=== PATIENT | male | born 1970 | race Caucasian/White ===

== ENCOUNTER 2018-02-04 19:34 | Inpatient (IN) ==
[2018-02-04] MEDS ORDERED: Morphine Inj 4 MG/ML Vial ONE (19:41)
--- NOTE | 2018-02-04 19:58 | ED ---
HPI General Stated Complaint: Trauma Alert Time Seen by Provider: 02/04/18 19:54 Source: patient Mode of arrival: other ([employer]) Limitations: language barrier ([place] and Swedish speaking) History of Present Illness HPI narrative: The patient is a reportedly 47 year old male who presents to the [facility] emergency department with a history of being 20 foot up in a tree prior to arrival when he fell out. The patient was reportedly hunting. The patient is unsure how he fell. The patient reports that he believes that he did have a loss of consciousness, however it was brief. The patient reports having neck pain, weakness to his upper extremities, numbness to his upper extremities, and chest pain. He denies having any shortness of breath. The patient denies having any abdominal pain. On review of systems otherwise, the patient denies having any headache, vomiting, numbness or tingling to his lower extremities, or weakness of his lower extremities. Related Data Allergies Allergy/AdvReac Type Severity Reaction Status Date / Time Penicillins Allergy unknown Verified 02/04/18 20:07 Review of Systems ROS: all other systems reviewed are negative PMFSH History History Provided By: Patient Medical History Medical History Atrial fibrillation (Acute) Hypertension (Acute) Surgical History Surgical History H/O knee surgery (Acute) Social History Social History Substance History: No History of Abuse Smoking Status: Never smoker How Often Do You Have a Drink Containing Alcohol: Never Exam Narrative Exam Narrative: General: The patient is a well-developed well-nourished male, uncomfortable appearing on arrival reporting severe neck pain. The patient is brought in on a back board in full c-spine immobilization by emergency services. Head and Neck exam: Head is normocephalic atraumatic. No facial bone tenderness or increased facial bone mobility noted on palpation. Eyes: EOMI, pupils are equal round and reactive to light. Nose: Midline septum with pink mucous membranes Mouth: Dentition unremarkable. Moist mucus membranes. Posterior oropharynx is not erythematous. No tonsillar hypertrophy. Uvula midline. Airway patent. Neck: The patient is immobilized in a cervical collar. No tracheal deviation. The trachea appears midline. Cardiovascular: Regular rate and rhythm without murmurs, gallops, or rubs. No pulse deficit to the extremities. Lungs: Clear to auscultation bilaterally. No wheezes, rhonchi, or rales. No chest wall tenderness to palpation. No erythema or ecchymosis noted. No crepitus , step off, or flail segment noted. Abdomen: Soft, without tenderness to palpation in all 4 quadrants of the abdomen. No guarding, rebound, or rigidity. No erythema or ecchymosis noted. Extremities: No instability or pain noted on pelvic rock. No clubbing, cyanosis , or edema. 2+ pulses in all 4 extremities. No extremity tenderness or deformity noted on palpation or passive/ active range of motion. Back: The patient was log rolled off of the back board. No spinous process tenderness to palpation. No stepoff or crepitus noted. No costovertebral angle tenderness to palpation. No erythema or ecchymosis. Neurologic Exam: Cranial nerves 2-12 were intact on exam. The patient has strength that is 4/5 in bilateral upper extremities, 5/5 in bilateral lower extremities. The patient reports having tingling sensations in glove distribution bilateral upper extremities. No other numbness or tingling on dermatomal testing. Skin Exam: No rash noted. Intact skin that is warm and dry. Course Consultations Consultation #1: The patient's case including history, pertinent physical examination findings, and laboratory studies were discussed with Dr. Andrews, the neurosurgeon. He requested that the patient have an MRI of the cervical spine without contrast. He is coming in to evaluate the patient. Time: 19:58 Initial Documented Vital Signs Pulse Oximetry 100 02/04/18 19:40 Last Documented Vital Signs Temperature 98.2 F 02/05/18 04:00 Pulse Rate 66 02/05/18 05:00 Respiratory Rate 16 02/05/18 05:00 Blood Pressure 92/54 L 02/05/18 05:00 Pulse Oximetry 100 02/05/18 05:00 Quality Measure Queries Trauma Alert - Level One Trauma Alert Level One: Full trauma team activation, Patient evaluated and Trauma surgeon summoned Time Surgeon Summoned: 19:18 Medical Decision Making MDM Narrative Medical decision making narrative: During the course of the patient's emergency department visit, the patient's history, examination, and differential diagnosis were reviewed with the patient. The patient was placed on a clerk operator with oximetry and frequent blood pressure monitoring. The patient had IV access obtained and blood work sent for analysis. A diagnostic evaluation was started regarding this patient's fall from a tree. The trauma surgeon, Dr. Jones was available at the bedside to assist with care. The patient was initially provided an update of his tetanus, Ancef 2 g IV, normal saline 1 L IV fluid bolus. Patient's chest x-ray in the trauma bay showed no acute abnormality, pelvis x- ray in the trauma bay showed no acute abnormality. The patient's i-STAT with creatinine is remarkable for a hemoglobin of 13.9, creatinine 1.0. The patient was accompanied to CT by Dr. Jones who assumed care of the patient. I also accompanied the patient. The patient CT scan of the brain showed no acute abnormality. CT scan of the C-spine showed an abnormality involving C5-C6. A call was placed out to the neurosurgeon by me. I spoke to Dr. Andrews. He requested that an MRI of the cervical spine without contrast be ordered. He is coming in to evaluate the patient. Dr. Andrews arrived to evaluate the patient. We did discuss the fact that the patient reported being on a blood thinner for atrial fibrillation, however his coagulation profile is within normal limits. He did request that the patient be given a prothrombin concentrate in preparation for be taken to the OR. Prior to this being done, the patient's case was again discussed with the patient's trauma surgeon, Dr. Jones. He explained that he did discuss the patient's medical history with the patient's and she reports that he is not on any blood thinners. The patient's results were discussed with the patient, including the plan of care. I explained that further testing and/ or monitoring is indicated based on the patient's history, examination, and/ or laboratory findings. Therefore, I recommended admission for additional evaluation. The patient expressed understanding and was agreeable with this plan. The patient was admitted to the hospital in critical condition and sent to a bed under the care of the trauma service. Medical Screen Exam Complete: Yes Emergency Medical Condition: Yes Differential Diagnosis Differential Diagnosis: Intracranial trauma, versus cervical spine trauma, versus intrathoracic injury, versus intra-abdominal injury, versus pelvis injury , versus T spine injury, versus L spine injury Medical Records Medical records reviewed: Yes I reviewed the patient's medical records. Lab Data Lab results reviewed: Yes I reviewed the patient's lab results. Result diagrams: 02/05/18 03:47 02/05/18 03:47 Lab Results 02/04/18 02/04/18 02/04/18 Range/Units 19:38 19:38 19:38 WBC 7.2 (4.0-11.0) th/mm3 RBC 4.87 (4.50-5.90) mil/mm3 Hgb 14.5 (13.0-17.0) gm/dL POC Hgb (Calc) 13.9 (13.0-17.0) g/dL Hct 43.6 (39.0-51.0) % POC Hct 41.0 (39-51.0) % MCV 89.6 (80.0-100.0) fL MCH 29.8 (27.0-34.0) pg MCHC 33.3 (32.0-36.0) % RDW 13.1 (11.6-17.2) % Plt Count 126 L (150-450) th/mm3 MPV 9.3 (7.0-11.0) fL Neut % (Auto) 67.9 (16.0-70.0) % Lymph % (Auto) 23.2 (9.0-44.0) % Jenkins % (Auto) 5.3 (0.0-8.0) % Eos % (Auto) 2.9 (0.0-4.0) % Baso % (Auto) 0.7 (0.0-2.0) % Neut # (Auto) 4.9 (1.8-7.7) th/mm3 Lymph # (Auto) 1.7 (1.0-4.8) th/mm3 Jenkins # (Auto) 0.4 (0.0-0.9) th/mm3 Eos # (Auto) 0.2 (0.0-0.4) th/mm3 Baso # (Auto) 0.0 (0.0-0.2) th/mm3 WBC Differential . Differential Comment Auto diff final PT 10.4 (9.8-11.6) sec INR 1.0 Ratio APTT 25.6 (23.4-31.7) sec Fibrinogen (227-377) mg/dL POC Sodium 142 (137-144) mmol/L Sodium (136-145) meq/L POC Potassium 4.0 (3.6-5.0) mmol/L Potassium (3.5-5.1) meq/L POC Chloride 105 (102-111) mmol/L Chloride (98-107) meq/L Carbon Dioxide (21.0-32.0) meq/L Anion Gap (5-15) meq/L POC BUN 20 (5-21) mg/dL BUN (7-18) mg/dL Creatinine (0.60-1.30) mg/dL POC Creatinine 1.0 (0.6-1.3) mg/dL Estimated GFR (>89) mL/min POC Glucose 113 H (68-110) mg/dL Random Glucose (74-106) mg/dL Calcium (8.5-10.1) mg/dL Total Bilirubin (0.2-1.0) mg/dL AST (15-37) U/L ALT (12-78) U/L Alkaline Phosphatase (45-117) U/L Total Protein (6.4-8.2) g/dL Albumin (3.4-5.0) g/dL Nasal Screen MRSA (PCR) (Negative) Serum Alcohol (0-5) mg/dL Blood Type Antibody Screen 02/04/18 02/04/18 02/04/18 Range/Units 19:38 19:38 19:38 WBC (4.0-11.0) th/mm3 RBC (4.50-5.90) mil/mm3 Hgb (13.0-17.0) gm/dL POC Hgb (Calc) (13.0-17.0) g/dL Hct (39.0-51.0) % POC Hct (39-51.0) % MCV (80.0-100.0) fL MCH (27.0-34.0) pg MCHC (32.0-36.0) % RDW (11.6-17.2) % Plt Count (150-450) th/mm3 MPV (7.0-11.0) fL Neut % (Auto) (16.0-70.0) % Lymph % (Auto) (9.0-44.0) % Jenkins % (Auto) (0.0-8.0) % Eos % (Auto) (0.0-4.0) % Baso % (Auto) (0.0-2.0) % Neut # (Auto) (1.8-7.7) th/mm3 Lymph # (Auto) (1.0-4.8) th/mm3 Jenkins # (Auto) (0.0-0.9) th/mm3 Eos # (Auto) (0.0-0.4) th/mm3 Baso # (Auto) (0.0-0.2) th/mm3 WBC Differential Differential Comment PT (9.8-11.6) sec INR Ratio APTT (23.4-31.7) sec Fibrinogen 247 (227-377) mg/dL POC Sodium (137-144) mmol/L Sodium (136-145) meq/L POC Potassium (3.6-5.0) mmol/L Potassium (3.5-5.1) meq/L POC Chloride (102-111) mmol/L Chloride (98-107) meq/L Carbon Dioxide (21.0-32.0) meq/L Anion Gap (5-15) meq/L POC BUN (5-21) mg/dL BUN (7-18) mg/dL Creatinine (0.60-1.30) mg/dL POC Creatinine (0.6-1.3) mg/dL Estimated GFR (>89) mL/min POC Glucose (68-110) mg/dL Random Glucose (74-106) mg/dL Calcium (8.5-10.1) mg/dL Total Bilirubin (0.2-1.0) mg/dL AST (15-37) U/L ALT (12-78) U/L Alkaline Phosphatase (45-117) U/L Total Protein (6.4-8.2) g/dL Albumin (3.4-5.0) g/dL Nasal Screen MRSA (PCR) (Negative) Serum Alcohol Less than 3 (0-5) mg/dL Blood Type O Positive Antibody Screen Negative 02/04/18 02/05/18 02/05/18 Range/Units 20:45 03:47 03:47 WBC 12.1 H D (4.0-11.0) th/mm3 RBC 4.48 L (4.50-5.90) mil/mm3 Hgb 13.4 (13.0-17.0) gm/dL POC Hgb (Calc) (13.0-17.0) g/dL Hct 40.2 (39.0-51.0) % POC Hct (39-51.0) % MCV 89.6 (80.0-100.0) fL MCH 29.8 (27.0-34.0) pg MCHC 33.3 (32.0-36.0) % RDW 13.2 (11.6-17.2) % Plt Count 118 L (150-450) th/mm3 MPV 9.4 (7.0-11.0) fL Neut % (Auto) 88.6 H (16.0-70.0) % Lymph % (Auto) 8.1 L (9.0-44.0) % Jenkins % (Auto) 3.1 (0.0-8.0) % Eos % (Auto) 0.0 (0.0-4.0) % Baso % (Auto) 0.2 (0.0-2.0) % Neut # (Auto) 10.7 H (1.8-7.7) th/mm3 Lymph # (Auto) 1.0 (1.0-4.8) th/mm3 Jenkins # (Auto) 0.4 (0.0-0.9) th/mm3 Eos # (Auto) 0.0 (0.0-0.4) th/mm3 Baso # (Auto) 0.0 (0.0-0.2) th/mm3 WBC Differential . Differential Comment Auto diff final PT (9.8-11.6) sec INR Ratio APTT (23.4-31.7) sec Fibrinogen (227-377) mg/dL POC Sodium (137-144) mmol/L Sodium 142 (136-145) meq/L POC Potassium (3.6-5.0) mmol/L Potassium 4.2 (3.5-5.1) meq/L POC Chloride (102-111) mmol/L Chloride 109 H (98-107) meq/L Carbon Dioxide 27.9 (21.0-32.0) meq/L Anion Gap 5 (5-15) meq/L POC BUN (5-21) mg/dL BUN 19 H (7-18) mg/dL Creatinine 0.81 (0.60-1.30) mg/dL POC Creatinine (0.6-1.3) mg/dL Estimated GFR 82 L (>89) mL/min POC Glucose (68-110) mg/dL Random Glucose 136 H (74-106) mg/dL Calcium 8.1 L (8.5-10.1) mg/dL Total Bilirubin 0.7 (0.2-1.0) mg/dL AST 118 H (15-37) U/L ALT 63 (12-78) U/L Alkaline Phosphatase 70 (45-117) U/L Total Protein 6.1 L (6.4-8.2) g/dL Albumin 3.3 L (3.4-5.0) g/dL Nasal Screen MRSA (PCR) Not detected (Negative) Serum Alcohol (0-5) mg/dL Blood Type Antibody Screen Imaging Data Radiologist's impression: Chest X-Ray 02/04/18 19:38 CONCLUSION: The lungs are clear. Pelvis X-Ray 02/04/18 19:38 CONCLUSION: The bony pelvic ring is grossly intact. Abdomen/Pelvis CT 02/04/18 19:39 CONCLUSION: 1. 3.8 cm low-density lesion in the dome of the liver is nonspecific in appearance. This could represent a parenchymal laceration/hematoma or possibly cavernous hemangioma. No contour abnormality about the liver and no free fluid in the abdomen. Once the patient is stabilized, may consider elective evaluation either with multiphasic MRI or dynamic tagged red blood cell scan. Chest CT 02/04/18 19:39 CONCLUSION: 1. Mildly displaced fractures of the mid and inferior sternum. 2. No evidence of pneumothorax. Cervical Spine CT 02/04/18 19:40 CONCLUSION: 1. Gross distortion of the spinal canal at the C5-6 level due to bilateral locked facets causing anterior dislocation of the C5 vertebral body. No vertebral body fracture seen. Head CT 02/04/18 19:40 CONCLUSION: 1. No acute findings in the brain. . Lumbar Spine CT 02/04/18 19:40 CONCLUSION: 1. No evidence of fracture, spondylolisthesis, or significant epidural impression. Thoracic Spine CT 02/04/18 19:40 CONCLUSION: 1. Negative CT of the thoracic spine without evidence of fracture or spondylolisthesis. Cervical Spine MRI 02/04/18 20:01 CONCLUSION: 1. There is minimal T2 prolongation within the substance of the cervical cord at the C5 level, but no evidence of cord transection. No epidural hematoma seen. 2. 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 3. Small central disc protrusion at C4-5 without indentation on the cord or lateral extension. Discharge Plan Discharge Disposition Patient Disposition: 30 Still Patient Discharge Details Diagnosis: Acute traumatic injury of cervical spine Physicians Team ED Provider: Siri Aldana Attending Provider: Jorge Jones Other Providers: Wyatt Andrews ; Rolf Carmen ; Bennie Valdez ; [employer] ; Pérez Méndez ; Bernadine Crook F ; Jorge Jones ; Teresita Hansen ; Radu Beaulieu ; Elisa Burnham Status ED Status: Admitted Patient
[2018-02-04 19:59] LABS: Baso % (Auto) 0.7 % (0.0-2.0); Eos # (Auto) 0.2 th/mm3 (0.0-0.4); Eos % (Auto) 2.9 % (0.0-4.0); Hematocrit 43.6 % (39.0-51.0); Hemoglobin 14.5 gm/dL (13.0-17.0); Lymph # (Auto) 1.7 th/mm3 (1.0-4.8); Lymph % (Auto) 23.2 % (9.0-44.0); Mean Corpuscular HGB Conc 33.3 % (32.0-36.0); Mean Corpuscular Hemoglobin 29.8 pg (27.0-34.0); Mean Corpuscular Volume 89.6 fL (80.0-100.0); Mean Platelet Volume 9.3 fL (7.0-11.0); Mono # (Auto) 0.4 th/mm3 (0.0-0.9); Mono % (Auto) 5.3 % (0.0-8.0); Neut # (Auto) 4.9 th/mm3 (1.8-7.7); Neut % (Auto) 67.9 % (16.0-70.0); Platelet Count 126 th/mm3 (150-450); Red Blood Count 4.87 mil/mm3 (4.50-5.90); Red Cell Distribution Width 13.1 % (11.6-17.2); White Blood Count 7.2 th/mm3 (4.0-11.0)
--- NOTE | 2018-02-04 20:03 | CT ---
EXAM DATE: 02/04/2018 7:56 PM EST AGE/SEX: 89 years / Male INDICATIONS: Trauma; patient fell from 20 feet. CLINICAL DATA: This is the patient's initial encounter. Patient reports that signs and symptoms have been present for 1 day and indicates a pain score of Nonresponsive. MEDICAL/SURGICAL HISTORY: None. None. RADIATION DOSE: 19.26 CTDI (mGy) COMPARISON: No prior exams available for comparison. TECHNIQUE: Contiguous axial images were obtained using helical multirow detector technique. The vol umetric data was post-processed with multiplanar reconstruction in oblique axial, sagittal, and coron al planes. Using automated exposure control and adjustment of the mA and/or kV according to patient s ize, radiation dose was kept as low as reasonably achievable to obtain optimal diagnostic quality conner ges. DICOM format image data is available electronically for review and comparison. FINDINGS: The examination is abnormal demonstrating disruption of the C5-6 level with 8 mm anterior dislocatio n of C5 with respect to C6 and locked facets bilaterally. There is also mild superior articular facet fracture on the left. No compression deformities seen and no vertebral body fractures. CONCLUSION: 1. Gross distortion of the spinal canal at the C5-6 level due to bilateral locked facets causing ant erior dislocation of the C5 vertebral body. No vertebral body fracture seen. Electronically signed by: Maxwell Story MD 02/04/2018 8:01 PM EST
--- NOTE | 2018-02-04 20:04 | CT ---
EXAM DATE: 02/04/2018 7:53 PM EST AGE/SEX: 89 years / Male INDICATIONS: Trauma; fall from 20 feet. CLINICAL DATA: This is the patient's initial encounter. Patient reports that signs and symptoms have been present for 1 day and indicates a pain score of Nonresponsive. MEDICAL/SURGICAL HISTORY: None. None. RADIATION DOSE: 56.35 CTDI (mGy) COMPARISON: No prior exams available for comparison. TECHNIQUE: CT of the head without contrast. Using automated exposure control and adjustment of the mA and/or kV according to patient size, radiation dose was kept as low as reasonably achievable to ob tain optimal diagnostic quality images. DICOM format image data is available electronically for revi ew and comparison. FINDINGS: Cerebrum: The ventricles are normal for age. No evidence of midline shift, mass lesion, hemorrhage or acute infarction. No extraaxial fluid collections are seen. Posterior Fossa: The cerebellum and brainstem are intact. The 4th ventricle is midline. The cerebe llopontine angle is unremarkable. Extracranial: The visualized portion of the orbits is intact. Skull: The calvaria is intact. No evidence of skull fracture. CONCLUSION: 1. No acute findings in the brain. . Electronically signed by: Maxwell Story MD 02/04/2018 8:02 PM EST
--- NOTE | 2018-02-04 20:04 | XR ---
EXAM DATE: 02/04/2018 7:50 PM EST AGE/SEX: 89 years / Male INDICATIONS: Trauma alert. Fall from 40 feet. CLINICAL DATA: This is the patient's initial encounter. Patient reports that signs and symptoms have been present for 1 day and indicates a pain score of Nonresponsive. MEDICAL/SURGICAL HISTORY: Non-responsive. Non-responsive. COMPARISON: . FINDINGS: Frontal view of the chest on a trauma backboard demonstrates the lungs to be symmetrically aerated. N o evidence of mediastinal shift. The osseous structures are grossly intact. CONCLUSION: The lungs are clear. Electronically signed by: Maxwell Story MD 02/04/2018 8:03 PM EST
--- NOTE | 2018-02-04 20:05 | XR ---
EXAM DATE: 02/04/2018 7:51 PM EST AGE/SEX: 89 years / Male INDICATIONS: Trauma alert. Fall from 40 feet. CLINICAL DATA: This is the patient's initial encounter. Patient reports that signs and symptoms have been present for 1 day and indicates a pain score of Nonresponsive. MEDICAL/SURGICAL HISTORY: Non-responsive. Non-responsive. COMPARISON: No prior exams available for comparison. FINDINGS: Frontal view of the pelvis performed on a trauma backboard does not include the superior aspect of th e iliac wings. The bony pelvic ring is grossly intact. No fracture seen. No radiopaque foreign bodies . CONCLUSION: The bony pelvic ring is grossly intact. Electronically signed by: Maxwell Story MD 02/04/2018 8:03 PM EST
[2018-02-04 20:13] LABS: Activated Partial Thrombo Time 25.6 sec (23.4-31.7); Prothrombin Time 10.4 sec (9.8-11.6)
--- NOTE | 2018-02-04 20:19 | CT ---
EXAM DATE: 02/04/2018 8:10 PM EST AGE/SEX: 89 years / Male INDICATIONS: Trauma; patient fell from 20 feet. CLINICAL DATA: This is the patient's initial encounter. Patient reports that signs and symptoms have been present for 1 day and indicates a pain score of Nonresponsive. MEDICAL/SURGICAL HISTORY: None. None. RADIATION DOSE: 10.49 CTDI (mGy) ; Combined studies COMPARISON: No prior exams available for comparison. TECHNIQUE: Multiple contiguous axial images were obtained through the chest during bolus infusion of 98 ml Omnipaque 350 (iohexol) nonionic water-soluble contrast as a cumulative dose for multiple exa ms. Images were obtained in suspended respiration using multiple row detector helical technique. U sing automated exposure control and adjustment of the mA and/or kV according to patient size, radiati on dose was kept as low as reasonably achievable to obtain optimal diagnostic quality images. DICOM format image data is available electronically for review and comparison. FINDINGS: Lungs: The lungs are symmetrically aerated with mild atelectasis in the dependent lungs. No evidence of pneumothorax. Mediastinum: There is good visualization of the great vessels of the middle mediastinum. No evidenc e of mediastinal or hilar adenopathy/mass. Pleurae: No evidence of focal thickening or pleural effusion. Axillae: Unremarkable. Bony Structures: Mildly displaced and mildly comminuted fracture of the mid body of the sternum. Onl y minimal soft tissue thickening of the substernal tissues. CONCLUSION: 1. Mildly displaced fractures of the mid and inferior sternum. 2. No evidence of pneumothorax. Electronically signed by: Maxwell Story MD 02/04/2018 8:18 PM EST
--- NOTE | 2018-02-04 20:24 | CT ---
EXAM DATE: 02/04/2018 8:15 PM EST AGE/SEX: 89 years / Male INDICATIONS: Trauma; patient fell from 20 feet. CLINICAL DATA: This is the patient's initial encounter. Patient reports that signs and symptoms have been present for 1 day and indicates a pain score of Nonresponsive. MEDICAL/SURGICAL HISTORY: None. None. ORAL CONTRAST: No oral contrast ingested. RADIATION DOSE: 10.49 CTDI (mGy) COMPARISON: No prior exams available for comparison. TECHNIQUE: Multiple contiguous axial images were obtained through the abdomen and pelvis following b olus infusion of 98 ml Omnipaque 350 (iohexol) nonionic water-soluble contrast as a cumulative dose for multiple exams. No oral contrast ingested. Using automated exposure control and adjustment of t he mA and/or kV according to patient size, radiation dose was kept as low as reasonably achievable to obtain optimal diagnostic quality images. DICOM format image data is available electronically for r eview and comparison. FINDINGS: Liver: There is a 3.8 cm lobular hypodense lesion in the dome of the liver which contains some centra l areas of intermediate density. No calcifications. No contour abnormality of the dome of the liver. There is a 4 mm cyst in the anterior segment of the right lobe the liver. No perihepatic fluid. No ca lcified gallstones. Spleen: Homogeneous density without enlargement. Pancreas: Unremarkable without mass or calcification. Kidneys: Normal in size and shape. No evidence of mass or hydronephrosis. Adrenal Glands: Unremarkable. Aorta: The aorta and proximal iliac vessels are grossly unremarkable without aneurysmal dilation. Bowel/Mesentery: No dilated loops of small or large bowel. No evidence of free fluid. Abdominal Wall: Intact. Retroperitoneum: No evidence of adenopathy in the retrocrural, para-aortic, or deep pelvic regions. Bladder: Contours are smooth. Reproductive Organs: No abnormal masses or calcifications seen. Inguinal: The inguinal region is unremarkable without evidence of adenopathy. Bony Structures: No fracture seen. CONCLUSION: 1. 3.8 cm low-density lesion in the dome of the liver is nonspecific in appearance. This could repre sent a parenchymal laceration/hematoma or possibly cavernous hemangioma. No contour abnormality about the liver and no free fluid in the abdomen. Once the patient is stabilized, may consider elective ev aluation either with multiphasic MRI or dynamic tagged red blood cell scan. Electronically signed by: Maxwell Story MD 02/04/2018 8:23 PM EST
--- NOTE | 2018-02-04 20:44 | CT ---
EXAM DATE: 02/04/2018 8:20 PM EST AGE/SEX: 89 years / Male INDICATIONS: Trauma; patient fell from 20 feet. CLINICAL DATA: This is the patient's initial encounter. Patient reports that signs and symptoms have been present for 1 day and indicates a pain score of Nonresponsive. MEDICAL/SURGICAL HISTORY: None. None. RADIATION DOSE: 10.49 CTDI (mGy) ; Combined studies COMPARISON: No prior exams available for comparison. TECHNIQUE: Contiguous axial images were acquired using a multirow detector CT scanner after intraven ous administration of 98 ml Omnipaque 350 (iohexol) nonionic water-soluble contrast as a cumulative dose for multiple exams. Multiplanar reconstruction in the sagittal and coronal planes was performe d. Using automated exposure control and adjustment of the mA and/or kV according to patient size, ra diation dose was kept as low as reasonably achievable to obtain optimal diagnostic quality images. D ICOM format image data is available electronically for review and comparison. FINDINGS: There is normal alignment of the vertebral bodies of the thoracic spine and preservation of vertebral body height. In frontal projection, there is minimal curvature of the midthoracic spine convex towar ds the left. No fracture seen. CONCLUSION: 1. Negative CT of the thoracic spine without evidence of fracture or spondylolisthesis. Electronically signed by: Maxwell Story MD 02/04/2018 8:43 PM EST
--- NOTE | 2018-02-04 20:46 | CT ---
EXAM DATE: 02/04/2018 8:25 PM EST AGE/SEX: 89 years / Male INDICATIONS: Trauma alert, fall today. CLINICAL DATA: This is the patient's initial encounter. Patient reports that signs and symptoms have been present for 1 day and indicates a pain score of Nonresponsive. MEDICAL/SURGICAL HISTORY: Non-responsive. Non-responsive. RADIATION DOSE: . CTDI (mGy) ; Reconstructed from previous dataset, no dose COMPARISON: No prior exams available for comparison. TECHNIQUE: Contiguous axial images were acquired with a multirow detector CT scanner after intraveno us administration of 98 ml Omnipaque 350 (iohexol) nonionic water-soluble contrast as a single exam dose. Multiplanar reconstructions in the sagittal and coronal plane were also performed. Using autom ated exposure control and adjustment of the mA and/or kV according to patient size, radiation dose wa s kept as low as reasonably achievable to obtain optimal diagnostic quality images. DICOM format conner data is available electronically for review and comparison. FINDINGS: There is normal alignment of the vertebral bodies of the lumbar spine and preservation of vertebral b biren height. The posterior elements are in normal alignment. The pedicles and transverse processes are intact. Impression seen. No fractures seen. CONCLUSION: 1. No evidence of fracture, spondylolisthesis, or significant epidural impression. Electronically signed by: Maxwell Story MD 02/04/2018 8:45 PM EST
--- NOTE | 2018-02-04 20:56 | MR ---
EXAM DATE: 02/04/2018 8:28 PM EST AGE/SEX: 89 years / Male INDICATIONS: Trauma. Cervical spine fracture. CLINICAL DATA: This is the patient's initial encounter. Patient reports that signs and symptoms have been present for 1 day and indicates a pain score of 5/10. MEDICAL/SURGICAL HISTORY: None. . Hip surgery. COMPARISON: No prior exams available for comparison. TECHNIQUE: Multiplanar, multisequence MRI examination of the cervical spine was performed without co ntrast. FINDINGS: Trauma CT demonstrated bilateral locked facets at C5-6 and 8mm anterior displacement of the C5 verteb ral body with respect to C6. On the MR, there is deviation of the cervical cord at the C5-6 level wit hout evidence of transection of the cord. There is some minimal faint T2 prolongation within the subs tance of the cord at the C5 level suggesting contusion. There is also mild enlargement of the cord at the C5 level. No epidural hematoma seen. Signal in the vertebral bodies is homogeneous and no compre ssion deformities seen. There is T2 prolongation in the soft tissues posterior to the C3-C6 level sug gesting ligamentous disruption. Bilateral locked facets at C5-6 with normal pattern of signal within the marrow of the facets. The visualized posterior fossa structures are intact. C2-C3: The thecal sac has a normal configuration. There is no evidence of disc herniation or spinal canal stenosis. The neural foramina are patent bilaterally. C3-C4: The thecal sac has a normal configuration. There is no evidence of disc herniation or spinal canal stenosis. The neural foramina are patent bilaterally. C4-C5: There is a small central protrusion of the disc which indents on the thecal sac and measures 2 mm in AP dimension. No lateral extension. The neural foramen are patent. C5-C6: Level of the anterior dislocation. There is absent CSF about the cervical cord and bilateral neural foraminal narrowing. C6-C7: The thecal sac has a normal configuration. There is no evidence of disc herniation or spinal canal stenosis. The neural foramina are patent bilaterally. C7-T1: No epidural impressions seen. CONCLUSION: 1. There is minimal T2 prolongation within the substance of the cervical cord at the C5 level, but n o evidence of cord transection. No epidural hematoma seen. 2. Bilateral locked facets at C5-6 and 8mm anterior displacement of the C5 vertebral body with respe ct to C6. 3. Small central disc protrusion at C4-5 without indentation on the cord or lateral extension. Electronically signed by: Maxwell Story MD 02/04/2018 8:55 PM EST
[2018-02-04] MEDS: Docusate Sodium 100 MG Capsule PO SCH (21:24)
[2018-02-04] MEDS: Sod Chloride 0.9% Inj 1,000 ML IV.CONT SCH (21:24)
--- NOTE | 2018-02-04 21:26 | P.CONNS ---
History of Present Illness Service[place] Chief Complaint: neck pain, left arm numbness, bilateral hand weakness L > R History of Present Illness: 48'syoM who fell 40ft from a tree stand. Had severe neck pain, endorses hand weakness bilaterally and left arm numbness. Imaging shows C5/6 bilateral jumped facet. MRI obtained. Full strength in lower extremities and proximal upper extremities. Intact sensation througout. Has also sternal fracture. Son apparently jumped down from another tree stand to help and has some rib fractures as another trauma alert. Not on any blood thinners in speaking with (coags normal). Had a knee surgery recently. REPLACED BY [facility] - History History Provided By: Patient - Medical History Medical History: Medical History (Last Updated 02/04/18 @ 20:08 by Siri Aldana MD) Atrial fibrillation Hypertension - Surgical History Surgical History: Surgical History (Last Updated 02/04/18 @ 20:08 by Siri Aldana MD) H/O knee surgery Medications and Allergies Active Medications: Active Medications Al Hydroxide/Mg Hydroxide (Milk Of Nadia Isaac) 30 ml PO BID ANTOINETTE Chlorhexidine Gluconate (Chlorhexidine 2% Cloth) 3 pack TOPICAL DAILY@0400 ANTOINETTE Stop: 02/10/18 03:59 Chlorhexidine Gluconate (Chlorhexidine 2% Cloth) 3 pack TOPICAL DAILY@0400 PRN PRN Reason: Extra cloth needed Stop: 02/10/18 03:59 Docusate Sodium (Colace) 100 mg PO BID ANTOINETTE Enalaprilat (Vasotec Inj) 1.25 mg IV.PUSH Q8H PRN PRN Reason: Blood pressure 180/95 Hydromorphone HCl (Dilaudid Pf Inj) 1 mg IV.PUSH Q1H PRN PRN Reason: Break through pain Sodium Chloride (Ns Inj) 1,000 mls @ 100 mls/hr IV.CONT .Q10H [facility] Multivitamins 10 ml/ Thiamine HCl 100 mg/ Folic Acid 1 mg/Sodium Chloride 511.2 mls @ 125 mls/hr IV.SIG Q24H [facility] Stop: 02/07/18 01:06 Lidocaine HCl (Lidoderm 5% Patch.12 Hr) 1 patch T-DERMAL DAILY [facility] Methocarbamol (Robaxin) 500 mg PO Q8HR ANTOINETTE Ondansetron HCl (Zofran Inj) 4 mg IV.PUSH Q6H PRN PRN Reason: NAUSEA OR VOMITING Last Admin: 02/04/18 19:43 Dose: 4 mg Oxycodone HCl (Roxicodone) 5 mg PO Q4H PRN PRN Reason: pain > 3 Pantoprazole Sodium (Protonix Inj) 40 mg IV.PUSH Q24H ANTOINETTE Patch Removal (Remove Old Patch) 1 each T-DERMAL HS ANTOINETTE Sodium Chloride (Ns Flush) 2 ml IV.FLUSH UNSCH PRN PRN Reason: FLUSH AFTER USING IV ACCESS Allergies Allergy/AdvReac Type Severity Reaction Status Date / Time Penicillins Allergy unknown Verified 02/04/18 20:07 Exam Vital signs: Vital Signs 02/04/18 19:40 Pulse Oximetry 100 Narrative: A&O x 3 -- comoran speaking Full strength bilateral LE and proximal UE (delt, biceps, triceps) Hand intrinsics grade 2, left arm is painful to move and he endorses numbness here Neck pain Results - Laboratory Findings CBC and BMP: 02/04/18 19:38 Abnormal lab findings: Abnormal Labs 02/04/18 02/04/18 19:38 19:38 Plt Count 126 L POC Glucose 113 H - Diagnostic Findings Additional findings: CT C-spine as above - C5/6 bilateral jumped facets MRI C-spine misaligned-- cord signal change at these levels. No obvious disc herniation Assessment and Plan - Plan 48'syoM with C5/6 bilateral jumped facet, central cord syndrome. Plan for OR reduction first available. D/w Dr. Lopez who will assume the case in the AM and tentatively booked for 8am. Patient is NOT on blood thinners per (no prescription meds). Goal MAP > 80 overnight (he is maintaining on his own). [place] J collar. Consented for posterior cervical decompression and fusion, monitoring, Cognitive Kinetics, fluoro.
[2018-02-04] MEDS: Pantoprazole Inj 40 MG Vial IV.PUSH SCH (21:35)
[2018-02-04] MEDS: Methocarbamol 500 MG Tablet PO SCH ×2 (21:36→21:37)
[2018-02-04] MEDS: HYDROmorphone PF Inj 1 MG/ML Ampul IV.PUSH PRN (21:39)
[2018-02-04] MEDS: Multivitamin Inj 10 ML, Thiamine Inj 100 MG, Folic Acid Inj 1 MG in Sodium Chlor 0.9% I... IV.SIG SCH (22:27)
--- NOTE | 2018-02-04 22:41 | P.PNCC ---
Subjective Brief History: The patient is a 47-year-old male who presented status post fall from a tree stand, approximately 10 feet. The patient was somewhat amnestic to events with mild confusion, following commands, and noted to be out hunting and lost footing, fell from a tree stand with positive LOC. The patient noted to be tachycardic in the 130s in the field with a normal blood pressure. He had decreased movement to bilateral upper extremities and numbness and left leg numbness. When came in the trauma bay, he was noted to be hemodynamically stable, answering intermittently. Patient was resuscitated according trauma principles primary and secondary survey resuscitation definitive care carried out and patient undergoes full diagnostic workup including CT scan and MRI prior to coming to ICU In ICU, patient has decreased motion in the left arm and the left leg. Injuries detected C5 - C6 bilateral locked facets Left arm and leg weakness with paresthesias MRI confirmed spinal cord altered signal however no indication of spinal cord transection Sternal fracture Should also be noted that patient has had atrial fibrillation in the past and was placed on some blood thinner probably factor X a inhibitor for PT PTT is normal In face of the same will await till tomorrow to go ahead with a spinal surgery as per neurosurgery 24 Hour Review/Hospital Course: 02/05/2018 Patient is awake alert and oriented Weakness of the left arm and left leg is pronounced with some paresthesias in both Patient scheduled today for the anterior and eventually posterior fusion of the C-spine Patient may have permanent damage to the spinal cord and this is been clearly explained to patient and the family Hemodynamically he is stable and in sinus rhythm has been instructed to bring the home medication clearly patient must be on either calcium channel blockers beta-blockers or some other combination for his atrial fibrillation control Bilateral breath sounds good pulmonary function and pulmonary dynamics not impaired by the cervical injury Abdomen soft active bowel sounds Renal function preserved Objective Vital Signs / I&O: Vital Signs 02/04/18 19:40 02/04/18 20:45 02/04/18 21:28 Respiratory Rate 22 Pulse Oximetry 100 100 Intake & Output 02/04/18 02/04/18 02/05/18 06:59 18:59 06:59 Weight 72 kg Other: Weight On Admission 72 kg Result Diagrams: 02/05/18 03:47 02/05/18 03:47 Imaging: Impressions Chest X-Ray 02/04/18 19:38 CONCLUSION: The lungs are clear. Pelvis X-Ray 02/04/18 19:38 CONCLUSION: The bony pelvic ring is grossly intact. Abdomen/Pelvis CT 02/04/18 19:39 CONCLUSION: 1. 3.8 cm low-density lesion in the dome of the liver is nonspecific in appearance. This could represent a parenchymal laceration/hematoma or possibly cavernous hemangioma. No contour abnormality about the liver and no free fluid in the abdomen. Once the patient is stabilized, may consider elective evaluation either with multiphasic MRI or dynamic tagged red blood cell scan. Chest CT 02/04/18 19:39 CONCLUSION: 1. Mildly displaced fractures of the mid and inferior sternum. 2. No evidence of pneumothorax. Cervical Spine CT 02/04/18 19:40 CONCLUSION: 1. Gross distortion of the spinal canal at the C5-6 level due to bilateral locked facets causing anterior dislocation of the C5 vertebral body. No vertebral body fracture seen. Head CT 02/04/18 19:40 CONCLUSION: 1. No acute findings in the brain. . Lumbar Spine CT 02/04/18 19:40 CONCLUSION: 1. No evidence of fracture, spondylolisthesis, or significant epidural impression. Thoracic Spine CT 02/04/18 19:40 CONCLUSION: 1. Negative CT of the thoracic spine without evidence of fracture or spondylolisthesis. Cervical Spine MRI 02/04/18 20:01 CONCLUSION: 1. There is minimal T2 prolongation within the substance of the cervical cord at the C5 level, but no evidence of cord transection. No epidural hematoma seen. 2. 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 3. Small central disc protrusion at C4-5 without indentation on the cord or lateral extension. Disinhibition Score: 14.00 Aggression Score: 14.00 Lability Score: 14.00 Agitated Behavior Total Score: 14 - Exam BED RUBBER: Patient is awake alert and oriented Weakness of the left arm and left leg is pronounced with some paresthesias in both Patient scheduled today for the anterior and eventually posterior fusion of the C-spine Patient may have permanent damage to the spinal cord and this is been clearly explained to patient and the family Hemodynamic/Cardiac: Hemodynamically he is stable and in sinus rhythm has been instructed to bring the home medication clearly patient must be on either calcium channel blockers beta-blockers or some other combination for his atrial fibrillation control Pulmonary/Respiratory: Bilateral breath sounds good pulmonary function and pulmonary dynamics not impaired by the cervical injury Abdomen/GI Nutrition: Abdomen soft active bowel sounds Renal/I&O: Renal function preserved Assessment and Plan Attestation: Critical care 35 minutes
[2018-02-04] MEDS: METHOCARBAMOL IV.SIG SCH (23:05)
--- NOTE | 2018-02-04 23:58 | MH ---
cc: Jorge Jones MD DATE OF ADMISSION: 02/04/2018 CHIEF COMPLAINT: Fall, neck pain, trauma alert. HISTORY OF PRESENT ILLNESS: The patient is a 47-year-old male who presented status post fall from a tree stand, approximately 10 feet. The patient was somewhat amnestic to events with mild confusion, following commands, and noted to be out hunting and lost footing, fell from a tree stand with positive LOC. The patient noted to be tachycardic in the 130s in the field with a normal blood pressure. He had decreased movement to bilateral upper extremities and numbness. When came in the trauma bay, he was noted to be hemodynamically stable, answering intermittent questions partially, noted a diagnosis of questionable atrial fibrillation and on blood thinner. He had primary and secondary surveys done. A chest x-ray was negative and pelvic x-rays were negative. The patient was taken emergently to the CT scanner with findings of a C5-C6 jumped facet and a sternal fracture. He was then transported to the ICU for definitive care and management. PAST MEDICAL HISTORY: Questionable atrial fibrillation, questionable hypertension. MEDICATIONS: Questionable blood thinner. SOCIAL HISTORY: Denies smoking, ETOH or IVDA. ALLERGIES: PENICILLIN. FAMILY HISTORY: Denies coronary artery disease or diabetes. REVIEW OF SYSTEMS: A 12-point review of systems is otherwise negative, except for as above. PHYSICAL EXAMINATION: GENERAL: The patient in no acute distress. VITAL SIGNS: Temperature 98.4, pulse 130, blood pressure 130/75, saturation 99%, respirations 25. HEENT: Pupils equal, round and reactive. NECK: C-collar in place. LUNGS: Bilateral expansion. Clavicles nontender. HEART: S1, S2, regular, tachycardic. ABDOMEN: Soft, nontender, nondistended. EXTREMITIES: Warm and well perfused. NEUROLOGIC: 4/5 motor of bilateral upper extremities, decreased sensation in bilateral upper extremities. 5/5 motor in bilateral lower extremities. GCS of 15-14, answering questions. Chest x-ray and radiologic workup. LABORATORY VALUES: WBC 7.2, hemoglobin 14.5, hematocrit 43.6, platelets 126. INR is 1. Sodium 142, potassium 4, chloride 105, BUN 20, creatinine 1, glucose 113. CTs are reviewed by myself. CT head: No evidence of intracranial hemorrhage. CT C-spine: C5-C6 jumped facet, cord impingement. CT chest: No evidence of pneumothorax, small air in vessels, sternal fracture. CT abdomen and pelvis: No evidence of free air or abdominal pathology. Questionable liver hemangioma versus cyst versus hematoma. CT T and L-spines: No fracture. ASSESSMENT: The patient is a 47-year-old male, questionable atrial fibrillation, normal sinus regular, tachycardic on monitor, C5-C6 jumped facet, decreased bilateral upper extremity movement, sternal fracture. PLAN: After full workup, the patient with the above-named issues. At this point, discussed with neurosurgeon, Dr. Andrews. He will plan operative intervention. The patient needs to be maintained in a [place] J cervical collar. The patient needs to have frequent neuro checks, ICU monitoring. Manubrial fracture, we will do pain control. The patient with questionable atrial fibrillation, although further investigation, talking with , notes that the patient does not have atrial fibrillation. We will evaluate coags, which were normal. We will continue to follow for evidence of hemorrhage or bleeding and follow closely. The patient will be admitted to ICU. Close observation. Discussed with Dr. Burnham, ICU attending. MD KRISTY Valentine/bee , 11:22 PM , 11:36 PM
[2018-02-05] MEDS: HYDROmorphone PF Inj 1 MG/ML Ampul IV.PUSH PRN (02:52)
[2018-02-05] MEDS ORDERED: Chlorhexidine Gluconate 2% 1 Pack (2 Cloths) TOPICAL PRN (04:00)
[2018-02-05] MEDS ORDERED: Sodium Chlor 0.9% Inj 500 ML IV.CONT ONE ×4 (04:15→08:30)
[2018-02-05 04:20] LABS: Baso % (Auto) 0.2 % (0.0-2.0); Hematocrit 40.2 % (39.0-51.0); Hemoglobin 13.4 gm/dL (13.0-17.0); Lymph % (Auto) 8.1 % (9.0-44.0); Mean Corpuscular HGB Conc 33.3 % (32.0-36.0); Mean Corpuscular Hemoglobin 29.8 pg (27.0-34.0); Mean Corpuscular Volume 89.6 fL (80.0-100.0); Mean Platelet Volume 9.4 fL (7.0-11.0); Mono # (Auto) 0.4 th/mm3 (0.0-0.9); Mono % (Auto) 3.1 % (0.0-8.0); Neut # (Auto) 10.7 th/mm3 (1.8-7.7); Neut % (Auto) 88.6 % (16.0-70.0); Platelet Count 118 th/mm3 (150-450); Red Blood Count 4.48 mil/mm3 (4.50-5.90); Red Cell Distribution Width 13.2 % (11.6-17.2); White Blood Count 12.1 th/mm3 (4.0-11.0)
[2018-02-05] MEDS: Chlorhexidine Gluconate 2% 1 Pack (2 Cloths) TOPICAL SCH (04:44)
[2018-02-05 04:53] LABS: Albumin 3.3 g/dL (3.4-5.0); Anion Gap 5 meq/L (5-15); Aspartate Aminotransferase 118 U/L (15-37); Blood Urea Nitrogen 19 mg/dL (7-18); Calcium 8.1 mg/dL (8.5-10.1); Carbon Dioxide 27.9 meq/L (21.0-32.0); Chloride 109 meq/L (98-107); Glomerular Filtration Rate 82 mL/min (>89); Glucose,Random 136 mg/dL (74-106); Potassium 4.2 meq/L (3.5-5.1); Sodium 142 meq/L (136-145)
[2018-02-05 04:55] LABS: Alanine Aminotransferase 63 U/L (12-78)
[2018-02-05 04:57] LABS: Alkaline Phosphatase 70 U/L (45-117); Total Protein 6.1 g/dL (6.4-8.2)
[2018-02-05] MEDS ORDERED: Albumin Human 5% Inj 500 ML IV.SIG ONE (05:00)
[2018-02-05] MEDS: Sod Chloride 0.9% Inj 1,000 ML IV.CONT SCH ×3 (07:35→15:22)
[2018-02-05] MEDS: METHOCARBAMOL IV.SIG SCH ×3 (07:36→21:41)
[2018-02-05] MEDS ORDERED: Bupivacaine/Epinephrine PF Inj 0.5% 30 ML Vial ONE (07:43)
[2018-02-05] MEDS ORDERED: Thrombin Topical Soln 5,000 UNIT Vial TOPICAL ONE ×3 (07:43→10:41)
[2018-02-05] MEDS ORDERED: Gelatin Size 100 Topical Foam ONE (07:44)
[2018-02-05] MEDS ORDERED: Propofol Inj 500 MG/50 ML Vial ONE (07:53)
[2018-02-05] MEDS ORDERED: Artificial Tears Opth Oint 3.5 GM Tube ONE (08:10)
[2018-02-05] MEDS ORDERED: Succinylcholine Inj 100 MG/5 ML Syringe IV.PUSH ONE (08:30)
[2018-02-05] MEDS ORDERED: Lidocaine PF 1% Inj 5 ML Syringe OTHER ONE (08:30)
[2018-02-05] MEDS ORDERED: Glycopyrrolate Inj 1 MG/5 ML Syringe IV.PUSH ONE (08:30)
[2018-02-05] MEDS ORDERED: Sod Chloride 0.9% Inj 3,000 ML IV.CONT ONE (08:30)
[2018-02-05] MEDS ORDERED: Phenylephrine/NS 1000 MCG/10ML Syringe IV.PUSH ONE (08:30)
--- NOTE | 2018-02-05 08:30 | P.PNNS ---
Subjective Interval history: 47-year-old gentleman who presented with spinal cord injury from a C5- 6 jumped facet with subluxation and cord contusion with significant weakness in the hand intrinsics and upper extremity distally with associated numbness. He has also suffered extensive chest wall injury with comminuted sternal fracture. He was evaluated by Dr. Andrews from neurosurgery last evening and placed in a cervical collar and with plan for cervical spine open reduction of the bilateral jumped facet and fixation to be followed in a staged approach with an anterior approach. Physical Exam Vital signs: Vital Signs 02/04/18 19:40 02/04/18 20:45 02/04/18 21:14 Temperature Pulse Rate 71 Respiratory Rate 22 24 Blood Pressure Pulse Oximetry 100 100 02/04/18 21:15 02/04/18 21:20 02/04/18 21:28 Temperature Pulse Rate 73 75 Respiratory Rate 26 H 22 Blood Pressure 118/70 127/68 Pulse Oximetry 100 100 100 02/04/18 22:00 02/04/18 22:03 02/04/18 23:00 Temperature Pulse Rate 91 H 90 69 Respiratory Rate 21 22 19 Blood Pressure 102/64 Pulse Oximetry 98 98 98 02/04/18 23:03 02/05/18 00:00 02/05/18 00:03 Temperature 98.2 F Pulse Rate 64 63 62 Respiratory Rate 17 18 17 Blood Pressure 93/55 L 97/57 L Pulse Oximetry 99 100 100 02/05/18 01:00 02/05/18 01:03 02/05/18 02:00 Temperature Pulse Rate 62 62 62 Respiratory Rate 16 16 18 Blood Pressure 101/62 Pulse Oximetry 100 100 99 02/05/18 02:03 02/05/18 03:00 02/05/18 03:03 Temperature Pulse Rate 64 67 67 Respiratory Rate 18 14 15 Blood Pressure 92/55 L 94/50 L Pulse Oximetry 99 98 98 02/05/18 03:30 02/05/18 03:38 02/05/18 04:00 Temperature 98.2 F Pulse Rate 65 64 65 Respiratory Rate 14 15 14 Blood Pressure 93/50 L 92/53 L 91/50 L Pulse Oximetry 98 99 98 02/05/18 04:30 02/05/18 05:00 02/05/18 05:30 Temperature Pulse Rate 68 66 69 Respiratory Rate 14 16 18 Blood Pressure 93/51 L 92/54 L 94/54 L Pulse Oximetry 98 100 100 02/05/18 06:00 02/05/18 06:30 Temperature Pulse Rate 70 72 Respiratory Rate 18 15 Blood Pressure 93/53 L 92/50 L Pulse Oximetry 100 100 Intake & Output 02/04/18 02/05/18 02/05/18 18:59 06:59 18:59 Intake Total 511.2 / 511.2 1999 Output Total 475 / 475 Balance 36.2 / 36.2 1999 Weight 72.9 kg Intake: IV 511.2 / 511.2 1999 NS Inj 1,000 ML @ 100 mls/hr IV 1000 / 1000 .CONT .Q10H ANTOINETTE Rx#:[id number] NS Inj 500 ML @ 500 mls/hr IV. 500 / 500 CONT .Q1H ONE Rx#:[id number] Alburx 5% Inj 500 ML @ 100 mls/ 500 / 500 hr IV.SIG ONCE ONE Rx#:[id number] MVI-12 Inj 10 ML Thiamine Inj 511.2 / 511.2 100 MG Folvite Inj 1 MG In NS Inj 500 ML @ 125 mls/hr IV.SIG Q24H ANTOINETTE Rx#:[id number] Output: Urine 475 / 475 Other: # Voids 2 Weight On Admission 72 kg - Routine Neurological Exam Present: alert, CN II-XII intact, sensory deficit, motor deficit ([place]away weakness in the deltoids and biceps 4+/5, triceps 3/5 in hand intrinsics left 0/ 5 and right 2/5 with no wrist and finger extension in both hands, he has fairly good strength in the lower extremities bilaterally) Decreased sensation in the upper extremities in the forearm and hands complains of numbness bilaterally in his upper extremities Assessment and Plan - Plan 47 yoM with 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 He has a profound C5-6 subluxation with jumped facets and gross instability. Plan for posterior open cervical jumped facet reduction with stabilization and fusion and will likely require an anterior approach for an anterior/posterior stabilization given the severity and unstable nature of this injury. Discussed with patient and his at bedside at length the risks and benefits involved and they requested we proceed and gave informed consent. They understand that is a possibility that he may not improve from his spinal cord injury despite extensive rehabilitation and there is also possibility of further neurologic and pulmonary decline (chest wall injury and comminuted sternal fracture) with risk of spinal cord shock and hemodynamic instability from the cervical cord edema/contusion progression in the near future. His condition obviously is very critical.
[2018-02-05] MEDS ORDERED: Lidocaine 5% Patch T-DERMAL SCH (09:00)
[2018-02-05 12:16] LABS: ABG Base Excess -1.4 mmol/L (-2-2); ABG PCO2 34 mmHg (38-42); ABG PO2 192 mmHG (61-120)
[2018-02-05] MEDS ORDERED: Propofol 1000 mg/100 ml Inj 1,000 MG/100 ML BOTTLE ONE (12:17)
[2018-02-05] MEDS ORDERED: fentaNYL Citrate Inj 100 MCG/2 ML Ampul ONE (13:10)
[2018-02-05] MEDS ORDERED: Morphine Inj 4 MG/ML Vial ONE (13:10)
[2018-02-05] MEDS: Docusate Sodium 100 MG Capsule PO SCH ×2 (13:27→21:39)
--- NOTE | 2018-02-05 14:08 | XR ---
EXAM DATE: 02/05/2018 1:29 PM EST AGE/SEX: 89 years / Male INDICATIONS: Post central line placement. CLINICAL DATA: This is the patient's subsequent encounter. Patient reports that signs and symptoms h ave been present for 2 days and indicates a pain score of Nonresponsive. MEDICAL/SURGICAL HISTORY: Non-responsive. Non-responsive. COMPARISON: C, CHEST 1V SINGLE AP, 02/04/2018. . FINDINGS: A single AP view of the chest demonstrates an endotracheal tube 4 cm proximal to bob. Left subclav shyam central line with the tip in the SVC at the level of the azygos confluence. Lungs are clear. Hear t is normal in size. No pneumothorax or effusion. Orthopedic hardware involving the cervical spine. CONCLUSION: No pneumothorax following left central line placement. Electronically signed by: Maxwell Hall MD 02/05/2018 2:07 PM EST
--- NOTE | 2018-02-05 14:16 | XR ---
EXAM DATE: 02/05/2018 1:49 PM EST AGE/SEX: 89 years / Male INDICATIONS: Post-op C4-C5, C5-C6, C6-C7 posterior cervical fusion. CLINICAL DATA: This is the patient's subsequent encounter. Patient reports that signs and symptoms h ave been present for 2 days and indicates a pain score of Nonresponsive. MEDICAL/SURGICAL HISTORY: Non-responsive. Non-responsive. COMPARISON: No prior exams available for comparison. FINDINGS: Postsurgical changes are identified in the mid to lower cervical spine. Patient has undergone posteri or fusion from C4 through C7. There are parallel rods with fixation screws into the lateral masses. C ervical alignment is well-maintained. CONCLUSION: Status post posterior cervical fusion from C4 through C7. Her goal alignment is well-maintained. Electronically signed by: Brandon Faith MD 02/05/2018 2:15 PM EST
[2018-02-05] MEDS: Sodium Chloride 0.9% 2 ML Flush BID IV.FLUSH SCH ×2 (14:30→21:40)
--- NOTE | 2018-02-05 17:34 | ECG ---
Date Performed: 02/04/2018 Time Performed: 21:27:16 PTAGE: 89 years EKG: Sinus rhythm with borderline 1st degree A-V block. Borderline ECG NO PREVIOUS TRACING DOCTOR: Rajeev Hanson Interpretating Date/Time 02/05/2018 17:34:03
--- NOTE | 2018-02-05 17:45 | P.OP ---
- Preoperative Diagnosis (1) Traumatic subluxation of cervical vertebra (2) Traumatic dislocation of facet joint between fifth and sixth cervical vertebrae (3) Central spinal cord injury Comment: Trauma Alert NERY [id number] Date of procedure: 02/05/18 Procedure: Stage I of 2 planned cervical spine stabilization surgeries: Posterior cervical C4, C5, C6 and C7 fusion; open reduction and internal fixation of the C5-6 bilateral jumped facet/fracture subluxation; posterior C4- 7 lateral mass/facet segmental fixation; microsurgical technique Anesthesia: GETA Surgeon: Aaron Lopez MD [employer] Technician: Rufina Hoff Estimated blood loss (mL): 250 Operation and Findings: Following administration of general endotracheal anesthesia with the neck maintained in neutral position in a [place] J collar, patient had a Del Rosario catheter placed with sequential compression devices, arterial line and central venous line were placed. A gram of vancomycin and Decadron 10 mg was administered intravenously. He was then turned on a prone position on a Arturo table and the head secured in a horseshoe headrest and all pressure points adequately padded. Posterior cervical region was then shaved and prepped with Betadine solution and ChloraPrep. Sterile draping undertaken along with Ioban and a midline incision extending from the C4 to the C7 was then made after infiltrating the skin was 0.5% Marcaine with epinephrine solution. Intraoperative fluoroscopy used for level confirmation. Retractors were used for exposure after the fascia incised and the muscular attachments to the spinous process and lamina along with the facets detached from C4 to C7 levels bilaterally. Further dissection was undertaken using microtechnique with microscope magnification. Grossly unstable with C5-6 jumped facet with C5 anterior subluxation relative to C6 was noted along with the disruption of the facet capsules and interspinous ligament. Using a towel clip the C5-6 spinous processes with the countertraction and reduction of the jumped facets was undertaken. There is bilateral inferior portion of C5 and superior portion of C6 facet fractures also noted. From C4-C7 levels the facets on both sides decorticated with a curette. Subsequently lateral mass fixation undertaken with the [employer] screws with entry point of the midportion of the facets bilaterally from C4 to C7 levels. The screw trajectory was lateral and superiorly guided with fluoroscopy also. Screws were then connected with a larisa and locked in place with caps. The construct appeared to be secure this point in AP and lateral fossae confirmed good placement and alignment. The good decorticated facets were then packed from C4 to C7 levels with the allograft demineralized bone matrix and morselized bone for posterolateral fusion. The area was then copiously irrigated with antibiotic solution. Retractors removed and the muscle and fascia using 2-0 Vicryl interrupted sutures and 3-0 Vicryl subcuticular stitch also placed in an interrupted fashion and final skin closure was with diana. A sterile dressing was applied and the neck immobilized in a [place] J collar. He was then turned in supine position and taken to recovery room. There were no intraoperative complications and all sponge and needle count was correct at the end the procedure. Estimated blood loss about 250 cc. Patient did undergo intraoperative neurologic monitoring which remained stable throughout surgery.
[2018-02-05 18:15] LABS: Amphetamine Screen,Urine Neg (Neg); Barbiturate Screen,Urine Neg (Neg); Bilirubin,Urine Negative (Negative); Cannabinoid Screen,Urine Neg (Neg); Cocaine Screen,Urine Neg (Neg); Color,Urine Straw (Yellw/Straw); Glucose,Urine (UA) Negative (Negative); Leukocyte Esterase,Urine Negative (Negative); Mucus,Urine Few /lpf (Occasional); Nitrite,Urine Negative (Negative); Specific Gravity,Urine 1.015 (1.002-1.035)
[2018-02-05 18:16] LABS: Clarity,Urine Clear (Clear)
[2018-02-05 18:19] LABS: Opiate Screen,Urine Neg (Neg)
[2018-02-05] MEDS: fentaNYL 10 mcg/mL Premix Drip 2,500 MCG/250 ML BAG IV.SIG PRN (18:53)
[2018-02-05] MEDS: Pantoprazole Inj 40 MG Vial IV.PUSH SCH (21:39)
[2018-02-05] MEDS: Multivitamin Inj 10 ML, Thiamine Inj 100 MG, Folic Acid Inj 1 MG in Sodium Chlor 0.9% I... IV.SIG SCH (21:39)
[2018-02-05] MEDS: ceFAZolin 1 GM Premix Inj 1 GM/50 ML FROZ.PIGGY IV.SIG SCH (21:42)
[2018-02-05] MEDS: Propofol 1000 mg/100 ml Inj 1,000 MG/100 ML BOTTLE IV.CONT PRN (22:49)
[2018-02-06] MEDS: Sod Chloride 0.9% Inj 1,000 ML IV.CONT SCH ×3 (02:11→21:37)
[2018-02-06 04:55] LABS: Baso % (Auto) 0.2 % (0.0-2.0); Hematocrit 34.1 % (39.0-51.0); Hemoglobin 11.8 gm/dL (13.0-17.0); Lymph # (Auto) 1.4 th/mm3 (1.0-4.8); Lymph % (Auto) 11.6 % (9.0-44.0); Mean Corpuscular HGB Conc 34.6 % (32.0-36.0); Mean Corpuscular Hemoglobin 30.9 pg (27.0-34.0); Mean Corpuscular Volume 89.1 fL (80.0-100.0); Mean Platelet Volume 9.6 fL (7.0-11.0); Mono # (Auto) 1.1 th/mm3 (0.0-0.9); Mono % (Auto) 8.8 % (0.0-8.0); Neut # (Auto) 9.8 th/mm3 (1.8-7.7); Neut % (Auto) 79.4 % (16.0-70.0); Platelet Count 96 th/mm3 (150-450); Red Blood Count 3.83 mil/mm3 (4.50-5.90); Red Cell Distribution Width 13.3 % (11.6-17.2); White Blood Count 12.3 th/mm3 (4.0-11.0)
[2018-02-06] MEDS: Chlorhexidine Gluconate 2% 1 Pack (2 Cloths) TOPICAL SCH (04:56)
[2018-02-06 05:20] LABS: Alanine Aminotransferase 47 U/L (12-78); Albumin 2.9 g/dL (3.4-5.0); Alkaline Phosphatase 46 U/L (45-117); Anion Gap 5 meq/L (5-15); Aspartate Aminotransferase 85 U/L (15-37); Blood Urea Nitrogen 12 mg/dL (7-18); Calcium 7.2 mg/dL (8.5-10.1); Chloride 107 meq/L (98-107); Glomerular Filtration Rate Greater Than 89 mL/min (>89); Glucose,Random 115 mg/dL (74-106); Potassium 3.8 meq/L (3.5-5.1); Sodium 141 meq/L (136-145); Total Protein 5.6 g/dL (6.4-8.2)
--- NOTE | 2018-02-06 05:31 | XR ---
EXAM DATE: 02/06/2018 5:02 AM EST AGE/SEX: 89 years / Male INDICATIONS: Follow up trauma. CLINICAL DATA: This is the patient's subsequent encounter. Patient reports that signs and symptoms h ave been present for 3 days and indicates a pain score of Nonresponsive. MEDICAL/SURGICAL HISTORY: Non-responsive. Non-responsive. COMPARISON: C, CHEST 1V SINGLE AP, 02/05/2018. . FINDINGS: Endotracheal tube and left subclavian central venous catheter remain in place. Lung volumes are low. Lungs are clear. No evidence of pleural effusion or pneumothorax. CONCLUSION: Endotracheal tube and left subclavian central venous catheter remain in place. No acute cardiopulmona ry disease identified. Electronically signed by: Kb Noe MD 02/06/2018 5:30 AM EST
[2018-02-06] MEDS: ceFAZolin 1 GM Premix Inj 1 GM/50 ML FROZ.PIGGY IV.SIG SCH ×3 (05:42→21:36)
[2018-02-06] MEDS: METHOCARBAMOL IV.SIG SCH (05:45)
[2018-02-06] MEDS ORDERED: Propofol Inj 500 MG/50 ML Vial ONE (07:30)
[2018-02-06 07:41] LABS: Platelet Morphology Normal (Normal)
[2018-02-06] MEDS ORDERED: Bupivacaine/Epinephrine 0.5% Inj 50 ML Vial ONE (08:30)
[2018-02-06] MEDS ORDERED: Gelatin Size 100 Topical Foam ONE ×2 (08:30→08:31)
[2018-02-06] MEDS ORDERED: Thrombin Topical Soln 5,000 UNIT Vial TOPICAL ONE (08:30)
[2018-02-06] MEDS: Sodium Chloride 0.9% 2 ML Flush BID IV.FLUSH SCH ×2 (09:56→21:36)
[2018-02-06] MEDS: Senna/Docusate Sodium 8.6/50 MG Tablet PO SCH ×2 (09:56→21:36)
--- NOTE | 2018-02-06 11:02 | P.NPEVAL ---
Patient History - Record/History Review Reason for Referral: The patient is a 89 year old unknown handed man status post concussion secondary to a fall from a tree on 02/04/2018. The patient was hunting and fell from his tree stand. He reported positive LOC and positive [employer]. He is referred for baseline neurobehavioral status examination per trauma protocol to assess cognitive, behavioral and emotional aspects of the injury and to provide treatment recommendations. PMF - History History Provided By: Family Member - Medical History Medical History: Medical History (Last Reviewed 02/06/18 @ 07:51 by Chang Lockhart MD) Patient denies medical problems - Surgical History Surgical History: Surgical History (Last Reviewed 02/06/18 @ 07:51 by Chang Lockhart MD) H/O knee surgery - Tobacco History Second Hand Smoke Exposure: No Smoking Status: Never smoker - Alcohol History How Often Do You Have a Drink Containing Alcohol: Monthly or less - Substance Use History Substance History: No History of Abuse - Immunization History Tetanus Immunization: >5 Years Hx Influenza Vaccine This Season: No Medications Active Medications Acetaminophen (Tylenol Liq) 650 mg PO Q4H PRN PRN Reason: FEVER > 101 F Al Hydroxide/Mg Hydroxide (Milk Of Magnmargie Liq) 30 ml PO BID VERONICA Last Admin: 02/06/18 09:55 Dose: Not Given Albuterol (Duoneb Neb (Prn)) 1 ampul NEB Q2HR NEB PRN PRN Reason: SHORTNESS OF BREATH Albuterol (Duoneb Neb (Veronica)) 1 ampul NEB Q6HR NEB VERONICA Last Admin: 02/06/18 08:33 Dose: Not Given Chlorhexidine Gluconate (Chlorhexidine 2% Cloth) 3 pack TOPICAL DAILY@0400 VERONICA Stop: 02/10/18 03:59 Last Admin: 02/06/18 04:56 Dose: 3 pack Chlorhexidine Gluconate (Chlorhexidine 2% Cloth) 3 pack TOPICAL DAILY@0400 PRN PRN Reason: Extra cloth needed Stop: 02/10/18 03:59 Cyclobenzaprine HCl (Flexeril) 5 mg PO Q8HR [facility] Enalaprilat (Vasotec Inj) 1.25 mg IV.PUSH Q8H PRN PRN Reason: Blood pressure 180/95 Sodium Chloride (Ns Inj) 1,000 mls @ 100 mls/hr IV.CONT .Q10H [facility] Last Admin: 02/06/18 02:11 Dose: 100 mls/hr Multivitamins 10 ml/ Thiamine HCl 100 mg/ Folic Acid 1 mg/Sodium Chloride 511.2 mls @ 125 mls/hr IV.SIG Q24H [facility] Stop: 02/07/18 01:06 Last Infusion: 02/06/18 01:48 Dose: Infused Propofol (Diprivan 1000 Mg/100 Ml Inj) 1,000 mg in 100 mls @ 2.187 mls/hr IV.CONT TITRATE PRN; Protocol PRN Reason: Per Protocol Last Titration: 02/06/18 00:00 Dose: 15 mcg/kg/min, 6.56 mls/hr Fentanyl (Fentanyl 10 Mcg/Ml Premix Drip) 2,500 mcg in 250 mls @ 5 mls/hr IV.SIG TITRATE PRN; Protocol PRN Reason: Per Protocol Last Titration: 02/06/18 00:00 Dose: 100 mcg/hr, 10 mls/hr Cefazolin Sodium/Dextrose (Ancef 1 Gm Premix Inj) 1 gm in 50 mls @ 100 mls/hr IV.SIG Q8H [facility] Stop: 02/07/18 21:59 Last Infusion: 02/06/18 06:12 Dose: Infused Lactulose (Lactulose Liq) 30 ml PO DAILY PRN PRN Reason: CONSTIPATION Miscellaneous Information (Misc Nursing Information) 1 each OTHER UNSCH PRN PRN Reason: SEE LABEL COMMENTS Stop: 02/06/18 12:59 Ondansetron HCl (Zofran Inj) 4 mg IV.PUSH Q6H PRN PRN Reason: NAUSEA OR VOMITING Last Admin: 02/04/18 19:43 Dose: 4 mg Pantoprazole Sodium (Protonix Inj) 40 mg IV.PUSH Q24H [facility] Last Admin: 02/05/18 21:39 Dose: 40 mg Senna/Docusate Sodium (Aniya-Colace) 1 tab PO BID [facility] Last Admin: 02/06/18 09:56 Dose: Not Given Sodium Chloride (Ns Flush) 2 ml IV.FLUSH UNSCH PRN PRN Reason: FLUSH AFTER USING IV ACCESS Sodium Chloride (Ns Flush) 2 ml IV.FLUSH BID [facility] Last Admin: 02/06/18 09:56 Dose: Not Given Mental Status Assessment - Mental Status Orientation: oriented to: Self, Place, Time, Situation Mental Status: WFL: Language/interactions, Attention, Learning/memory, Problem- solving, Variable: Thought processing Absent: Hallucinations, Delusions Adjustment/Coping Assessment - Adjustment/Coping Adjustment/Coping: None: Awareness, Insight - Observation In terms of emotional functioning, the patient demonstrated normal adjustment. This patient demonstrated no signs of agitation, impulsivity or disinhibition, nor was there remarkable evidence of a formal thought disorder or psychosis. There was no evidence of depression or anxiety. Thought content was free from suicidal, homicidal or paranoid ideation, and thought processes were logical and but slowed. The patients mood was euthymic, and his affect was stable and appropriate. The patient appears to possess adequate insight and awareness into their situation and within the limits of this brief evaluation, adequate judgment. - Goals/Team Members LTG Status: Deferred STG Status: Deferred Team Members: Neuropsychologist Behavior - Observation Behaviorally, the patient demonstrated no signs of agitation, impulsivity or disinhibition. There was no remarkable evidence of a formal thought disorder or psychosis. - Goals LTG Status: Deferred STG Status: Deferred - Team Members Team Members: Neuropsychologist Diagnosis/Discharge Plan - Diagnosis (1) Head concussion Status: Acute Impression: 47 year old man s/p concussion 2T fall on 02/04/2018. [place] Level: Level VII Disinhibition Score: 14.00 Aggression Score: 14.00 Lability Score: 14.00 Agitated Behavior Total Score: 14 Maximizing Acute Care Outcome: It is recommended that the patient be monitored for emergent behavioral impulsivity as the medical condition evolves. This patients neuropathological challenges may limit rehabilitation potential going forward, and these challenges will require specialized therapeutic skills to maximize outcome. At this point in the recovery process, the patient does have cognitive capacity as the patient is able to understand a situation and its likely consequences, and the patient is able to manipulate information rationally. Cognitive capacity will be assessed throughout the recovery process. - Discharge Planning Anticipated Problems: Ongoing areas of concern will include behavioral impulsivity, lack of insight and judgment, which is expected to improve with time and treatment. Treatment Plan: This clinician will continue to follow with you throughout the course of this patients critical care treatment, and I will be available to meet with the patients family/support system to facilitate their understanding and the ongoing care of their family member. The goals of neuropsychological intervention shall be both educational and supportive to the family/support system as is deemed clinically appropriate. Thank you for the opportunity to assist in this patients care. Sanchez Paiz, Ph.D., ABPP Board Certified in Clinical Neuropsychology [facility] Board of Professional Psychology [place] Licensed Psychologist #[id number]
--- NOTE | 2018-02-06 12:03 | XR ---
EXAM DATE: 02/06/2018 11:55 AM EST AGE/SEX: 89 years / Male INDICATIONS: Post-op C4-C5, C5-C6, C6-C7 anterior cervical fusion. CLINICAL DATA: This is the patient's subsequent encounter. Patient reports that signs and symptoms h ave been present for 3 days and indicates a pain score of Nonresponsive. MEDICAL/SURGICAL HISTORY: Non-responsive. Non-responsive. COMPARISON: [facility] [place], CERVICAL SPINE [facility] AP[facility], 02/05/2018. . FINDINGS: Postsurgical changes following anterior cervical fusion from C4 through C7 are identified. There is a n anterior fusion plate as well as vertebral body cages in the C4-5, C5-6 and C6-7 disc interspaces. Posterior fusion apparatus is in stable position. Cervical alignment is stable. CONCLUSION: Status post anterior cervical fusion from C4 through C7 as described. Stable cervical alignment status post fusion. Electronically signed by: Brandon Faith MD 02/06/2018 12:01 PM EST
[2018-02-06] MEDS ORDERED: fentaNYL Citrate Inj 100 MCG/2 ML Ampul ONE (12:19)
--- NOTE | 2018-02-06 13:04 | P.OP ---
- Preoperative Diagnosis (1) Central spinal cord injury Comment: Trauma Alert NERY Elliott [id number] (2) Traumatic subluxation of cervical vertebra (3) Traumatic dislocation of facet joint between fifth and sixth cervical vertebrae Date of procedure: 02/06/18 Procedure: Stage 2 of 2 planned cervical spine stabilization procedure: Anterior cervical C4-5, C5-6 and C6-7 interbody fusion; anterior C4-7 cervical plate placement; C4-5, C5-6 and C6-7 interbody cage placement; microsurgical technique Anesthesia: GETA Surgeon: Aaron Lopez MD Line Supervisor: Rufina Hoff Estimated blood loss (mL): 30 Operation and Findings: Following administration of general endotracheal anesthesia with the neck maintained in a [place] J collar, the patient received a gram of vancomycin and Decadron 10 mg intravenously. Sequential compression devices were placed in supine position on a Arturo table and all pressure points adequately padded. The head secured in a donut and anterior cervical region then shaved and prepped with Chloraprep and sterilely draped with Ioban along with the usual sterile draping. A transverse skin incision on the left side of the neck was then made after infiltrating the skin with 0.5% Marcaine with epinephrine solution extending down through the platysma. At the anterior border of the sternocleidomastoid further dissection was undertaken developing a plane between the carotid sheath laterally and the trachea esophagus medially. The prevertebral fascia was exposed and dissected out. The medial attachments of the longus colli muscles were detached and a self-retaining retractor used for exposure. The C4-5 disc space was localized with a marking the disc space and using lateral fluoroscopy. Lincoln distraction screws 14 mm length were placed one in the C4 and one in the C7 body interbody distraction and exposure. There was complete disruption of the C5-6 anterior longitudinal ligament as well as the annulus. Further dissection undertaken using microtechnique with microscope magnification. Diskectomy was undertaken with pituitaries and the endplates were also decorticated with curettes and drill bit. And more posteriorly there was disruption of the posterior longitudinal ligament along with some disc protrusions which were removed. The spinal canal appear to be well decompressed. The foramen was decompressed bilaterally using a Kerrison's and palpation with a nerve hook, the exiting nerve roots were felt to be free. Sequentially discectomy was also undertaken at C4-5 and C6-7 levels with decortication of the endplates and the area was then copiously irrigated. I then placed Peek cages packed with local autograft bone at the C4-5, C5-6, and C6-7 interspaces under fluoroscopy guidance. Lincoln distraction pins were removed and the holes plugged with Gelfoam for hemostasis. In order to facilitate the fusion and provide stabilization, a Precision spine cervical plate was then placed with two 14 mm variable angle screws in the C4 body, two 14 mm fixed angle screws in the C5 body, two 14 mm fixed angle screws in the C6 body, and two 14 mm variable angle screws in the C7 body. The plate screw locking mechanism was then engaged. AP and lateral fluoroscopy confirmed good placement of the construct and the retractor was then removed. Muscular bleeding points were cauterized with bipolar cautery and Gelfoam was then also used for hemostasis which was removed. The platysma was then approximated using 3-0 Vicryl interrupted stitches and 3-0 Vicryl subcuticular stitch also placed in an interrupted fashion, and final skin closure was with Mastisol and Steri- Strips. Sterile dressing was then applied and the neck immobilized in a [place] J collar. There are no intraoperative complications and all sponge and needle counts were correct at the end of procedure. Estimated blood loss was about 30 cc. The patient did undergo intraoperative neurologic monitoring which remained stable throughout the surgery. He was taken back to the intensive care unit.
--- NOTE | 2018-02-06 18:05 | P.PNCC ---
Subjective Brief History: The patient is a 47-year-old male who presented status post fall from a tree stand, approximately 10 feet. The patient was somewhat amnestic to events with mild confusion, following commands, and noted to be out hunting and lost footing, fell from a tree stand with positive LOC. The patient noted to be tachycardic in the 130s in the field with a normal blood pressure. He had decreased movement to bilateral upper extremities and numbness and left leg numbness. When came in the trauma bay, he was noted to be hemodynamically stable, answering intermittently. Patient was resuscitated according trauma principles primary and secondary survey resuscitation definitive care carried out and patient undergoes full diagnostic workup including CT scan and MRI prior to coming to ICU In ICU, patient has decreased motion in the left arm and the left leg. Injuries detected C5 - C6 bilateral locked facets Left arm and leg weakness with paresthesias MRI confirmed spinal cord altered signal however no indication of spinal cord transection Sternal fracture Should also be noted that patient has had atrial fibrillation in the past and was placed on some blood thinner probably factor X a inhibitor for PT PTT is normal In face of the same will await till tomorrow to go ahead with a spinal surgery as per neurosurgery 24 Hour Review/Hospital Course: 02/05/2018 Patient is awake alert and oriented Weakness of the left arm and left leg is pronounced with some paresthesias in both Patient scheduled today for the anterior and eventually posterior fusion of the C-spine Patient may have permanent damage to the spinal cord and this is been clearly explained to patient and the family Hemodynamically he is stable and in sinus rhythm has been instructed to bring the home medication clearly patient must be on either calcium channel blockers beta-blockers or some other combination for his atrial fibrillation control Bilateral breath sounds good pulmonary function and pulmonary dynamics not impaired by the cervical injury Abdomen soft active bowel sounds Renal function preserved 02/06/2018 Patient is status post anterior and posterior fusion of C4-C5-C6 Sedated on propofol and fentanyl Intubated ventilated on assist control Bilateral good breath sounds and good PO2 FiO2 gradient Hemodynamically stable Renal function preserved Plan Patient came out of the operating room this afternoon and will keep him overnight ventilated and extubate patient tomorrow morning Objective Vital Signs / I&O: Vital Signs 02/05/18 19:00 02/05/18 20:00 02/05/18 21:00 Temperature 101.6 F H Pulse Rate 90 81 76 Respiratory Rate 12 12 12 Blood Pressure 108/59 L 107/56 L 105/60 Pulse Oximetry 98 99 99 02/05/18 22:00 02/05/18 23:00 02/06/18 00:00 Temperature 100.4 F H Pulse Rate 77 65 60 Respiratory Rate 12 12 12 Blood Pressure 106/59 L 94/52 L 89/52 L Pulse Oximetry 99 100 100 02/06/18 00:28 02/06/18 00:30 02/06/18 00:31 Temperature Pulse Rate 57 L 56 L Respiratory Rate 12 12 13 Blood Pressure 96/56 L 99/58 L Pulse Oximetry 100 100 99 02/06/18 01:00 02/06/18 01:30 02/06/18 02:00 Temperature Pulse Rate 62 66 62 Respiratory Rate 12 12 12 Blood Pressure 102/58 L 92/52 L 94/53 L Pulse Oximetry 100 100 100 02/06/18 02:30 02/06/18 03:00 02/06/18 03:30 Temperature Pulse Rate 62 63 65 Respiratory Rate 12 12 12 Blood Pressure 93/53 L 95/50 L 94/56 L Pulse Oximetry 100 100 100 02/06/18 03:54 02/06/18 04:00 02/06/18 04:30 Temperature 100 F H Pulse Rate 71 72 Respiratory Rate 14 13 13 Blood Pressure 113/60 102/56 L Pulse Oximetry 96 100 100 02/06/18 05:00 02/06/18 05:30 02/06/18 06:00 Temperature Pulse Rate 74 65 69 Respiratory Rate 12 12 12 Blood Pressure 98/56 L 91/53 L 90/54 L Pulse Oximetry 98 99 99 02/06/18 06:30 02/06/18 07:00 02/06/18 07:30 Temperature Pulse Rate 67 69 69 Respiratory Rate 12 12 12 Blood Pressure 90/53 L 93/54 L 95/53 L Pulse Oximetry 100 100 99 02/06/18 08:00 02/06/18 09:32 02/06/18 11:48 Temperature 100 F H Pulse Rate 75 86 76 Respiratory Rate 12 12 Blood Pressure 100/56 L Pulse Oximetry 99 100 02/06/18 11:59 02/06/18 12:00 02/06/18 12:17 Temperature 98.1 F Pulse Rate 78 79 Respiratory Rate 12 12 12 Blood Pressure 110/66 Pulse Oximetry 97 95 96 11/20/18 13:00 02/06/18 14:00 02/06/18 15:00 Temperature Pulse Rate 83 77 76 Respiratory Rate 14 13 12 Blood Pressure Pulse Oximetry 97 97 98 02/06/18 16:00 02/06/18 16:20 02/06/18 17:00 Temperature Pulse Rate 80 81 82 Respiratory Rate 13 13 13 Blood Pressure Pulse Oximetry 97 96 96 02/06/18 18:00 Temperature Pulse Rate 83 Respiratory Rate 13 Blood Pressure Pulse Oximetry 96 Intake & Output 02/05/18 02/06/18 02/06/18 18:59 06:59 18:59 Intake Total 5000 / 5000 1711.2 / 1711.2 3688 / 3688 Output Total 1825 / 1825 675 / 675 430 / 430 Balance 3175 / 3175 1036.2 / 1036.2 3258 / 3258 Weight 76.7 kg Intake: IV 3000 / 3000 1711.2 / 1711.2 1050 / 1050 Diprivan 1000 mg/100 ml Inj 1, 0 / 0 000 mg In 100 ml @ 0 mls/hr . ROUTE .STK-MED ONE Rx#:[id number] NS Inj 1,000 ML @ 100 mls/hr IV 1999 / 1999 1000 / 1000 1000 / 1000 .CONT .Q10H [facility] Rx#:[id number] NS Inj 500 ML @ 500 mls/hr IV. 500 / 500 CONT .Q1H ONE Rx#:[id number] Ofirmev Inj 1,000 mg In 100 ml 100 / 100 @ 400 mls/hr IV.SIG Q6H PRN Rx# :[id number] Alburx 5% Inj 500 ML @ 100 mls/ 500 / 500 hr IV.SIG ONCE ONE Rx#:[id number] MVI-12 Inj 10 ML Thiamine Inj 511.2 / 511.2 100 MG Folvite Inj 1 MG In NS Inj 500 ML @ 125 mls/hr IV.SIG Q24H [facility] Rx#:[id number] Ancef 1 GM Premix Inj 1 gm In 100 / 100 50 / 50 50 ml @ 100 mls/hr IV.SIG Q8H [facility] Rx#:[id number] Oral 0 / 0 Anesthesia Amount 1999 2350 / 2350 Other 0 / 0 Plt Pheresis A Leukoreduced 0 / 0 Unit [id number] Intake (Blood Product) Amt 288 / 288 Plt Pheresis A Leukoreduced 288 / 288 Unit [id number] Output: Urine 0 / 0 Estimated Blood Loss 250 / 250 30 / 30 Urine Amount (Catheter) 1575 / 1575 675 / 675 400 / 400 Indwelling Urethral Catheter 1575 / 1575 675 / 675 400 / 400 Other: Other Intake Source Plt Pheresis A Leukoreduced Saline Solution Unit [id number] Result Diagrams: 02/06/18 04:35 02/06/18 04:35 Imaging: Impressions Cervical Spine X-Ray 02/06/18 00:00 CONCLUSION: Status post anterior cervical fusion from C4 through C7 as described. Stable cervical alignment status post fusion. Chest X-Ray 02/06/18 06:00 CONCLUSION: Endotracheal tube and left subclavian central venous catheter remain in place. No acute cardiopulmonary disease identified. Disinhibition Score: 14.00 Aggression Score: 14.00 Lability Score: 14.00 Agitated Behavior Total Score: 14
[2018-02-06] MEDS: Propofol 1000 mg/100 ml Inj 1,000 MG/100 ML BOTTLE IV.CONT PRN ×2 (18:13→23:59)
[2018-02-06] MEDS: fentaNYL 10 mcg/mL Premix Drip 2,500 MCG/250 ML BAG IV.SIG PRN ×2 (18:14→23:46)
[2018-02-06 18:34] LABS: Hematocrit 31.5 % (39.0-51.0); Hemoglobin 11.1 gm/dL (13.0-17.0); Mean Corpuscular HGB Conc 35.3 % (32.0-36.0); Mean Corpuscular Hemoglobin 31.6 pg (27.0-34.0); Mean Corpuscular Volume 89.6 fL (80.0-100.0); Mean Platelet Volume 9.5 fL (7.0-11.0); Platelet Count 104 th/mm3 (150-450); Red Blood Count 3.51 mil/mm3 (4.50-5.90); Red Cell Distribution Width 13.4 % (11.6-17.2); White Blood Count 12.9 th/mm3 (4.0-11.0)
[2018-02-06 18:58] LABS: Anion Gap 4 meq/L (5-15); Blood Urea Nitrogen 11 mg/dL (7-18); Carbon Dioxide 29.8 meq/L (21.0-32.0); Chloride 106 meq/L (98-107); Glomerular Filtration Rate Greater Than 89 mL/min (>89); Glucose,Random 133 mg/dL (74-106); Potassium 3.7 meq/L (3.5-5.1); Sodium 140 meq/L (136-145)
[2018-02-06 19:11] LABS: Calcium-Albumin Corrected 7.8 mg/dL (8.5-10.1); Total Protein 5.5 g/dL (6.4-8.2)
[2018-02-06] MEDS: Pantoprazole Inj 40 MG Vial IV.PUSH SCH (21:35)
[2018-02-06] MEDS: Multivitamin Inj 10 ML, Thiamine Inj 100 MG, Folic Acid Inj 1 MG in Sodium Chlor 0.9% I... IV.SIG SCH (21:36)
[2018-02-07] MEDS: Chlorhexidine Gluconate 2% 1 Pack (2 Cloths) TOPICAL SCH (04:51)
[2018-02-07 05:35] LABS: Baso % (Auto) 0.2 % (0.0-2.0); Hematocrit 32.2 % (39.0-51.0); Hemoglobin 11.1 gm/dL (13.0-17.0); Lymph # (Auto) 1.1 th/mm3 (1.0-4.8); Lymph % (Auto) 10.8 % (9.0-44.0); Mean Corpuscular HGB Conc 34.6 % (32.0-36.0); Mean Corpuscular Hemoglobin 31.2 pg (27.0-34.0); Mean Corpuscular Volume 90.3 fL (80.0-100.0); Mean Platelet Volume 8.7 fL (7.0-11.0); Mono # (Auto) 0.8 th/mm3 (0.0-0.9); Mono % (Auto) 8.7 % (0.0-8.0); Neut # (Auto) 7.8 th/mm3 (1.8-7.7); Neut % (Auto) 80.3 % (16.0-70.0); Platelet Count 93 th/mm3 (150-450); Red Blood Count 3.56 mil/mm3 (4.50-5.90); Red Cell Distribution Width 13.3 % (11.6-17.2); White Blood Count 9.8 th/mm3 (4.0-11.0)
[2018-02-07 06:03] LABS: Anion Gap 6 meq/L (5-15); Blood Urea Nitrogen 12 mg/dL (7-18); Calcium 7.1 mg/dL (8.5-10.1); Carbon Dioxide 27.7 meq/L (21.0-32.0); Chloride 106 meq/L (98-107); Glomerular Filtration Rate Greater Than 89 mL/min (>89); Glucose,Random 111 mg/dL (74-106); Potassium 3.4 meq/L (3.5-5.1); Sodium 140 meq/L (136-145)
[2018-02-07 06:29] LABS: Calcium-Albumin Corrected 8.1 mg/dL (8.5-10.1); Total Protein 5.2 g/dL (6.4-8.2)
[2018-02-07 06:53] LABS: Platelet Morphology Normal (Normal)
[2018-02-07] MEDS: Sod Chloride 0.9% Inj 1,000 ML IV.CONT SCH ×2 (07:45→20:35)
[2018-02-07] MEDS: ceFAZolin 1 GM Premix Inj 1 GM/50 ML FROZ.PIGGY IV.SIG SCH ×2 (07:46→14:50)
--- NOTE | 2018-02-07 08:28 | P.PNNPSY ---
- Behavior Intact: Impulsive/agitated - Progress Notes/Response to Treatment Contents of Sessions: Adjustment, Level of consciousness Time with Patient: 30 minutes Premorbid Psychological Status: Premorbid Cognitive, Emotional and Behavioral Status: Tenuous. The patient has high school years of education and an unknown work history prior to this injury. The patient has unknown psychiatric difficulties, as described above. Substance abuse history is unknown. Behavioral Reactions of Patient and Family/Support System: Tenuous. The patients family is experiencing ongoing issues of adjustment given the nature of the injury, and this aspect of recovery will require ongoing monitoring. Emotional/Behavioral Status of Patient and Family/Support System: Tenuous. Pertinent issues, if appropriate to this patients clinical care, are described in detail above. Maximizing Acute Care Outcome: It is recommended that the patient be monitored for emergent behavioral impulsivity as the medical condition evolves. This patients neuropathological challenges may limit rehabilitation potential going forward, and these challenges will require specialized therapeutic skills to maximize outcome. At this point in the recovery process, the patient does have cognitive capacity as the patient is able to understand a situation and its likely consequences, and the patient is able to manipulate information rationally. Cognitive capacity will be assessed throughout the recovery process. Anticipated Problems: Ongoing areas of concern will include behavioral impulsivity, lack of insight and judgment, which is expected to improve with time and treatment. Treatment Plan: This clinician will continue to follow with you throughout the course of this patients critical care treatment, and I will be available to meet with the patients family/support system to facilitate their understanding and the ongoing care of their family member. The goals of neuropsychological intervention shall be both educational and supportive to the family/support system as is deemed clinically appropriate. Disinhibition Score: 14.00 Aggression Score: 14.00 Lability Score: 14.00 Agitated Behavior Total Score: 14 Impression: 47 year old man s/p concussion 2T fall on 02/04/2018. Progress Note Narrative: PTD 3. The patient is s/p spinal fusion, remains intubated and sedated this morning. Plan was to extubate today, but the patient developed respiratory issues prior to rounds. No issues of agitation/restlessness. I will follow. - Diagnosis (1) Head concussion Status: Acute
[2018-02-07 08:38] LABS: ABG Base Excess 2.7 mmol/L (-2-2); ABG PCO2 41 mmHg (38-42); ABG PO2 65 mmHg (61-120)
[2018-02-07] MEDS: Propofol 1000 mg/100 ml Inj 1,000 MG/100 ML BOTTLE IV.CONT PRN ×3 (08:50→20:34)
[2018-02-07] MEDS: Sodium Chloride 0.9% 2 ML Flush BID IV.FLUSH SCH ×2 (08:52→21:36)
[2018-02-07] MEDS: Senna/Docusate Sodium 8.6/50 MG Tablet PO SCH ×2 (08:54→21:35)
[2018-02-07] MEDS ORDERED: Potassium Chlor 20 mEq Premix 20 MEQ/100 ML PIGGYBACK IV.SIG ONE (09:46)
--- NOTE | 2018-02-07 11:11 | XR ---
EXAM DATE: 02/07/2018 11:03 AM EST AGE/SEX: 47 years / Male INDICATIONS: Evaluate lung status. NG tube placement. CLINICAL DATA: This is the patient's subsequent encounter. Patient reports that signs and symptoms h ave been present for 1 day and indicates a pain score of Nonresponsive. MEDICAL/SURGICAL HISTORY: Non-responsive. Non-responsive. COMPARISON: [facility] [place], CHEST 1V SINGLE AP, 02/06/2018. . FINDINGS: A single AP view of the chest demonstrates interval placement of nasogastric tube. The tip is in the fundus of the stomach. Endotracheal tube tip 4 cm from the bob. Left subclavian central line with the tip in the SVC. No pneumothorax. Bibasilar pulmonary consolidations now seen. Heart is normal in size. Orthopedic hardware involving the cervical spine. CONCLUSION: Developing bibasilar infiltrates. Electronically signed by: Maxwell Hall MD 02/07/2018 11:10 AM EST
--- NOTE | 2018-02-07 13:04 | P.PNCC ---
Subjective Brief History: The patient is a 47-year-old male who presented status post fall from a tree stand, approximately 10 feet. The patient was somewhat amnestic to events with mild confusion, following commands, and noted to be out hunting and lost footing, fell from a tree stand with positive LOC. The patient noted to be tachycardic in the 130s in the field with a normal blood pressure. He had decreased movement to bilateral upper extremities and numbness and left leg numbness. When came in the trauma bay, he was noted to be hemodynamically stable, answering intermittently. Patient was resuscitated according trauma principles primary and secondary survey resuscitation definitive care carried out and patient undergoes full diagnostic workup including CT scan and MRI prior to coming to ICU In ICU, patient has decreased motion in the left arm and the left leg. Injuries detected C5 - C6 bilateral locked facets Left arm and leg weakness with paresthesias MRI confirmed spinal cord altered signal however no indication of spinal cord transection Sternal fracture Should also be noted that patient has had atrial fibrillation in the past and was placed on some blood thinner probably factor X a inhibitor for PT PTT is normal In face of the same will await till tomorrow to go ahead with a spinal surgery as per neurosurgery 24 Hour Review/Hospital Course: 02/05/2018 Patient is awake alert and oriented Weakness of the left arm and left leg is pronounced with some paresthesias in both Patient scheduled today for the anterior and eventually posterior fusion of the C-spine Patient may have permanent damage to the spinal cord and this is been clearly explained to patient and the family Hemodynamically he is stable and in sinus rhythm has been instructed to bring the home medication clearly patient must be on either calcium channel blockers beta-blockers or some other combination for his atrial fibrillation control Bilateral breath sounds good pulmonary function and pulmonary dynamics not impaired by the cervical injury Abdomen soft active bowel sounds Renal function preserved 02/06/2018 Patient is status post anterior and posterior fusion of C4-C5-C6 Sedated on propofol and fentanyl Intubated ventilated on assist control Bilateral good breath sounds and good PO2 FiO2 gradient Hemodynamically stable Renal function preserved Plan Patient came out of the operating room this afternoon and will keep him overnight ventilated and extubate patient tomorrow morning 02/07 Patient was febrile in the morning temperature 103.3. After anterior spinal fusion postop He also desaturated to the 80s and his FiO2 was increased to 60%-his PF ratio is 110-we will increase his PEEP to 10 Is also thick secretions-his NG tube was removed in the OR and patient was without NG tube until morning hours-patient may have aspirated with results of pneumonitis-we will observe patient very closely for potential pneumonia, his white cell count however is today 9 and there are only small bilateral basilar infiltrates Otherwise patient is awake he is following commands Remains hemodynamically stable Objective Vital Signs / I&O: Vital Signs 02/06/18 13:00 02/06/18 14:00 02/06/18 15:00 Temperature Pulse Rate 83 77 76 Respiratory Rate 14 13 12 Pulse Oximetry 97 97 98 02/06/18 16:00 02/06/18 16:20 02/06/18 17:00 Temperature Pulse Rate 80 81 82 Respiratory Rate 13 13 13 Pulse Oximetry 97 96 96 02/06/18 18:00 02/06/18 19:00 02/06/18 19:45 Temperature Pulse Rate 83 81 80 Respiratory Rate 13 13 12 Pulse Oximetry 96 94 L 99 02/06/18 20:00 02/06/18 21:00 02/06/18 22:00 Temperature 99.8 F H 99.8 F H Pulse Rate 82 88 81 Respiratory Rate 13 13 12 Pulse Oximetry 98 96 95 02/06/18 23:00 02/07/18 00:00 02/07/18 00:16 Temperature 100.6 F H Pulse Rate 80 80 Respiratory Rate 12 12 12 Pulse Oximetry 96 96 02/07/18 01:00 02/07/18 01:06 02/07/18 02:00 Temperature Pulse Rate 78 77 Respiratory Rate 12 12 12 Pulse Oximetry 96 96 96 02/07/18 03:00 02/07/18 03:32 02/07/18 04:00 Temperature 99.9 F H Pulse Rate 79 80 81 Respiratory Rate 12 13 13 Pulse Oximetry 96 93 L 02/07/18 04:10 02/07/18 05:00 02/07/18 06:00 Temperature Pulse Rate 89 92 H Respiratory Rate 12 13 14 Pulse Oximetry 93 L 92 L 90 L 02/07/18 07:00 02/07/18 08:00 02/07/18 08:54 Temperature 103.3 F H Pulse Rate 90 95 H 91 H Respiratory Rate 15 16 14 Pulse Oximetry 97 93 L 93 L 02/07/18 09:00 02/07/18 10:00 02/07/18 11:00 Temperature Pulse Rate 93 H 96 H 96 H Respiratory Rate 19 11 L 16 Pulse Oximetry 90 L 95 93 L 02/07/18 12:00 02/07/18 12:45 Temperature 100.2 F H Pulse Rate 88 Respiratory Rate 15 15 Pulse Oximetry 96 95 Intake & Output 02/06/18 02/07/18 02/07/18 18:59 06:59 18:59 Intake Total 4138 / 4138 1911.2 / 1911.2 1250 / 1250 Output Total 1380 / 1380 550 / 550 Balance 2758 / 2758 1361.2 / 1361.2 1250 / 1250 Weight 82.2 kg Intake: IV 1500 / 1500 1911.2 / 1911.2 1250 / 1250 Diprivan 1000 mg/100 ml Inj 1, 100 / 100 100 / 100 100 / 100 000 mg In 100 ml @ 5 MCG/KG/MIN 2.187 mls/hr IV.CONT TITRATE PRN Rx#:[id number] NS Inj 1,000 ML @ 100 mls/hr IV 1000 / 1000 1000 / 1000 1000 / 1000 .CONT .Q10H [facility] Rx#:[id number] Ofirmev Inj 1,000 mg In 100 ml 100 / 100 @ 400 mls/hr IV.SIG ONCE ONE Rx #:[id number] MVI-12 Inj 10 ML Thiamine Inj 511.2 / 511.2 100 MG Folvite Inj 1 MG In NS Inj 500 ML @ 125 mls/hr IV.SIG Q24H [facility] Rx#:[id number] Ancef 1 GM Premix Inj 1 gm In 50 / 50 50 / 50 50 / 50 50 ml @ 100 mls/hr IV.SIG Q8H [facility] Rx#:[id number] fentaNYL 10 mcg/mL Premix Drip 250 / 250 250 / 250 2,500 mcg In 250 ml @ 50 MCG/HR 5 mls/hr IV.SIG TITRATE PRN Rx #:[id number] Anesthesia Amount 2350 / 2350 Other 0 / 0 Plt Pheresis A Leukoreduced 0 / 0 Unit [id number] Intake (Blood Product) Amt 288 / 288 Plt Pheresis A Leukoreduced 288 / 288 Unit [id number] Output: Estimated Blood Loss 30 / 30 Urine Amount (Catheter) 1350 / 1350 550 / 550 Indwelling Urethral Catheter 1350 / 1350 550 / 550 Other: Other Intake Source Plt Pheresis A Leukoreduced Saline Solution Unit [id number] Result Diagrams: 02/07/18 05:05 02/07/18 05:05 Imaging: Impressions Chest X-Ray 02/07/18 00:00 CONCLUSION: Developing bibasilar infiltrates. Disinhibition Score: 14.00 Aggression Score: 14.00 Lability Score: 14.00 Agitated Behavior Total Score: 14 - Exam ERP MANAGER: Chebanse Coma Score is 10 T Hemodynamic/Cardiac: Hemodynamically stable no pressors Pulmonary/Respiratory: pF ratio around 110 crackles on the bilateral base Abdomen/GI Nutrition: Abdomen is soft Renal/I&O: Urine output and renal function are adequate Assessment and Plan Plan: monitor the patient for possible pneumonia Start DVT prophylaxis Continue sedation Insert NG tube and resume tube feeds
--- NOTE | 2018-02-07 17:16 | P.PNNS ---
Subjective Interval history: Pt seen and examined this morning. He is sedated on Diprivan and Fentanyl drips and intubated. Pt reportedly has lots of secretions requiring frequent suctioning for ET tube. He follows commands with quadriparesis but weaker on left side. <Markus Willis - Last Filed: 02/07/18 17:08> Physical Exam Vital signs: Vital Signs 02/06/18 18:00 02/06/18 19:00 02/06/18 19:45 Temperature Pulse Rate 83 81 80 Respiratory Rate 13 13 12 Pulse Oximetry 96 94 L 99 02/06/18 20:00 02/06/18 21:00 02/06/18 22:00 Temperature 99.8 F H 99.8 F H Pulse Rate 82 88 81 Respiratory Rate 13 13 12 Pulse Oximetry 98 96 95 02/06/18 23:00 02/07/18 00:00 02/07/18 00:16 Temperature 100.6 F H Pulse Rate 80 80 Respiratory Rate 12 12 12 Pulse Oximetry 96 96 02/07/18 01:00 02/07/18 01:06 02/07/18 02:00 Temperature Pulse Rate 78 77 Respiratory Rate 12 12 12 Pulse Oximetry 96 96 96 02/07/18 03:00 02/07/18 03:32 02/07/18 04:00 Temperature 99.9 F H Pulse Rate 79 80 81 Respiratory Rate 12 13 13 Pulse Oximetry 96 93 L 02/07/18 04:10 02/07/18 05:00 02/07/18 06:00 Temperature Pulse Rate 89 92 H Respiratory Rate 12 13 14 Pulse Oximetry 93 L 92 L 90 L 02/07/18 07:00 02/07/18 08:00 02/07/18 08:54 Temperature 103.3 F H Pulse Rate 90 95 H 91 H Respiratory Rate 15 16 14 Pulse Oximetry 97 93 L 93 L 02/07/18 09:00 02/07/18 10:00 02/07/18 11:00 Temperature Pulse Rate 93 H 96 H 96 H Respiratory Rate 19 11 L 16 Pulse Oximetry 90 L 95 93 L 02/07/18 12:00 02/07/18 12:45 02/07/18 13:00 Temperature 100.2 F H Pulse Rate 88 94 H Respiratory Rate 15 15 11 L Pulse Oximetry 96 95 95 02/07/18 14:00 Temperature Pulse Rate 88 Respiratory Rate 17 Pulse Oximetry 93 L Intake & Output 02/06/18 02/07/18 02/07/18 18:59 06:59 18:59 Intake Total 4138 / 4138 1911.2 / 1911.2 1450 / 1450 Output Total 1380 / 1380 550 / 550 Balance 2758 / 2758 1361.2 / 1361.2 1450 / 1450 Weight 82.2 kg Intake: IV 1500 / 1500 1911.2 / 1911.2 1450 / 1450 Diprivan 1000 mg/100 ml Inj 1, 100 / 100 100 / 100 200 / 200 000 mg In 100 ml @ 5 MCG/KG/MIN 2.187 mls/hr IV.CONT TITRATE PRN Rx#:[id number] NS Inj 1,000 ML @ 100 mls/hr IV 1000 / 1000 1000 / 1000 1000 / 1000 .CONT .Q10H [facility] Rx#:[id number] Ofirmev Inj 1,000 mg In 100 ml 100 / 100 @ 400 mls/hr IV.SIG ONCE ONE Rx #:[id number] MVI-12 Inj 10 ML Thiamine Inj 511.2 / 511.2 100 MG Folvite Inj 1 MG In NS Inj 500 ML @ 125 mls/hr IV.SIG Q24H [facility] Rx#:[id number] KCl 20 mEq Premix Inj 20 meq In 100 / 100 100 ml @ 50 mls/hr IV.SIG ONCE ONE Rx#:[id number] Ancef 1 GM Premix Inj 1 gm In 50 / 50 50 / 50 50 / 50 50 ml @ 100 mls/hr IV.SIG Q8H [facility] Rx#:[id number] fentaNYL 10 mcg/mL Premix Drip 250 / 250 250 / 250 2,500 mcg In 250 ml @ 50 MCG/HR 5 mls/hr IV.SIG TITRATE PRN Rx #:[id number] Anesthesia Amount 2350 / 2350 Other 0 / 0 Plt Pheresis A Leukoreduced 0 / 0 Unit [id number] Intake (Blood Product) Amt 288 / 288 Plt Pheresis A Leukoreduced 288 / 288 Unit [id number] Output: Estimated Blood Loss 30 / 30 Urine Amount (Catheter) 1350 / 1350 550 / 550 Indwelling Urethral Catheter 1350 / 1350 550 / 550 Other: Other Intake Source Plt Pheresis A Leukoreduced Saline Solution Unit [id number] - Constitutional no acute distress Comments: Pt sedated on Diprivan and Fentanyl drips and intubated. - Routine HEENT Exam Eye: Present: PERRL ENT: Absent: oropharynx clear (ET intubated.) - Routine Neck Exam Present: trachea midline - Routine Respiratory Exam Present: patient mechanically ventilated (Pressure controlled. Rate 12. Peep 8. FiO2 60%.), CTA bilaterally. Absent: decreased breath sounds, respiratory distress, wheezes - Routine Cardiovascular Exam Present: RRR, S1, S2. Absent: murmur - Routine Abdominal Exam Present: soft, normoactive bowel sounds. Absent: distended, firm - Routine Skin Exam Absent: cyanosis, erythema Comments: Anterior and posterior cervical incisions dry and intact. Bandages changed by RN. - Routine Neurological Exam Pt sedated on Diprivan and Fentanyl drips. He follows simple commands with weakness in all 4 left side weaker than right. - Routine Psychiatric Exam Present: unable to assess - Urinary Catheter Management Indwelling Urethral Catheter Cath placed during this visit: yes Reason for continuing: Hourly intake/output Insertion date: 02/05/18 Insertion time: 09:00 <Markus Willis - Last Filed: 02/07/18 17:08> Vital signs: Vital Signs 02/07/18 11:00 02/07/18 12:00 02/07/18 12:45 Temperature 100.2 F H Pulse Rate 96 H 88 Respiratory Rate 16 15 15 Blood Pressure Pulse Oximetry 93 L 96 95 02/07/18 13:00 02/07/18 14:00 02/07/18 15:00 Temperature Pulse Rate 94 H 88 94 H Respiratory Rate 11 L 17 16 Blood Pressure Pulse Oximetry 95 93 L 92 L 02/07/18 15:55 02/07/18 16:00 02/07/18 16:04 Temperature 102.1 F H Pulse Rate 103 H 104 H 113 H Respiratory Rate 16 19 17 Blood Pressure 157/76 H 162/78 H 173/85 H Pulse Oximetry 89 L 87 L 90 L 02/07/18 16:07 02/07/18 16:30 02/07/18 17:00 Temperature Pulse Rate 111 H 112 H 110 H Respiratory Rate 12 13 18 Blood Pressure 173/80 H 153/72 H Pulse Oximetry 84 L 93 L 94 L 02/07/18 17:26 11/21/18 18:00 02/07/18 19:00 Temperature Pulse Rate 97 H 91 H Respiratory Rate 14 16 15 Blood Pressure Pulse Oximetry 97 97 97 02/07/18 20:00 02/07/18 21:00 02/07/18 21:14 Temperature 98.2 F Pulse Rate 87 91 H Respiratory Rate 14 15 14 Blood Pressure Pulse Oximetry 98 96 95 02/07/18 21:17 02/07/18 22:00 02/07/18 23:00 Temperature Pulse Rate 88 96 H 92 H Respiratory Rate 12 13 14 Blood Pressure Pulse Oximetry 95 96 02/08/18 00:00 02/08/18 01:00 02/08/18 02:00 Temperature 98.1 F Pulse Rate 84 81 80 Respiratory Rate 12 12 12 Blood Pressure Pulse Oximetry 100 100 100 02/08/18 03:00 02/08/18 04:00 02/08/18 04:03 Temperature 99 F Pulse Rate 80 82 80 Respiratory Rate 15 15 14 Blood Pressure Pulse Oximetry 100 100 100 02/08/18 04:16 02/08/18 05:00 02/08/18 06:00 Temperature Pulse Rate 84 99 H 92 H Respiratory Rate 15 13 Blood Pressure 111/66 Pulse Oximetry 100 95 95 02/08/18 07:00 02/08/18 07:58 02/08/18 08:00 Temperature 98.5 F Pulse Rate 87 90 89 Respiratory Rate 13 13 14 Blood Pressure 110/69 Pulse Oximetry 99 99 99 02/08/18 09:00 02/08/18 10:01 Temperature 98.5 F Pulse Rate 95 H 95 H Respiratory Rate 16 14 Blood Pressure Pulse Oximetry 95 98 Intake & Output 02/07/18 02/08/18 02/08/18 18:59 06:59 18:59 Intake Total 2700 / 2700 1713 / 1713 100 / 100 Output Total 850 / 850 500 / 500 Balance 1850 / 1850 1213 / 1213 100 / 100 Weight 86.8 kg Intake: IV 2700 / 2700 1550 / 1550 100 / 100 Diprivan 1000 mg/100 ml Inj 1, 200 / 200 100 / 100 100 / 100 000 mg In 100 ml @ 5 MCG/KG/MIN 2.187 mls/hr IV.CONT TITRATE PRN Rx#:[id number] NS Inj 1,000 ML @ 100 mls/hr IV 1999 / 1999 1000 / 1000 .CONT .Q10H [facility] Rx#:[id number] Ofirmev Inj 1,000 mg In 100 ml 100 / 100 @ 400 mls/hr IV.SIG ONCE ONE Rx #:[id number] Zosyn 3.375 GM Premix 50 ML @ 150 / 150 100 mls/hr IV.SIG Q6H [facility] Rx#: [id number] KCl 20 mEq Premix Inj 20 meq In 100 / 100 100 ml @ 50 mls/hr IV.SIG ONCE ONE Rx#:[id number] Ancef 1 GM Premix Inj 1 gm In 50 / 50 50 / 50 50 ml @ 100 mls/hr IV.SIG Q8H [facility] Rx#:[id number] fentaNYL 10 mcg/mL Premix Drip 250 / 250 250 / 250 2,500 mcg In 250 ml @ 50 MCG/HR 5 mls/hr IV.SIG TITRATE PRN Rx #:[id number] Oral 0 / 0 Tube Feeding 43 / 43 Tube Irrigant 120 / 120 Output: Urine Amount (Catheter) 850 / 850 500 / 500 Indwelling Urethral Catheter 850 / 850 500 / 500 - Urinary Catheter Management Indwelling Urethral Catheter Cath placed during this visit: no <Aaron Lopez - Last Filed: 02/08/18 10:25> Assessment and Plan - Assessment (1) Acute traumatic injury of cervical spine Status: Acute (2) Traumatic subluxation of cervical vertebra Code(s): S13.100A - Subluxation of unspecified cervical vertebrae, initial encounter Status: Acute (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 He has a profound C5-6 subluxation with jumped facets and gross instability. Plan for posterior open cervical jumped facet reduction with stabilization and fusion and will likely require an anterior approach for an anterior/posterior stabilization given the severity and unstable nature of this injury. Discussed with patient and his at bedside at length the risks and benefits involved and they requested we proceed and gave informed consent. They understand that is a possibility that he may not improve from his spinal cord injury despite extensive rehabilitation and there is also possibility of further neurologic and pulmonary decline (chest wall injury and comminuted sternal fracture) with risk of spinal cord shock and hemodynamic instability from the cervical cord edema/contusion progression in the near future. His condition obviously is very critical. Pt s/p Posterior C4, C5, C6, and C7 fusion on 02/05/18. s/p Anterior C4/C5, C5/C6, and C6/C7 cervical fusion on 02/06/18. P: Continue with cervical collar Continue with critical care. Continue with PT/OT <Markus Willis - Last Filed: 02/07/18 17:08> - Attending Attestation The exam, history, and the medical decision-making described in the above note were completed with the assistance of the mid-level provider. I reviewed and agree with the findings presented. I attest that I had a [id number] encounter with the patient on the same day, and personally performed and documented my assessment and findings in the medical record. Updated at bedside. <Aaron Lopez - Last Filed: 02/08/18 10:25>
[2018-02-07] MEDS: Piperacil/Tazo 3.375 GM Premix 50 ML IV.SIG SCH ×2 (17:24→23:52)
[2018-02-07] MEDS: fentaNYL 10 mcg/mL Premix Drip 2,500 MCG/250 ML BAG IV.SIG PRN (18:44)
[2018-02-07] MEDS: Pantoprazole Inj 40 MG Vial IV.PUSH SCH (21:33)
--- NOTE | 2018-02-08 04:28 | XR ---
EXAM DATE: 02/08/2018 4:24 AM EST AGE/SEX: 47 years / Male INDICATIONS: Respiratory distress. CLINICAL DATA: This is the patient's subsequent encounter. Patient reports that signs and symptoms h ave been present for 4 - 6 days and indicates a pain score of Nonresponsive. MEDICAL/SURGICAL HISTORY: None. Fusion, cervical. Central line. COMPARISON: [facility], CHEST 1V SINGLE AP, 02/07/2018. . FINDINGS: Single AP view of the chest. Endotracheal tube, nasogastric tube, left subclavian central venous cath eter remain in place. Persistent bilateral pulmonary opacity with lower lung zone predominance. Incre ase in obscuration of the right hemidiaphragm. Increase in obscuration of the left heart border. No e vidence of pneumothorax. CONCLUSION: Increased bilateral lower lung zone predominant pulmonary opacity with increasing obscuration of the right hemidiaphragm and left heart border. Electronically signed by: Kb Noe MD 02/08/2018 4:27 AM EST
[2018-02-08 04:37] LABS: Baso % (Auto) 0.2 % (0.0-2.0); Hemoglobin 11.1 gm/dL (13.0-17.0); Lymph # (Auto) 1.2 th/mm3 (1.0-4.8); Lymph % (Auto) 10.1 % (9.0-44.0); Mean Corpuscular HGB Conc 34.7 % (32.0-36.0); Mean Corpuscular Hemoglobin 30.9 pg (27.0-34.0); Mean Platelet Volume 8.8 fL (7.0-11.0); Mono # (Auto) 0.5 th/mm3 (0.0-0.9); Mono % (Auto) 3.8 % (0.0-8.0); Neut # (Auto) 10.5 th/mm3 (1.8-7.7); Neut % (Auto) 85.9 % (16.0-70.0); Platelet Count 85 th/mm3 (150-450); Red Blood Count 3.59 mil/mm3 (4.50-5.90); White Blood Count 12.2 th/mm3 (4.0-11.0)
[2018-02-08] MEDS: Piperacil/Tazo 3.375 GM Premix 50 ML IV.SIG SCH ×4 (05:00→23:52)
[2018-02-08 05:04] LABS: Anion Gap 6 meq/L (5-15); Blood Urea Nitrogen 13 mg/dL (7-18); Calcium 7.2 mg/dL (8.5-10.1); Carbon Dioxide 29.3 meq/L (21.0-32.0); Chloride 107 meq/L (98-107); Glomerular Filtration Rate Greater Than 89 mL/min (>89); Glucose,Random 114 mg/dL (74-106); Potassium 4.1 meq/L (3.5-5.1); Sodium 142 meq/L (136-145)
--- NOTE | 2018-02-08 05:06 | CT ---
EXAM DATE: 02/08/2018 4:54 AM EST AGE/SEX: 47 years / Male INDICATIONS: Trauma, head injury. Cervical spine fracture. CLINICAL DATA: This is the patient's subsequent encounter. Patient reports that signs and symptoms h ave been present for 4 - 6 days and indicates a pain score of Nonresponsive. MEDICAL/SURGICAL HISTORY: . Cervical spine fracture. . Cervical spine surgery. RADIATION DOSE: 56.35 CTDI (mGy) COMPARISON: [facility] [place], 02/04/2018. . TECHNIQUE: CT of the head without contrast. Using automated exposure control and adjustment of the mA and/or kV according to patient size, radiation dose was kept as low as reasonably achievable to ob tain optimal diagnostic quality images. DICOM format image data is available electronically for revi ew and comparison. FINDINGS: Cerebrum: The ventricles are normal for age. No evidence of midline shift, mass lesion, hemorrhage or acute infarction. No extraaxial fluid collections are seen. Posterior Fossa: The cerebellum and brainstem are intact. The 4th ventricle is midline. The cerebe llopontine angle is unremarkable. Extracranial: The visualized portion of the orbits is intact. Skull: The calvaria is intact. No evidence of skull fracture. CONCLUSION: No acute intracranial findings. . Electronically signed by: Kb Noe MD 02/08/2018 5:05 AM EST
[2018-02-08 05:18] LABS: Calcium-Albumin Corrected 8.1 mg/dL (8.5-10.1); Total Protein 5.4 g/dL (6.4-8.2)
[2018-02-08] MEDS: Chlorhexidine Gluconate 2% 1 Pack (2 Cloths) TOPICAL SCH (05:43)
[2018-02-08 05:56] LABS: ABG Base Excess 3.9 mmol/L (-2-2); ABG PCO2 51 mmHg (38-42); ABG PO2 72 mmHg (61-120)
[2018-02-08] MEDS: fentaNYL 10 mcg/mL Premix Drip 2,500 MCG/250 ML BAG IV.SIG PRN (06:12)
--- NOTE | 2018-02-08 08:12 | P.PNNPSY ---
- Progress Notes/Response to Treatment Contents of Sessions: Adjustment, Level of consciousness Time with Patient: 30 minutes Premorbid Psychological Status: Premorbid Cognitive, Emotional and Behavioral Status: Tenuous. The patient has high school years of education and an unknown work history prior to this injury. The patient has unknown psychiatric difficulties, as described above. Substance abuse history is unknown. Behavioral Reactions of Patient and Family/Support System: Tenuous. The patients family is experiencing ongoing issues of adjustment given the nature of the injury, and this aspect of recovery will require ongoing monitoring. Emotional/Behavioral Status of Patient and Family/Support System: Tenuous. Pertinent issues, if appropriate to this patients clinical care, are described in detail above. Maximizing Acute Care Outcome: It is recommended that the patient be monitored for emergent behavioral impulsivity as the medical condition evolves. This patients neuropathological challenges may limit rehabilitation potential going forward, and these challenges will require specialized therapeutic skills to maximize outcome. At this point in the recovery process, the patient does have cognitive capacity as the patient is able to understand a situation and its likely consequences, and the patient is able to manipulate information rationally. Cognitive capacity will be assessed throughout the recovery process. Anticipated Problems: Ongoing areas of concern will include behavioral impulsivity, lack of insight and judgment, which is expected to improve with time and treatment. Treatment Plan: This clinician will continue to follow with you throughout the course of this patients critical care treatment, and I will be available to meet with the patients family/support system to facilitate their understanding and the ongoing care of their family member. The goals of neuropsychological intervention shall be both educational and supportive to the family/support system as is deemed clinically appropriate. [place] COG Scale: Level Disinhibition Score: 14.00 Aggression Score: 14.00 Lability Score: 14.00 Agitated Behavior Total Score: 14 Impression: 47 year old man s/p concussion 2T fall on 02/04/2018. Progress Note Narrative: PTD 4. The patient has respiratory challenges currently. Neurobehaviorally, he is awake and following. No agitation/restlessness. ABS = 14 (14,14,14). He is [place] . I will follow. - Diagnosis (1) Head concussion Status: Acute
[2018-02-08 08:15] LABS: Lymphocytes 7 % (9-44); Monocytes 1 % (0-8)
[2018-02-08 08:20] LABS: Platelet Morphology Normal (Normal); RBC Morphology Normal (Normal)
[2018-02-08] MEDS: Senna/Docusate Sodium 8.6/50 MG Tablet PO SCH ×2 (08:22→21:22)
[2018-02-08] MEDS: Sodium Chloride 0.9% 2 ML Flush BID IV.FLUSH SCH ×2 (08:22→21:22)
[2018-02-08] MEDS: Vancomycin Inj 1,000 MG in Sodium Chlor 0.9% Inj 250 ML IV.SIG SCH (08:22)
[2018-02-08] MEDS: Sod Chloride 0.9% Inj 1,000 ML IV.CONT SCH ×2 (09:18→13:25)
[2018-02-08] MEDS: Propofol 1000 mg/100 ml Inj 1,000 MG/100 ML BOTTLE IV.CONT PRN ×2 (09:19→23:53)
[2018-02-08] MEDS: Enoxaparin Inj 30 MG/0.3 ML Syringe SQ SCH ×2 (09:19→21:21)
--- NOTE | 2018-02-08 11:47 | P.PNCC ---
Subjective Brief History: The patient is a 47-year-old male who presented status post fall from a tree stand, approximately 10 feet. The patient was somewhat amnestic to events with mild confusion, following commands, and noted to be out hunting and lost footing, fell from a tree stand with positive LOC. The patient noted to be tachycardic in the 130s in the field with a normal blood pressure. He had decreased movement to bilateral upper extremities and numbness and left leg numbness. When came in the trauma bay, he was noted to be hemodynamically stable, answering intermittently. Patient was resuscitated according trauma principles primary and secondary survey resuscitation definitive care carried out and patient undergoes full diagnostic workup including CT scan and MRI prior to coming to ICU In ICU, patient has decreased motion in the left arm and the left leg. Injuries detected C5 - C6 bilateral locked facets Left arm and leg weakness with paresthesias MRI confirmed spinal cord altered signal however no indication of spinal cord transection Sternal fracture Should also be noted that patient has had atrial fibrillation in the past and was placed on some blood thinner probably factor X a inhibitor for PT PTT is normal In face of the same will await till tomorrow to go ahead with a spinal surgery as per neurosurgery 24 Hour Review/Hospital Course: 02/05/2018 Patient is awake alert and oriented Weakness of the left arm and left leg is pronounced with some paresthesias in both Patient scheduled today for the anterior and eventually posterior fusion of the C-spine Patient may have permanent damage to the spinal cord and this is been clearly explained to patient and the family Hemodynamically he is stable and in sinus rhythm has been instructed to bring the home medication clearly patient must be on either calcium channel blockers beta-blockers or some other combination for his atrial fibrillation control Bilateral breath sounds good pulmonary function and pulmonary dynamics not impaired by the cervical injury Abdomen soft active bowel sounds Renal function preserved 02/06/2018 Patient is status post anterior and posterior fusion of C4-C5-C6 Sedated on propofol and fentanyl Intubated ventilated on assist control Bilateral good breath sounds and good PO2 FiO2 gradient Hemodynamically stable Renal function preserved Plan Patient came out of the operating room this afternoon and will keep him overnight ventilated and extubate patient tomorrow morning 02/07 Patient was febrile in the morning temperature 103.3. After anterior spinal fusion postop He also desaturated to the 80s and his FiO2 was increased to 60%-his PF ratio is 110-we will increase his PEEP to 10 Is also thick secretions-his NG tube was removed in the OR and patient was without NG tube until morning hours-patient may have aspirated with results of pneumonitis-we will observe patient very closely for potential pneumonia, his white cell count however is today 9 and there are only small bilateral basilar infiltrates Otherwise patient is awake he is following commands Remains hemodynamically stable 02/08 Patient continues to be febrile this morning temperature is 101.2, his white cell count is rising and he has also bands I started him yesterday on empiric antibiotics and he has been pancultured His PF ratio is on 120, he has thick secretions and infiltrates basilar bilateral on the chest x-ray His FiO2 is not 60% and his PEEP is 10 Hemodynamically he remains normal, his renal function is preserved Objective Vital Signs / I&O: Vital Signs 02/07/18 12:00 02/07/18 12:45 02/07/18 13:00 Temperature 100.2 F H Pulse Rate 88 94 H Respiratory Rate 15 15 11 L Blood Pressure Pulse Oximetry 96 95 95 02/07/18 14:00 02/07/18 15:00 02/07/18 15:55 Temperature Pulse Rate 88 94 H 103 H Respiratory Rate 17 16 16 Blood Pressure 157/76 H Pulse Oximetry 93 L 92 L 89 L 02/07/18 16:00 02/07/18 16:04 02/07/18 16:07 Temperature 102.1 F H Pulse Rate 104 H 113 H 111 H Respiratory Rate 19 17 12 Blood Pressure 162/78 H 173/85 H 173/80 H Pulse Oximetry 87 L 90 L 84 L 02/07/18 16:30 02/07/18 17:00 02/07/18 17:26 Temperature Pulse Rate 112 H 110 H Respiratory Rate 13 18 14 Blood Pressure 153/72 H Pulse Oximetry 93 L 94 L 97 02/07/18 18:00 02/07/18 19:00 02/07/18 20:00 Temperature 98.2 F Pulse Rate 97 H 91 H 87 Respiratory Rate 16 15 14 Blood Pressure Pulse Oximetry 97 97 98 02/07/18 21:00 02/07/18 21:14 02/07/18 21:17 Temperature Pulse Rate 91 H 88 Respiratory Rate 15 14 12 Blood Pressure Pulse Oximetry 96 95 02/07/18 22:00 02/07/18 23:00 02/08/18 00:00 Temperature Pulse Rate 96 H 92 H 84 Respiratory Rate 13 14 12 Blood Pressure Pulse Oximetry 95 96 100 02/08/18 01:00 02/08/18 02:00 02/08/18 03:00 Temperature 98.1 F Pulse Rate 81 80 80 Respiratory Rate 12 12 15 Blood Pressure Pulse Oximetry 100 100 100 02/08/18 04:00 02/08/18 04:03 02/08/18 04:16 Temperature 99 F Pulse Rate 82 80 84 Respiratory Rate 15 14 15 Blood Pressure 111/66 Pulse Oximetry 100 100 100 02/08/18 05:00 02/08/18 06:00 02/08/18 07:00 Temperature Pulse Rate 99 H 92 H 87 Respiratory Rate 13 13 Blood Pressure Pulse Oximetry 95 95 99 02/08/18 07:58 02/08/18 08:00 02/08/18 09:00 Temperature 98.5 F 98.5 F Pulse Rate 90 89 95 H Respiratory Rate 13 14 16 Blood Pressure 110/69 Pulse Oximetry 99 99 95 02/08/18 10:00 02/08/18 10:01 02/08/18 11:00 Temperature 101.1 F H 101.2 F H Pulse Rate 95 H 95 H 102 H Respiratory Rate 14 14 15 Blood Pressure Pulse Oximetry 99 98 98 Intake & Output 02/07/18 02/08/18 02/08/18 18:59 06:59 18:59 Intake Total 2700 / 2700 1713 / 1713 400 / 400 Output Total 850 / 850 500 / 500 Balance 1850 / 1850 1213 / 1213 400 / 400 Weight 86.8 kg Intake: IV 2700 / 2700 1550 / 1550 400 / 400 Diprivan 1000 mg/100 ml Inj 1, 200 / 200 100 / 100 100 / 100 000 mg In 100 ml @ 5 MCG/KG/MIN 2.187 mls/hr IV.CONT TITRATE PRN Rx#:[id number] NS Inj 1,000 ML @ 100 mls/hr IV 2000 / 2000 1000 / 1000 .CONT .Q10H [facility] Rx#:[id number] Ofirmev Inj 1,000 mg In 100 ml 100 / 100 @ 400 mls/hr IV.SIG ONCE ONE Rx #:[id number] Zosyn 3.375 GM Premix 50 ML @ 150 / 150 50 / 50 100 mls/hr IV.SIG Q6H [facility] Rx#: [id number] KCl 20 mEq Premix Inj 20 meq In 100 / 100 100 ml @ 50 mls/hr IV.SIG ONCE ONE Rx#:[id number] Vancomycin Inj 1,000 MG In NS 250 / 250 Inj 250 ML @ 250 mls/hr IV.SIG DAILY [facility] Rx#:[id number] Ancef 1 GM Premix Inj 1 gm In 50 / 50 50 / 50 50 ml @ 100 mls/hr IV.SIG Q8H [facility] Rx#:[id number] fentaNYL 10 mcg/mL Premix Drip 250 / 250 250 / 250 2,500 mcg In 250 ml @ 50 MCG/HR 5 mls/hr IV.SIG TITRATE PRN Rx #:[id number] Oral 0 / 0 Tube Feeding 43 / 43 Tube Irrigant 120 / 120 Output: Urine Amount (Catheter) 850 / 850 500 / 500 Indwelling Urethral Catheter 850 / 850 500 / 500 Result Diagrams: 02/08/18 04:20 02/08/18 04:20 Imaging: Impressions Head CT 02/08/18 00:00 CONCLUSION: No acute intracranial findings. . Chest X-Ray 02/08/18 06:00 CONCLUSION: Increased bilateral lower lung zone predominant pulmonary opacity with increasing obscuration of the right hemidiaphragm and left heart border. Disinhibition Score: 14.00 Aggression Score: 14.00 Lability Score: 14.00 Agitated Behavior Total Score: 14 - Exam [employer]ING: [place] Coma Score is 9T Hemodynamic/Cardiac: She is hemodynamically normal no pressors Pulmonary/Respiratory: Crackles on bilateral bases mechanical ventilation Abdomen/GI Nutrition: Abdomen is soft mildly distended tolerating tube Assessment and Plan Plan: Continue IV antibiotics, follow up cultures DVT prophylaxis, tube feeds Continue mechanical ventilation with high PEEP low tidal volumes No sedation holiday today
--- NOTE | 2018-02-08 16:05 | P.PNNS ---
Subjective Interval history: Pt sedated on Fentanyl and Diprivan drips. Opens eyes to voice. Not following commands. Intubated. Physical Exam Vital signs: Vital Signs 02/07/18 16:04 02/07/18 16:07 02/07/18 16:30 Temperature Pulse Rate 113 H 111 H 112 H Respiratory Rate 17 12 13 Blood Pressure 173/85 H 173/80 H 153/72 H Pulse Oximetry 90 L 84 L 93 L 02/07/18 17:00 02/07/18 17:26 02/07/18 18:00 Temperature Pulse Rate 110 H 97 H Respiratory Rate 18 14 16 Blood Pressure Pulse Oximetry 94 L 97 97 02/07/18 19:00 02/07/18 20:00 02/07/18 21:00 Temperature 98.2 F Pulse Rate 91 H 87 91 H Respiratory Rate 15 14 15 Blood Pressure Pulse Oximetry 97 98 96 02/07/18 21:14 02/07/18 21:17 02/07/18 22:00 Temperature Pulse Rate 88 96 H Respiratory Rate 14 12 13 Blood Pressure Pulse Oximetry 95 95 02/07/18 23:00 02/08/18 00:00 02/08/18 01:00 Temperature 98.1 F Pulse Rate 92 H 84 81 Respiratory Rate 14 12 12 Blood Pressure Pulse Oximetry 96 100 100 02/08/18 02:00 02/08/18 03:00 02/08/18 04:00 Temperature 99 F Pulse Rate 80 80 82 Respiratory Rate 12 15 15 Blood Pressure Pulse Oximetry 100 100 100 02/08/18 04:03 02/08/18 04:16 02/08/18 05:00 Temperature Pulse Rate 80 84 99 H Respiratory Rate 14 15 Blood Pressure 111/66 Pulse Oximetry 100 100 95 02/08/18 06:00 02/08/18 07:00 02/08/18 07:58 Temperature Pulse Rate 92 H 87 90 Respiratory Rate 13 13 13 Blood Pressure 110/69 Pulse Oximetry 95 99 99 02/08/18 08:00 02/08/18 09:00 02/08/18 10:00 Temperature 98.5 F 98.5 F 101.1 F H Pulse Rate 89 95 H 95 H Respiratory Rate 14 16 14 Blood Pressure Pulse Oximetry 99 95 99 02/08/18 10:01 02/08/18 11:00 02/08/18 11:49 Temperature 101.2 F H Pulse Rate 95 H 102 H 95 H Respiratory Rate 14 15 14 Blood Pressure 111/65 Pulse Oximetry 98 98 99 02/08/18 12:00 Temperature 100.3 F H Pulse Rate 98 H Respiratory Rate 14 Blood Pressure Pulse Oximetry 97 Intake & Output 02/07/18 02/08/18 02/08/18 18:59 06:59 18:59 Intake Total 2700 / 2700 1713 / 1713 400 / 400 Output Total 850 / 850 500 / 500 Balance 1850 / 1850 1213 / 1213 400 / 400 Weight 86.8 kg Intake: IV 2700 / 2700 1550 / 1550 400 / 400 Diprivan 1000 mg/100 ml Inj 1, 200 / 200 100 / 100 100 / 100 000 mg In 100 ml @ 5 MCG/KG/MIN 2.187 mls/hr IV.CONT TITRATE PRN Rx#:[id number] NS Inj 1,000 ML @ 100 mls/hr IV 2000 / 2000 1000 / 1000 .CONT .Q10H [facility] Rx#:[id number] Ofirmev Inj 1,000 mg In 100 ml 100 / 100 @ 400 mls/hr IV.SIG ONCE ONE Rx #:[id number] Zosyn 3.375 GM Premix 50 ML @ 150 / 150 50 / 50 100 mls/hr IV.SIG Q6H [facility] Rx#: [id number] KCl 20 mEq Premix Inj 20 meq In 100 / 100 100 ml @ 50 mls/hr IV.SIG ONCE ONE Rx#:[id number] Vancomycin Inj 1,000 MG In NS 250 / 250 Inj 250 ML @ 250 mls/hr IV.SIG DAILY [facility] Rx#:[id number] Ancef 1 GM Premix Inj 1 gm In 50 / 50 50 / 50 50 ml @ 100 mls/hr IV.SIG Q8H [facility] Rx#:[id number] fentaNYL 10 mcg/mL Premix Drip 250 / 250 250 / 250 2,500 mcg In 250 ml @ 50 MCG/HR 5 mls/hr IV.SIG TITRATE PRN Rx #:[id number] Oral 0 / 0 Tube Feeding 43 / 43 Tube Irrigant 120 / 120 Output: Urine Amount (Catheter) 850 / 850 500 / 500 Indwelling Urethral Catheter 850 / 850 500 / 500 - Constitutional Comments: Pt sedated on Fentanyl and Diprivan drip. - Routine HEENT Exam Eye: Present: PERRL (Pupils equal 3mm bilaterally. Reactive bilaterally.) ENT: Absent: oropharynx clear (ET intubated.) - Routine Respiratory Exam Present: patient mechanically ventilated (Pressure controlled. Rate 12. Peep 10. FiO2 60%.), CTA bilaterally. Absent: respiratory distress, rhonchi, wheezes - Routine Cardiovascular Exam Present: RRR, S1, S2. Absent: murmur - Routine Abdominal Exam Present: soft, normoactive bowel sounds. Absent: distended, firm - Routine Skin Exam Absent: cyanosis, erythema - Routine Neurological Exam Absent: alert (Opens eyes briefly to voice.) Pt sedated on Diprivan and Fentanyl drips. Opens eyes to voice. Pupils 2mm bilaterally reactive bilaterally. Not following commands. 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 He has a profound C5-6 subluxation with jumped facets and gross instability. Plan for posterior open cervical jumped facet reduction with stabilization and fusion and will likely require an anterior approach for an anterior/posterior stabilization given the severity and unstable nature of this injury. Discussed with patient and his at bedside at length the risks and benefits involved and they requested we proceed and gave informed consent. They understand that is a possibility that he may not improve from his spinal cord injury despite extensive rehabilitation and there is also possibility of further neurologic and pulmonary decline (chest wall injury and comminuted sternal fracture) with risk of spinal cord shock and hemodynamic instability from the cervical cord edema/contusion progression in the near future. His condition obviously is very critical. Pt s/p Posterior C4, C5, C6, and C7 fusion on 02/05/18. s/p Anterior C4/C5, C5/C6, and C6/C7 cervical fusion on 02/06/18. P: Continue with cervical collar Continue with critical care. Continue with PT/OT
[2018-02-08] MEDS: Pantoprazole Inj 40 MG Vial IV.PUSH SCH (21:21)
[2018-02-09] MEDS: fentaNYL 10 mcg/mL Premix Drip 2,500 MCG/250 ML BAG IV.SIG PRN ×2 (03:00→22:39)
[2018-02-09] MEDS: Chlorhexidine Gluconate 2% 1 Pack (2 Cloths) TOPICAL SCH (03:12)
[2018-02-09 04:20] LABS: Baso % (Auto) 0.1 % (0.0-2.0); Eos % (Auto) 0.2 % (0.0-4.0); Hematocrit 28.9 % (39.0-51.0); Hemoglobin 9.8 gm/dL (13.0-17.0); Lymph # (Auto) 1.1 th/mm3 (1.0-4.8); Mean Corpuscular Hemoglobin 30.3 pg (27.0-34.0); Mean Corpuscular Volume 89.1 fL (80.0-100.0); Mean Platelet Volume 9.1 fL (7.0-11.0); Mono # (Auto) 0.4 th/mm3 (0.0-0.9); Mono % (Auto) 3.7 % (0.0-8.0); Neut # (Auto) 10.5 th/mm3 (1.8-7.7); Platelet Count 105 th/mm3 (150-450); Red Blood Count 3.24 mil/mm3 (4.50-5.90); Red Cell Distribution Width 13.1 % (11.6-17.2)
[2018-02-09 04:40] LABS: Alanine Aminotransferase 30 U/L (12-78); Albumin 1.8 g/dL (3.4-5.0); Alkaline Phosphatase 57 U/L (45-117); Anion Gap 6 meq/L (5-15); Aspartate Aminotransferase 55 U/L (15-37); Blood Urea Nitrogen 13 mg/dL (7-18); Calcium 7.1 mg/dL (8.5-10.1); Carbon Dioxide 31.5 meq/L (21.0-32.0); Chloride 104 meq/L (98-107); Glomerular Filtration Rate Greater Than 89 mL/min (>89); Glucose,Random 113 mg/dL (74-106); Potassium 3.5 meq/L (3.5-5.1); Sodium 141 meq/L (136-145); Total Protein 5.1 g/dL (6.4-8.2)
--- NOTE | 2018-02-09 04:44 | XR ---
EXAM DATE: 02/09/2018 3:46 AM EST AGE/SEX: 47 years / Male INDICATIONS: Respiratory distress. CLINICAL DATA: This is the patient's subsequent encounter. Patient reports that signs and symptoms h ave been present for 4 - 6 days and indicates a pain score of Nonresponsive. MEDICAL/SURGICAL HISTORY: None. . Fusion, cervical. Central line. COMPARISON: [facility], CHEST 1V SINGLE AP, 02/08/2018. . FINDINGS: Endotracheal tube in good position. NG coiled in stomach. Left central line in superior vena cava. Bi lateral mostly basilar airspace consolidation slightly improved on the left since February 08. Probab le small effusions. No pneumothorax. CONCLUSION: Improvement in left basilar consolidation. Support apparatus unchanged. Electronically signed by: Isak Whitney MD 02/09/2018 4:43 AM EST
[2018-02-09] MEDS: Piperacil/Tazo 3.375 GM Premix 50 ML IV.SIG SCH ×4 (05:23→22:37)
[2018-02-09] MEDS: Sod Chloride 0.9% Inj 1,000 ML IV.CONT SCH ×3 (05:23→23:18)
[2018-02-09 05:26] LABS: ABG Base Excess 6.8 mmol/L (-2-2); ABG PCO2 45 mmHg (38-42); ABG PO2 99 mmHg (61-120)
[2018-02-09] MEDS: Propofol 1000 mg/100 ml Inj 1,000 MG/100 ML BOTTLE IV.CONT PRN ×2 (07:06→16:24)
[2018-02-09] MEDS: Vancomycin Inj 1,000 MG in Sodium Chlor 0.9% Inj 250 ML IV.SIG SCH (08:57)
[2018-02-09] MEDS: Sodium Chloride 0.9% 2 ML Flush BID IV.FLUSH SCH ×2 (08:57→21:10)
[2018-02-09] MEDS: Enoxaparin Inj 30 MG/0.3 ML Syringe SQ SCH ×2 (08:57→21:08)
[2018-02-09] MEDS: Senna/Docusate Sodium 8.6/50 MG Tablet PO SCH ×2 (08:58→21:10)
[2018-02-09] MEDS ORDERED: Bisacodyl 10 MG Supp RECTAL ONE (09:30)
--- NOTE | 2018-02-09 10:17 | P.DIET ---
Nutritional Evaluation Type of nutrition evaluation: initial Nutrition consult regarding: Tube Feeding Objective - Diagnosis Trauma Alert, C-Spine Injury - Objective % IBW: 103 (IBW: 70kg) Body Weight Used for Calculations: Actual (72kg) Energy Needs - Lower Range (kCal/kg): 28 Energy Needs - Upper Range (kCal/kg): 33 Lower Limit kCal/kg (kCals): 2,016 Upper Limit kCal/kg (kCals): 2,376 Lower Limit Protein Factor (Grams per Kg): 1.2 Upper Limit Protein Factor (Grams per Kg): 1.5 Lower Protein Needs (Protein): 86 Upper Protein Needs (Protein): 108 Fluid Factor (ml/kg): 33 Estimated Fluid Needs (ml): 2,376 Dietitian Reviewed in Medical Record: Current diet, Curent medications, Intake & Output, Labs, Medical history, Tube feeding Diet Order: NPO Objective Comments: Meds of note: Propofol Assessment Assessment: Pt at nutritional risk r/t current clinical status and need for a TF for nutrition support. Pt admitted a trauma alert with c-spine injury, he is s/p surgery 02/05. Pt remains intubated and sedated on propofol/fentanyl. Pt's nutritional needs as assessed above. Current TF per MD is Oxepa at 20ml/hr. To best meet pt's nutritional needs recommend Jevity 1.5 with goal rate of 60ml/hr to provide 2160kcals, 92gm protein and 1094mls free water. Propofol adds kcals when running. Will monitor TF tolerance, clinical course. Recommendations: Recommend TF Jevity 1.5 with goal rate 60ml/hr Dietitian to Monitor: Lab values, Intake & Output, Tube feeding tolerance, Weight change, Medical course
--- NOTE | 2018-02-09 10:43 | P.PNCC ---
Subjective Brief History: The patient is a 47-year-old male who presented status post fall from a tree stand, approximately 10 feet. The patient was somewhat amnestic to events with mild confusion, following commands, and noted to be out hunting and lost footing, fell from a tree stand with positive LOC. The patient noted to be tachycardic in the 130s in the field with a normal blood pressure. He had decreased movement to bilateral upper extremities and numbness and left leg numbness. When came in the trauma bay, he was noted to be hemodynamically stable, answering intermittently. Patient was resuscitated according trauma principles primary and secondary survey resuscitation definitive care carried out and patient undergoes full diagnostic workup including CT scan and MRI prior to coming to ICU In ICU, patient has decreased motion in the left arm and the left leg. Injuries detected C5 - C6 bilateral locked facets Left arm and leg weakness with paresthesias MRI confirmed spinal cord altered signal however no indication of spinal cord transection Sternal fracture Should also be noted that patient has had atrial fibrillation in the past and was placed on some blood thinner probably factor X a inhibitor for PT PTT is normal In face of the same will await till tomorrow to go ahead with a spinal surgery as per neurosurgery 24 Hour Review/Hospital Course: 02/05/2018 Patient is awake alert and oriented Weakness of the left arm and left leg is pronounced with some paresthesias in both Patient scheduled today for the anterior and eventually posterior fusion of the C-spine Patient may have permanent damage to the spinal cord and this is been clearly explained to patient and the family Hemodynamically he is stable and in sinus rhythm has been instructed to bring the home medication clearly patient must be on either calcium channel blockers beta-blockers or some other combination for his atrial fibrillation control Bilateral breath sounds good pulmonary function and pulmonary dynamics not impaired by the cervical injury Abdomen soft active bowel sounds Renal function preserved 02/06/2018 Patient is status post anterior and posterior fusion of C4-C5-C6 Sedated on propofol and fentanyl Intubated ventilated on assist control Bilateral good breath sounds and good PO2 FiO2 gradient Hemodynamically stable Renal function preserved Plan Patient came out of the operating room this afternoon and will keep him overnight ventilated and extubate patient tomorrow morning 02/07 Patient was febrile in the morning temperature 103.3. After anterior spinal fusion postop He also desaturated to the 80s and his FiO2 was increased to 60%-his PF ratio is 110-we will increase his PEEP to 10 Is also thick secretions-his NG tube was removed in the OR and patient was without NG tube until morning hours-patient may have aspirated with results of pneumonitis-we will observe patient very closely for potential pneumonia, his white cell count however is today 9 and there are only small bilateral basilar infiltrates Otherwise patient is awake he is following commands Remains hemodynamically stable 02/08 Patient continues to be febrile this morning temperature is 101.2, his white cell count is rising and he has also bands I started him yesterday on empiric antibiotics and he has been pancultured His PF ratio is on 120, he has thick secretions and infiltrates basilar bilateral on the chest x-ray His FiO2 is not 60% and his PEEP is 10 Hemodynamically he remains normal, his renal function is preserved 02/09 She remains hemodynamically normal, his eyes are open and is following commands His respiratory status clearly improved with improved PF ratio and chest x-ray Sputum cultures are negative however there was good response to empiric antibiotics and other cultures are still pending Patient clearly has been third spacing so that we will start diuresis with Lasix His FiO2 is down to 40% and his PEEP was reduced to 8 Patient has not been tolerating tube feeds likely secondary to an ileus, will start patient on Reglan start to fix tube feeds back on trickle rate and give Dulcolax to induce bowel movement Family was updated at the bedside Objective Vital Signs / I&O: Vital Signs 02/08/18 11:00 02/08/18 11:49 02/08/18 12:00 Temperature 101.2 F H 100.3 F H Pulse Rate 102 H 95 H 98 H Respiratory Rate 15 14 14 Blood Pressure 111/65 Pulse Oximetry 98 99 97 02/08/18 13:00 02/08/18 14:00 02/08/18 14:17 Temperature 100.2 F H 99.8 F H Pulse Rate 88 88 87 Respiratory Rate 14 15 14 Blood Pressure 107/65 107/65 Pulse Oximetry 99 99 98 02/08/18 15:00 02/08/18 16:00 02/08/18 17:00 Temperature 100.3 F H Pulse Rate 89 86 90 Respiratory Rate 14 14 14 Blood Pressure Pulse Oximetry 98 99 100 02/08/18 17:59 02/08/18 18:00 02/08/18 19:00 Temperature Pulse Rate 85 96 H 91 H Respiratory Rate 21 15 15 Blood Pressure Pulse Oximetry 98 99 02/08/18 20:00 02/08/18 21:00 02/08/18 21:12 Temperature 100.8 F H Pulse Rate 93 H 93 H 93 H Respiratory Rate 15 18 15 Blood Pressure Pulse Oximetry 100 100 94 L 02/08/18 22:00 02/08/18 23:00 02/08/18 23:46 Temperature Pulse Rate 103 H 98 H Respiratory Rate 15 14 15 Blood Pressure Pulse Oximetry 97 99 98 02/09/18 00:00 02/09/18 01:00 02/09/18 02:00 Temperature 101.1 F H Pulse Rate 97 H 93 H 99 H Respiratory Rate 14 15 15 Blood Pressure Pulse Oximetry 99 99 99 02/09/18 03:00 02/09/18 03:50 02/09/18 04:00 Temperature 101.1 F H Pulse Rate 96 H 97 H 100 H Respiratory Rate 14 14 15 Blood Pressure Pulse Oximetry 98 100 02/09/18 04:02 02/09/18 05:00 02/09/18 06:00 Temperature Pulse Rate 96 H 93 H Respiratory Rate 14 14 14 Blood Pressure Pulse Oximetry 97 99 99 02/09/18 08:44 Temperature Pulse Rate 86 Respiratory Rate 14 Blood Pressure Pulse Oximetry 100 Intake & Output 02/08/18 02/09/18 02/09/18 18:59 06:59 18:59 Intake Total 950 / 950 1570 / 1570 100 / 100 Output Total 550 / 550 600 / 600 Balance 400 / 400 970 / 970 100 / 100 Weight 87.8 kg Intake: IV 450 / 450 1450 / 1450 100 / 100 Diprivan 1000 mg/100 ml Inj 1, 100 / 100 100 / 100 100 / 100 000 mg In 100 ml @ 5 MCG/KG/MIN 2.187 mls/hr IV.CONT TITRATE PRN Rx#:[id number] NS Inj 1,000 ML @ 100 mls/hr IV 1000 / 1000 .CONT .Q10H ANTOINETTE Rx#:[id number] Zosyn 3.375 GM Premix 50 ML @ 100 / 100 100 / 100 100 mls/hr IV.SIG Q6H ANTOINETTE Rx#: [id number] Vancomycin Inj 1,000 MG In NS 250 / 250 Inj 250 ML @ 250 mls/hr IV.SIG DAILY ANTOINETTE Rx#:[id number] fentaNYL 10 mcg/mL Premix Drip 250 / 250 2,500 mcg In 250 ml @ 50 MCG/HR 5 mls/hr IV.SIG TITRATE PRN Rx #:[id number] Oral 0 / 0 0 / 0 Tube Feeding 380 / 380 0 / 0 Tube Irrigant 120 / 120 Water Bolus Amount 120 / 120 Output: Urine Amount (Catheter) 550 / 550 600 / 600 Indwelling Urethral Catheter 550 / 550 600 / 600 Result Diagrams: 02/09/18 04:00 02/09/18 04:00 Imaging: Impressions Chest X-Ray 02/09/18 06:00 CONCLUSION: Improvement in left basilar consolidation. Support apparatus unchanged. 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
--- NOTE | 2018-02-09 11:27 | P.PNNS ---
Subjective Interval history: Stable, vent weaning Physical Exam Vital signs: Vital Signs 02/08/18 11:49 02/08/18 12:00 02/08/18 13:00 Temperature 100.3 F H 100.2 F H Pulse Rate 95 H 98 H 88 Respiratory Rate 14 14 14 Blood Pressure 111/65 Pulse Oximetry 99 97 99 02/08/18 14:00 02/08/18 14:17 02/08/18 15:00 Temperature 99.8 F H Pulse Rate 88 87 89 Respiratory Rate 15 14 14 Blood Pressure 107/65 107/65 Pulse Oximetry 99 98 98 02/08/18 16:00 02/08/18 17:00 02/08/18 17:59 Temperature 100.3 F H Pulse Rate 86 90 85 Respiratory Rate 14 14 21 Blood Pressure Pulse Oximetry 99 100 02/08/18 18:00 02/08/18 19:00 02/08/18 20:00 Temperature 100.8 F H Pulse Rate 96 H 91 H 93 H Respiratory Rate 15 15 15 Blood Pressure Pulse Oximetry 98 99 100 02/08/18 21:00 02/08/18 21:12 02/08/18 22:00 Temperature Pulse Rate 93 H 93 H 103 H Respiratory Rate 18 15 15 Blood Pressure Pulse Oximetry 100 94 L 97 02/08/18 23:00 02/08/18 23:46 02/09/18 00:00 Temperature 101.1 F H Pulse Rate 98 H 97 H Respiratory Rate 14 15 14 Blood Pressure Pulse Oximetry 99 98 99 02/09/18 01:00 02/09/18 02:00 02/09/18 03:00 Temperature Pulse Rate 93 H 99 H 96 H Respiratory Rate 15 15 14 Blood Pressure Pulse Oximetry 99 99 98 02/09/18 03:50 02/09/18 04:00 02/09/18 04:02 Temperature 101.1 F H Pulse Rate 97 H 100 H Respiratory Rate 14 15 14 Blood Pressure Pulse Oximetry 100 97 02/09/18 05:00 02/09/18 06:00 02/09/18 08:44 Temperature Pulse Rate 96 H 93 H 86 Respiratory Rate 14 14 14 Blood Pressure Pulse Oximetry 99 99 100 Intake & Output 02/08/18 02/09/18 02/09/18 18:59 06:59 18:59 Intake Total 950 / 950 1570 / 1570 100 / 100 Output Total 550 / 550 600 / 600 Balance 400 / 400 970 / 970 100 / 100 Weight 87.8 kg Intake: IV 450 / 450 1450 / 1450 100 / 100 Diprivan 1000 mg/100 ml Inj 1, 100 / 100 100 / 100 100 / 100 000 mg In 100 ml @ 5 MCG/KG/MIN 2.187 mls/hr IV.CONT TITRATE PRN Rx#:[id number] NS Inj 1,000 ML @ 100 mls/hr IV 1000 / 1000 .CONT .Q10H ANTOINETTE Rx#:[id number] Zosyn 3.375 GM Premix 50 ML @ 100 / 100 100 / 100 100 mls/hr IV.SIG Q6H ANTOINETTE Rx#: [id number] Vancomycin Inj 1,000 MG In NS 250 / 250 Inj 250 ML @ 250 mls/hr IV.SIG DAILY ANTOINETTE Rx#:[id number] fentaNYL 10 mcg/mL Premix Drip 250 / 250 2,500 mcg In 250 ml @ 50 MCG/HR 5 mls/hr IV.SIG TITRATE PRN Rx #:[id number] Oral 0 / 0 0 / 0 Tube Feeding 380 / 380 0 / 0 Tube Irrigant 120 / 120 Water Bolus Amount 120 / 120 Output: Urine Amount (Catheter) 550 / 550 600 / 600 Indwelling Urethral Catheter 550 / 550 600 / 600 Narrative: intubated Full strength RUE and RLE LLE nearly flaccid, left arm hand weakness, proximally strong Anterior and posterior incisions c/d/i - Urinary Catheter Management Indwelling Urethral Catheter Cath placed during this visit: yes Reason for continuing: Hourly intake/output Insertion date: 02/05/18 Insertion time: 09:00 Assessment and Plan - Plan 47 yoM with 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 He has a profound C5-6 subluxation with jumped facets and gross instability. Plan for posterior open cervical jumped facet reduction with stabilization and fusion and will likely require an anterior approach for an anterior/posterior stabilization given the severity and unstable nature of this injury. Discussed with patient and his at bedside at length the risks and benefits involved and they requested we proceed and gave informed consent. They understand that is a possibility that he may not improve from his spinal cord injury despite extensive rehabilitation and there is also possibility of further neurologic and pulmonary decline (chest wall injury and comminuted sternal fracture) with risk of spinal cord shock and hemodynamic instability from the cervical cord edema/contusion progression in the near future. His condition obviously is very critical. Pt s/p Posterior C4, C5, C6, and C7 fusion on 02/05/18. s/p Anterior C4/C5, C5/C6, and C6/C7 cervical fusion on 02/06/18. P: Continue with cervical collar Continue with critical care. Continue with PT/OT Vent wean per ICU
[2018-02-09] MEDS: Pantoprazole Inj 40 MG Vial IV.PUSH SCH (21:09)
[2018-02-09] MEDS ORDERED: Sodium Phosphate Inj 30 MMOL in Sodium Chlor 0.9% Inj 250 ML IV.SIG PRN (23:28)
[2018-02-09] MEDS ORDERED: Potassium Chlor 20 mEq Premix 20 MEQ/100 ML PIGGYBACK IV.SIG PRN ×2 (23:28)
[2018-02-09] MEDS ORDERED: Magnesium Oxide 400 MG Tablet PO PRN (23:28)
[2018-02-09] MEDS ORDERED: Magnesium Sulfate Inj 4 GM in Sodium Chlor 0.9% Inj 92 ML IV.SIG PRN (23:28)
[2018-02-09] MEDS ORDERED: Potassium Chloride 25 MEQ Effervescent Tablet PO PRN (23:28)
[2018-02-09] MEDS ORDERED: Potassium Phosphate Inj 30 MMOL in Sodium Chlor 0.9% Inj 250 ML IV.SIG PRN (23:28)
[2018-02-09] MEDS ORDERED: Magnesium Sulfate Inj 2 GM in Sodium Chlor 0.9% Inj 96 ML IV.SIG PRN (23:28)
[2018-02-09] MEDS ORDERED: Potassium Phosphate 500 MG Soluble Tablet PO PRN ×2 (23:28)
[2018-02-09] MEDS ORDERED: Potassium Chlor 40 mEq Premix 40 MEQ/100 ML PIGGYBACK IV.SIG PRN ×2 (23:28)
[2018-02-10] MEDS: Propofol 1000 mg/100 ml Inj 1,000 MG/100 ML BOTTLE IV.CONT PRN ×3 (00:06→17:56)
[2018-02-10 05:48] LABS: ABG Base Excess 7.9 mmol/L (-2-2); ABG PCO2 45 mmHg (38-42); ABG PO2 67 mmHg (61-120)
--- NOTE | 2018-02-10 05:51 | XR ---
EXAM DATE: 02/10/2018 5:18 AM EST AGE/SEX: 47 years / Male INDICATIONS: Shortness of breath. Respiratory distress. CLINICAL DATA: This is the patient's subsequent encounter. Patient reports that signs and symptoms h ave been present for 1 week and indicates a pain score of Nonresponsive. MEDICAL/SURGICAL HISTORY: None. . Fusion, cervical. Central line. COMPARISON: [facility], CHEST 1V SINGLE AP, 02/09/2018. . FINDINGS: Endotracheal tube in good position. Left central line in superior vena cava. NG enters stomach. Bilat eral mostly basilar airspace disease similar to February 09. No pneumothorax. Small right effusion. CONCLUSION: Endotracheal tube, nasogastric tube and left central line in good position. Bilateral airspace consol idation and small effusions not significantly changed. Electronically signed by: Isak Whitney MD 02/10/2018 5:50 AM EST
[2018-02-10] MEDS: Piperacil/Tazo 3.375 GM Premix 50 ML IV.SIG SCH ×4 (06:01→22:31)
[2018-02-10 06:24] LABS: Baso % (Auto) 0.2 % (0.0-2.0); Eos # (Auto) 0.1 th/mm3 (0.0-0.4); Eos % (Auto) 0.7 % (0.0-4.0); Hematocrit 27.2 % (39.0-51.0); Hemoglobin 9.4 gm/dL (13.0-17.0); Lymph # (Auto) 0.8 th/mm3 (1.0-4.8); Mean Corpuscular HGB Conc 34.6 % (32.0-36.0); Mean Corpuscular Volume 89.5 fL (80.0-100.0); Mono # (Auto) 0.8 th/mm3 (0.0-0.9); Mono % (Auto) 5.8 % (0.0-8.0); Neut # (Auto) 11.9 th/mm3 (1.8-7.7); Neut % (Auto) 87.3 % (16.0-70.0); Platelet Count 121 th/mm3 (150-450); Red Blood Count 3.04 mil/mm3 (4.50-5.90); White Blood Count 13.7 th/mm3 (4.0-11.0)
[2018-02-10 07:07] LABS: Alanine Aminotransferase 28 U/L (12-78); Albumin 1.7 g/dL (3.4-5.0); Alkaline Phosphatase 81 U/L (45-117); Anion Gap 5 meq/L (5-15); Aspartate Aminotransferase 49 U/L (15-37); Blood Urea Nitrogen 13 mg/dL (7-18); Calcium 7.1 mg/dL (8.5-10.1); Chloride 107 meq/L (98-107); Glomerular Filtration Rate Greater Than 89 mL/min (>89); Glucose,Random 112 mg/dL (74-106); Potassium 3.5 meq/L (3.5-5.1); Sodium 144 meq/L (136-145); Total Protein 5.3 g/dL (6.4-8.2)
[2018-02-10] MEDS ORDERED: Cathflo Activase Inj 2 MG Vial I-CATHETER ONE (09:45)
[2018-02-10] MEDS: Enoxaparin Inj 30 MG/0.3 ML Syringe SQ SCH ×2 (10:02→20:24)
[2018-02-10] MEDS: Sod Chloride 0.9% Inj 1,000 ML IV.CONT SCH ×3 (10:03→23:49)
[2018-02-10] MEDS: Vancomycin Inj 1,000 MG in Sodium Chlor 0.9% Inj 250 ML IV.SIG SCH (10:04)
[2018-02-10] MEDS: Senna/Docusate Sodium 8.6/50 MG Tablet PO SCH ×2 (10:04→20:25)
[2018-02-10] MEDS: Sodium Chloride 0.9% 2 ML Flush BID IV.FLUSH SCH ×2 (10:06→20:24)
--- NOTE | 2018-02-10 10:48 | P.PNCC ---
Subjective Brief History: The patient is a 47-year-old male who presented status post fall from a tree stand, approximately 10 feet. The patient was somewhat amnestic to events with mild confusion, following commands, and noted to be out hunting and lost footing, fell from a tree stand with positive LOC. The patient noted to be tachycardic in the 130s in the field with a normal blood pressure. He had decreased movement to bilateral upper extremities and numbness and left leg numbness. When came in the trauma bay, he was noted to be hemodynamically stable, answering intermittently. Patient was resuscitated according trauma principles primary and secondary survey resuscitation definitive care carried out and patient undergoes full diagnostic workup including CT scan and MRI prior to coming to ICU In ICU, patient has decreased motion in the left arm and the left leg. Injuries detected C5 - C6 bilateral locked facets Left arm and leg weakness with paresthesias MRI confirmed spinal cord altered signal however no indication of spinal cord transection Sternal fracture Should also be noted that patient has had atrial fibrillation in the past and was placed on some blood thinner probably factor X a inhibitor for PT PTT is normal In face of the same will await till tomorrow to go ahead with a spinal surgery as per neurosurgery 24 Hour Review/Hospital Course: 02/05/2018 Patient is awake alert and oriented Weakness of the left arm and left leg is pronounced with some paresthesias in both Patient scheduled today for the anterior and eventually posterior fusion of the C-spine Patient may have permanent damage to the spinal cord and this is been clearly explained to patient and the family Hemodynamically he is stable and in sinus rhythm has been instructed to bring the home medication clearly patient must be on either calcium channel blockers beta-blockers or some other combination for his atrial fibrillation control Bilateral breath sounds good pulmonary function and pulmonary dynamics not impaired by the cervical injury Abdomen soft active bowel sounds Renal function preserved 02/06/2018 Patient is status post anterior and posterior fusion of C4-C5-C6 Sedated on propofol and fentanyl Intubated ventilated on assist control Bilateral good breath sounds and good PO2 FiO2 gradient Hemodynamically stable Renal function preserved Plan Patient came out of the operating room this afternoon and will keep him overnight ventilated and extubate patient tomorrow morning 02/07 Patient was febrile in the morning temperature 103.3. After anterior spinal fusion postop He also desaturated to the 80s and his FiO2 was increased to 60%-his PF ratio is 110-we will increase his PEEP to 10 Is also thick secretions-his NG tube was removed in the OR and patient was without NG tube until morning hours-patient may have aspirated with results of pneumonitis-we will observe patient very closely for potential pneumonia, his white cell count however is today 9 and there are only small bilateral basilar infiltrates Otherwise patient is awake he is following commands Remains hemodynamically stable 02/08 Patient continues to be febrile this morning temperature is 101.2, his white cell count is rising and he has also bands I started him yesterday on empiric antibiotics and he has been pancultured His PF ratio is on 120, he has thick secretions and infiltrates basilar bilateral on the chest x-ray His FiO2 is not 60% and his PEEP is 10 Hemodynamically he remains normal, his renal function is preserved 02/09 patient remains hemodynamically normal, his eyes are open and is following commands His respiratory status clearly improved with improved PF ratio and chest x-ray Sputum cultures are negative however there was good response to empiric antibiotics and other cultures are still pending Patient clearly has been third spacing so that we will start diuresis with Lasix His FiO2 is down to 40% and his PEEP was reduced to 8 Patient has not been tolerating tube feeds likely secondary to an ileus, will start patient on Reglan start to fix tube feeds back on trickle rate and give Dulcolax to induce bowel movement Family was updated at the bedside 02/10 Patient is febrile today in the morning, his white cell count is climbing as well His pro calcitonin is elevated, chest x-ray is essentially same bilateral basilar infiltrates His PF ratio today is around 120 which is worse than yesterday as the PEEP was reduced to 8 I will increase it back to 10 Patient had a short CPAP trial which she did not tolerate, he has thick norman colored secretions although the sputum culture is negative I still believe patient has a pneumonia we will repeat the culture obtain ID consult He has been tolerating tube feeds but in trophic rate, there is output from the reflex port of the NG-we will exchanged for a new NG tube Patient remains hemodynamically normal he responded well to diuresis 3 L of output Family was updated at the bedside Objective Vital Signs / I&O: Vital Signs 02/09/18 11:00 02/09/18 12:00 02/09/18 12:18 Temperature 98.7 F 99.2 F Pulse Rate 96 H 95 H Respiratory Rate 14 15 15 Blood Pressure Pulse Oximetry 96 97 92 L 02/09/18 12:30 02/09/18 13:00 02/09/18 14:00 Temperature 99.8 F H 100.3 F H 99.0 F Pulse Rate 97 H 96 H 99 H Respiratory Rate 14 14 14 Blood Pressure 116/65 Pulse Oximetry 97 96 97 02/09/18 15:00 02/09/18 15:19 02/09/18 16:00 Temperature 99.4 F 100.6 F H Pulse Rate 95 H 105 H 103 H Respiratory Rate 14 21 15 Blood Pressure Pulse Oximetry 98 95 02/09/18 16:18 02/09/18 17:00 02/09/18 17:16 Temperature 99.9 F H 99.6 F Pulse Rate 99 H 100 H Respiratory Rate 19 14 14 Blood Pressure 130/72 Pulse Oximetry 97 97 100 02/09/18 18:00 02/09/18 19:00 02/09/18 20:00 Temperature 99.5 F 100.9 F H Pulse Rate 98 H 94 H 96 H Respiratory Rate 14 14 14 Blood Pressure Pulse Oximetry 95 98 97 02/09/18 20:50 02/09/18 20:57 02/09/18 21:00 Temperature Pulse Rate 96 H 99 H Respiratory Rate 15 14 15 Blood Pressure Pulse Oximetry 97 100 02/09/18 22:00 02/09/18 23:00 02/10/18 00:00 Temperature 100.8 F H Pulse Rate 104 H 102 H 103 H Respiratory Rate 14 16 16 Blood Pressure Pulse Oximetry 96 99 96 02/10/18 01:00 02/10/18 02:00 02/10/18 03:00 Temperature Pulse Rate 103 H 100 H 104 H Respiratory Rate 19 17 18 Blood Pressure Pulse Oximetry 96 97 95 02/10/18 03:46 02/10/18 04:00 02/10/18 05:00 Temperature 102.7 F H Pulse Rate 109 H 108 H 109 H Respiratory Rate 18 23 18 Blood Pressure Pulse Oximetry 94 L 98 94 L 02/10/18 06:00 02/10/18 08:44 02/10/18 08:45 Temperature 100.5 F H Pulse Rate 104 H 98 H Respiratory Rate 15 14 14 Blood Pressure Pulse Oximetry 96 99 Intake & Output 02/09/18 02/10/18 02/10/18 18:59 06:59 18:59 Intake Total 690 / 690 1793 / 1793 Output Total 1999 1050 / 1050 Balance -1310 / -1310 743 / 743 Weight 86.6 kg Intake: IV 550 / 550 1550 / 1550 Diprivan 1000 mg/100 ml Inj 1, 200 / 200 100 / 100 000 mg In 100 ml @ 5 MCG/KG/MIN 2.187 mls/hr IV.CONT TITRATE PRN Rx#:[id number] NS Inj 1,000 ML @ 100 mls/hr IV 1000 / 1000 .CONT .Q10H ANTOINETTE Rx#:[id number] Zosyn 3.375 GM Premix 50 ML @ 100 / 100 100 / 100 100 mls/hr IV.SIG Q6H ANTOINETTE Rx#: [id number] KCl 40 mEq Premix Inj 40 meq In 100 / 100 100 ml @ 25 mls/hr IV.SIG UNSCH PRN Rx#:[id number] Vancomycin Inj 1,000 MG In NS 250 / 250 Inj 250 ML @ 250 mls/hr IV.SIG DAILY ANTOINETTE Rx#:[id number] fentaNYL 10 mcg/mL Premix Drip 250 / 250 2,500 mcg In 250 ml @ 50 MCG/HR 5 mls/hr IV.SIG TITRATE PRN Rx #:[id number] Oral 0 / 0 Tube Feeding 40 / 40 243 / 243 Tube Irrigant 100 / 100 Output: Urine Amount (Catheter) 1999 1050 / 1050 Indwelling Urethral Catheter 1999 1050 / 1050 Other: Date of Last Bowel Movement 02/09/18 02/10/18 # Bowel Movements 1 4 Result Diagrams: 02/10/18 05:50 02/10/18 05:50 Imaging: Impressions Chest X-Ray 02/10/18 06:00 CONCLUSION: Endotracheal tube, nasogastric tube and left central line in good position. Bilateral airspace consolidation and small effusions not significantly changed. 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
--- NOTE | 2018-02-10 12:58 | MB ---
cc: Wil Dong MD DATE: 02/10/2018 REQUESTING PHYSICIAN: NEGRO Matthews. REASON FOR VISIT: Fever, questionable pneumonia. HISTORY OF PRESENT ILLNESS: This is a 47-year-old male, who fell from a tree approximately 20 feet high and sustained a cervical spine fracture. The patient is currently intubated and on the ventilator. He underwent surgery consisting of posterior C4, C5, C6, and C7 fusion, and open reduction and internal fixation of C2-C6 and posterior C4-C7 lateral mass/facet segmental fixation. The patient is having elevated temperature. Temperature max of 102.7 degrees this morning. He has had intermittent fever since admission, and, at one point on 02/07/2018, a temperature of 103.3. Cultures to date include urine culture from 02/07/2018, which has no growth. Blood cultures from 02/08/2018 have no growth at 1 day. He is sedated on the ventilator. Chest x-ray shows bilateral airspace consolidation and small effusions. The patient has a central line in the left chest, which appears intact. Per RN report, surgical wound is intact and dry. White blood cell count is elevated at 13.7 with 87% neutrophils. RN reports that he has slightly bloody endotracheal secretions. The patient has a Del Rosario catheter in place, and the urine appears clear. Per the patient's , he has been very healthy before. PAST MEDICAL HISTORY: Sinus disease, history of knee surgery. ALLERGIES: NO KNOWN DRUG ALLERGIES. MEDICATIONS: 1. Fentanyl 2. Lovenox. 3. Lactulose. 4. Reglan. 5. Piperacillin/tazobactam 6. Protonix. 7. Vancomycin. SOCIAL HISTORY: No tobacco, monthly alcohol. No illicit drugs. FAMILY HISTORY: Noncontributory. REVIEW OF SYSTEMS: Unable to obtain. PHYSICAL EXAMINATION: GENERAL: This is a well-developed male, who is in no acute distress. He is sedated on the ventilator. VITAL SIGNS: Temperature is 100.5, BP 112/61, respiration 16, heart rate 104. HEENT: Unable to fully assess since the patient is intubated. The oropharyngeal mucosa appears moist. NECK: No adenopathy or swelling. LUNGS: Slight rhonchi at both bases. HEART: Regular S1, S2, without murmurs. ABDOMEN: Soft. No tenderness appreciated. RECTAL: Not performed. EXTREMITIES: No clubbing, cyanosis or edema. SKIN: No rash. NEUROLOGIC: Unable to assess. PSYCHIATRIC: Unable to assess. LABORATORY DATA: WBC 15.7, platelets 121, hemoglobin 9.4. Creatinine 0.52, BUN 15, sodium 144. AST 49, ALT 28. IMPRESSION: 1. Fever. 2. Lung infiltrates suggesting pneumonia. 3. Acute respiratory failure. 4. Status post cervical spine surgery. 5. Leukocytosis. RECOMMENDATIONS: 1. Continue vancomycin. 2. Continue piperacillin/tazobactam. 3. Follow urinalysis and urine culture, if obtained. 4. Repeat sputum culture. 5. Monitor temperature. 6. Monitor white blood cell count. 7. Monitor for additional clinical evidence to suggest source of infection. Thank you for this consultation. I will follow the patient's progress with you, and make further recommendations for followup as necessary. MD ELVA Schumacher/cayden , 11:03 AM , 11:16 AM
[2018-02-10 13:35] LABS: Bilirubin,Urine Negative (Negative); Clarity,Urine Clear (Clear); Color,Urine Yellow (Yellw/Straw); Glucose,Urine (UA) Negative (Negative); Leukocyte Esterase,Urine Negative (Negative); Mucus,Urine Few /lpf (Occasional); Nitrite,Urine Negative (Negative); Specific Gravity,Urine 1.017 (1.002-1.035)
--- NOTE | 2018-02-10 16:16 | XR ---
EXAM DATE: 02/10/2018 4:12 PM EST AGE/SEX: 47 years / Male INDICATIONS: Exchange of nasogastric tube with a orogastric tube. CLINICAL DATA: This is the patient's subsequent encounter. Patient reports that signs and symptoms h ave been present for 1 week and indicates a pain score of Nonresponsive. MEDICAL/SURGICAL HISTORY: None. Fusion, cervical. COMPARISON: [facility] – [place], [place], CT ABDOMEN & PELVIS W CONTRAST, 02/04/2018. . FINDINGS: Suction-type orogastric catheter tip in the stomach. Air is seen throughout the colon. No dilated loo ps of small bowel bowel. Patchy airspace disease in the visualized lung bases. Osseous structures are intact. CONCLUSION: 1. Suction-type orogastric catheter in the stomach. 2. Nonobstructive bowel gas pattern. Electronically signed by: Yahir Conti MD 02/10/2018 4:15 PM EST
[2018-02-10] MEDS: fentaNYL 10 mcg/mL Premix Drip 2,500 MCG/250 ML BAG IV.SIG PRN (17:54)
[2018-02-10] MEDS: Pantoprazole Inj 40 MG Vial IV.PUSH SCH (20:24)
[2018-02-11] MEDS: Sod Chloride 0.9% Inj 1,000 ML IV.CONT SCH (02:25)
[2018-02-11] MEDS: Propofol 1000 mg/100 ml Inj 1,000 MG/100 ML BOTTLE IV.CONT PRN ×4 (03:06→20:30)
[2018-02-11] MEDS: Piperacil/Tazo 3.375 GM Premix 50 ML IV.SIG SCH ×4 (05:13→22:09)
[2018-02-11 05:33] LABS: Baso % (Auto) 0.2 % (0.0-2.0); Eos # (Auto) 0.3 th/mm3 (0.0-0.4); Hematocrit 28.7 % (39.0-51.0); Hemoglobin 9.6 gm/dL (13.0-17.0); Lymph # (Auto) 1.4 th/mm3 (1.0-4.8); Lymph % (Auto) 10.7 % (9.0-44.0); Mean Corpuscular HGB Conc 33.6 % (32.0-36.0); Mean Corpuscular Hemoglobin 30.4 pg (27.0-34.0); Mean Corpuscular Volume 90.5 fL (80.0-100.0); Mean Platelet Volume 9.2 fL (7.0-11.0); Mono % (Auto) 7.5 % (0.0-8.0); Neut # (Auto) 10.3 th/mm3 (1.8-7.7); Neut % (Auto) 79.6 % (16.0-70.0); Platelet Count 144 th/mm3 (150-450); Red Blood Count 3.17 mil/mm3 (4.50-5.90); Red Cell Distribution Width 13.2 % (11.6-17.2); White Blood Count 12.9 th/mm3 (4.0-11.0)
[2018-02-11 05:53] LABS: ABG PCO2 46 mmHg (38-42); ABG PO2 59 mmHg (61-120)
[2018-02-11 06:05] LABS: Anion Gap 4 meq/L (5-15); Blood Urea Nitrogen 14 mg/dL (7-18); Calcium 7.4 mg/dL (8.5-10.1); Carbon Dioxide 32.1 meq/L (21.0-32.0); Chloride 106 meq/L (98-107); Glomerular Filtration Rate Greater Than 89 mL/min (>89); Glucose,Random 114 mg/dL (74-106); Potassium 3.7 meq/L (3.5-5.1); Sodium 142 meq/L (136-145)
[2018-02-11 06:20] LABS: Calcium-Albumin Corrected 8.1 mg/dL (8.5-10.1); Total Protein 5.8 g/dL (6.4-8.2)
--- NOTE | 2018-02-11 07:53 | P.PNNS ---
Subjective Interval history: pneumonia difficult vent wean, sitting up helps Physical Exam Vital signs: Vital Signs 02/10/18 08:00 02/10/18 08:44 02/10/18 08:45 Temperature 100.5 F H Pulse Rate 93 H 98 H Respiratory Rate 16 14 14 Blood Pressure Pulse Oximetry 97 99 02/10/18 09:00 02/10/18 10:00 02/10/18 11:00 Temperature 100.4 F H 99.6 F 99.4 F Pulse Rate 108 H 108 H 103 H Respiratory Rate 33 H 21 14 Blood Pressure Pulse Oximetry 93 L 91 L 93 L 02/10/18 12:00 02/10/18 12:09 02/10/18 13:00 Temperature 100.0 F H Pulse Rate 100 H 93 H Respiratory Rate 14 14 14 Blood Pressure Pulse Oximetry 95 95 95 02/10/18 14:00 02/10/18 15:00 02/10/18 16:00 Temperature 100.4 F H 100.7 F H 100.5 F H Pulse Rate 101 H 105 H 99 H Respiratory Rate 21 18 15 Blood Pressure Pulse Oximetry 94 L 94 L 93 L 02/10/18 16:09 02/10/18 17:00 02/10/18 17:05 Temperature Pulse Rate 99 H 94 H Respiratory Rate 15 14 14 Blood Pressure 114/59 L Pulse Oximetry 94 L 93 L 97 02/10/18 17:11 02/10/18 18:00 02/10/18 19:00 Temperature Pulse Rate 91 H 90 88 Respiratory Rate 14 23 22 Blood Pressure 112/60 Pulse Oximetry 98 92 L 92 L 02/10/18 20:00 02/10/18 20:13 02/10/18 20:39 Temperature 100.0 F H Pulse Rate 92 H 89 98 H Respiratory Rate 21 25 H 18 Blood Pressure 132/72 Pulse Oximetry 91 L 94 L 98 02/10/18 21:00 02/10/18 22:00 02/10/18 22:27 Temperature Pulse Rate 99 H 100 H 100 H Respiratory Rate 16 18 17 Blood Pressure 131/68 Pulse Oximetry 93 L 91 L 92 L 02/10/18 23:00 02/10/18 23:21 02/11/18 00:00 Temperature 100.0 F H Pulse Rate 103 H 107 H 96 H Respiratory Rate 18 15 14 Blood Pressure 105/62 Pulse Oximetry 92 L 89 L 95 02/11/18 00:02 02/11/18 01:00 02/11/18 01:37 Temperature Pulse Rate 95 H 90 Respiratory Rate 14 16 15 Blood Pressure 107/63 Pulse Oximetry 95 97 92 L 02/11/18 01:55 02/11/18 02:00 02/11/18 03:00 Temperature Pulse Rate 92 H 87 95 H Respiratory Rate 16 15 19 Blood Pressure 122/72 Pulse Oximetry 93 L 98 96 02/11/18 03:28 02/11/18 04:00 02/11/18 04:06 Temperature 100.8 F H Pulse Rate 93 H 98 H Respiratory Rate 15 16 14 Blood Pressure Pulse Oximetry 94 L 92 L 02/11/18 04:19 02/11/18 04:28 02/11/18 04:33 Temperature Pulse Rate 108 H 102 H 101 H Respiratory Rate 20 18 18 Blood Pressure 169/83 H 171/86 H 162/77 H Pulse Oximetry 100 91 L 93 L 02/11/18 05:00 02/11/18 06:00 Temperature Pulse Rate 101 H 98 H Respiratory Rate 19 15 Blood Pressure Pulse Oximetry 95 91 L Intake & Output 02/10/18 02/11/18 02/11/18 18:59 06:59 18:59 Intake Total 700 / 700 2089 / 2089 Output Total 1950 / 1950 650 / 650 Balance -1250 / -1250 1439 / 1439 Weight 86.4 kg Intake: IV 500 / 500 1550 / 1550 Diprivan 1000 mg/100 ml Inj 1, 200 / 200 100 / 100 000 mg In 100 ml @ 5 MCG/KG/MIN 2.187 mls/hr IV.CONT TITRATE PRN Rx#:[id number] NS Inj 1,000 ML @ 100 mls/hr IV 1000 / 1000 .CONT .Q10H ANTOINETTE Rx#:[id number] Zosyn 3.375 GM Premix 50 ML @ 50 / 50 100 / 100 100 mls/hr IV.SIG Q6H ANTOINETTE Rx#: [id number] KCl 20 mEq Premix Inj 20 meq In 100 / 100 100 ml @ 50 mls/hr IV.SIG Q2H PRN Rx#:[id number] Vancomycin Inj 1,000 MG In NS 250 / 250 Inj 250 ML @ 250 mls/hr IV.SIG DAILY ANTOINETTE Rx#:[id number] fentaNYL 10 mcg/mL Premix Drip 250 / 250 2,500 mcg In 250 ml @ 50 MCG/HR 5 mls/hr IV.SIG TITRATE PRN Rx #:[id number] Oral 0 / 0 Tube Feeding 100 / 100 539 / 539 Tube Irrigant 100 / 100 Output: Urine Amount (Catheter) 1949 650 / 650 Indwelling Urethral Catheter 1949 650 / 650 Other: Date of Last Bowel Movement 02/10/18 02/10/18 # Bowel Movements 1 Narrative: intubated Full strength RUE and RLE LLE nearly flaccid, left arm hand weakness, proximally strong Anterior and posterior incisions c/d/i - Urinary Catheter Management Indwelling Urethral Catheter Cath placed during this visit: yes Reason for continuing: Hourly intake/output Insertion date: 02/05/18 Insertion time: 09:00 Assessment and Plan - Plan 47 yoM with 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 He has a profound C5-6 subluxation with jumped facets and gross instability. Plan for posterior open cervical jumped facet reduction with stabilization and fusion and will likely require an anterior approach for an anterior/posterior stabilization given the severity and unstable nature of this injury. Discussed with patient and his at bedside at length the risks and benefits involved and they requested we proceed and gave informed consent. They understand that is a possibility that he may not improve from his spinal cord injury despite extensive rehabilitation and there is also possibility of further neurologic and pulmonary decline (chest wall injury and comminuted sternal fracture) with risk of spinal cord shock and hemodynamic instability from the cervical cord edema/contusion progression in the near future. His condition obviously is very critical. Pt s/p Posterior C4, C5, C6, and C7 fusion on 02/05/18. s/p Anterior C4/C5, C5/C6, and C6/C7 cervical fusion on 02/06/18. P: 02/11/18 Continue with cervical collar Continue with critical care. Continue with PT/OT Vent wean per ICU
[2018-02-11] MEDS: Sodium Chloride 0.9% 2 ML Flush BID IV.FLUSH SCH ×2 (09:08→20:00)
[2018-02-11] MEDS: Enoxaparin Inj 30 MG/0.3 ML Syringe SQ SCH ×2 (09:08→20:00)
[2018-02-11] MEDS: Senna/Docusate Sodium 8.6/50 MG Tablet PO SCH ×2 (09:09→20:00)
[2018-02-11] MEDS: Vancomycin Inj 1,000 MG in Sodium Chlor 0.9% Inj 250 ML IV.SIG SCH (09:10)
[2018-02-11 10:27] LABS: Eosinophils 1 % (0-4); Lymphocytes 5 % (9-44); Metamyelocytes 1 % (0-1); Monocytes 8 % (0-8)
[2018-02-11 10:28] LABS: Platelet Estimate Normal (Normal); Platelet Morphology Normal (Normal)
--- NOTE | 2018-02-11 12:10 | P.PNCC ---
Subjective Brief History: The patient is a 47-year-old male who presented status post fall from a tree stand, approximately 10 feet. The patient was somewhat amnestic to events with mild confusion, following commands, and noted to be out hunting and lost footing, fell from a tree stand with positive LOC. The patient noted to be tachycardic in the 130s in the field with a normal blood pressure. He had decreased movement to bilateral upper extremities and numbness and left leg numbness. When came in the trauma bay, he was noted to be hemodynamically stable, answering intermittently. Patient was resuscitated according trauma principles primary and secondary survey resuscitation definitive care carried out and patient undergoes full diagnostic workup including CT scan and MRI prior to coming to ICU In ICU, patient has decreased motion in the left arm and the left leg. Injuries detected C5 - C6 bilateral locked facets Left arm and leg weakness with paresthesias MRI confirmed spinal cord altered signal however no indication of spinal cord transection Sternal fracture Should also be noted that patient has had atrial fibrillation in the past and was placed on some blood thinner probably factor X a inhibitor for PT PTT is normal In face of the same will await till tomorrow to go ahead with a spinal surgery as per neurosurgery 24 Hour Review/Hospital Course: 02/05/2018 Patient is awake alert and oriented Weakness of the left arm and left leg is pronounced with some paresthesias in both Patient scheduled today for the anterior and eventually posterior fusion of the C-spine Patient may have permanent damage to the spinal cord and this is been clearly explained to patient and the family Hemodynamically he is stable and in sinus rhythm has been instructed to bring the home medication clearly patient must be on either calcium channel blockers beta-blockers or some other combination for his atrial fibrillation control Bilateral breath sounds good pulmonary function and pulmonary dynamics not impaired by the cervical injury Abdomen soft active bowel sounds Renal function preserved 02/06/2018 Patient is status post anterior and posterior fusion of C4-C5-C6 Sedated on propofol and fentanyl Intubated ventilated on assist control Bilateral good breath sounds and good PO2 FiO2 gradient Hemodynamically stable Renal function preserved Plan Patient came out of the operating room this afternoon and will keep him overnight ventilated and extubate patient tomorrow morning 02/07 Patient was febrile in the morning temperature 103.3. After anterior spinal fusion postop He also desaturated to the 80s and his FiO2 was increased to 60%-his PF ratio is 110-we will increase his PEEP to 10 Is also thick secretions-his NG tube was removed in the OR and patient was without NG tube until morning hours-patient may have aspirated with results of pneumonitis-we will observe patient very closely for potential pneumonia, his white cell count however is today 9 and there are only small bilateral basilar infiltrates Otherwise patient is awake he is following commands Remains hemodynamically stable 02/08 Patient continues to be febrile this morning temperature is 101.2, his white cell count is rising and he has also bands I started him yesterday on empiric antibiotics and he has been pancultured His PF ratio is on 120, he has thick secretions and infiltrates basilar bilateral on the chest x-ray His FiO2 is not 60% and his PEEP is 10 Hemodynamically he remains normal, his renal function is preserved 02/09 patient remains hemodynamically normal, his eyes are open and is following commands His respiratory status clearly improved with improved PF ratio and chest x-ray Sputum cultures are negative however there was good response to empiric antibiotics and other cultures are still pending Patient clearly has been third spacing so that we will start diuresis with Lasix His FiO2 is down to 40% and his PEEP was reduced to 8 Patient has not been tolerating tube feeds likely secondary to an ileus, will start patient on Reglan start to fix tube feeds back on trickle rate and give Dulcolax to induce bowel movement Family was updated at the bedside 02/10 Patient is febrile today in the morning, his white cell count is climbing as well His pro calcitonin is elevated, chest x-ray is essentially same bilateral basilar infiltrates His PF ratio today is around 120 which is worse than yesterday as the PEEP was reduced to 8 I will increase it back to 10 Patient had a short CPAP trial which she did not tolerate, he has thick norman colored secretions although the sputum culture is negative I still believe patient has a pneumonia we will repeat the culture obtain ID consult He has been tolerating tube feeds but in trophic rate, there is output from the reflex port of the NG-we will exchanged for a new NG tube Patient remains hemodynamically normal he responded well to diuresis 3 L of output Family was updated at the bedside 02/11/2018 Patient remains intubated and ventilated status post anterior and posterior cervical fusion Repeated spikes of fever to 102 consistent with pneumonia On low sedation easily arousable patient follows commands and is still weak in the left side of the body Hemodynamically stable Bilateral breath with decreased PO2 FiO2 ratio consistent with increased infiltrates bilateral pneumonia and consequent restricted oxygen diffusion and exchange. This is consistent with aspiration of gastric contents Remains on high respiratory parameters including 12 of PEEP and 60% FiO2 with peak inspiratory pressures around 36 cm H2O Patient will need to be maintained on the ventilator until pulmonary function and PO2 FiO2 gradient improves Cultures are negative for the time being but I believe patient has bilateral pneumonia and just a matter of time when cultures sort themselves out Remains on Zosyn and ID consult is greatly appreciated Enteral feeds tolerated however positioning of the OG tube remains to be a problem and patient will go to radiology for a Dobbhoff placement Renal function preserved Plan Continue ventilatory and nutritional support as necessary As the patient's pulmonary function improves will gradually wean the ventilator but right now patient's function may worsen before it gets better Objective Vital Signs / I&O: Vital Signs 02/10/18 12:09 02/10/18 13:00 02/10/18 14:00 Temperature 100.0 F H 100.4 F H Pulse Rate 93 H 101 H Respiratory Rate 14 14 21 Blood Pressure Pulse Oximetry 95 95 94 L 02/10/18 15:00 02/10/18 16:00 02/10/18 16:09 Temperature 100.7 F H 100.5 F H Pulse Rate 105 H 99 H 99 H Respiratory Rate 18 15 15 Blood Pressure 114/59 L Pulse Oximetry 94 L 93 L 94 L 02/10/18 17:00 02/10/18 17:05 02/10/18 17:11 Temperature Pulse Rate 94 H 91 H Respiratory Rate 14 14 14 Blood Pressure 112/60 Pulse Oximetry 93 L 97 98 02/10/18 18:00 02/10/18 19:00 02/10/18 20:00 Temperature 100.0 F H Pulse Rate 90 88 92 H Respiratory Rate 23 22 21 Blood Pressure Pulse Oximetry 92 L 92 L 91 L 02/10/18 20:13 02/10/18 20:39 02/10/18 21:00 Temperature Pulse Rate 89 98 H 99 H Respiratory Rate 25 H 18 16 Blood Pressure 132/72 Pulse Oximetry 94 L 98 93 L 02/10/18 22:00 02/10/18 22:27 02/10/18 23:00 Temperature Pulse Rate 100 H 100 H 103 H Respiratory Rate 18 17 18 Blood Pressure 131/68 Pulse Oximetry 91 L 92 L 92 L 02/10/18 23:21 02/11/18 00:00 02/11/18 00:02 Temperature 100.0 F H Pulse Rate 107 H 96 H 95 H Respiratory Rate 15 14 14 Blood Pressure 105/62 107/63 Pulse Oximetry 89 L 95 95 02/11/18 01:00 02/11/18 01:37 02/11/18 01:55 Temperature Pulse Rate 90 92 H Respiratory Rate 16 15 16 Blood Pressure 122/72 Pulse Oximetry 97 92 L 93 L 02/11/18 02:00 02/11/18 03:00 02/11/18 03:28 Temperature Pulse Rate 87 95 H 93 H Respiratory Rate 15 19 15 Blood Pressure Pulse Oximetry 98 96 02/11/18 04:00 02/11/18 04:06 02/11/18 04:19 Temperature 100.8 F H Pulse Rate 98 H 108 H Respiratory Rate 16 14 20 Blood Pressure 169/83 H Pulse Oximetry 94 L 92 L 100 02/11/18 04:28 02/11/18 04:33 02/11/18 05:00 Temperature Pulse Rate 102 H 101 H 101 H Respiratory Rate 18 18 19 Blood Pressure 171/86 H 162/77 H Pulse Oximetry 91 L 93 L 95 02/11/18 06:00 02/11/18 10:12 Temperature Pulse Rate 98 H 101 H Respiratory Rate 15 16 Blood Pressure Pulse Oximetry 91 L 100 Intake & Output 02/10/18 02/11/18 02/11/18 18:59 06:59 18:59 Intake Total 700 / 700 2089 / 2089 100 / 100 Output Total 1950 / 1950 650 / 650 Balance -1250 / -1250 1439 / 1439 100 / 100 Weight 86.4 kg Intake: IV 500 / 500 1550 / 1550 100 / 100 Diprivan 1000 mg/100 ml Inj 1, 200 / 200 100 / 100 100 / 100 000 mg In 100 ml @ 5 MCG/KG/MIN 2.187 mls/hr IV.CONT TITRATE PRN Rx#:[id number] NS Inj 1,000 ML @ 100 mls/hr IV 1000 / 1000 .CONT .Q10H ANTOINETTE Rx#:[id number] Zosyn 3.375 GM Premix 50 ML @ 50 / 50 100 / 100 100 mls/hr IV.SIG Q6H ANTOINETTE Rx#: [id number] KCl 20 mEq Premix Inj 20 meq In 100 / 100 100 ml @ 50 mls/hr IV.SIG Q2H PRN Rx#:[id number] Vancomycin Inj 1,000 MG In NS 250 / 250 Inj 250 ML @ 250 mls/hr IV.SIG DAILY ANTOINETTE Rx#:[id number] fentaNYL 10 mcg/mL Premix Drip 250 / 250 2,500 mcg In 250 ml @ 50 MCG/HR 5 mls/hr IV.SIG TITRATE PRN Rx #:[id number] Oral 0 / 0 Tube Feeding 100 / 100 539 / 539 Tube Irrigant 100 / 100 Output: Urine Amount (Catheter) 1949 650 / 650 Indwelling Urethral Catheter 1949 650 / 650 Other: Date of Last Bowel Movement 02/10/18 02/10/18 # Bowel Movements 1 Result Diagrams: 02/11/18 04:20 02/11/18 04:20 Imaging: Impressions Abdomen X-Ray 02/10/18 15:25 CONCLUSION: 1. Suction-type orogastric catheter in the stomach. 2. Nonobstructive bowel gas pattern. Disinhibition Score: 17.50 Aggression Score: 14.00 Lability Score: 14.00 Agitated Behavior Total Score: 16 - Exam APPLICATION SUPPORT: Patient remains intubated and ventilated status post anterior and posterior cervical fusion Repeated spikes of fever to 102 consistent with pneumonia On low sedation easily arousable patient follows commands and is still weak in the left side of the body Hemodynamic/Cardiac: Hemodynamically stable Pulmonary/Respiratory: Bilateral breath with decreased PO2 FiO2 ratio consistent with increased infiltrates bilateral pneumonia and consequent restricted oxygen diffusion and exchange. This is consistent with aspiration of gastric contents Remains on high respiratory parameters including 12 of PEEP and 60% FiO2 with peak inspiratory pressures around 36 cm H2O Patient will need to be maintained on the ventilator until pulmonary function and PO2 FiO2 gradient improves Cultures are negative for the time being but I believe patient has bilateral pneumonia and just a matter of time when cultures sort themselves out Remains on Zosyn and ID consult is greatly appreciated Abdomen/GI Nutrition: Enteral feeds tolerated however positioning of the OG tube remains to be a problem and patient will go to radiology for a Dobbhoff placement Renal/I&O: Renal function preserved Assessment and Plan Plan: Continue IV antibiotics, follow up cultures DVT prophylaxis, tube feeds Continue mechanical ventilation-increase PEEP to 10 ID consultation Attestation: Critical care time 35 minutes
[2018-02-11] MEDS: fentaNYL 10 mcg/mL Premix Drip 2,500 MCG/250 ML BAG IV.SIG PRN (14:00)
--- NOTE | 2018-02-11 16:52 | US ---
EXAM DATE: 02/11/2018 4:48 PM EST AGE/SEX: 47 years / Male INDICATIONS: Bilateral leg swelling. CLINICAL DATA: This is the patient's initial encounter. Patient reports that signs and symptoms have been present for 1 day and indicates a pain score of Nonresponsive. MEDICAL/SURGICAL HISTORY: None. . Knee surgery. COMPARISON: No prior exams available for comparison. TECHNIQUE: Venous ultrasound of both lower extremities was performed from the inguinal ligament to t he proximal calf. Real-time, color Doppler and spectral tracing, compression and augmentation techni ques were used. FINDINGS: Right Leg: Normal compression of the deep venous system from the inguinal region to the proximal dwight f. No echogenic clot is seen. Normal response of the venous system to augmentation and respiration. Left Leg: Normal compression of the deep venous system from the inguinal region to the proximal calf . No echogenic clot is seen. Normal response of the venous system to augmentation and respiration. Other: None. CONCLUSION: 1. No sonographic evidence for lower extremity DVT. Electronically signed by: Yahir Conti MD 02/11/2018 4:51 PM EST
[2018-02-11] MEDS: Pantoprazole Inj 40 MG Vial IV.PUSH SCH (20:00)
[2018-02-12] MEDS: Propofol 1000 mg/100 ml Inj 1,000 MG/100 ML BOTTLE IV.CONT PRN ×5 (01:22→22:37)
[2018-02-12 03:31] LABS: Baso # (Auto) 0.1 th/mm3 (0.0-0.2); Baso % (Auto) 0.5 % (0.0-2.0); Eos # (Auto) 0.4 th/mm3 (0.0-0.4); Eos % (Auto) 3.3 % (0.0-4.0); Hematocrit 26.1 % (39.0-51.0); Lymph # (Auto) 1.1 th/mm3 (1.0-4.8); Mean Corpuscular HGB Conc 34.3 % (32.0-36.0); Mean Corpuscular Hemoglobin 30.7 pg (27.0-34.0); Mean Corpuscular Volume 89.5 fL (80.0-100.0); Mean Platelet Volume 8.5 fL (7.0-11.0); Mono % (Auto) 8.1 % (0.0-8.0); Neut # (Auto) 9.3 th/mm3 (1.8-7.7); Neut % (Auto) 79.1 % (16.0-70.0); Platelet Count 169 th/mm3 (150-450); Red Blood Count 2.92 mil/mm3 (4.50-5.90); Red Cell Distribution Width 13.5 % (11.6-17.2); White Blood Count 11.8 th/mm3 (4.0-11.0)
[2018-02-12 03:46] LABS: Anion Gap 4 meq/L (5-15); Blood Urea Nitrogen 14 mg/dL (7-18); Calcium 7.5 mg/dL (8.5-10.1); Carbon Dioxide 27.1 meq/L (21.0-32.0); Chloride 109 meq/L (98-107); Glomerular Filtration Rate Greater Than 89 mL/min (>89); Glucose,Random 109 mg/dL (74-106); Potassium 3.9 meq/L (3.5-5.1); Sodium 140 meq/L (136-145)
[2018-02-12 04:20] LABS: Dohle Bodies Present; Eosinophils 1 % (0-4); Lymphocytes 9 % (9-44); Metamyelocytes 1 % (0-1); Monocytes 9 % (0-8); Platelet Estimate Normal (Normal); Platelet Morphology Normal (Normal)
--- NOTE | 2018-02-12 04:29 | XR ---
EXAM DATE: 02/12/2018 4:19 AM EST AGE/SEX: 47 years / Male INDICATIONS: Follow up trauma, fall from tree. CLINICAL DATA: This is the patient's subsequent encounter. Patient reports that signs and symptoms h ave been present for 1 week and indicates a pain score of Nonresponsive. MEDICAL/SURGICAL HISTORY: . Spinal cord injury. Fusion, cervical. Knee surgery. COMPARISON: [facility], CHEST 1V SINGLE AP, 02/10/2018. . FINDINGS: Endotracheal tube in good position. Left central line in superior vena cava. NG enters stomach. Right pleural effusion. Basilar airspace disease. CONCLUSION: Slight improvement in bilateral airspace disease since February 10. Stable right effusion. No pneumot horax. Electronically signed by: Isak Whitney MD 02/12/2018 4:28 AM EST
[2018-02-12] MEDS: Piperacil/Tazo 3.375 GM Premix 50 ML IV.SIG SCH ×4 (04:47→22:41)
[2018-02-12 05:39] LABS: ABG Base Excess -0.1 mmol/L (-2-2); ABG PCO2 39 mmHg (38-42); ABG PO2 86 mmHg (61-120)
[2018-02-12] MEDS: Senna/Docusate Sodium 8.6/50 MG Tablet PO SCH ×2 (08:22→21:00)
[2018-02-12] MEDS: Enoxaparin Inj 30 MG/0.3 ML Syringe SQ SCH ×2 (08:22→21:00)
[2018-02-12] MEDS: Vancomycin Inj 1,000 MG in Sodium Chlor 0.9% Inj 250 ML IV.SIG SCH (08:23)
[2018-02-12] MEDS: Sodium Chloride 0.9% 2 ML Flush BID IV.FLUSH SCH ×2 (08:24→21:00)
--- NOTE | 2018-02-12 08:35 | P.PNNPSY ---
- Behavior Intact: Impulsive/agitated - Psychosocial Intact: Psychosocial, Family/other adjustment, Realistic expectation - Progress Notes/Response to Treatment Contents of Sessions: Adjustment, Level of consciousness Time with Patient: 30 minutes Premorbid Psychological Status: Premorbid Cognitive, Emotional and Behavioral Status: Tenuous. The patient has high school years of education and an unknown work history prior to this injury. The patient has unknown psychiatric difficulties, as described above. Substance abuse history is unknown. Behavioral Reactions of Patient and Family/Support System: Tenuous. The patients family is experiencing ongoing issues of adjustment given the nature of the injury, and this aspect of recovery will require ongoing monitoring. Emotional/Behavioral Status of Patient and Family/Support System: Tenuous. Pertinent issues, if appropriate to this patients clinical care, are described in detail above. Maximizing Acute Care Outcome: It is recommended that the patient be monitored for emergent behavioral impulsivity as the medical condition evolves. This patients neuropathological challenges may limit rehabilitation potential going forward, and these challenges will require specialized therapeutic skills to maximize outcome. At this point in the recovery process, the patient does have cognitive capacity as the patient is able to understand a situation and its likely consequences, and the patient is able to manipulate information rationally. Cognitive capacity will be assessed throughout the recovery process. Anticipated Problems: Ongoing areas of concern will include behavioral impulsivity, lack of insight and judgment, which is expected to improve with time and treatment. Treatment Plan: This clinician will continue to follow with you throughout the course of this patients critical care treatment, and I will be available to meet with the patients family/support system to facilitate their understanding and the ongoing care of their family member. The goals of neuropsychological intervention shall be both educational and supportive to the family/support system as is deemed clinically appropriate. [place] COG Scale: Level Disinhibition Score: 17.50 Aggression Score: 14.00 Lability Score: 14.00 Agitated Behavior Total Score: 16 Impression: 47 year old man s/p concussion 2T fall on 02/04/2018. Progress Note Narrative: PTD 8. The patient continues to have pulmonary challenges. No agitation/ restless at present as he remains on sedation. ABS = 16 (17.5,14,14). He is sedated [place] . I will follow. - Diagnosis (1) Head concussion Status: Acute
--- NOTE | 2018-02-12 09:21 | P.PNNS ---
Subjective Interval history: Pt awake. Follows simple commands well. Sitting up in bed. Intubated. <Markus Willis - Last Filed: 02/12/18 09:15> Physical Exam Vital signs: Vital Signs 02/11/18 10:00 02/11/18 10:12 02/11/18 11:00 Temperature 100.4 F H 100.1 F H Pulse Rate 99 H 101 H 97 H Respiratory Rate 15 16 18 Blood Pressure Pulse Oximetry 96 100 97 02/11/18 11:08 02/11/18 12:00 02/11/18 13:00 Temperature 99.9 F H 100.4 F H Pulse Rate 95 H 96 H 98 H Respiratory Rate 16 17 18 Blood Pressure 129/66 Pulse Oximetry 97 97 97 02/11/18 14:00 02/11/18 15:00 02/11/18 16:00 Temperature 100.1 F H 100.7 F H 100.9 F H Pulse Rate 102 H 105 H 102 H Respiratory Rate 17 18 19 Blood Pressure Pulse Oximetry 97 96 97 02/11/18 17:00 02/11/18 18:00 02/11/18 18:27 Temperature 100.4 F H 100.1 F H Pulse Rate 110 H 101 H 95 H Respiratory Rate 19 20 16 Blood Pressure Pulse Oximetry 95 97 99 02/11/18 19:00 02/11/18 19:48 02/11/18 20:00 Temperature 101.4 F H Pulse Rate 96 H 93 H 95 H Respiratory Rate 17 16 14 Blood Pressure Pulse Oximetry 100 99 100 02/11/18 21:00 02/11/18 22:00 02/11/18 23:00 Temperature 101 F H Pulse Rate 96 H 91 H 86 Respiratory Rate 15 14 14 Blood Pressure Pulse Oximetry 98 99 99 02/12/18 00:00 02/12/18 01:00 02/12/18 02:00 Temperature Pulse Rate 87 87 93 H Respiratory Rate 14 15 15 Blood Pressure Pulse Oximetry 100 100 100 02/12/18 02:01 02/12/18 03:00 02/12/18 03:25 Temperature Pulse Rate 97 H 97 H Respiratory Rate 14 19 14 Blood Pressure Pulse Oximetry 100 97 02/12/18 04:00 02/12/18 04:08 02/12/18 05:00 Temperature 102.0 F H Pulse Rate 99 H 92 H Respiratory Rate 20 18 21 Blood Pressure Pulse Oximetry 96 100 97 02/12/18 06:00 02/12/18 07:55 Temperature Pulse Rate 93 H 90 Respiratory Rate 21 23 Blood Pressure Pulse Oximetry 96 99 Intake & Output 02/11/18 02/12/18 02/12/18 18:59 06:59 18:59 Intake Total 4009 / 4009 552 / 552 Output Total 680 / 680 1300 / 1300 Balance 3329 / 3329 -748 / -748 Weight 86.4 kg Intake: IV 900 / 900 300 / 300 Diprivan 1000 mg/100 ml Inj 1, 300 / 300 200 / 200 000 mg In 100 ml @ 5 MCG/KG/MIN 2.187 mls/hr IV.CONT TITRATE PRN Rx#:[id number] Zosyn 3.375 GM Premix 50 ML @ 100 / 100 100 / 100 100 mls/hr IV.SIG Q6H [facility] Rx#: [id number] Vancomycin Inj 1,000 MG In NS 250 / 250 Inj 250 ML @ 250 mls/hr IV.SIG DAILY [facility] Rx#:[id number] fentaNYL 10 mcg/mL Premix Drip 250 / 250 2,500 mcg In 250 ml @ 50 MCG/HR 5 mls/hr IV.SIG TITRATE PRN Rx #:[id number] Oral 0 / 0 Tube Feeding 539 / 539 132 / 132 Tube Irrigant 100 / 100 Water Bolus Amount 120 / 120 120 / 120 Anesthesia Amount 2350 / 2350 Output: Urine 0 / 0 Estimated Blood Loss 30 / 30 Urine Amount (Catheter) 650 / 650 1300 / 1300 Indwelling Urethral Catheter 650 / 650 1300 / 1300 Other: # Voids 2 Date of Last Bowel Movement 02/10/18 02/10/18 # Bowel Movements 1 - Constitutional average body habitus, cooperative - Routine HEENT Exam Eye: Present: PERRL (Pupils 3mm bilaterally reactive bilaterally.). Absent: conjunctival icterus ENT: Absent: oropharynx clear (ET intubated.) - Routine Respiratory Exam Present: patient mechanically ventilated (Pressure control rate 4. Peep 12. FiO2 50%.), CTA bilaterally. Absent: respiratory distress, rhonchi, wheezes - Routine Cardiovascular Exam Present: RRR, S1, S2. Absent: murmur - Routine Abdominal Exam Present: soft, normoactive bowel sounds. Absent: distended, firm - Routine Skin Exam Absent: cyanosis, erythema - Routine Neurological Exam Present: moving all extremities (Weakness in all 4 extremities 4/5, weakness in left HI not gripping.) - Detailed Neurological Exam: Coma Scale Eye Opening: Spontaneous Verbal Response: None (Intubated.) Motor Response: Obey commands Rafael Coma Scale Total: 11 - Urinary Catheter Management Indwelling Urethral Catheter Cath placed during this visit: yes Reason for continuing: Hourly intake/output Insertion date: 02/05/18 Insertion time: 09:00 <Markus Willis - Last Filed: 02/12/18 09:15> Vital signs: Vital Signs 02/11/18 18:00 02/11/18 18:27 02/11/18 19:00 Temperature 100.1 F H Pulse Rate 101 H 95 H 96 H Respiratory Rate 20 16 17 Pulse Oximetry 97 99 100 02/11/18 19:48 02/11/18 20:00 02/11/18 21:00 Temperature 101.4 F H Pulse Rate 93 H 95 H 96 H Respiratory Rate 16 14 15 Pulse Oximetry 99 100 98 02/11/18 22:00 02/11/18 23:00 02/12/18 00:00 Temperature 101 F H Pulse Rate 91 H 86 87 Respiratory Rate 14 14 14 Pulse Oximetry 99 99 100 02/12/18 01:00 02/12/18 02:00 02/12/18 02:01 Temperature Pulse Rate 87 93 H Respiratory Rate 15 15 14 Pulse Oximetry 100 100 100 02/12/18 03:00 02/12/18 03:25 02/12/18 04:00 Temperature 102.0 F H Pulse Rate 97 H 97 H 99 H Respiratory Rate 19 14 20 Pulse Oximetry 97 96 02/12/18 04:08 02/12/18 05:00 02/12/18 06:00 Temperature Pulse Rate 92 H 93 H Respiratory Rate 18 21 21 Pulse Oximetry 100 97 96 02/12/18 07:00 02/12/18 07:55 02/12/18 08:00 Temperature 100.6 F H Pulse Rate 88 90 88 Respiratory Rate 19 23 17 Pulse Oximetry 98 99 100 02/12/18 09:00 02/12/18 10:00 02/12/18 10:41 Temperature Pulse Rate 96 H 98 H Respiratory Rate 20 26 H Pulse Oximetry 100 95 97 02/12/18 11:00 02/12/18 11:17 02/12/18 12:00 Temperature 100.8 F H Pulse Rate 106 H 126 H Respiratory Rate 22 29 H 17 Pulse Oximetry 100 92 L 99 02/12/18 12:39 02/12/18 13:00 02/12/18 15:59 Temperature Pulse Rate 104 H 84 Respiratory Rate 18 22 Pulse Oximetry 100 100 100 Intake & Output 02/11/18 02/12/18 02/12/18 18:59 06:59 18:59 Intake Total 4009 / 4009 552 / 552 650 / 650 Output Total 680 / 680 1300 / 1300 Balance 3329 / 3329 -748 / -748 650 / 650 Weight 86.4 kg Intake: IV 900 / 900 300 / 300 650 / 650 Diprivan 1000 mg/100 ml Inj 1, 300 / 300 200 / 200 100 / 100 000 mg In 100 ml @ 5 MCG/KG/MIN 2.187 mls/hr IV.CONT TITRATE PRN Rx#:[id number] Zosyn 3.375 GM Premix 50 ML @ 100 / 100 100 / 100 50 / 50 100 mls/hr IV.SIG Q6H [facility] Rx#: [id number] Vancomycin Inj 1,000 MG In NS 250 / 250 250 / 250 Inj 250 ML @ 250 mls/hr IV.SIG DAILY [facility] Rx#:[id number] fentaNYL 10 mcg/mL Premix Drip 250 / 250 250 / 250 2,500 mcg In 250 ml @ 50 MCG/HR 5 mls/hr IV.SIG TITRATE PRN Rx #:[id number] Oral 0 / 0 Tube Feeding 539 / 539 132 / 132 Tube Irrigant 100 / 100 Water Bolus Amount 120 / 120 120 / 120 Anesthesia Amount 2350 / 2350 Output: Urine 0 / 0 Estimated Blood Loss 30 / 30 Urine Amount (Catheter) 650 / 650 1300 / 1300 Indwelling Urethral Catheter 650 / 650 1300 / 1300 Other: # Voids 2 Date of Last Bowel Movement 02/10/18 02/10/18 02/12/18 # Bowel Movements 1 - Urinary Catheter Management Indwelling Urethral Catheter Cath placed during this visit: no <Aaron Lopez - Last Filed: 02/12/18 17:05> Assessment and Plan - Assessment (1) Acute traumatic injury of cervical spine Status: Acute (2) Traumatic subluxation of cervical vertebra Code(s): S13.100A - Subluxation of unspecified cervical vertebrae, initial encounter Status: Acute (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 He has a profound C5-6 subluxation with jumped facets and gross instability. Plan for posterior open cervical jumped facet reduction with stabilization and fusion and will likely require an anterior approach for an anterior/posterior stabilization given the severity and unstable nature of this injury. Discussed with patient and his at bedside at length the risks and benefits involved and they requested we proceed and gave informed consent. They understand that is a possibility that he may not improve from his spinal cord injury despite extensive rehabilitation and there is also possibility of further neurologic and pulmonary decline (chest wall injury and comminuted sternal fracture) with risk of spinal cord shock and hemodynamic instability from the cervical cord edema/contusion progression in the near future. His condition obviously is very critical. Pt s/p Posterior C4, C5, C6, and C7 fusion on 02/05/18. s/p Anterior C4/C5, C5/C6, and C6/C7 cervical fusion on 02/06/18. P: Continue with cervical collar Continue with critical care. Continue with PT/OT Vent wean per critical care. <Markus Willis - Last Filed: 02/12/18 09:15> - Attending Attestation The exam, history, and the medical decision-making described in the above note were completed with the assistance of the mid-level provider. I reviewed and agree with the findings presented. I attest that I had a [id number] encounter with the patient on the same day, and personally performed and documented my assessment and findings in the medical record. <Aaron Lopez - Last Filed: 02/12/18 17:05>
[2018-02-12] MEDS: fentaNYL 10 mcg/mL Premix Drip 2,500 MCG/250 ML BAG IV.SIG PRN (12:25)
[2018-02-12] MEDS ORDERED: Iohexol 350 MG/ML 50 ML Vial (for Rad Diag) NG/OG ONE (12:28)
--- NOTE | 2018-02-12 13:14 | P.PNID ---
Subjective Remarks: Patient on the ventilator. Sedated. No meaningful response. Has elevated temperature. Feeding tube placed today. Urinalysis is unremarkable. This is a 47-year-old male, who fell from a tree approximately 20 feet high and sustained a cervical spine fracture. The patient is currently intubated and on the ventilator. He underwent surgery consisting of posterior C4, C5, C6, and C7 fusion, and open reduction and internal fixation of C2-C6 and posterior C4-C7 lateral mass/facet segmental fixation. Consult called for elevated temperature. PAST MEDICAL HISTORY: Sinus disease, history of knee surgery. Allergies/Adverse Reactions: Allergies No Known Allergies Allergy (Verified 02/05/18 16:30) Objective Vital Signs 02/11/18 14:00 02/11/18 15:00 02/11/18 16:00 Temperature 100.1 F H 100.7 F H 100.9 F H Pulse Rate 102 H 105 H 102 H Respiratory Rate 17 18 19 Pulse Oximetry 97 96 97 02/11/18 17:00 02/11/18 18:00 02/11/18 18:27 Temperature 100.4 F H 100.1 F H Pulse Rate 110 H 101 H 95 H Respiratory Rate 19 20 16 Pulse Oximetry 95 97 99 02/11/18 19:00 02/11/18 19:48 02/11/18 20:00 Temperature 101.4 F H Pulse Rate 96 H 93 H 95 H Respiratory Rate 17 16 14 Pulse Oximetry 100 99 100 02/11/18 21:00 02/11/18 22:00 02/11/18 23:00 Temperature 101 F H Pulse Rate 96 H 91 H 86 Respiratory Rate 15 14 14 Pulse Oximetry 98 99 99 02/12/18 00:00 02/12/18 01:00 02/12/18 02:00 Temperature Pulse Rate 87 87 93 H Respiratory Rate 14 15 15 Pulse Oximetry 100 100 100 02/12/18 02:01 02/12/18 03:00 02/12/18 03:25 Temperature Pulse Rate 97 H 97 H Respiratory Rate 14 19 14 Pulse Oximetry 100 97 02/12/18 04:00 02/12/18 04:08 02/12/18 05:00 Temperature 102.0 F H Pulse Rate 99 H 92 H Respiratory Rate 20 18 21 Pulse Oximetry 96 100 97 02/12/18 06:00 02/12/18 07:00 02/12/18 07:55 Temperature Pulse Rate 93 H 88 90 Respiratory Rate 21 19 23 Pulse Oximetry 96 98 99 02/12/18 08:00 02/12/18 09:00 02/12/18 10:00 Temperature 100.6 F H Pulse Rate 88 96 H 98 H Respiratory Rate 17 20 26 H Pulse Oximetry 100 100 95 02/12/18 10:41 02/12/18 11:17 02/12/18 12:39 Temperature Pulse Rate Respiratory Rate 29 H Pulse Oximetry 97 92 L 100 Intake & Output 02/11/18 02/12/18 02/12/18 18:59 06:59 18:59 Intake Total 4009 / 4009 552 / 552 Output Total 680 / 680 1300 / 1300 Balance 3329 / 3329 -748 / -748 Weight 86.4 kg Intake: IV 900 / 900 300 / 300 Diprivan 1000 mg/100 ml Inj 1, 300 / 300 200 / 200 000 mg In 100 ml @ 5 MCG/KG/MIN 2.187 mls/hr IV.CONT TITRATE PRN Rx#:[id number] Zosyn 3.375 GM Premix 50 ML @ 100 / 100 100 / 100 100 mls/hr IV.SIG Q6H [facility] Rx#: [id number] Vancomycin Inj 1,000 MG In NS 250 / 250 Inj 250 ML @ 250 mls/hr IV.SIG DAILY [facility] Rx#:[id number] fentaNYL 10 mcg/mL Premix Drip 250 / 250 2,500 mcg In 250 ml @ 50 MCG/HR 5 mls/hr IV.SIG TITRATE PRN Rx #:[id number] Oral 0 / 0 Tube Feeding 539 / 539 132 / 132 Tube Irrigant 100 / 100 Water Bolus Amount 120 / 120 120 / 120 Anesthesia Amount 2350 / 2350 Output: Urine 0 / 0 Estimated Blood Loss 30 / 30 Urine Amount (Catheter) 650 / 650 1300 / 1300 Indwelling Urethral Catheter 650 / 650 1300 / 1300 Other: # Voids 2 Date of Last Bowel Movement 02/10/18 02/10/18 02/12/18 # Bowel Movements 1 02/08/18 02:40 Blood - Peripheral Aerobic Blood Culture - Preliminary No growth in 4 days 02/08/18 02:40 Blood - Peripheral Anaerobic Blood Culture - Preliminary No growth in 4 days 02/08/18 02:45 Blood - Peripheral Aerobic Blood Culture - Preliminary No growth in 4 days 02/08/18 02:45 Blood - Peripheral Anaerobic Blood Culture - Preliminary No growth in 4 days 02/10/18 14:30 Sputum - Endotracheal Gram Stain - Final 02/10/18 14:30 Sputum - Endotracheal Sputum Culture - Final No growth in 48 hours 02/07/18 16:25 Sputum - Endotracheal Gram Stain - Final 02/07/18 16:25 Sputum - Endotracheal Sputum Culture - Final Heavy growth normal respiratory erich Lab - Hematology Results 02/11/18 02/12/18 04:20 03:20 WBC 12.9 H 11.8 H RBC 3.17 L 2.92 L Hgb 9.6 L 9.0 L Hct 28.7 L 26.1 L MCV 90.5 89.5 MCH 30.4 30.7 MCHC 33.6 34.3 RDW 13.2 13.5 Plt Count 144 L 169 MPV 9.2 8.5 Prelim Diff (Auto) Slide review pending Slide review pending Neut % (Auto) 79.6 H 79.1 H Lymph % (Auto) 10.7 9.0 Quay % (Auto) 7.5 8.1 H Eos % (Auto) 2.0 3.3 Baso % (Auto) 0.2 0.5 Neut # (Auto) 10.3 H 9.3 H Lymph # (Auto) 1.4 1.1 Quay # (Auto) 1.0 H 1.0 H Eos # (Auto) 0.3 0.4 Baso # (Auto) 0.0 0.1 WBC Differential Manual diff final Manual diff final Seg Neuts % (Manual) 67 78 H Band Neuts % (Manual) 18 H 2 Lymphocytes % (Manual) 5 L 9 Monocytes % (Manual) 8 9 H Eosinophils % (Manual) 1 1 Metamyelocytes % (Man) 1 1 Abs Neuts (Manual) 11.1 H 9.6 H Differential Comment . . Dohle Bodies Present H Platelet Estimate Normal Normal Platelet Morphology Normal Normal Lab - Chemistry Results 02/10/18 02/11/18 02/12/18 21:44 04:20 03:20 Sodium 142 140 Potassium 3.7 3.7 3.9 Chloride 106 109 H Carbon Dioxide 32.1 H 27.1 Anion Gap 4 L 4 L BUN 14 14 Creatinine 0.58 L 0.62 Estimated GFR Greater than 89 Greater than 89 Random Glucose 114 H 109 H Calcium 7.4 L* 7.5 L Prot Corrected Calcium 8.1 L Total Protein 5.8 L Imaging: ITS Impressions Pelvis X-Ray 02/04/18 19:38 CONCLUSION: The bony pelvic ring is grossly intact. Abdomen/Pelvis CT 02/04/18 19:39 CONCLUSION: 1. 3.8 cm low-density lesion in the dome of the liver is nonspecific in appearance. This could represent a parenchymal laceration/hematoma or possibly cavernous hemangioma. No contour abnormality about the liver and no free fluid in the abdomen. Once the patient is stabilized, may consider elective evaluation either with multiphasic MRI or dynamic tagged red blood cell scan. Chest CT 02/04/18 19:39 CONCLUSION: 1. Mildly displaced fractures of the mid and inferior sternum. 2. No evidence of pneumothorax. Cervical Spine CT 02/04/18 19:40 CONCLUSION: 1. Gross distortion of the spinal canal at the C5-6 level due to bilateral locked facets causing anterior dislocation of the C5 vertebral body. No vertebral body fracture seen. Lumbar Spine CT 02/04/18 19:40 CONCLUSION: 1. No evidence of fracture, spondylolisthesis, or significant epidural impression. Thoracic Spine CT 02/04/18 19:40 CONCLUSION: 1. Negative CT of the thoracic spine without evidence of fracture or spondylolisthesis. Cervical Spine MRI 02/04/18 20:01 CONCLUSION: 1. There is minimal T2 prolongation within the substance of the cervical cord at the C5 level, but no evidence of cord transection. No epidural hematoma seen. 2. 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 3. Small central disc protrusion at C4-5 without indentation on the cord or lateral extension. Cervical Spine X-Ray 02/06/18 00:00 CONCLUSION: Status post anterior cervical fusion from C4 through C7 as described. Stable cervical alignment status post fusion. Head CT 02/08/18 00:00 CONCLUSION: No acute intracranial findings. . Abdomen X-Ray 02/10/18 15:25 CONCLUSION: 1. Suction-type orogastric catheter in the stomach. 2. Nonobstructive bowel gas pattern. Venous Doppler Study 02/11/18 00:00 CONCLUSION: 1. No sonographic evidence for lower extremity DVT. Chest X-Ray 02/12/18 00:00 CONCLUSION: Slight improvement in bilateral airspace disease since February 10. Stable right effusion. No pneumothorax. Physical Exam: PHYSICAL EXAMINATION: GENERAL: Sedated on the ventilator. HEENT: Unable to fully assess since the patient is intubated. The oropharyngeal mucosa appears moist. NECK: No adenopathy or swelling. LUNGS: Good air movement with slight rhonchi at the bases. HEART: Regular S1, S2, without murmurs. ABDOMEN: Soft. No tenderness appreciated. EXTREMITIES: No clubbing, cyanosis or edema. SKIN: No rash. NEUROLOGIC: Unable to assess. PSYCHIATRIC: Unable to assess. Assessment and Plan - Plan IMPRESSION: 1. Fever. Unclear source. 2. Lung infiltrates suggesting pneumonia. Negative sputum culture. 3. Acute respiratory failure. 4. Status post cervical spine surgery. 5. Leukocytosis. RECOMMENDATIONS: 1. Continue vancomycin. 2. Continue piperacillin/tazobactam. 3. Obtain new blood culture. 4. Monitor temperature. 5. Monitor white blood cell count.
--- NOTE | 2018-02-12 13:42 | IR ---
EXAM DATE: 02/12/2018 12:38 PM EST AGE/SEX: 47 years / Male INDICATIONS: Patient with a history of cervical fracture. CLINICAL DATA: This is the patient's initial encounter. Patient reports that signs and symptoms have been present for 1 week and indicates a pain score of Nonresponsive. MEDICAL/SURGICAL HISTORY: C5-C6 Jumped facetSternal fracture C4-C7 fusion COMPARISON: [facility], [facility]BDOMEN [facility], 02/10/2018. . FLUORO TIME (min): 15.28 IMAGE SERIES: 3 CONTRAST (cc): 30cc Omnipaque (iohexol) 350 DEVICE(S): 12 [place] NG tube . . PROCEDURE: 1. Fluoroscopically guided enteric feeding tube placement. The risks, benefits and alternatives to the procedure were explained and verbal and written consent w as obtained. With fluoroscopic guidance a weighted enteric feeding tube was passed through the nasal cavity into the stomach. The stomach was partially insufflated with air and the tube was navigated through the pyloric channel into the duodenum. Injection of positive contrast demonstrates good posi tion of catheter within the duodenum. CONCLUSION: 1. Uncomplicated Dobbhoff tube placement as above. Electronically signed by: Yahir Conti MD 02/12/2018 1:41 PM EST
--- NOTE | 2018-02-12 18:37 | P.PNCC ---
Subjective Brief History: The patient is a 47-year-old male who presented status post fall from a tree stand, approximately 10 feet. The patient was somewhat amnestic to events with mild confusion, following commands, and noted to be out hunting and lost footing, fell from a tree stand with positive LOC. The patient noted to be tachycardic in the 130s in the field with a normal blood pressure. He had decreased movement to bilateral upper extremities and numbness and left leg numbness. When came in the trauma bay, he was noted to be hemodynamically stable, answering intermittently. Patient was resuscitated according trauma principles primary and secondary survey resuscitation definitive care carried out and patient undergoes full diagnostic workup including CT scan and MRI prior to coming to ICU In ICU, patient has decreased motion in the left arm and the left leg. Injuries detected C5 - C6 bilateral locked facets Left arm and leg weakness with paresthesias MRI confirmed spinal cord altered signal however no indication of spinal cord transection Sternal fracture Should also be noted that patient has had atrial fibrillation in the past and was placed on some blood thinner probably factor X a inhibitor for PT PTT is normal In face of the same will await till tomorrow to go ahead with a spinal surgery as per neurosurgery 24 Hour Review/Hospital Course: 02/05/2018 Patient is awake alert and oriented Weakness of the left arm and left leg is pronounced with some paresthesias in both Patient scheduled today for the anterior and eventually posterior fusion of the C-spine Patient may have permanent damage to the spinal cord and this is been clearly explained to patient and the family Hemodynamically he is stable and in sinus rhythm has been instructed to bring the home medication clearly patient must be on either calcium channel blockers beta-blockers or some other combination for his atrial fibrillation control Bilateral breath sounds good pulmonary function and pulmonary dynamics not impaired by the cervical injury Abdomen soft active bowel sounds Renal function preserved 02/06/2018 Patient is status post anterior and posterior fusion of C4-C5-C6 Sedated on propofol and fentanyl Intubated ventilated on assist control Bilateral good breath sounds and good PO2 FiO2 gradient Hemodynamically stable Renal function preserved Plan Patient came out of the operating room this afternoon and will keep him overnight ventilated and extubate patient tomorrow morning 02/07 Patient was febrile in the morning temperature 103.3. After anterior spinal fusion postop He also desaturated to the 80s and his FiO2 was increased to 60%-his PF ratio is 110-we will increase his PEEP to 10 Is also thick secretions-his NG tube was removed in the OR and patient was without NG tube until morning hours-patient may have aspirated with results of pneumonitis-we will observe patient very closely for potential pneumonia, his white cell count however is today 9 and there are only small bilateral basilar infiltrates Otherwise patient is awake he is following commands Remains hemodynamically stable 02/08 Patient continues to be febrile this morning temperature is 101.2, his white cell count is rising and he has also bands I started him yesterday on empiric antibiotics and he has been pancultured His PF ratio is on 120, he has thick secretions and infiltrates basilar bilateral on the chest x-ray His FiO2 is not 60% and his PEEP is 10 Hemodynamically he remains normal, his renal function is preserved 02/09 patient remains hemodynamically normal, his eyes are open and is following commands His respiratory status clearly improved with improved PF ratio and chest x-ray Sputum cultures are negative however there was good response to empiric antibiotics and other cultures are still pending Patient clearly has been third spacing so that we will start diuresis with Lasix His FiO2 is down to 40% and his PEEP was reduced to 8 Patient has not been tolerating tube feeds likely secondary to an ileus, will start patient on Reglan start to fix tube feeds back on trickle rate and give Dulcolax to induce bowel movement Family was updated at the bedside 02/10 Patient is febrile today in the morning, his white cell count is climbing as well His pro calcitonin is elevated, chest x-ray is essentially same bilateral basilar infiltrates His PF ratio today is around 120 which is worse than yesterday as the PEEP was reduced to 8 I will increase it back to 10 Patient had a short CPAP trial which she did not tolerate, he has thick norman colored secretions although the sputum culture is negative I still believe patient has a pneumonia we will repeat the culture obtain ID consult He has been tolerating tube feeds but in trophic rate, there is output from the reflex port of the NG-we will exchanged for a new NG tube Patient remains hemodynamically normal he responded well to diuresis 3 L of output Family was updated at the bedside 02/11/2018 Patient remains intubated and ventilated status post anterior and posterior cervical fusion Repeated spikes of fever to 102 consistent with pneumonia On low sedation easily arousable patient follows commands and is still weak in the left side of the body Hemodynamically stable Bilateral breath with decreased PO2 FiO2 ratio consistent with increased infiltrates bilateral pneumonia and consequent restricted oxygen diffusion and exchange. This is consistent with aspiration of gastric contents Remains on high respiratory parameters including 12 of PEEP and 60% FiO2 with peak inspiratory pressures around 36 cm H2O Patient will need to be maintained on the ventilator until pulmonary function and PO2 FiO2 gradient improves Cultures are negative for the time being but I believe patient has bilateral pneumonia and just a matter of time when cultures sort themselves out Remains on Zosyn and ID consult is greatly appreciated Enteral feeds tolerated however positioning of the OG tube remains to be a problem and patient will go to radiology for a Dobbhoff placement Renal function preserved Plan Continue ventilatory and nutritional support as necessary As the patient's pulmonary function improves will gradually wean the ventilator but right now patient's function may worsen before it gets better 02/12/2018 Patient sedated intubated and ventilated however neurologically appropriate intact Follows commands opens eyes and tracks when on sedation vacation Hemodynamically remained stable Patient remains on assist control ventilation 12 of PEEP and decreasing FiO2 about 50% and slightly improving PO2 FiO2 gradient as we go along Repeated spikes of fever noted and patient developed a right lower lobe infiltrate which is not very dense and increasing occupying lower half of the right lower lobe Successfully bronchoscope today with evacuation of a large amount of thick mucous material Patient clearly has a right lung contusion with some hemorrhagic secretions and bruising within the bronchial tree Abdomen is soft enteral feeds as tolerated Patient had successful placement of a Dobbhoff tube by interventional radiology Renal function is preserved At this point patient is not a candidate for extubation due to right lower lobe infiltrate aspiration and slowly improving PO2 FiO2 gradient I do not think patient will require tracheostomy however we will see how things go Objective Vital Signs / I&O: Vital Signs 02/11/18 19:00 02/11/18 19:48 02/11/18 20:00 Temperature 101.4 F H Pulse Rate 96 H 93 H 95 H Respiratory Rate 17 16 14 Pulse Oximetry 100 99 100 02/11/18 21:00 02/11/18 22:00 02/11/18 23:00 Temperature 101 F H Pulse Rate 96 H 91 H 86 Respiratory Rate 15 14 14 Pulse Oximetry 98 99 99 02/12/18 00:00 02/12/18 01:00 02/12/18 02:00 Temperature Pulse Rate 87 87 93 H Respiratory Rate 14 15 15 Pulse Oximetry 100 100 100 02/12/18 02:01 02/12/18 03:00 02/12/18 03:25 Temperature Pulse Rate 97 H 97 H Respiratory Rate 14 19 14 Pulse Oximetry 100 97 02/12/18 04:00 02/12/18 04:08 02/12/18 05:00 Temperature 102.0 F H Pulse Rate 99 H 92 H Respiratory Rate 20 18 21 Pulse Oximetry 96 100 97 02/12/18 06:00 02/12/18 07:00 02/12/18 07:55 Temperature Pulse Rate 93 H 88 90 Respiratory Rate 21 19 23 Pulse Oximetry 96 98 99 02/12/18 08:00 02/12/18 09:00 02/12/18 10:00 Temperature 100.6 F H Pulse Rate 88 96 H 98 H Respiratory Rate 17 20 26 H Pulse Oximetry 100 100 95 02/12/18 10:41 02/12/18 11:00 02/12/18 11:17 Temperature Pulse Rate 106 H Respiratory Rate 22 29 H Pulse Oximetry 97 100 92 L 02/12/18 12:00 02/12/18 12:39 02/12/18 13:00 Temperature 100.8 F H Pulse Rate 126 H 104 H Respiratory Rate 17 18 Pulse Oximetry 99 100 100 02/12/18 14:00 02/12/18 15:00 02/12/18 15:59 Temperature Pulse Rate 95 H 85 84 Respiratory Rate 18 17 22 Pulse Oximetry 100 100 100 02/12/18 16:00 02/12/18 17:00 02/12/18 18:00 Temperature 102.2 F H Pulse Rate 85 93 H 104 H Respiratory Rate 17 25 H 24 Pulse Oximetry 100 95 94 L Intake & Output 02/11/18 02/12/18 02/12/18 18:59 06:59 18:59 Intake Total 4009 / 4009 552 / 552 800 / 800 Output Total 680 / 680 1300 / 1300 Balance 3329 / 3329 -748 / -748 800 / 800 Weight 86.4 kg Intake: IV 900 / 900 300 / 300 800 / 800 Diprivan 1000 mg/100 ml Inj 1, 300 / 300 200 / 200 200 / 200 000 mg In 100 ml @ 5 MCG/KG/MIN 2.187 mls/hr IV.CONT TITRATE PRN Rx#:[id number] Zosyn 3.375 GM Premix 50 ML @ 100 / 100 100 / 100 100 / 100 100 mls/hr IV.SIG Q6H [facility] Rx#: [id number] Vancomycin Inj 1,000 MG In NS 250 / 250 250 / 250 Inj 250 ML @ 250 mls/hr IV.SIG DAILY [facility] Rx#:[id number] fentaNYL 10 mcg/mL Premix Drip 250 / 250 250 / 250 2,500 mcg In 250 ml @ 50 MCG/HR 5 mls/hr IV.SIG TITRATE PRN Rx #:[id number] Oral 0 / 0 Tube Feeding 539 / 539 132 / 132 Tube Irrigant 100 / 100 Water Bolus Amount 120 / 120 120 / 120 Anesthesia Amount 2350 / 2350 Output: Urine 0 / 0 Estimated Blood Loss 30 / 30 Urine Amount (Catheter) 650 / 650 1300 / 1300 Indwelling Urethral Catheter 650 / 650 1300 / 1300 Other: # Voids 2 Date of Last Bowel Movement 02/10/18 02/10/18 02/12/18 # Bowel Movements 1 Result Diagrams: 02/12/18 03:20 02/12/18 03:20 Imaging: Impressions Chest X-Ray 02/12/18 00:00 CONCLUSION: Slight improvement in bilateral airspace disease since February 10. Stable right effusion. No pneumothorax. Gastrostomy Tube Placement 02/12/18 00:00 CONCLUSION: 1. Uncomplicated Dobbhoff tube placement as above. Disinhibition Score: 17.50 Aggression Score: 14.00 Lability Score: 14.00 Agitated Behavior Total Score: 16 - Exam TELESALES ADVISOR: Patient sedated intubated and ventilated however neurologically appropriate intact Follows commands opens eyes and tracks when on sedation vacation Hemodynamic/Cardiac: Hemodynamically remained stable Pulmonary/Respiratory: Patient remains on assist control ventilation 12 of PEEP and decreasing FiO2 about 50% and slightly improving PO2 FiO2 gradient as we go along Repeated spikes of fever noted and patient developed a right lower lobe infiltrate which is not very dense and increasing occupying lower half of the right lower lobe Successfully bronchoscope today with evacuation of a large amount of thick mucous material Patient clearly has a right lung contusion with some hemorrhagic secretions and bruising within the bronchial tree At this point patient is not a candidate for extubation due to right lower lobe infiltrate aspiration and slowly improving PO2 FiO2 gradient I do not think patient will require tracheostomy however we will see how things go Abdomen/GI Nutrition: Abdomen is soft enteral feeds as tolerated Patient had successful placement of a Dobbhoff tube by interventional radiology Renal/I&O: Renal function is preserved Assessment and Plan Plan: Continue IV antibiotics, follow up cultures DVT prophylaxis, tube feeds Continue mechanical ventilation-increase PEEP to 10 ID consultation Attestation: Critical care time 36 minutes
[2018-02-12] MEDS: Pantoprazole Inj 40 MG Vial IV.PUSH SCH (20:59)
--- NOTE | 2018-02-13 03:39 | XR ---
EXAM DATE: 02/13/2018 3:25 AM EST AGE/SEX: 47 years / Male INDICATIONS: Infiltrate. CLINICAL DATA: This is the patient's subsequent encounter. Patient reports that signs and symptoms h ave been present for 1 week and indicates a pain score of Nonresponsive. MEDICAL/SURGICAL HISTORY: . Spinal cord injury. Fusion, cervical. Central line. COMPARISON: [facility] – [place], CHEST 1V SINGLE AP, 02/12/2018. . FINDINGS: Left central line in superior vena cava. Feeding tube enters stomach. Right pleural effusion has decr eased in size. Increase in right upper lobe airspace disease over the last day. Consolidation at the bases remains. CONCLUSION: Support apparatus unchanged. Increase in right upper lobe consolidation over the last day. Decrease i n right pleural effusion. Electronically signed by: Isak Whitney MD 02/13/2018 3:38 AM EST
[2018-02-13] MEDS: Piperacil/Tazo 3.375 GM Premix 50 ML IV.SIG SCH ×4 (05:03→22:11)
[2018-02-13 05:11] LABS: Baso # (Auto) 0.1 th/mm3 (0.0-0.2); Baso % (Auto) 0.5 % (0.0-2.0); Eos # (Auto) 0.4 th/mm3 (0.0-0.4); Eos % (Auto) 3.4 % (0.0-4.0); Hematocrit 25.5 % (39.0-51.0); Hemoglobin 8.6 gm/dL (13.0-17.0); Lymph # (Auto) 1.5 th/mm3 (1.0-4.8); Lymph % (Auto) 12.8 % (9.0-44.0); Mean Corpuscular HGB Conc 33.7 % (32.0-36.0); Mean Corpuscular Hemoglobin 30.4 pg (27.0-34.0); Mean Corpuscular Volume 90.3 fL (80.0-100.0); Mean Platelet Volume 8.7 fL (7.0-11.0); Mono # (Auto) 0.9 th/mm3 (0.0-0.9); Mono % (Auto) 7.7 % (0.0-8.0); Neut # (Auto) 8.8 th/mm3 (1.8-7.7); Neut % (Auto) 75.6 % (16.0-70.0); Platelet Count 191 th/mm3 (150-450); Red Blood Count 2.83 mil/mm3 (4.50-5.90); Red Cell Distribution Width 13.2 % (11.6-17.2); White Blood Count 11.7 th/mm3 (4.0-11.0)
[2018-02-13 05:31] LABS: Anion Gap 8 meq/L (5-15); Blood Urea Nitrogen 16 mg/dL (7-18); Calcium 7.3 mg/dL (8.5-10.1); Carbon Dioxide 22.3 meq/L (21.0-32.0); Chloride 109 meq/L (98-107); Glomerular Filtration Rate Greater Than 89 mL/min (>89); Glucose,Random 108 mg/dL (74-106); Potassium 3.6 meq/L (3.5-5.1); Sodium 139 meq/L (136-145)
[2018-02-13] MEDS: Propofol 1000 mg/100 ml Inj 1,000 MG/100 ML BOTTLE IV.CONT PRN ×4 (05:43→20:13)
[2018-02-13 05:48] LABS: Albumin 1.8 g/dL (3.4-5.0); Calcium-Albumin Corrected 9.1 mg/dL (8.5-10.1)
[2018-02-13 05:50] LABS: ABG Base Excess -1.4 mmol/L (-2-2); ABG PCO2 33 mmHg (38-42); ABG PO2 83 mmHg (61-120)
[2018-02-13 08:10] LABS: Eosinophils 4 % (0-4); Lymphocytes 6 % (9-44); Metamyelocytes 3 % (0-1); Monocytes 3 % (0-8); Myelocytes 1 % (0-0)
[2018-02-13 08:11] LABS: Dohle Bodies Present; Hypersegmented Neutrophils 1+; Platelet Estimate Normal (Normal); Platelet Morphology Clumped (Normal)
[2018-02-13] MEDS: Senna/Docusate Sodium 8.6/50 MG Tablet PO SCH ×2 (08:26→20:13)
[2018-02-13] MEDS: Enoxaparin Inj 30 MG/0.3 ML Syringe SQ SCH ×2 (08:26→20:13)
--- NOTE | 2018-02-13 08:27 | P.PNNPSY ---
- Behavior Intact: Impulsive/agitated - Psychosocial Intact: Psychosocial, Family/other adjustment, Realistic expectation - Progress Notes/Response to Treatment Contents of Sessions: Adjustment, Level of consciousness Time with Patient: 30 minutes Premorbid Psychological Status: Premorbid Cognitive, Emotional and Behavioral Status: Tenuous. The patient has high school years of education and an unknown work history prior to this injury. The patient has unknown psychiatric difficulties, as described above. Substance abuse history is unknown. Behavioral Reactions of Patient and Family/Support System: Tenuous. The patients family is experiencing ongoing issues of adjustment given the nature of the injury, and this aspect of recovery will require ongoing monitoring. Emotional/Behavioral Status of Patient and Family/Support System: Tenuous. Pertinent issues, if appropriate to this patients clinical care, are described in detail above. Maximizing Acute Care Outcome: It is recommended that the patient be monitored for emergent behavioral impulsivity as the medical condition evolves. This patients neuropathological challenges may limit rehabilitation potential going forward, and these challenges will require specialized therapeutic skills to maximize outcome. At this point in the recovery process, the patient does have cognitive capacity as the patient is able to understand a situation and its likely consequences, and the patient is able to manipulate information rationally. Cognitive capacity will be assessed throughout the recovery process. Anticipated Problems: Ongoing areas of concern will include behavioral impulsivity, lack of insight and judgment, which is expected to improve with time and treatment. Treatment Plan: This clinician will continue to follow with you throughout the course of this patients critical care treatment, and I will be available to meet with the patients family/support system to facilitate their understanding and the ongoing care of their family member. The goals of neuropsychological intervention shall be both educational and supportive to the family/support system as is deemed clinically appropriate. [place] COG Scale: Level V Disinhibition Score: 14.00 Aggression Score: 14.00 Lability Score: 14.00 Agitated Behavior Total Score: 14 Impression: 47 year old man s/p concussion 2T fall on 02/04/2018. Progress Note Narrative: PTD 9. The patient is sedated and ventilated, underwent bronchoscopy yesterday. No issues of agitation/restlessness at present. He is likely [place] V at this point, as he follows on sedation vacation without agitation/ restlessness. I will follow. - Diagnosis (1) Head concussion Status: Acute
[2018-02-13] MEDS: Sodium Chloride 0.9% 2 ML Flush BID IV.FLUSH SCH ×2 (08:29→20:14)
[2018-02-13] MEDS: Vancomycin Inj 1,000 MG in Sodium Chlor 0.9% Inj 250 ML IV.SIG SCH (08:30)
--- NOTE | 2018-02-13 10:08 | P.PNNS ---
Subjective Interval history: Pt awake and alert. Follows commands well. Nods head slightly to some questions. Intubated on vent. Physical Exam Vital signs: Vital Signs 02/12/18 10:41 02/12/18 11:00 02/12/18 11:17 Temperature Pulse Rate 106 H Respiratory Rate 22 29 H Blood Pressure Pulse Oximetry 97 100 92 L 02/12/18 12:00 02/12/18 12:39 02/12/18 13:00 Temperature 100.8 F H Pulse Rate 126 H 104 H Respiratory Rate 17 18 Blood Pressure Pulse Oximetry 99 100 100 02/12/18 14:00 02/12/18 15:00 02/12/18 15:59 Temperature Pulse Rate 95 H 85 84 Respiratory Rate 18 17 22 Blood Pressure Pulse Oximetry 100 100 100 02/12/18 16:00 02/12/18 17:00 02/12/18 18:00 Temperature 102.2 F H Pulse Rate 85 93 H 104 H Respiratory Rate 17 25 H 24 Blood Pressure Pulse Oximetry 100 95 94 L 02/12/18 18:44 02/12/18 19:00 02/12/18 20:00 Temperature 101.3 F H Pulse Rate 95 H 86 84 Respiratory Rate 18 20 21 Blood Pressure 104/55 L Pulse Oximetry 96 98 99 02/12/18 20:17 02/12/18 20:19 02/12/18 21:00 Temperature Pulse Rate 96 H 92 H Respiratory Rate 28 H 26 H 23 Blood Pressure Pulse Oximetry 100 99 02/12/18 22:00 02/12/18 23:00 02/12/18 23:15 Temperature Pulse Rate 92 H 98 H 95 H Respiratory Rate 20 22 18 Blood Pressure 107/57 L Pulse Oximetry 97 95 94 L 02/13/18 00:00 02/13/18 00:02 02/13/18 01:00 Temperature 98.5 F Pulse Rate 87 81 Respiratory Rate 21 22 22 Blood Pressure Pulse Oximetry 100 98 100 02/13/18 02:00 02/13/18 03:00 02/13/18 03:41 Temperature Pulse Rate 81 84 82 Respiratory Rate 18 20 18 Blood Pressure Pulse Oximetry 98 99 02/13/18 04:00 02/13/18 04:08 02/13/18 05:00 Temperature 101.3 F H Pulse Rate 87 92 H Respiratory Rate 21 23 19 Blood Pressure Pulse Oximetry 100 99 100 02/13/18 06:00 02/13/18 07:00 02/13/18 08:00 Temperature 99.2 F Pulse Rate 88 81 79 Respiratory Rate 20 17 19 Blood Pressure Pulse Oximetry 97 98 99 02/13/18 08:03 02/13/18 09:00 Temperature Pulse Rate 80 84 Respiratory Rate 20 22 Blood Pressure Pulse Oximetry 100 98 Intake & Output 02/12/18 02/13/18 02/13/18 18:59 06:59 18:59 Intake Total 822 / 822 603 / 603 Output Total 1350 / 1350 1050 / 1050 Balance -528 / -528 -447 / -447 Weight 83.6 kg Intake: IV 800 / 800 300 / 300 Diprivan 1000 mg/100 ml Inj 1, 200 / 200 200 / 200 000 mg In 100 ml @ 5 MCG/KG/MIN 2.187 mls/hr IV.CONT TITRATE PRN Rx#:[id number] Zosyn 3.375 GM Premix 50 ML @ 100 / 100 100 / 100 100 mls/hr IV.SIG Q6H [facility] Rx#: [id number] Vancomycin Inj 1,000 MG In NS 250 / 250 Inj 250 ML @ 250 mls/hr IV.SIG DAILY [facility] Rx#:[id number] fentaNYL 10 mcg/mL Premix Drip 250 / 250 2,500 mcg In 250 ml @ 50 MCG/HR 5 mls/hr IV.SIG TITRATE PRN Rx #:[id number] Tube Feeding 303 / 303 Output: Urine Amount (Catheter) 1350 / 1350 1050 / 1050 Indwelling Urethral Catheter 1350 / 1350 1050 / 1050 Other: Date of Last Bowel Movement 02/12/18 02/12/18 02/12/18 # Bowel Movements 1 - Constitutional no acute distress, average body habitus, cooperative - Routine HEENT Exam Head: Present: normocephalic Eye: Present: PERRL (Pupils 3mm bilaterally reactive bilaterally.). Absent: conjunctival icterus ENT: Absent: oropharynx clear (ET intubated.) - Routine Neck Exam Comments: Anterior cervical incision clean and dry without signs of infection or complication. - Routine Respiratory Exam Present: patient mechanically ventilated, CTA bilaterally. Absent: rhonchi, wheezes Comments: Periods of coughing fits. Suctioning gets some thin secretions but not a lot. - Routine Cardiovascular Exam Present: RRR, S1, S2. Absent: murmur - Routine Abdominal Exam Present: soft, normoactive bowel sounds. Absent: distended, firm - Routine Skin Exam Absent: cyanosis, erythema Comments: Pt log rolled. Posterior cervical incision clean and dry without signs of infection. New bandage placed. Anterior cervical incision clean and dry and changed with new bandage. - Routine Neurological Exam Present: alert, motor deficit (Moves all 4 extremities with improving strength 4 /5, except left hand intrinsic 1-2/5.), moving all extremities - Detailed Neurological Exam: Coma Scale Eye Opening: Spontaneous Verbal Response: None Motor Response: Obey commands [place] Coma Scale Total: 11 - Routine Psychiatric Exam Present: cooperative - Urinary Catheter Management Indwelling Urethral Catheter Cath placed during this visit: yes Reason for continuing: Hourly intake/output Insertion date: 02/05/18 Insertion time: 09:00 Assessment and Plan - Assessment (1) Acute traumatic injury of cervical spine Status: Acute (2) Traumatic subluxation of cervical vertebra Code(s): S13.100A - Subluxation of unspecified cervical vertebrae, initial encounter Status: Acute (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 He has a profound C5-6 subluxation with jumped facets and gross instability. Plan for posterior open cervical jumped facet reduction with stabilization and fusion and will likely require an anterior approach for an anterior/posterior stabilization given the severity and unstable nature of this injury. Discussed with patient and his at bedside at length the risks and benefits involved and they requested we proceed and gave informed consent. They understand that is a possibility that he may not improve from his spinal cord injury despite extensive rehabilitation and there is also possibility of further neurologic and pulmonary decline (chest wall injury and comminuted sternal fracture) with risk of spinal cord shock and hemodynamic instability from the cervical cord edema/contusion progression in the near future. His condition obviously is very critical. Pt s/p Posterior C4, C5, C6, and C7 fusion on 02/05/18. s/p Anterior C4/C5, C5/C6, and C6/C7 cervical fusion on 02/06/18. P: Continue with cervical collar Continue with critical care. Continue with PT/OT Vent wean per critical care.
[2018-02-13] MEDS: fentaNYL 10 mcg/mL Premix Drip 2,500 MCG/250 ML BAG IV.SIG PRN (12:08)
--- NOTE | 2018-02-13 15:05 | P.PNID ---
Subjective Remarks: Patient on the ventilator. Sedated. Opens eyes to voice Has elevated temperature of 101. No distress. White blood cell count trending down. This is a 47-year-old male, who fell from a tree approximately 20 feet high and sustained a cervical spine fracture. The patient is currently intubated and on the ventilator. He underwent surgery consisting of posterior C4, C5, C6, and C7 fusion, and open reduction and internal fixation of C2-C6 and posterior C4-C7 lateral mass/facet segmental fixation. Consult called for elevated temperature. Past Medical History: PAST MEDICAL HISTORY: Sinus disease, history of knee surgery. Allergies/Adverse Reactions: Allergies No Known Allergies Allergy (Verified 02/05/18 16:30) Objective Vital Signs 02/12/18 15:59 02/12/18 16:00 02/12/18 17:00 Temperature 102.2 F H Pulse Rate 84 85 93 H Respiratory Rate 22 17 25 H Blood Pressure Pulse Oximetry 100 100 95 02/12/18 18:00 02/12/18 18:44 02/12/18 19:00 Temperature Pulse Rate 104 H 95 H 86 Respiratory Rate 24 18 20 Blood Pressure 104/55 L Pulse Oximetry 94 L 96 98 02/12/18 20:00 02/12/18 20:17 02/12/18 20:19 Temperature 101.3 F H Pulse Rate 84 96 H Respiratory Rate 21 28 H 26 H Blood Pressure Pulse Oximetry 99 100 02/12/18 21:00 02/12/18 22:00 02/12/18 23:00 Temperature Pulse Rate 92 H 92 H 98 H Respiratory Rate 23 20 22 Blood Pressure Pulse Oximetry 99 97 95 02/12/18 23:15 02/13/18 00:00 02/13/18 00:02 Temperature 98.5 F Pulse Rate 95 H 87 Respiratory Rate 18 21 22 Blood Pressure 107/57 L Pulse Oximetry 94 L 100 98 02/13/18 01:00 02/13/18 02:00 02/13/18 03:00 Temperature Pulse Rate 81 81 84 Respiratory Rate 22 18 20 Blood Pressure Pulse Oximetry 100 98 99 02/13/18 03:41 02/13/18 04:00 02/13/18 04:08 Temperature 101.3 F H Pulse Rate 82 87 Respiratory Rate 18 21 23 Blood Pressure Pulse Oximetry 100 99 02/13/18 05:00 02/13/18 06:00 02/13/18 07:00 Temperature Pulse Rate 92 H 88 81 Respiratory Rate 19 20 17 Blood Pressure Pulse Oximetry 100 97 98 02/13/18 08:00 02/13/18 08:03 02/13/18 09:00 Temperature 99.2 F Pulse Rate 79 80 84 Respiratory Rate 19 20 22 Blood Pressure Pulse Oximetry 99 100 98 02/13/18 10:00 02/13/18 11:00 02/13/18 11:30 Temperature Pulse Rate 86 80 Respiratory Rate 25 H 21 25 H Blood Pressure Pulse Oximetry 100 97 100 02/13/18 12:00 02/13/18 12:17 02/13/18 12:44 Temperature 100.5 F H Pulse Rate 85 81 88 Respiratory Rate 24 25 H 26 H Blood Pressure 112/77 112/77 119/62 Pulse Oximetry 98 100 100 02/13/18 13:00 02/13/18 14:00 Temperature 98.6 F Pulse Rate 86 91 H Respiratory Rate 24 34 H Blood Pressure 125/74 136/76 Pulse Oximetry 98 95 Intake & Output 02/12/18 02/13/18 02/13/18 18:59 06:59 18:59 Intake Total 822 / 822 603 / 603 400 / 400 Output Total 1350 / 1350 1050 / 1050 Balance -528 / -528 -447 / -447 400 / 400 Weight 83.6 kg Intake: IV 800 / 800 300 / 300 400 / 400 Diprivan 1000 mg/100 ml Inj 1, 200 / 200 200 / 200 100 / 100 000 mg In 100 ml @ 5 MCG/KG/MIN 2.187 mls/hr IV.CONT TITRATE PRN Rx#:[id number] Zosyn 3.375 GM Premix 50 ML @ 100 / 100 100 / 100 50 / 50 100 mls/hr IV.SIG Q6H ANTOINETTE Rx#: [id number] Vancomycin Inj 1,000 MG In NS 250 / 250 250 / 250 Inj 250 ML @ 250 mls/hr IV.SIG DAILY ANTOINETTE Rx#:[id number] fentaNYL 10 mcg/mL Premix Drip 250 / 250 2,500 mcg In 250 ml @ 50 MCG/HR 5 mls/hr IV.SIG TITRATE PRN Rx #:[id number] Tube Feeding 303 / 303 Output: Urine Amount (Catheter) 1350 / 1350 1050 / 1050 Indwelling Urethral Catheter 1350 / 1350 1050 / 1050 Other: Date of Last Bowel Movement 02/12/18 02/12/18 02/12/18 # Bowel Movements 1 02/08/18 02:40 Blood - Peripheral Aerobic Blood Culture - Final No growth in 5 days 02/08/18 02:40 Blood - Peripheral Anaerobic Blood Culture - Final No growth in 5 days 02/08/18 02:45 Blood - Peripheral Aerobic Blood Culture - Final No growth in 5 days 02/08/18 02:45 Blood - Peripheral Anaerobic Blood Culture - Final No growth in 5 days 02/10/18 14:30 Sputum - Endotracheal Gram Stain - Final 02/10/18 14:30 Sputum - Endotracheal Sputum Culture - Final No growth in 48 hours Lab - Hematology Results 02/12/18 02/13/18 03:20 04:50 WBC 11.8 H 11.7 H RBC 2.92 L 2.83 L Hgb 9.0 L 8.6 L Hct 26.1 L 25.5 L MCV 89.5 90.3 MCH 30.7 30.4 MCHC 34.3 33.7 RDW 13.5 13.2 Plt Count 169 191 MPV 8.5 8.7 Prelim Diff (Auto) Slide review pending Slide review pending Neut % (Auto) 79.1 H 75.6 H Lymph % (Auto) 9.0 12.8 [place] % (Auto) 8.1 H 7.7 Eos % (Auto) 3.3 3.4 Baso % (Auto) 0.5 0.5 Neut # (Auto) 9.3 H 8.8 H Lymph # (Auto) 1.1 1.5 [place] # (Auto) 1.0 H 0.9 Eos # (Auto) 0.4 0.4 Baso # (Auto) 0.1 0.1 WBC Differential Manual diff final Manual diff final Seg Neuts % (Manual) 78 H 81 H Band Neuts % (Manual) 2 2 Lymphocytes % (Manual) 9 6 L Monocytes % (Manual) 9 H 3 Eosinophils % (Manual) 1 4 Metamyelocytes % (Man) 1 3 H Myelocytes % (Man) 1 H Abs Neuts (Manual) 9.6 H 10.2 H Differential Comment . . Hypersegmented Neuts 1+ H Dohle Bodies Present H Present H Platelet Estimate Normal Normal Platelet Morphology Normal Clumped H Lab - Chemistry Results 02/12/18 02/13/18 03:20 04:50 Sodium 140 139 Potassium 3.9 3.6 Chloride 109 H 109 H Carbon Dioxide 27.1 22.3 Anion Gap 4 L 8 BUN 14 16 Creatinine 0.62 0.63 Estimated GFR Greater than 89 Greater than 89 Random Glucose 109 H 108 H Calcium 7.5 L 7.3 L* Calcium Adj for Albumin 9.1 Albumin 1.8 L Imaging: ITS Impressions Pelvis X-Ray 02/04/18 19:38 CONCLUSION: The bony pelvic ring is grossly intact. Abdomen/Pelvis CT 02/04/18 19:39 CONCLUSION: 1. 3.8 cm low-density lesion in the dome of the liver is nonspecific in appearance. This could represent a parenchymal laceration/hematoma or possibly cavernous hemangioma. No contour abnormality about the liver and no free fluid in the abdomen. Once the patient is stabilized, may consider elective evaluation either with multiphasic MRI or dynamic tagged red blood cell scan. Chest CT 02/04/18 19:39 CONCLUSION: 1. Mildly displaced fractures of the mid and inferior sternum. 2. No evidence of pneumothorax. Cervical Spine CT 02/04/18 19:40 CONCLUSION: 1. Gross distortion of the spinal canal at the C5-6 level due to bilateral locked facets causing anterior dislocation of the C5 vertebral body. No vertebral body fracture seen. Lumbar Spine CT 02/04/18 19:40 CONCLUSION: 1. No evidence of fracture, spondylolisthesis, or significant epidural impression. Thoracic Spine CT 02/04/18 19:40 CONCLUSION: 1. Negative CT of the thoracic spine without evidence of fracture or spondylolisthesis. Cervical Spine MRI 02/04/18 20:01 CONCLUSION: 1. There is minimal T2 prolongation within the substance of the cervical cord at the C5 level, but no evidence of cord transection. No epidural hematoma seen. 2. 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 3. Small central disc protrusion at C4-5 without indentation on the cord or lateral extension. Cervical Spine X-Ray 02/06/18 00:00 CONCLUSION: Status post anterior cervical fusion from C4 through C7 as described. Stable cervical alignment status post fusion. Head CT 02/08/18 00:00 CONCLUSION: No acute intracranial findings. . Abdomen X-Ray 02/10/18 15:25 CONCLUSION: 1. Suction-type orogastric catheter in the stomach. 2. Nonobstructive bowel gas pattern. Venous Doppler Study 02/11/18 00:00 CONCLUSION: 1. No sonographic evidence for lower extremity DVT. Gastrostomy Tube Placement 02/12/18 00:00 CONCLUSION: 1. Uncomplicated Dobbhoff tube placement as above. Chest X-Ray 02/13/18 00:00 CONCLUSION: Support apparatus unchanged. Increase in right upper lobe consolidation over the last day. Decrease in right pleural effusion. Physical Exam: PHYSICAL EXAMINATION: GENERAL: Sedated on the ventilator. HEENT: Unable to fully assess since the patient is intubated. The oropharyngeal mucosa appears moist. NECK: No adenopathy or swelling. LUNGS: Slight basilar rhonchi HEART: Regular S1, S2, without murmurs. ABDOMEN: Soft. No tenderness appreciated. EXTREMITIES: No clubbing, cyanosis or edema. SKIN: No rash. NEUROLOGIC: Unable to assess. PSYCHIATRIC: Unable to assess. Assessment and Plan - Plan IMPRESSION: 1. Fever. Unclear source. 2. Lung infiltrates suggesting pneumonia. Negative sputum culture. 3. Acute respiratory failure. 4. Status post cervical spine surgery. 5. Leukocytosis. RECOMMENDATIONS: 1. Continue vancomycin. 2. Continue piperacillin/tazobactam. 3. Obtain new blood culture. 4. Monitor temperature. 5. Monitor white blood cell count.
--- NOTE | 2018-02-13 19:30 | P.PNCC ---
Subjective Brief History: The patient is a 47-year-old male who presented status post fall from a tree stand, approximately 10 feet. The patient was somewhat amnestic to events with mild confusion, following commands, and noted to be out hunting and lost footing, fell from a tree stand with positive LOC. The patient noted to be tachycardic in the 130s in the field with a normal blood pressure. He had decreased movement to bilateral upper extremities and numbness and left leg numbness. When came in the trauma bay, he was noted to be hemodynamically stable, answering intermittently. Patient was resuscitated according trauma principles primary and secondary survey resuscitation definitive care carried out and patient undergoes full diagnostic workup including CT scan and MRI prior to coming to ICU In ICU, patient has decreased motion in the left arm and the left leg. Injuries detected C5 - C6 bilateral locked facets Left arm and leg weakness with paresthesias MRI confirmed spinal cord altered signal however no indication of spinal cord transection Sternal fracture Should also be noted that patient has had atrial fibrillation in the past and was placed on some blood thinner probably factor X a inhibitor for PT PTT is normal In face of the same will await till tomorrow to go ahead with a spinal surgery as per neurosurgery 24 Hour Review/Hospital Course: 02/05/2018 Patient is awake alert and oriented Weakness of the left arm and left leg is pronounced with some paresthesias in both Patient scheduled today for the anterior and eventually posterior fusion of the C-spine Patient may have permanent damage to the spinal cord and this is been clearly explained to patient and the family Hemodynamically he is stable and in sinus rhythm has been instructed to bring the home medication clearly patient must be on either calcium channel blockers beta-blockers or some other combination for his atrial fibrillation control Bilateral breath sounds good pulmonary function and pulmonary dynamics not impaired by the cervical injury Abdomen soft active bowel sounds Renal function preserved 02/06/2018 Patient is status post anterior and posterior fusion of C4-C5-C6 Sedated on propofol and fentanyl Intubated ventilated on assist control Bilateral good breath sounds and good PO2 FiO2 gradient Hemodynamically stable Renal function preserved Plan Patient came out of the operating room this afternoon and will keep him overnight ventilated and extubate patient tomorrow morning 02/07 Patient was febrile in the morning temperature 103.3. After anterior spinal fusion postop He also desaturated to the 80s and his FiO2 was increased to 60%-his PF ratio is 110-we will increase his PEEP to 10 Is also thick secretions-his NG tube was removed in the OR and patient was without NG tube until morning hours-patient may have aspirated with results of pneumonitis-we will observe patient very closely for potential pneumonia, his white cell count however is today 9 and there are only small bilateral basilar infiltrates Otherwise patient is awake he is following commands Remains hemodynamically stable 02/08 Patient continues to be febrile this morning temperature is 101.2, his white cell count is rising and he has also bands I started him yesterday on empiric antibiotics and he has been pancultured His PF ratio is on 120, he has thick secretions and infiltrates basilar bilateral on the chest x-ray His FiO2 is not 60% and his PEEP is 10 Hemodynamically he remains normal, his renal function is preserved 02/09 patient remains hemodynamically normal, his eyes are open and is following commands His respiratory status clearly improved with improved PF ratio and chest x-ray Sputum cultures are negative however there was good response to empiric antibiotics and other cultures are still pending Patient clearly has been third spacing so that we will start diuresis with Lasix His FiO2 is down to 40% and his PEEP was reduced to 8 Patient has not been tolerating tube feeds likely secondary to an ileus, will start patient on Reglan start to fix tube feeds back on trickle rate and give Dulcolax to induce bowel movement Family was updated at the bedside 02/10 Patient is febrile today in the morning, his white cell count is climbing as well His pro calcitonin is elevated, chest x-ray is essentially same bilateral basilar infiltrates His PF ratio today is around 120 which is worse than yesterday as the PEEP was reduced to 8 I will increase it back to 10 Patient had a short CPAP trial which she did not tolerate, he has thick norman colored secretions although the sputum culture is negative I still believe patient has a pneumonia we will repeat the culture obtain ID consult He has been tolerating tube feeds but in trophic rate, there is output from the reflex port of the NG-we will exchanged for a new NG tube Patient remains hemodynamically normal he responded well to diuresis 3 L of output Family was updated at the bedside 02/11/2018 Patient remains intubated and ventilated status post anterior and posterior cervical fusion Repeated spikes of fever to 102 consistent with pneumonia On low sedation easily arousable patient follows commands and is still weak in the left side of the body Hemodynamically stable Bilateral breath with decreased PO2 FiO2 ratio consistent with increased infiltrates bilateral pneumonia and consequent restricted oxygen diffusion and exchange. This is consistent with aspiration of gastric contents Remains on high respiratory parameters including 12 of PEEP and 60% FiO2 with peak inspiratory pressures around 36 cm H2O Patient will need to be maintained on the ventilator until pulmonary function and PO2 FiO2 gradient improves Cultures are negative for the time being but I believe patient has bilateral pneumonia and just a matter of time when cultures sort themselves out Remains on Zosyn and ID consult is greatly appreciated Enteral feeds tolerated however positioning of the OG tube remains to be a problem and patient will go to radiology for a Dobbhoff placement Renal function preserved Plan Continue ventilatory and nutritional support as necessary As the patient's pulmonary function improves will gradually wean the ventilator but right now patient's function may worsen before it gets better 02/12/2018 Patient sedated intubated and ventilated however neurologically appropriate intact Follows commands opens eyes and tracks when on sedation vacation Hemodynamically remained stable Patient remains on assist control ventilation 12 of PEEP and decreasing FiO2 about 50% and slightly improving PO2 FiO2 gradient as we go along Repeated spikes of fever noted and patient developed a right lower lobe infiltrate which is not very dense and increasing occupying lower half of the right lower lobe Successfully bronchoscope today with evacuation of a large amount of thick mucous material Patient clearly has a right lung contusion with some hemorrhagic secretions and bruising within the bronchial tree Abdomen is soft enteral feeds as tolerated Patient had successful placement of a Dobbhoff tube by interventional radiology Renal function is preserved At this point patient is not a candidate for extubation due to right lower lobe infiltrate aspiration and slowly improving PO2 FiO2 gradient I do not think patient will require tracheostomy however we will see how things go 02/13/2018 Patient is slightly sedated and intubated however on sedation vacation quite appropriate moving all 4 extremities Follows commands opens eyes tracks Hemodynamically stable Patient remains on assist control ventilation 12 P and 50% FiO2 and today decreased to 10 of PEEP and 40% FiO2 in which patient is doing well The PO2 FiO2 gradient is gradually improving and now it is around 190 which is certainly better than the other day ARDS and bilateral aspirations are slowly resolving Abdomen is soft active bowel sounds enteral feeds tolerated Via Dobbhoff At this point there is no more to go as far as the extubation is concerned and will have to wait till the systemic inflammatory response and ARDS resolve and the PO2 FiO2 gradient improved sufficiently for patient to be extubated Considering the low level of his injury this will not be an issue of pulmonary mechanics but rather simply aspiration Objective Vital Signs / I&O: Vital Signs 02/12/18 20:00 02/12/18 20:17 02/12/18 20:19 Temperature 101.3 F H Pulse Rate 84 96 H Respiratory Rate 21 28 H 26 H Blood Pressure Pulse Oximetry 99 100 02/12/18 21:00 02/12/18 22:00 02/12/18 23:00 Temperature Pulse Rate 92 H 92 H 98 H Respiratory Rate 23 20 22 Blood Pressure Pulse Oximetry 99 97 95 02/12/18 23:15 02/13/18 00:00 02/13/18 00:02 Temperature 98.5 F Pulse Rate 95 H 87 Respiratory Rate 18 21 22 Blood Pressure 107/57 L Pulse Oximetry 94 L 100 98 02/13/18 01:00 02/13/18 02:00 02/13/18 03:00 Temperature Pulse Rate 81 81 84 Respiratory Rate 22 18 20 Blood Pressure Pulse Oximetry 100 98 99 02/13/18 03:41 02/13/18 04:00 02/13/18 04:08 Temperature 101.3 F H Pulse Rate 82 87 Respiratory Rate 18 21 23 Blood Pressure Pulse Oximetry 100 99 02/13/18 05:00 02/13/18 06:00 02/13/18 07:00 Temperature Pulse Rate 92 H 88 81 Respiratory Rate 19 20 17 Blood Pressure Pulse Oximetry 100 97 98 02/13/18 08:00 02/13/18 08:03 02/13/18 09:00 Temperature 99.2 F Pulse Rate 79 80 84 Respiratory Rate 19 20 22 Blood Pressure Pulse Oximetry 99 100 98 02/13/18 10:00 02/13/18 11:00 02/13/18 11:30 Temperature Pulse Rate 86 80 Respiratory Rate 25 H 21 25 H Blood Pressure Pulse Oximetry 100 97 100 02/13/18 12:00 02/13/18 12:17 02/13/18 12:44 Temperature 100.5 F H Pulse Rate 85 81 88 Respiratory Rate 24 25 H 26 H Blood Pressure 112/77 112/77 119/62 Pulse Oximetry 98 100 100 02/13/18 13:00 02/13/18 14:00 02/13/18 15:00 Temperature 98.6 F Pulse Rate 86 91 H 90 Respiratory Rate 24 34 H 24 Blood Pressure 125/74 136/76 124/63 Pulse Oximetry 98 95 98 02/13/18 15:18 02/13/18 15:30 02/13/18 16:00 Temperature 99.4 F Pulse Rate 82 104 H 91 H Respiratory Rate 22 28 H 24 Blood Pressure 136/79 140/70 Pulse Oximetry 98 100 94 L 02/13/18 17:00 02/13/18 18:00 Temperature 99.2 F Pulse Rate 97 H 99 H Respiratory Rate 26 H 26 H Blood Pressure 126/66 133/78 Pulse Oximetry 95 94 L Intake & Output 02/13/18 02/13/18 02/14/18 06:59 18:59 06:59 Intake Total 603 / 603 1155 / 1155 Output Total 1050 / 1050 1625 / 1625 Balance -447 / -447 -470 / -470 Weight 83.6 kg Intake: IV 300 / 300 550 / 550 Diprivan 1000 mg/100 ml Inj 1, 200 / 200 200 / 200 000 mg In 100 ml @ 5 MCG/KG/MIN 2.187 mls/hr IV.CONT TITRATE PRN Rx#:[id number] Zosyn 3.375 GM Premix 50 ML @ 100 / 100 100 / 100 100 mls/hr IV.SIG Q6H ANTOINETTE Rx#: [id number] Vancomycin Inj 1,000 MG In NS 250 / 250 Inj 250 ML @ 250 mls/hr IV.SIG DAILY ANTOINETTE Rx#:[id number] Tube Feeding 303 / 303 505 / 505 Tube Irrigant 100 / 100 Output: Urine Amount (Catheter) 1050 / 1050 1625 / 1625 Indwelling Urethral Catheter 1050 / 1050 1625 / 1625 Other: Date of Last Bowel Movement 02/12/18 02/13/18 # Bowel Movements 1 Result Diagrams: 02/13/18 04:50 02/13/18 04:50 Imaging: Impressions Chest X-Ray 02/13/18 00:00 CONCLUSION: Support apparatus unchanged. Increase in right upper lobe consolidation over the last day. Decrease in right pleural effusion. Disinhibition Score: 14.00 Aggression Score: 14.00 Lability Score: 14.00 Agitated Behavior Total Score: 14 Assessment and Plan Plan: Continue IV antibiotics, follow up cultures DVT prophylaxis, tube feeds Continue mechanical ventilation-increase PEEP to 10 ID consultation Attestation: Critical care time 34 minutes
[2018-02-13] MEDS: Pantoprazole Inj 40 MG Vial IV.PUSH SCH (20:13)
[2018-02-14] MEDS: Propofol 1000 mg/100 ml Inj 1,000 MG/100 ML BOTTLE IV.CONT PRN ×4 (02:31→20:23)
[2018-02-14] MEDS: Piperacil/Tazo 3.375 GM Premix 50 ML IV.SIG SCH ×2 (04:12→10:37)
--- NOTE | 2018-02-14 04:52 | XR ---
EXAM DATE: 02/14/2018 4:41 AM EST AGE/SEX: 47 years / Male INDICATIONS: Shortness of breath. CLINICAL DATA: This is the patient's subsequent encounter. Patient reports that signs and symptoms h ave been present for 1 week and indicates a pain score of Nonresponsive. MEDICAL/SURGICAL HISTORY: None. None. [place] [facility] [place]. . FINDINGS: Endotracheal tube in good position. Feeding tube enters stomach. Left central line in superior vena c doe. Bilateral airspace consolidation similar to February 13. Trace pleural fluid. CONCLUSION: Support apparatus unchanged. Bilateral airspace consolidation persists. Electronically signed by: Isak Whitney MD 02/14/2018 4:51 AM EST
[2018-02-14 05:15] LABS: Baso # (Auto) 0.1 th/mm3 (0.0-0.2); Baso % (Auto) 0.5 % (0.0-2.0); Eos # (Auto) 0.3 th/mm3 (0.0-0.4); Eos % (Auto) 2.7 % (0.0-4.0); Hematocrit 23.2 % (39.0-51.0); Hemoglobin 8.2 gm/dL (13.0-17.0); Lymph # (Auto) 1.1 th/mm3 (1.0-4.8); Lymph % (Auto) 11.4 % (9.0-44.0); Mean Corpuscular HGB Conc 35.5 % (32.0-36.0); Mean Corpuscular Hemoglobin 31.1 pg (27.0-34.0); Mean Corpuscular Volume 87.7 fL (80.0-100.0); Mean Platelet Volume 8.4 fL (7.0-11.0); Mono # (Auto) 0.6 th/mm3 (0.0-0.9); Mono % (Auto) 6.3 % (0.0-8.0); Neut % (Auto) 79.1 % (16.0-70.0); Platelet Count 213 th/mm3 (150-450); Red Blood Count 2.65 mil/mm3 (4.50-5.90); Red Cell Distribution Width 13.2 % (11.6-17.2); White Blood Count 10.1 th/mm3 (4.0-11.0)
[2018-02-14 05:44] LABS: Anion Gap 6 meq/L (5-15); Blood Urea Nitrogen 12 mg/dL (7-18); Calcium 7.2 mg/dL (8.5-10.1); Chloride 109 meq/L (98-107); Glomerular Filtration Rate Greater Than 89 mL/min (>89); Glucose,Random 116 mg/dL (74-106); Potassium 3.4 meq/L (3.5-5.1); Sodium 138 meq/L (136-145)
[2018-02-14 05:50] LABS: ABG Base Excess -2.1 mmol/L (-2-2); ABG PCO2 32 mmHg (38-42); ABG PO2 68 mmHg (61-120)
[2018-02-14 05:53] LABS: Albumin 1.8 g/dL (3.4-5.0)
[2018-02-14] MEDS: Enoxaparin Inj 30 MG/0.3 ML Syringe SQ SCH ×2 (08:38→20:25)
[2018-02-14] MEDS: Vancomycin Inj 1,000 MG in Sodium Chlor 0.9% Inj 250 ML IV.SIG SCH (08:39)
[2018-02-14] MEDS: Sodium Chloride 0.9% 2 ML Flush BID IV.FLUSH SCH ×2 (08:40→20:26)
[2018-02-14] MEDS: Senna/Docusate Sodium 8.6/50 MG Tablet PO SCH ×2 (08:40→20:27)
[2018-02-14 08:41] LABS: Eosinophils 2 % (0-4); Lymphocytes 10 % (9-44); Monocytes 5 % (0-8); Myelocytes 1 % (0-0)
[2018-02-14 08:42] LABS: Platelet Estimate Normal (Normal); Platelet Morphology Normal (Normal)
--- NOTE | 2018-02-14 09:39 | P.PNNS ---
Subjective Interval history: Pt awake and alert. Follows simple commands. Nods head slightly to some questions. Intubated. Physical Exam Vital signs: Vital Signs 02/13/18 10:00 02/13/18 11:00 02/13/18 11:30 Temperature Pulse Rate 86 80 Respiratory Rate 25 H 21 25 H Blood Pressure Pulse Oximetry 100 97 100 02/13/18 12:00 02/13/18 12:17 02/13/18 12:44 Temperature 100.5 F H Pulse Rate 85 81 88 Respiratory Rate 24 25 H 26 H Blood Pressure 112/77 112/77 119/62 Pulse Oximetry 98 100 100 02/13/18 13:00 02/13/18 14:00 02/13/18 15:00 Temperature 98.6 F Pulse Rate 86 91 H 90 Respiratory Rate 24 34 H 24 Blood Pressure 125/74 136/76 124/63 Pulse Oximetry 98 95 98 02/13/18 15:18 02/13/18 15:30 02/13/18 16:00 Temperature 99.4 F Pulse Rate 82 104 H 91 H Respiratory Rate 22 28 H 24 Blood Pressure 136/79 140/70 Pulse Oximetry 98 100 94 L 02/13/18 17:00 02/13/18 18:00 02/13/18 19:00 Temperature 99.2 F Pulse Rate 97 H 99 H 96 H Respiratory Rate 26 H 26 H 24 Blood Pressure 126/66 133/78 120/64 Pulse Oximetry 95 94 L 97 02/13/18 20:00 02/13/18 20:47 02/13/18 21:00 Temperature 101.5 F H Pulse Rate 88 98 H 100 H Respiratory Rate 24 27 H 25 H Blood Pressure 119/65 Pulse Oximetry 100 93 L 92 L 02/13/18 21:03 02/13/18 21:06 02/13/18 22:00 Temperature Pulse Rate 97 H 89 Respiratory Rate 27 H 25 H 23 Blood Pressure 119/74 Pulse Oximetry 93 L 95 02/13/18 22:20 02/13/18 23:00 02/13/18 23:44 Temperature Pulse Rate 94 H 93 H Respiratory Rate 22 24 22 Blood Pressure 111/59 L Pulse Oximetry 95 98 97 02/14/18 00:00 02/14/18 01:00 02/14/18 02:00 Temperature 99.9 F H Pulse Rate 90 90 89 Respiratory Rate 24 25 H 24 Blood Pressure Pulse Oximetry 98 96 100 02/14/18 02:09 02/14/18 02:26 02/14/18 03:00 Temperature Pulse Rate 87 90 89 Respiratory Rate 23 23 Blood Pressure 136/70 124/74 119/67 Pulse Oximetry 99 100 97 02/14/18 03:14 02/14/18 03:25 02/14/18 03:30 Temperature Pulse Rate 92 H 96 H 90 Respiratory Rate 21 23 23 Blood Pressure 119/68 116/68 Pulse Oximetry 96 98 02/14/18 04:00 02/14/18 04:10 02/14/18 04:30 Temperature 99.8 F H Pulse Rate 91 H 94 H Respiratory Rate 21 22 23 Blood Pressure 120/65 109/66 Pulse Oximetry 98 97 95 02/14/18 05:00 02/14/18 05:30 02/14/18 06:00 Temperature Pulse Rate 89 94 H 96 H Respiratory Rate 21 23 23 Blood Pressure 111/63 122/72 118/66 Pulse Oximetry 98 97 95 02/14/18 06:30 02/14/18 07:00 02/14/18 07:30 Temperature Pulse Rate 93 H 90 92 H Respiratory Rate 21 21 24 Blood Pressure 111/65 116/64 116/69 Pulse Oximetry 95 97 96 02/14/18 08:00 02/14/18 08:03 02/14/18 08:30 Temperature 101.1 F H Pulse Rate 90 91 H 99 H Respiratory Rate 21 23 24 Blood Pressure 123/67 117/69 Pulse Oximetry 96 97 97 02/14/18 09:00 Temperature Pulse Rate 100 H Respiratory Rate 23 Blood Pressure 109/64 Pulse Oximetry 93 L Intake & Output 02/13/18 02/14/18 02/14/18 18:59 06:59 18:59 Intake Total 1155 / 1155 1111 / 1111 Output Total 1625 / 1625 1600 / 1600 Balance -470 / -470 -489 / -489 Weight 85.2 kg Intake: IV 550 / 550 400 / 400 Diprivan 1000 mg/100 ml Inj 1, 200 / 200 300 / 300 000 mg In 100 ml @ 5 MCG/KG/MIN 2.187 mls/hr IV.CONT TITRATE PRN Rx#:[id number] Zosyn 3.375 GM Premix 50 ML @ 100 / 100 100 / 100 100 mls/hr IV.SIG Q6H ANTOINETTE Rx#: [id number] Vancomycin Inj 1,000 MG In NS 250 / 250 Inj 250 ML @ 250 mls/hr IV.SIG DAILY ANTOINETTE Rx#:[id number] Tube Feeding 505 / 505 611 / 611 Tube Irrigant 100 / 100 100 / 100 Output: Urine Amount (Catheter) 1625 / 1625 1600 / 1600 Indwelling Urethral Catheter 1625 / 1625 1600 / 1600 Other: Date of Last Bowel Movement 02/13/18 02/14/18 02/14/18 # Bowel Movements 1 # Incontinent Bowel Movements 1 - Constitutional no acute distress, average body habitus, cooperative - Routine HEENT Exam Head: Present: normocephalic Eye: Present: PERRL (Pupils 3 mm bilaterally reactive bilaterally). Absent: conjunctival icterus ENT: Absent: oropharynx clear (ET intubated.) - Routine Respiratory Exam Present: patient mechanically ventilated, CTA bilaterally. Absent: respiratory distress, rhonchi, wheezes - Routine Cardiovascular Exam Present: RRR, S1, S2. Absent: murmur - Routine Abdominal Exam Present: soft, normoactive bowel sounds. Absent: distended, firm - Routine Skin Exam Absent: cyanosis, erythema - Routine Neurological Exam Present: alert, motor deficit (Pt with weakness in extremities appears 4/5 except left hand which is improving 2+/5), moving all extremities Pupils 3mm bilaterally reactive bilaterally. - Routine Psychiatric Exam Present: cooperative. Absent: anxious, agitated - Urinary Catheter Management Indwelling Urethral Catheter Cath placed during this visit: yes Reason for continuing: Hourly intake/output Insertion date: 02/05/18 Insertion time: 09:00 Assessment and Plan - Assessment (1) Acute traumatic injury of cervical spine Status: Acute (2) Traumatic subluxation of cervical vertebra Code(s): S13.100A - Subluxation of unspecified cervical vertebrae, initial encounter Status: Acute (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 He has a profound C5-6 subluxation with jumped facets and gross instability. Plan for posterior open cervical jumped facet reduction with stabilization and fusion and will likely require an anterior approach for an anterior/posterior stabilization given the severity and unstable nature of this injury. Discussed with patient and his at bedside at length the risks and benefits involved and they requested we proceed and gave informed consent. They understand that is a possibility that he may not improve from his spinal cord injury despite extensive rehabilitation and there is also possibility of further neurologic and pulmonary decline (chest wall injury and comminuted sternal fracture) with risk of spinal cord shock and hemodynamic instability from the cervical cord edema/contusion progression in the near future. His condition obviously is very critical. Pt s/p Posterior C4, C5, C6, and C7 fusion on 02/05/18. s/p Anterior C4/C5, C5/C6, and C6/C7 cervical fusion on 02/06/18. P: Continue with cervical collar Continue with critical care. Continue with PT/OT Vent wean per critical care.
--- NOTE | 2018-02-14 15:17 | P.PNID ---
Subjective Remarks: Patient on the ventilator. Sedated. Opens eyes to voice Has elevated temperature of 101. No distress. White blood cell count down to normal. No significant ETT secretions. This is a 47-year-old male, who fell from a tree approximately 20 feet high and sustained a cervical spine fracture. The patient is currently intubated and on the ventilator. He underwent surgery consisting of posterior C4, C5, C6, and C7 fusion, and open reduction and internal fixation of C2-C6 and posterior C4-C7 lateral mass/facet segmental fixation. Consult called for elevated temperature. Past Medical History: PAST MEDICAL HISTORY: Sinus disease, history of knee surgery. Allergies/Adverse Reactions: Allergies No Known Allergies Allergy (Verified 02/05/18 16:30) Objective Vital Signs 02/13/18 15:18 02/13/18 15:30 02/13/18 16:00 Temperature 99.4 F Pulse Rate 82 104 H 91 H Respiratory Rate 22 28 H 24 Blood Pressure 136/79 140/70 Pulse Oximetry 98 100 94 L 02/13/18 17:00 02/13/18 18:00 02/13/18 19:00 Temperature 99.2 F Pulse Rate 97 H 99 H 96 H Respiratory Rate 26 H 26 H 24 Blood Pressure 126/66 133/78 120/64 Pulse Oximetry 95 94 L 97 02/13/18 20:00 02/13/18 20:47 02/13/18 21:00 Temperature 101.5 F H Pulse Rate 88 98 H 100 H Respiratory Rate 24 27 H 25 H Blood Pressure 119/65 Pulse Oximetry 100 93 L 92 L 02/13/18 21:03 02/13/18 21:06 02/13/18 22:00 Temperature Pulse Rate 97 H 89 Respiratory Rate 27 H 25 H 23 Blood Pressure 119/74 Pulse Oximetry 93 L 95 02/13/18 22:20 02/13/18 23:00 02/13/18 23:44 Temperature Pulse Rate 94 H 93 H Respiratory Rate 22 24 22 Blood Pressure 111/59 L Pulse Oximetry 95 98 97 02/14/18 00:00 02/14/18 01:00 02/14/18 02:00 Temperature 99.9 F H Pulse Rate 90 90 89 Respiratory Rate 24 25 H 24 Blood Pressure Pulse Oximetry 98 96 100 02/14/18 02:09 02/14/18 02:26 02/14/18 03:00 Temperature Pulse Rate 87 90 89 Respiratory Rate 23 23 Blood Pressure 136/70 124/74 119/67 Pulse Oximetry 99 100 97 02/14/18 03:14 02/14/18 03:25 02/14/18 03:30 Temperature Pulse Rate 92 H 96 H 90 Respiratory Rate 21 23 23 Blood Pressure 119/68 116/68 Pulse Oximetry 96 98 02/14/18 04:00 02/14/18 04:10 02/14/18 04:30 Temperature 99.8 F H Pulse Rate 91 H 94 H Respiratory Rate 21 22 23 Blood Pressure 120/65 109/66 Pulse Oximetry 98 97 95 02/14/18 05:00 02/14/18 05:30 02/14/18 06:00 Temperature Pulse Rate 89 94 H 96 H Respiratory Rate 21 23 23 Blood Pressure 111/63 122/72 118/66 Pulse Oximetry 98 97 95 02/14/18 06:30 02/14/18 07:00 02/14/18 07:30 Temperature Pulse Rate 93 H 90 92 H Respiratory Rate 21 21 24 Blood Pressure 111/65 116/64 116/69 Pulse Oximetry 95 97 96 02/14/18 08:00 02/14/18 08:03 02/14/18 08:30 Temperature 101.1 F H Pulse Rate 90 91 H 99 H Respiratory Rate 21 23 24 Blood Pressure 123/67 117/69 Pulse Oximetry 96 97 97 02/14/18 09:00 02/14/18 09:30 02/14/18 09:48 Temperature Pulse Rate 100 H 96 H Respiratory Rate 23 22 21 Blood Pressure 109/64 112/62 Pulse Oximetry 93 L 93 L 94 L 02/14/18 10:00 02/14/18 10:09 02/14/18 10:30 Temperature Pulse Rate 91 H 93 H 97 H Respiratory Rate 21 21 24 Blood Pressure 134/63 107/58 L Pulse Oximetry 96 95 02/14/18 11:00 02/14/18 11:30 02/14/18 11:40 Temperature Pulse Rate 87 85 Respiratory Rate 23 24 23 Blood Pressure 117/57 L 106/57 L Pulse Oximetry 99 99 100 02/14/18 12:00 02/14/18 12:30 02/14/18 13:00 Temperature 100.6 F H Pulse Rate 81 88 87 Respiratory Rate 25 H 27 H 26 H Blood Pressure 108/63 119/67 117/65 Pulse Oximetry 100 100 100 02/14/18 13:30 02/14/18 14:00 02/14/18 14:30 Temperature Pulse Rate 87 89 90 Respiratory Rate 28 H 23 27 H Blood Pressure 117/60 127/65 127/68 Pulse Oximetry 98 99 97 Intake & Output 02/13/18 02/14/18 02/14/18 18:59 06:59 18:59 Intake Total 1155 / 1155 1111 / 1111 400 / 400 Output Total 1625 / 1625 1600 / 1600 Balance -470 / -470 -489 / -489 400 / 400 Weight 85.2 kg Intake: IV 550 / 550 400 / 400 400 / 400 Diprivan 1000 mg/100 ml Inj 1, 200 / 200 300 / 300 100 / 100 000 mg In 100 ml @ 5 MCG/KG/MIN 2.187 mls/hr IV.CONT TITRATE PRN Rx#:[id number] Zosyn 3.375 GM Premix 50 ML @ 100 / 100 100 / 100 50 / 50 100 mls/hr IV.SIG Q6H ANTOINETTE Rx#: [id number] Vancomycin Inj 1,000 MG In NS 250 / 250 250 / 250 Inj 250 ML @ 250 mls/hr IV.SIG DAILY ANTOINETTE Rx#:[id number] Tube Feeding 505 / 505 611 / 611 Tube Irrigant 100 / 100 100 / 100 Output: Urine Amount (Catheter) 1625 / 1625 1600 / 1600 Indwelling Urethral Catheter 1625 / 1625 1600 / 1600 Other: Date of Last Bowel Movement 02/13/18 02/14/18 02/14/18 # Bowel Movements 1 # Incontinent Bowel Movements 1 02/14/18 12:50 Blood - Peripheral Aerobic Blood Culture - Pending 02/14/18 12:50 Blood - Peripheral Anaerobic Blood Culture - Pending 02/14/18 12:55 Blood - Peripheral Aerobic Blood Culture - Pending 02/14/18 12:55 Blood - Peripheral Anaerobic Blood Culture - Pending 02/08/18 02:40 Blood - Peripheral Aerobic Blood Culture - Final No growth in 5 days 02/08/18 02:40 Blood - Peripheral Anaerobic Blood Culture - Final No growth in 5 days 02/08/18 02:45 Blood - Peripheral Aerobic Blood Culture - Final No growth in 5 days 02/08/18 02:45 Blood - Peripheral Anaerobic Blood Culture - Final No growth in 5 days 02/10/18 14:30 Sputum - Endotracheal Gram Stain - Final 02/10/18 14:30 Sputum - Endotracheal Sputum Culture - Final No growth in 48 hours Lab - Hematology Results 02/13/18 02/14/18 04:50 05:00 WBC 11.7 H 10.1 RBC 2.83 L 2.65 L Hgb 8.6 L 8.2 L Hct 25.5 L 23.2 L MCV 90.3 87.7 MCH 30.4 31.1 MCHC 33.7 35.5 RDW 13.2 13.2 Plt Count 191 213 MPV 8.7 8.4 Prelim Diff (Auto) Slide review pending Slide review pending Neut % (Auto) 75.6 H 79.1 H Lymph % (Auto) 12.8 11.4 [place] % (Auto) 7.7 6.3 Eos % (Auto) 3.4 2.7 Baso % (Auto) 0.5 0.5 Neut # (Auto) 8.8 H 8.0 H Lymph # (Auto) 1.5 1.1 [place] # (Auto) 0.9 0.6 Eos # (Auto) 0.4 0.3 Baso # (Auto) 0.1 0.1 WBC Differential Manual diff final Manual diff final Seg Neuts % (Manual) 81 H 74 H Band Neuts % (Manual) 2 6 Lymphocytes % (Manual) 6 L 10 Monocytes % (Manual) 3 5 Eosinophils % (Manual) 4 2 Basophils % (Manual) 2 Metamyelocytes % (Man) 3 H Myelocytes % (Man) 1 H 1 H Abs Neuts (Manual) 10.2 H 8.2 H Differential Comment . . Hypersegmented Neuts 1+ H Dohle Bodies Present H Platelet Estimate Normal Normal Platelet Morphology Clumped H Normal Lab - Chemistry Results 02/13/18 02/14/18 04:50 05:00 Sodium 139 138 Potassium 3.6 3.4 L Chloride 109 H 109 H Carbon Dioxide 22.3 23.0 Anion Gap 8 6 BUN 16 12 Creatinine 0.63 0.62 Estimated GFR Greater than 89 Greater than 89 Random Glucose 108 H 116 H Calcium 7.3 L* 7.2 L* Calcium Adj for Albumin 9.1 9.0 Albumin 1.8 L 1.8 L Imaging: ITS Impressions Pelvis X-Ray 02/04/18 19:38 CONCLUSION: The bony pelvic ring is grossly intact. Abdomen/Pelvis CT 02/04/18 19:39 CONCLUSION: 1. 3.8 cm low-density lesion in the dome of the liver is nonspecific in appearance. This could represent a parenchymal laceration/hematoma or possibly cavernous hemangioma. No contour abnormality about the liver and no free fluid in the abdomen. Once the patient is stabilized, may consider elective evaluation either with multiphasic MRI or dynamic tagged red blood cell scan. Chest CT 02/04/18 19:39 CONCLUSION: 1. Mildly displaced fractures of the mid and inferior sternum. 2. No evidence of pneumothorax. Cervical Spine CT 02/04/18 19:40 CONCLUSION: 1. Gross distortion of the spinal canal at the C5-6 level due to bilateral locked facets causing anterior dislocation of the C5 vertebral body. No vertebral body fracture seen. Lumbar Spine CT 02/04/18 19:40 CONCLUSION: 1. No evidence of fracture, spondylolisthesis, or significant epidural impression. Thoracic Spine CT 02/04/18 19:40 CONCLUSION: 1. Negative CT of the thoracic spine without evidence of fracture or spondylolisthesis. Cervical Spine MRI 02/04/18 20:01 CONCLUSION: 1. There is minimal T2 prolongation within the substance of the cervical cord at the C5 level, but no evidence of cord transection. No epidural hematoma seen. 2. 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 3. Small central disc protrusion at C4-5 without indentation on the cord or lateral extension. Cervical Spine X-Ray 02/06/18 00:00 CONCLUSION: Status post anterior cervical fusion from C4 through C7 as described. Stable cervical alignment status post fusion. Head CT 02/08/18 00:00 CONCLUSION: No acute intracranial findings. . Abdomen X-Ray 02/10/18 15:25 CONCLUSION: 1. Suction-type orogastric catheter in the stomach. 2. Nonobstructive bowel gas pattern. Venous Doppler Study 02/11/18 00:00 CONCLUSION: 1. No sonographic evidence for lower extremity DVT. Gastrostomy Tube Placement 02/12/18 00:00 CONCLUSION: 1. Uncomplicated Dobbhoff tube placement as above. Chest X-Ray 02/14/18 00:00 CONCLUSION: Support apparatus unchanged. Bilateral airspace consolidation persists. Physical Exam: PHYSICAL EXAMINATION: GENERAL: Sedated on the ventilator. HEENT: EOMI,PAZ. oropharyngeal mucosa appears moist. NECK: No adenopathy or swelling. LUNGS: Slight basilar rhonchi. HEART: Regular S1, S2, without murmurs. ABDOMEN: Soft. No tenderness appreciated. EXTREMITIES: No clubbing, cyanosis or edema. SKIN: No rash. NEUROLOGIC: Unable to assess. intubated. PSYCHIATRIC: Unable to assess. Assessment and Plan - Plan IMPRESSION: 1. Fever. Unclear source. ? drug fever vs infection. 2. Lung infiltrates suggesting pneumonia. Negative sputum culture. 3. Acute respiratory failure. 4. Status post cervical spine surgery. 5. Leukocytosis improved. RECOMMENDATIONS: 1. Continue vancomycin. 2. Stop piperacillin/tazobactam. 3. Levaquin IV. 4. follow new blood culture. 5. Monitor temperature.
--- NOTE | 2018-02-14 17:41 | P.PNCC ---
Subjective Brief History: The patient is a 47-year-old male who presented status post fall from a tree stand, approximately 10 feet. The patient was somewhat amnestic to events with mild confusion, following commands, and noted to be out hunting and lost footing, fell from a tree stand with positive LOC. The patient noted to be tachycardic in the 130s in the field with a normal blood pressure. He had decreased movement to bilateral upper extremities and numbness and left leg numbness. When came in the trauma bay, he was noted to be hemodynamically stable, answering intermittently. Patient was resuscitated according trauma principles primary and secondary survey resuscitation definitive care carried out and patient undergoes full diagnostic workup including CT scan and MRI prior to coming to ICU In ICU, patient has decreased motion in the left arm and the left leg. Injuries detected C5 - C6 bilateral locked facets Left arm and leg weakness with paresthesias MRI confirmed spinal cord altered signal however no indication of spinal cord transection Sternal fracture Should also be noted that patient has had atrial fibrillation in the past and was placed on some blood thinner probably factor X a inhibitor for PT PTT is normal In face of the same will await till tomorrow to go ahead with a spinal surgery as per neurosurgery 24 Hour Review/Hospital Course: 02/05/2018 Patient is awake alert and oriented Weakness of the left arm and left leg is pronounced with some paresthesias in both Patient scheduled today for the anterior and eventually posterior fusion of the C-spine Patient may have permanent damage to the spinal cord and this is been clearly explained to patient and the family Hemodynamically he is stable and in sinus rhythm has been instructed to bring the home medication clearly patient must be on either calcium channel blockers beta-blockers or some other combination for his atrial fibrillation control Bilateral breath sounds good pulmonary function and pulmonary dynamics not impaired by the cervical injury Abdomen soft active bowel sounds Renal function preserved 02/06/2018 Patient is status post anterior and posterior fusion of C4-C5-C6 Sedated on propofol and fentanyl Intubated ventilated on assist control Bilateral good breath sounds and good PO2 FiO2 gradient Hemodynamically stable Renal function preserved Plan Patient came out of the operating room this afternoon and will keep him overnight ventilated and extubate patient tomorrow morning 02/07 Patient was febrile in the morning temperature 103.3. After anterior spinal fusion postop He also desaturated to the 80s and his FiO2 was increased to 60%-his PF ratio is 110-we will increase his PEEP to 10 Is also thick secretions-his NG tube was removed in the OR and patient was without NG tube until morning hours-patient may have aspirated with results of pneumonitis-we will observe patient very closely for potential pneumonia, his white cell count however is today 9 and there are only small bilateral basilar infiltrates Otherwise patient is awake he is following commands Remains hemodynamically stable 02/08 Patient continues to be febrile this morning temperature is 101.2, his white cell count is rising and he has also bands I started him yesterday on empiric antibiotics and he has been pancultured His PF ratio is on 120, he has thick secretions and infiltrates basilar bilateral on the chest x-ray His FiO2 is not 60% and his PEEP is 10 Hemodynamically he remains normal, his renal function is preserved 02/09 patient remains hemodynamically normal, his eyes are open and is following commands His respiratory status clearly improved with improved PF ratio and chest x-ray Sputum cultures are negative however there was good response to empiric antibiotics and other cultures are still pending Patient clearly has been third spacing so that we will start diuresis with Lasix His FiO2 is down to 40% and his PEEP was reduced to 8 Patient has not been tolerating tube feeds likely secondary to an ileus, will start patient on Reglan start to fix tube feeds back on trickle rate and give Dulcolax to induce bowel movement Family was updated at the bedside 02/10 Patient is febrile today in the morning, his white cell count is climbing as well His pro calcitonin is elevated, chest x-ray is essentially same bilateral basilar infiltrates His PF ratio today is around 120 which is worse than yesterday as the PEEP was reduced to 8 I will increase it back to 10 Patient had a short CPAP trial which she did not tolerate, he has thick norman colored secretions although the sputum culture is negative I still believe patient has a pneumonia we will repeat the culture obtain ID consult He has been tolerating tube feeds but in trophic rate, there is output from the reflex port of the NG-we will exchanged for a new NG tube Patient remains hemodynamically normal he responded well to diuresis 3 L of output Family was updated at the bedside 02/11/2018 Patient remains intubated and ventilated status post anterior and posterior cervical fusion Repeated spikes of fever to 102 consistent with pneumonia On low sedation easily arousable patient follows commands and is still weak in the left side of the body Hemodynamically stable Bilateral breath with decreased PO2 FiO2 ratio consistent with increased infiltrates bilateral pneumonia and consequent restricted oxygen diffusion and exchange. This is consistent with aspiration of gastric contents Remains on high respiratory parameters including 12 of PEEP and 60% FiO2 with peak inspiratory pressures around 36 cm H2O Patient will need to be maintained on the ventilator until pulmonary function and PO2 FiO2 gradient improves Cultures are negative for the time being but I believe patient has bilateral pneumonia and just a matter of time when cultures sort themselves out Remains on Zosyn and ID consult is greatly appreciated Enteral feeds tolerated however positioning of the OG tube remains to be a problem and patient will go to radiology for a Dobbhoff placement Renal function preserved Plan Continue ventilatory and nutritional support as necessary As the patient's pulmonary function improves will gradually wean the ventilator but right now patient's function may worsen before it gets better 02/12/2018 Patient sedated intubated and ventilated however neurologically appropriate intact Follows commands opens eyes and tracks when on sedation vacation Hemodynamically remained stable Patient remains on assist control ventilation 12 of PEEP and decreasing FiO2 about 50% and slightly improving PO2 FiO2 gradient as we go along Repeated spikes of fever noted and patient developed a right lower lobe infiltrate which is not very dense and increasing occupying lower half of the right lower lobe Successfully bronchoscope today with evacuation of a large amount of thick mucous material Patient clearly has a right lung contusion with some hemorrhagic secretions and bruising within the bronchial tree Abdomen is soft enteral feeds as tolerated Patient had successful placement of a Dobbhoff tube by interventional radiology Renal function is preserved At this point patient is not a candidate for extubation due to right lower lobe infiltrate aspiration and slowly improving PO2 FiO2 gradient I do not think patient will require tracheostomy however we will see how things go 02/13/2018 Patient is slightly sedated and intubated however on sedation vacation quite appropriate moving all 4 extremities Follows commands opens eyes tracks Hemodynamically stable Patient remains on assist control ventilation 12 P and 50% FiO2 and today decreased to 10 of PEEP and 40% FiO2 in which patient is doing well The PO2 FiO2 gradient is gradually improving and now it is around 190 which is certainly better than the other day ARDS and bilateral aspirations are slowly resolving Abdomen is soft active bowel sounds enteral feeds tolerated Via Dobbhoff At this point there is no more to go as far as the extubation is concerned and will have to wait till the systemic inflammatory response and ARDS resolve and the PO2 FiO2 gradient improved sufficiently for patient to be extubated Considering the low level of his injury this will not be an issue of pulmonary mechanics but rather simply aspiration 02/14/2018 Patient remains intubated and ventilated [place] Coma Scale 15 when patient is awake and alert and on small amount of sedation response to questions with grimacing or nodding Patient cooperates very well and works with PT and OT Hemodynamically remained stable Bilateral breath sounds and gradually improving PO2 FiO2 gradient Patient now to 40% FiO2 and 8 of PEEP doing very well Tried on CPAP trial which patient did well for most of the afternoon In the face of the cervical fracture I believe it is not prudent to extubate the patient in the late afternoon hours. All things equal will extubate patient tomorrow morning Objective Vital Signs / I&O: Vital Signs 02/13/18 18:00 02/13/18 19:00 02/13/18 20:00 Temperature 99.2 F 101.5 F H Pulse Rate 99 H 96 H 88 Respiratory Rate 26 H 24 24 Blood Pressure 133/78 120/64 Pulse Oximetry 94 L 97 100 02/13/18 20:47 02/13/18 21:00 02/13/18 21:03 Temperature Pulse Rate 98 H 100 H Respiratory Rate 27 H 25 H 27 H Blood Pressure 119/65 Pulse Oximetry 93 L 92 L 93 L 02/13/18 21:06 02/13/18 22:00 02/13/18 22:20 Temperature Pulse Rate 97 H 89 94 H Respiratory Rate 25 H 23 22 Blood Pressure 119/74 111/59 L Pulse Oximetry 95 95 02/13/18 23:00 02/13/18 23:44 02/14/18 00:00 Temperature 99.9 F H Pulse Rate 93 H 90 Respiratory Rate 24 22 24 Blood Pressure Pulse Oximetry 98 97 98 02/14/18 01:00 02/14/18 02:00 02/14/18 02:09 Temperature Pulse Rate 90 89 87 Respiratory Rate 25 H 24 23 Blood Pressure 136/70 Pulse Oximetry 96 100 99 02/14/18 02:26 02/14/18 03:00 02/14/18 03:14 Temperature Pulse Rate 90 89 92 H Respiratory Rate 23 21 Blood Pressure 124/74 119/67 119/68 Pulse Oximetry 100 97 96 02/14/18 03:25 02/14/18 03:30 02/14/18 04:00 Temperature 99.8 F H Pulse Rate 96 H 90 91 H Respiratory Rate 23 23 21 Blood Pressure 116/68 120/65 Pulse Oximetry 98 98 02/14/18 04:10 02/14/18 04:30 02/14/18 05:00 Temperature Pulse Rate 94 H 89 Respiratory Rate 22 23 21 Blood Pressure 109/66 111/63 Pulse Oximetry 97 95 98 02/14/18 05:30 02/14/18 06:00 02/14/18 06:30 Temperature Pulse Rate 94 H 96 H 93 H Respiratory Rate 23 23 21 Blood Pressure 122/72 118/66 111/65 Pulse Oximetry 97 95 95 02/14/18 07:00 02/14/18 07:30 02/14/18 08:00 Temperature 101.1 F H Pulse Rate 90 92 H 90 Respiratory Rate 21 24 21 Blood Pressure 116/64 116/69 123/67 Pulse Oximetry 97 96 96 02/14/18 08:03 02/14/18 08:30 02/14/18 09:00 Temperature Pulse Rate 91 H 99 H 100 H Respiratory Rate 23 24 23 Blood Pressure 117/69 109/64 Pulse Oximetry 97 97 93 L 02/14/18 09:30 02/14/18 09:48 02/14/18 10:00 Temperature Pulse Rate 96 H 91 H Respiratory Rate 22 21 21 Blood Pressure 112/62 Pulse Oximetry 93 L 94 L 02/14/18 10:09 02/14/18 10:30 02/14/18 11:00 Temperature Pulse Rate 93 H 97 H 87 Respiratory Rate 21 24 23 Blood Pressure 134/63 107/58 L 117/57 L Pulse Oximetry 96 95 99 02/14/18 11:30 02/14/18 11:40 02/14/18 12:00 Temperature 100.6 F H Pulse Rate 85 81 Respiratory Rate 24 23 25 H Blood Pressure 106/57 L 108/63 Pulse Oximetry 99 100 100 02/14/18 12:30 02/14/18 13:00 02/14/18 13:30 Temperature Pulse Rate 88 87 87 Respiratory Rate 27 H 26 H 28 H Blood Pressure 119/67 117/65 117/60 Pulse Oximetry 100 100 98 02/14/18 14:00 02/14/18 14:30 02/14/18 15:00 Temperature Pulse Rate 89 90 88 Respiratory Rate 23 27 H 26 H Blood Pressure 127/65 127/68 114/61 Pulse Oximetry 99 97 97 02/14/18 15:30 02/14/18 16:00 02/14/18 16:21 Temperature 100 F H Pulse Rate 96 H 95 H Respiratory Rate 24 24 28 H Blood Pressure 142/73 H 143/72 H Pulse Oximetry 94 L 95 93 L Intake & Output 02/13/18 02/14/18 02/14/18 18:59 06:59 18:59 Intake Total 1155 / 1155 1111 / 1111 400 / 400 Output Total 1625 / 1625 1600 / 1600 Balance -470 / -470 -489 / -489 400 / 400 Weight 85.2 kg Intake: IV 550 / 550 400 / 400 400 / 400 Diprivan 1000 mg/100 ml Inj 1, 200 / 200 300 / 300 100 / 100 000 mg In 100 ml @ 5 MCG/KG/MIN 2.187 mls/hr IV.CONT TITRATE PRN Rx#:[id number] Zosyn 3.375 GM Premix 50 ML @ 100 / 100 100 / 100 50 / 50 100 mls/hr IV.SIG Q6H ANTOINETTE Rx#: [id number] Vancomycin Inj 1,000 MG In NS 250 / 250 250 / 250 Inj 250 ML @ 250 mls/hr IV.SIG DAILY ANTOINETTE Rx#:[id number] Tube Feeding 505 / 505 611 / 611 Tube Irrigant 100 / 100 100 / 100 Output: Urine Amount (Catheter) 1625 / 1625 1600 / 1600 Indwelling Urethral Catheter 1625 / 1625 1600 / 1600 Other: Date of Last Bowel Movement 02/13/18 02/14/18 02/14/18 # Bowel Movements 1 # Incontinent Bowel Movements 1 Result Diagrams: 02/14/18 05:00 02/14/18 05:00 Imaging: Impressions Chest X-Ray 02/14/18 00:00 CONCLUSION: Support apparatus unchanged. Bilateral airspace consolidation persists. Disinhibition Score: 14.00 Aggression Score: 14.00 Lability Score: 14.00 Agitated Behavior Total Score: 14 Assessment and Plan Plan: Continue IV antibiotics, follow up cultures DVT prophylaxis, tube feeds Continue mechanical ventilation-increase PEEP to 10 ID consultation Attestation: Critical care 32 minutes
--- NOTE | 2018-02-14 18:49 | P.CONREH ---
History of Present Illness Service: Physical Medicine and Rehabilitation Reason for Consult: Comprehensive inpatient rehabilitation Primary Care Provider: UNKNOWN History of Present Illness: Justice Marks is a 47-year-old male admitted to [facility] 02/04/18 after a fall from a tree stand approximately 10 feet. He was noted to have decreased movement in both upper extremities as well as numbness. Head CT was negative. Cervical spine CT showed: gross distortion of the spinal canal at the C5-6 level due to bilateral locked facets causing anterior dislocation of the C5 vertebral body. No vertebral body fracture seen. Cervical spine MRI 02/04/18 showed: minimal T2 prolongation within the substance of the cervical cord at the C5 level, but no evidence of cord transection. No epidural hematoma seen. 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 Small central disc protrusion at C4-5 without indentation on the cord or lateral extension. On 02/05/18 he underwent: posterior cervical C4, C5, C6 and C7 fusion; open reduction and internal fixation of the C5-6 bilateral jumped facet/fracture subluxation; posterior C4-7 lateral mass/facet segmental fixation. On 02/06/18 he underwent: Anterior cervical C4-5, C5-6 and C6-7 interbody fusion ; anterior C4-7 cervical plate placement; C4-5, C5-6 and C6-7 interbody cage placement; microsurgical technique Associated injuries: Sternal fracture, right lung contusion Postoperatively he was treated for pneumonia and was noted to have possible aspiration of gastric contents. On 02/12/18 he bronchoscopy with evacuation of large amount of thick mucus. Dobbhoff tube was placed. He is currently on CPAP trials. [facility] - History History Provided By: Family Member - Medical History Medical History: Medical History (Last Reviewed 02/19/18 @ 10:03 by Nanci Ball) Patient denies medical problems - Surgical History Surgical History: Surgical History (Last Reviewed 02/17/18 @ 09:17 by Angie Guajardo) H/O knee surgery - Tobacco History Second Hand Smoke Exposure: No Smoking Status: Never smoker - Alcohol History How Often Do You Have a Drink Containing Alcohol: Monthly or less - Substance Use History Substance History: No History of Abuse - Immunization History Tetanus Immunization: >5 Years Hx Influenza Vaccine This Season: No Medications and Allergies Active Medications: Active Medications Acetaminophen (Tylenol Liq) 650 mg PO Q4H PRN PRN Reason: FEVER > 101 F Last Admin: 02/14/18 08:38 Dose: 650 mg Al Hydroxide/Mg Hydroxide (Milk Of Magnesia Liq) 30 ml PO BID [facility] Last Admin: 02/14/18 08:40 Dose: Not Given Albuterol (Duoneb Neb (Prn)) 1 ampul NEB Q2HR NEB PRN PRN Reason: SHORTNESS OF BREATH Cyclobenzaprine HCl (Flexeril) 5 mg PO Q8HR [facility] Last Admin: 02/14/18 13:52 Dose: 5 mg Enalaprilat (Vasotec Inj) 1.25 mg IV.PUSH Q8H PRN PRN Reason: Blood pressure 180/95 Enoxaparin Sodium (Lovenox Inj) 30 mg SQ Q12HR [facility] Last Admin: 02/14/18 08:38 Dose: 30 mg Propofol (Diprivan 1000 Mg/100 Ml Inj) 1,000 mg in 100 mls @ 2.187 mls/hr IV.CONT TITRATE PRN; Protocol PRN Reason: Per Protocol Last Titration: 02/14/18 17:00 Dose: 40 mcg/kg/min, 17.5 mls/hr Fentanyl (Fentanyl 10 Mcg/Ml Premix Drip) 2,500 mcg in 250 mls @ 5 mls/hr IV.SIG TITRATE PRN; Protocol PRN Reason: Per Protocol Last Titration: 02/14/18 15:00 Dose: Infused Vancomycin HCl 1,000 mg/ (Sodium Chloride) 250 mls @ 250 mls/hr IV.SIG DAILY [facility] Last Infusion: 02/14/18 09:40 Dose: Infused Magnesium Sulfate 4 gm/ Sodium (Chloride) 100 mls @ 50 mls/hr IV.SIG UNSCH PRN PRN Reason: For Magnesium 0.9 - 1.1 mg/dL Magnesium Sulfate 2 gm/ Sodium (Chloride) 100 mls @ 50 mls/hr IV.SIG UNSCH PRN PRN Reason: For Magnesium 1.2 - 1.6 mg/dL Potassium Chloride (Kcl 40 Meq Premix Inj) 40 meq in 100 mls @ 25 mls/hr IV.SIG Q2H PRN PRN Reason: For Potassium 2.8 - 3.2 mEq/L Potassium Chloride (Kcl 20 Meq Premix Inj) 20 meq in 100 mls @ 50 mls/hr IV.SIG Q2H PRN PRN Reason: For Potassium 3.3 - 3.5 mEq/L Last Infusion: 02/10/18 23:35 Dose: Infused Potassium Chloride (Kcl 20 Meq Premix Inj) 20 meq in 100 mls @ 50 mls/hr IV.SIG Q2H PRN PRN Reason: For Potassium 2.8 - 3.2 mEq/L Potassium Phosphate 30 mmol/ (Sodium Chloride) 260 mls @ 42 mls/hr IV.SIG UNSCH PRN PRN Reason: SEE LABEL COMMENTS Sodium Phosphate 30 mmol/ (Sodium Chloride) 260 mls @ 42 mls/hr IV.SIG UNSCH PRN PRN Reason: For Phosphorus < 2.5 mg/dL Potassium Chloride (Kcl 40 Meq Premix Inj) 40 meq in 100 mls @ 25 mls/hr IV.SIG UNSCH PRN PRN Reason: For Potassium 3.3 - 3.5 mEq/L Last Infusion: 02/10/18 04:04 Dose: Infused Levofloxacin/Dextrose (Levaquin 750 Mg Premix Inj) 150 mls @ 100 mls/hr IV.SIG Q24H [facility] Last Infusion: 02/14/18 18:20 Dose: Infused Lactulose (Lactulose Liq) 30 ml PO DAILY PRN PRN Reason: CONSTIPATION Last Admin: 02/13/18 13:26 Dose: 30 ml Magnesium Oxide (Mag-Ox) 800 mg PO UNSCH PRN PRN Reason: For Magnesium 1.2 - 1.6 mg/dL Metoclopramide HCl (Reglan Inj) 5 mg IV.PUSH Q8H [facility]; Protocol Last Admin: 02/14/18 17:08 Dose: Not Given Ondansetron HCl (Zofran Inj) 4 mg IV.PUSH Q6H PRN PRN Reason: NAUSEA OR VOMITING Last Admin: 02/04/18 19:43 Dose: 4 mg Oxycodone HCl (Roxicodone) 5 mg PO Q4H [facility] Last Admin: 02/14/18 17:07 Dose: 5 mg Pantoprazole Sodium (Protonix Inj) 40 mg IV.PUSH Q24H [facility] Last Admin: 02/13/18 20:13 Dose: 40 mg Potassium Bicarb/Potassium Chloride (K-Lyte Cl Eff) 50 meq PO UNSCH PRN PRN Reason: For Potassium 3.3 - 3.5 mEq/L Last Admin: 02/14/18 07:03 Dose: 50 meq Potassium Phosphate (K-Phos Original) 2,000 mg PO Q4H PRN PRN Reason: Phosphorus Less Than 2.5 mg/dL Potassium Phosphate (K-Phos Original) 2,000 mg PO UNSCH PRN PRN Reason: SEE LABEL COMMENTS Senna/Docusate Sodium (Aniya-Colace) 1 tab PO BID [facility] Last Admin: 02/14/18 08:40 Dose: Not Given Sodium Chloride (Ns Flush) 2 ml IV.FLUSH UNSCH PRN PRN Reason: FLUSH AFTER USING IV ACCESS Sodium Chloride (Ns Flush) 2 ml IV.FLUSH BID [facility] Last Admin: 02/14/18 08:40 Dose: 2 ml Allergies Allergy/AdvReac Type Severity Reaction Status Date / Time No Known Allergies Allergy Verified 02/05/18 16:30 Exam - Physical Examination Vital Signs / I&O: Vital Signs 02/13/18 19:00 02/13/18 20:00 02/13/18 20:47 Temperature 101.5 F H Pulse Rate 96 H 88 98 H Respiratory Rate 24 24 27 H Blood Pressure 120/64 119/65 Pulse Oximetry 97 100 93 L 02/13/18 21:00 02/13/18 21:03 02/13/18 21:06 Temperature Pulse Rate 100 H 97 H Respiratory Rate 25 H 27 H 25 H Blood Pressure Pulse Oximetry 92 L 93 L 02/13/18 22:00 02/13/18 22:20 02/13/18 23:00 Temperature Pulse Rate 89 94 H 93 H Respiratory Rate 23 22 24 Blood Pressure 119/74 111/59 L Pulse Oximetry 95 95 98 02/13/18 23:44 02/14/18 00:00 02/14/18 01:00 Temperature 99.9 F H Pulse Rate 90 90 Respiratory Rate 22 24 25 H Blood Pressure Pulse Oximetry 97 98 96 02/14/18 02:00 02/14/18 02:09 02/14/18 02:26 Temperature Pulse Rate 89 87 90 Respiratory Rate 24 23 Blood Pressure 136/70 124/74 Pulse Oximetry 100 99 100 02/14/18 03:00 02/14/18 03:14 02/14/18 03:25 Temperature Pulse Rate 89 92 H 96 H Respiratory Rate 23 21 23 Blood Pressure 119/67 119/68 Pulse Oximetry 97 96 02/14/18 03:30 02/14/18 04:00 02/14/18 04:10 Temperature 99.8 F H Pulse Rate 90 91 H Respiratory Rate 23 21 22 Blood Pressure 116/68 120/65 Pulse Oximetry 98 98 97 02/14/18 04:30 02/14/18 05:00 02/14/18 05:30 Temperature Pulse Rate 94 H 89 94 H Respiratory Rate 23 21 23 Blood Pressure 109/66 111/63 122/72 Pulse Oximetry 95 98 97 02/14/18 06:00 02/14/18 06:30 02/14/18 07:00 Temperature Pulse Rate 96 H 93 H 90 Respiratory Rate 23 21 21 Blood Pressure 118/66 111/65 116/64 Pulse Oximetry 95 95 97 02/14/18 07:30 02/14/18 08:00 02/14/18 08:03 Temperature 101.1 F H Pulse Rate 92 H 90 91 H Respiratory Rate 24 21 23 Blood Pressure 116/69 123/67 Pulse Oximetry 96 96 97 02/14/18 08:30 02/14/18 09:00 02/14/18 09:30 Temperature Pulse Rate 99 H 100 H 96 H Respiratory Rate 24 23 22 Blood Pressure 117/69 109/64 112/62 Pulse Oximetry 97 93 L 93 L 02/14/18 09:48 02/14/18 10:00 02/14/18 10:09 Temperature Pulse Rate 91 H 93 H Respiratory Rate 21 21 21 Blood Pressure 134/63 Pulse Oximetry 94 L 96 02/14/18 10:30 02/14/18 11:00 02/14/18 11:30 Temperature Pulse Rate 97 H 87 85 Respiratory Rate 24 23 24 Blood Pressure 107/58 L 117/57 L 106/57 L Pulse Oximetry 95 99 99 02/14/18 11:40 02/14/18 12:00 02/14/18 12:30 Temperature 100.6 F H Pulse Rate 81 88 Respiratory Rate 23 25 H 27 H Blood Pressure 108/63 119/67 Pulse Oximetry 100 100 100 02/14/18 13:00 02/14/18 13:30 02/14/18 14:00 Temperature Pulse Rate 87 87 89 Respiratory Rate 26 H 28 H 23 Blood Pressure 117/65 117/60 127/65 Pulse Oximetry 100 98 99 02/14/18 14:30 02/14/18 15:00 02/14/18 15:30 Temperature Pulse Rate 90 88 96 H Respiratory Rate 27 H 26 H 24 Blood Pressure 127/68 114/61 142/73 H Pulse Oximetry 97 97 94 L 02/14/18 16:00 02/14/18 16:21 02/14/18 16:30 Temperature 100 F H Pulse Rate 95 H 95 H Respiratory Rate 24 28 H 23 Blood Pressure 143/72 H 147/76 H Pulse Oximetry 95 93 L 93 L 02/14/18 17:00 02/14/18 17:30 02/14/18 18:00 Temperature Pulse Rate 97 H 93 H 96 H Respiratory Rate 27 H 25 H 26 H Blood Pressure 120/68 128/74 133/77 Pulse Oximetry 93 L 95 97 Intake & Output 02/13/18 02/14/18 02/14/18 18:59 06:59 18:59 Intake Total 1155 / 1155 1111 / 1111 1463 / 1463 Output Total 1625 / 1625 1600 / 1600 Balance -470 / -470 -489 / -489 1463 / 1463 Weight 85.2 kg Intake: IV 550 / 550 400 / 400 800 / 800 Diprivan 1000 mg/100 ml Inj 1, 200 / 200 300 / 300 100 / 100 000 mg In 100 ml @ 5 MCG/KG/MIN 2.187 mls/hr IV.CONT TITRATE PRN Rx#:[id number] Levaquin 750 mg Premix Inj 150 150 / 150 ML @ 100 mls/hr IV.SIG Q24H [facility] Rx#:[id number] Zosyn 3.375 GM Premix 50 ML @ 100 / 100 100 / 100 50 / 50 100 mls/hr IV.SIG Q6H [facility] Rx#: [id number] Vancomycin Inj 1,000 MG In NS 250 / 250 250 / 250 Inj 250 ML @ 250 mls/hr IV.SIG DAILY [facility] Rx#:[id number] fentaNYL 10 mcg/mL Premix Drip 250 / 250 2,500 mcg In 250 ml @ 50 MCG/HR 5 mls/hr IV.SIG TITRATE PRN Rx #:[id number] Tube Feeding 505 / 505 611 / 611 663 / 663 Tube Irrigant 100 / 100 100 / 100 Output: Urine Amount (Catheter) 1625 / 1625 1600 / 1600 Indwelling Urethral Catheter 1625 / 1625 1600 / 1600 Other: # Voids 6 Date of Last Bowel Movement 02/13/18 02/14/18 02/14/18 # Bowel Movements 1 2 # Incontinent Bowel Movements 1 Intake & Output 02/12/18 02/13/18 02/14/18 02/15/18 06:59 06:59 06:59 06:59 Intake Total 4561 / 4561 1425 / 1425 2266 / 2266 1463 / 1463 Output Total 1979 / 1979 2400 / 2400 3225 / 3225 Balance 2581 / 2581 -975 / -975 -959 / -959 1463 / 1463 Weight 86.4 kg 83.6 kg 85.2 kg General: Intubated, No acute distress Respiratory: BS equal, Coarse breath sounds Gastrointestinal: Positive bowel sounds, Non-distended Date of Last Bowel Movement: 02/14/18 Cardiovascular: Normal rate, Regular rhythm - Neurologic Orientation: unable to assess: Self, Place, Time, Situation Neurologic: Other (Patient follows simple one-step commands and appears to have weakness left upper and lower extremity greater than right; exam is limited) Sensory: Unable to assess Clonus: Negative Results - Labs CBC & Chem 7: 02/17/18 04:16 02/17/18 04:16 Labs: Laboratory Results - last 24 hr 02/14/18 02/14/18 02/14/18 05:00 05:00 05:42 WBC 10.1 RBC 2.65 L Hgb 8.2 L Hct 23.2 L MCV 87.7 MCH 31.1 MCHC 35.5 RDW 13.2 Plt Count 213 MPV 8.4 Prelim Diff (Auto) Slide review pending Neut % (Auto) 79.1 H Lymph % (Auto) 11.4 [place] % (Auto) 6.3 Eos % (Auto) 2.7 Baso % (Auto) 0.5 Neut # (Auto) 8.0 H Lymph # (Auto) 1.1 [place] # (Auto) 0.6 Eos # (Auto) 0.3 Baso # (Auto) 0.1 WBC Differential Manual diff final Seg Neuts % (Manual) 74 H Band Neuts % (Manual) 6 Lymphocytes % (Manual) 10 Monocytes % (Manual) 5 Eosinophils % (Manual) 2 Basophils % (Manual) 2 Myelocytes % (Man) 1 H Abs Neuts (Manual) 8.2 H Differential Comment . Platelet Estimate Normal Platelet Morphology Normal Puncture Site Art line Patient Temperature 98.6 O2 Saturation 92 ABG pH 7.44 H ABG pCO2 32 L ABG pO2 68 ABG HCO3 22 ABG O2 Content 11.4 L ABG Base Excess -2.1 L ABG Methemoglobin 1.2 Hemoglobin 8.8 L Carboxyhemoglobin 1.2 O2 Delivery Device Vent Vent Setting Prvc/ac Inspired O2 40 Critical Value No Sodium 138 Potassium 3.4 L Chloride 109 H Carbon Dioxide 23.0 Anion Gap 6 BUN 12 Creatinine 0.62 Estimated GFR Greater than 89 Random Glucose 116 H Calcium 7.2 L* Calcium Adj for Albumin 9.0 Albumin 1.8 L - Imaging Impressions Chest X-Ray 02/14/18 00:00 CONCLUSION: Support apparatus unchanged. Bilateral airspace consolidation persists. Assessment and Plan (1) Central spinal cord injury Status: Acute - Plan Assessment: 1. Fall from hunting stand 10 feet on 02/04/18 with C5-C6 bilateral locked facets status post anterior posterior cervical fusion C4-C7 with ORIF of C5-C6 bilateral jump facets/fracture subluxation 2. Sternal fracture 3. Right lung contusion 4. Pneumonia with possible aspiration of gastric contents Recommendations: 1. PT providing ROM. Mobilize as medical and neurologic status allows. Anticipate that patient should progress well with transfer and gait 2. OT for ADL's and currently dependent 3. On Lovenox for VTE prophylaxis 4. Case management working on discharge planning and anticipate that patient will need acute inpatient rehab 5. Will follow while hospitalized and at discharge as appropriate Thank you for this consult.
[2018-02-14] MEDS: Pantoprazole Inj 40 MG Vial IV.PUSH SCH (20:25)
[2018-02-15] MEDS: Propofol 1000 mg/100 ml Inj 1,000 MG/100 ML BOTTLE IV.CONT PRN ×2 (02:20→06:34)
--- NOTE | 2018-02-15 08:18 | P.PNNPSY ---
- Behavior Intact: Impulsive/agitated - Cognitive Moderate: Cognitive, Attention/concentration, Confused/orientation, Insight/ awareness, Judgment/problem solving, Memory - Psychosocial Intact: Psychosocial, Family/other adjustment, Realistic expectation - Progress Notes/Response to Treatment Contents of Sessions: Adjustment, Level of consciousness Time with Patient: 30 minutes Premorbid Psychological Status: Premorbid Cognitive, Emotional and Behavioral Status: Tenuous. The patient has high school years of education and an unknown work history prior to this injury. The patient has unknown psychiatric difficulties, as described above. Substance abuse history is unknown. Behavioral Reactions of Patient and Family/Support System: Tenuous. The patients family is experiencing ongoing issues of adjustment given the nature of the injury, and this aspect of recovery will require ongoing monitoring. Emotional/Behavioral Status of Patient and Family/Support System: Tenuous. Pertinent issues, if appropriate to this patients clinical care, are described in detail above. Maximizing Acute Care Outcome: It is recommended that the patient be monitored for emergent behavioral impulsivity as the medical condition evolves. This patients neuropathological challenges may limit rehabilitation potential going forward, and these challenges will require specialized therapeutic skills to maximize outcome. At this point in the recovery process, the patient does have cognitive capacity as the patient is able to understand a situation and its likely consequences, and the patient is able to manipulate information rationally. Cognitive capacity will be assessed throughout the recovery process. Anticipated Problems: Ongoing areas of concern will include behavioral impulsivity, lack of insight and judgment, which is expected to improve with time and treatment. Treatment Plan: This clinician will continue to follow with you throughout the course of this patients critical care treatment, and I will be available to meet with the patients family/support system to facilitate their understanding and the ongoing care of their family member. The goals of neuropsychological intervention shall be both educational and supportive to the family/support system as is deemed clinically appropriate. [place] COG Scale: Level V Disinhibition Score: 14.00 Aggression Score: 14.00 Lability Score: 14.00 Agitated Behavior Total Score: 14 Impression: 47 year old man s/p concussion 2T fall on 02/04/2018. Progress Note Narrative: PTD 11. The patient is improving neurobehaviorally. To be extubated today. ABS = 14 (14,14,14). He is [place]. Participating in PT/OT. I will follow. - Diagnosis (1) Head concussion Status: Acute
[2018-02-15] MEDS: Senna/Docusate Sodium 8.6/50 MG Tablet PO SCH ×2 (09:30→20:32)
[2018-02-15] MEDS: Enoxaparin Inj 30 MG/0.3 ML Syringe SQ SCH ×2 (09:30→20:31)
[2018-02-15] MEDS: Vancomycin Inj 1,000 MG in Sodium Chlor 0.9% Inj 250 ML IV.SIG SCH (09:31)
[2018-02-15] MEDS: Sodium Chloride 0.9% 2 ML Flush BID IV.FLUSH SCH ×2 (09:32→20:31)
--- NOTE | 2018-02-15 10:11 | P.PNNS ---
Subjective Interval history: Pt awake and alert. On low dose Diprivan. Follows commands. Weakness in extremities improving, left hand remains weak with some improvement. He is now on CPAP. Cervical collar in place. Physical Exam Vital signs: Vital Signs 02/14/18 10:09 02/14/18 10:30 02/14/18 11:00 Temperature Pulse Rate 93 H 97 H 87 Respiratory Rate 21 24 23 Blood Pressure 134/63 107/58 L 117/57 L Pulse Oximetry 96 95 99 02/14/18 11:30 02/14/18 11:40 02/14/18 12:00 Temperature 100.6 F H Pulse Rate 85 81 Respiratory Rate 24 23 25 H Blood Pressure 106/57 L 108/63 Pulse Oximetry 99 100 100 02/14/18 12:30 02/14/18 13:00 02/14/18 13:30 Temperature Pulse Rate 88 87 87 Respiratory Rate 27 H 26 H 28 H Blood Pressure 119/67 117/65 117/60 Pulse Oximetry 100 100 98 02/14/18 14:00 02/14/18 14:30 02/14/18 15:00 Temperature Pulse Rate 89 90 88 Respiratory Rate 23 27 H 26 H Blood Pressure 127/65 127/68 114/61 Pulse Oximetry 99 97 97 02/14/18 15:30 02/14/18 16:00 02/14/18 16:21 Temperature 100 F H Pulse Rate 96 H 95 H Respiratory Rate 24 24 28 H Blood Pressure 142/73 H 143/72 H Pulse Oximetry 94 L 95 93 L 02/14/18 16:30 02/14/18 17:00 02/14/18 17:30 Temperature Pulse Rate 95 H 97 H 93 H Respiratory Rate 23 27 H 25 H Blood Pressure 147/76 H 120/68 128/74 Pulse Oximetry 93 L 93 L 95 02/14/18 18:00 02/14/18 18:30 02/14/18 19:00 Temperature Pulse Rate 96 H 98 H 97 H Respiratory Rate 26 H 24 26 H Blood Pressure 133/77 142/74 H 131/69 Pulse Oximetry 97 95 95 02/14/18 19:30 02/14/18 20:00 02/14/18 20:24 Temperature 99.8 F H Pulse Rate 97 H 102 H Respiratory Rate 26 H 28 H 28 H Blood Pressure 134/73 132/75 Pulse Oximetry 94 L 95 95 02/14/18 20:25 02/14/18 20:30 02/14/18 21:00 Temperature Pulse Rate 95 H Respiratory Rate 27 H 23 23 Blood Pressure 116/66 Pulse Oximetry 96 94 L 02/14/18 22:00 02/14/18 23:00 02/14/18 23:17 Temperature Pulse Rate 106 H 99 H Respiratory Rate 20 27 H 22 Blood Pressure 111/63 119/63 Pulse Oximetry 94 L 93 L 94 L 02/15/18 00:00 02/15/18 00:30 02/15/18 01:00 Temperature 102.7 F H Pulse Rate 107 H 98 H 105 H Respiratory Rate 22 21 21 Blood Pressure 126/61 128/68 111/59 L Pulse Oximetry 93 L 93 L 93 L 02/15/18 01:30 02/15/18 02:00 02/15/18 02:22 Temperature 100.9 F H Pulse Rate 96 H 96 H Respiratory Rate 19 22 20 Blood Pressure 115/60 102/57 L Pulse Oximetry 95 94 L 95 02/15/18 03:00 02/15/18 04:00 02/15/18 04:04 Temperature 100.9 F H Pulse Rate 88 90 Respiratory Rate 19 19 19 Blood Pressure 104/63 110/62 Pulse Oximetry 95 96 96 02/15/18 04:30 02/15/18 05:00 02/15/18 05:30 Temperature Pulse Rate 89 93 H 90 Respiratory Rate 17 20 20 Blood Pressure 109/63 108/65 111/68 Pulse Oximetry 96 97 97 02/15/18 06:00 02/15/18 06:30 02/15/18 07:00 Temperature Pulse Rate 93 H 93 H 93 H Respiratory Rate 23 23 22 Blood Pressure 120/71 Pulse Oximetry 98 99 95 02/15/18 08:25 Temperature Pulse Rate Respiratory Rate 25 H Blood Pressure Pulse Oximetry 95 Intake & Output 02/14/18 02/15/18 02/15/18 18:59 06:59 18:59 Intake Total 1463 / 1463 1087 / 1087 Balance 1463 / 1463 1087 / 1087 Weight 77.6 kg Intake: IV 800 / 800 300 / 300 Diprivan 1000 mg/100 ml Inj 1, 100 / 100 300 / 300 000 mg In 100 ml @ 5 MCG/KG/MIN 2.187 mls/hr IV.CONT TITRATE PRN Rx#:[id number] Levaquin 750 mg Premix Inj 150 150 / 150 ML @ 100 mls/hr IV.SIG Q24H [facility] Rx#:[id number] Zosyn 3.375 GM Premix 50 ML @ 50 / 50 100 mls/hr IV.SIG Q6H [facility] Rx#: [id number] Vancomycin Inj 1,000 MG In NS 250 / 250 Inj 250 ML @ 250 mls/hr IV.SIG DAILY [facility] Rx#:[id number] fentaNYL 10 mcg/mL Premix Drip 250 / 250 2,500 mcg In 250 ml @ 50 MCG/HR 5 mls/hr IV.SIG TITRATE PRN Rx #:[id number] Tube Feeding 663 / 663 727 / 727 Water Bolus Amount 60 / 60 Other: # Voids 6 6 Date of Last Bowel Movement 02/14/18 # Bowel Movements 2 0 - Constitutional no acute distress - Routine HEENT Exam Head: Present: normocephalic Eye: Present: PERRL. Absent: conjunctival icterus ENT: Absent: oropharynx clear (ET intubated.) - Routine Respiratory Exam Present: patient mechanically ventilated (On CPAP.), CTA bilaterally. Absent: respiratory distress, rhonchi, wheezes - Routine Cardiovascular Exam Present: RRR, S1, S2. Absent: murmur - Routine Abdominal Exam Present: soft, normoactive bowel sounds. Absent: distended, firm - Routine Skin Exam Absent: cyanosis, erythema - Routine Neurological Exam Present: alert, motor deficit (Improving quadriparesis. Left hand remains weak 2/5.), moving all extremities Craig cervical collar remains in place. - Routine Psychiatric Exam Present: cooperative. 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 He has a profound C5-6 subluxation with jumped facets and gross instability. Plan for posterior open cervical jumped facet reduction with stabilization and fusion and will likely require an anterior approach for an anterior/posterior stabilization given the severity and unstable nature of this injury. Discussed with patient and his at bedside at length the risks and benefits involved and they requested we proceed and gave informed consent. They understand that is a possibility that he may not improve from his spinal cord injury despite extensive rehabilitation and there is also possibility of further neurologic and pulmonary decline (chest wall injury and comminuted sternal fracture) with risk of spinal cord shock and hemodynamic instability from the cervical cord edema/contusion progression in the near future. His condition obviously is very critical. Pt s/p Posterior C4, C5, C6, and C7 fusion on 02/05/18. s/p Anterior C4/C5, C5/C6, and C6/C7 cervical fusion on 02/06/18. P: Continue with cervical collar Continue with critical care. Continue with PT/OT Vent wean per critical care.
--- NOTE | 2018-02-15 12:21 | P.PNID ---
Subjective Remarks: Patient is extubated. He is awake. Answers questions appropriately. Temperature remains elevated and is spiking to 102. No distress. White blood cell count down to normal. Has copious oral secretions. No positive culture to date and blood culture is negative. This is a 47-year-old male, who fell from a tree approximately 20 feet high and sustained a cervical spine fracture. The patient is currently intubated and on the ventilator. He underwent surgery consisting of posterior C4, C5, C6, and C7 fusion, and open reduction and internal fixation of C2-C6 and posterior C4-C7 lateral mass/facet segmental fixation. Consult called for elevated temperature. Past Medical History: PAST MEDICAL HISTORY: Sinus disease, history of knee surgery. Allergies/Adverse Reactions: Allergies No Known Allergies Allergy (Verified 02/05/18 16:30) Objective Vital Signs 02/14/18 12:30 02/14/18 13:00 02/14/18 13:30 Temperature Pulse Rate 88 87 87 Respiratory Rate 27 H 26 H 28 H Blood Pressure 119/67 117/65 117/60 Pulse Oximetry 100 100 98 02/14/18 14:00 02/14/18 14:30 02/14/18 15:00 Temperature Pulse Rate 89 90 88 Respiratory Rate 23 27 H 26 H Blood Pressure 127/65 127/68 114/61 Pulse Oximetry 99 97 97 02/14/18 15:30 02/14/18 16:00 02/14/18 16:21 Temperature 100 F H Pulse Rate 96 H 95 H Respiratory Rate 24 24 28 H Blood Pressure 142/73 H 143/72 H Pulse Oximetry 94 L 95 93 L 02/14/18 16:30 02/14/18 17:00 02/14/18 17:30 Temperature Pulse Rate 95 H 97 H 93 H Respiratory Rate 23 27 H 25 H Blood Pressure 147/76 H 120/68 128/74 Pulse Oximetry 93 L 93 L 95 02/14/18 18:00 02/14/18 18:30 02/14/18 19:00 Temperature Pulse Rate 96 H 98 H 97 H Respiratory Rate 26 H 24 26 H Blood Pressure 133/77 142/74 H 131/69 Pulse Oximetry 97 95 95 02/14/18 19:30 02/14/18 20:00 02/14/18 20:24 Temperature 99.8 F H Pulse Rate 97 H 102 H Respiratory Rate 26 H 28 H 28 H Blood Pressure 134/73 132/75 Pulse Oximetry 94 L 95 95 02/14/18 20:25 02/14/18 20:30 02/14/18 21:00 Temperature Pulse Rate 95 H Respiratory Rate 27 H 23 23 Blood Pressure 116/66 Pulse Oximetry 96 94 L 02/14/18 22:00 02/14/18 23:00 02/14/18 23:17 Temperature Pulse Rate 106 H 99 H Respiratory Rate 20 27 H 22 Blood Pressure 111/63 119/63 Pulse Oximetry 94 L 93 L 94 L 02/15/18 00:00 02/15/18 00:30 02/15/18 01:00 Temperature 102.7 F H Pulse Rate 107 H 98 H 105 H Respiratory Rate 22 21 21 Blood Pressure 126/61 128/68 111/59 L Pulse Oximetry 93 L 93 L 93 L 02/15/18 01:30 02/15/18 02:00 02/15/18 02:22 Temperature 100.9 F H Pulse Rate 96 H 96 H Respiratory Rate 19 22 20 Blood Pressure 115/60 102/57 L Pulse Oximetry 95 94 L 95 02/15/18 03:00 02/15/18 04:00 02/15/18 04:04 Temperature 100.9 F H Pulse Rate 88 90 Respiratory Rate 19 19 19 Blood Pressure 104/63 110/62 Pulse Oximetry 95 96 96 02/15/18 04:30 02/15/18 05:00 02/15/18 05:30 Temperature Pulse Rate 89 93 H 90 Respiratory Rate 17 20 20 Blood Pressure 109/63 108/65 111/68 Pulse Oximetry 96 97 97 02/15/18 06:00 02/15/18 06:30 02/15/18 07:00 Temperature Pulse Rate 93 H 93 H 93 H Respiratory Rate 23 23 22 Blood Pressure 120/71 Pulse Oximetry 98 99 95 02/15/18 08:25 Temperature Pulse Rate Respiratory Rate 25 H Blood Pressure Pulse Oximetry 95 Intake & Output 02/14/18 02/15/18 02/15/18 18:59 06:59 18:59 Intake Total 1463 / 1463 1087 / 1087 290 / 290 Balance 1463 / 1463 1087 / 1087 290 / 290 Weight 77.6 kg Intake: IV 800 / 800 300 / 300 290 / 290 Diprivan 1000 mg/100 ml Inj 1, 100 / 100 300 / 300 40 / 40 000 mg In 100 ml @ 5 MCG/KG/MIN 2.187 mls/hr IV.CONT TITRATE PRN Rx#:[id number] Levaquin 750 mg Premix Inj 150 150 / 150 ML @ 100 mls/hr IV.SIG Q24H [facility] Rx#:[id number] Zosyn 3.375 GM Premix 50 ML @ 50 / 50 100 mls/hr IV.SIG Q6H [facility] Rx#: [id number] Vancomycin Inj 1,000 MG In NS 250 / 250 250 / 250 Inj 250 ML @ 250 mls/hr IV.SIG DAILY [facility] Rx#:[id number] fentaNYL 10 mcg/mL Premix Drip 250 / 250 2,500 mcg In 250 ml @ 50 MCG/HR 5 mls/hr IV.SIG TITRATE PRN Rx #:[id number] Tube Feeding 663 / 663 727 / 727 Water Bolus Amount 60 / 60 Other: # Voids 6 6 Date of Last Bowel Movement 02/14/18 # Bowel Movements 2 0 02/14/18 12:50 Blood - Peripheral Aerobic Blood Culture - Preliminary No growth in 1 day 02/14/18 12:50 Blood - Peripheral Anaerobic Blood Culture - Preliminary No growth in 1 day 02/14/18 12:55 Blood - Peripheral Aerobic Blood Culture - Preliminary No growth in 1 day 02/14/18 12:55 Blood - Peripheral Anaerobic Blood Culture - Preliminary No growth in 1 day 02/08/18 02:40 Blood - Peripheral Aerobic Blood Culture - Final No growth in 5 days 02/08/18 02:40 Blood - Peripheral Anaerobic Blood Culture - Final No growth in 5 days 02/08/18 02:45 Blood - Peripheral Aerobic Blood Culture - Final No growth in 5 days 02/08/18 02:45 Blood - Peripheral Anaerobic Blood Culture - Final No growth in 5 days 02/10/18 14:30 Sputum - Endotracheal Gram Stain - Final 02/10/18 14:30 Sputum - Endotracheal Sputum Culture - Final No growth in 48 hours Lab - Hematology Results 02/14/18 05:00 WBC 10.1 RBC 2.65 L Hgb 8.2 L Hct 23.2 L MCV 87.7 MCH 31.1 MCHC 35.5 RDW 13.2 Plt Count 213 MPV 8.4 Prelim Diff (Auto) Slide review pending Neut % (Auto) 79.1 H Lymph % (Auto) 11.4 [place] % (Auto) 6.3 Eos % (Auto) 2.7 Baso % (Auto) 0.5 Neut # (Auto) 8.0 H Lymph # (Auto) 1.1 [place] # (Auto) 0.6 Eos # (Auto) 0.3 Baso # (Auto) 0.1 WBC Differential Manual diff final Seg Neuts % (Manual) 74 H Band Neuts % (Manual) 6 Lymphocytes % (Manual) 10 Monocytes % (Manual) 5 Eosinophils % (Manual) 2 Basophils % (Manual) 2 Myelocytes % (Man) 1 H Abs Neuts (Manual) 8.2 H Differential Comment . Platelet Estimate Normal Platelet Morphology Normal Lab - Chemistry Results 02/14/18 05:00 Sodium 138 Potassium 3.4 L Chloride 109 H Carbon Dioxide 23.0 Anion Gap 6 BUN 12 Creatinine 0.62 Estimated GFR Greater than 89 Random Glucose 116 H Calcium 7.2 L* Calcium Adj for Albumin 9.0 Albumin 1.8 L Imaging: ITS Impressions Pelvis X-Ray 02/04/18 19:38 CONCLUSION: The bony pelvic ring is grossly intact. Abdomen/Pelvis CT 02/04/18 19:39 CONCLUSION: 1. 3.8 cm low-density lesion in the dome of the liver is nonspecific in appearance. This could represent a parenchymal laceration/hematoma or possibly cavernous hemangioma. No contour abnormality about the liver and no free fluid in the abdomen. Once the patient is stabilized, may consider elective evaluation either with multiphasic MRI or dynamic tagged red blood cell scan. Chest CT 02/04/18 19:39 CONCLUSION: 1. Mildly displaced fractures of the mid and inferior sternum. 2. No evidence of pneumothorax. Cervical Spine CT 02/04/18 19:40 CONCLUSION: 1. Gross distortion of the spinal canal at the C5-6 level due to bilateral locked facets causing anterior dislocation of the C5 vertebral body. No vertebral body fracture seen. Lumbar Spine CT 02/04/18 19:40 CONCLUSION: 1. No evidence of fracture, spondylolisthesis, or significant epidural impression. Thoracic Spine CT 02/04/18 19:40 CONCLUSION: 1. Negative CT of the thoracic spine without evidence of fracture or spondylolisthesis. Cervical Spine MRI 02/04/18 20:01 CONCLUSION: 1. There is minimal T2 prolongation within the substance of the cervical cord at the C5 level, but no evidence of cord transection. No epidural hematoma seen. 2. 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 3. Small central disc protrusion at C4-5 without indentation on the cord or lateral extension. Cervical Spine X-Ray 02/06/18 00:00 CONCLUSION: Status post anterior cervical fusion from C4 through C7 as described. Stable cervical alignment status post fusion. Head CT 02/08/18 00:00 CONCLUSION: No acute intracranial findings. . Abdomen X-Ray 02/10/18 15:25 CONCLUSION: 1. Suction-type orogastric catheter in the stomach. 2. Nonobstructive bowel gas pattern. Venous Doppler Study 02/11/18 00:00 CONCLUSION: 1. No sonographic evidence for lower extremity DVT. Gastrostomy Tube Placement 02/12/18 00:00 CONCLUSION: 1. Uncomplicated Dobbhoff tube placement as above. Chest X-Ray 02/14/18 00:00 CONCLUSION: Support apparatus unchanged. Bilateral airspace consolidation persists. Physical Exam: PHYSICAL EXAMINATION: GENERAL: No acute distress. HEENT: EOMI,PAZ. oropharyngeal mucosa appears moist. No thrush. NECK: No adenopathy or swelling. LUNGS: Bilateral basilar rhonchi. HEART: Regular S1, S2, without murmurs. ABDOMEN: Soft. No tenderness appreciated. EXTREMITIES: No clubbing, cyanosis or edema. SKIN: No rash. NEUROLOGIC: Difficult to assess. Patient is awake and alert. PSYCHIATRIC: Calm. Assessment and Plan - Plan IMPRESSION: 1. Fever. Unclear source. ? drug fever vs infection. 2. Lung infiltrates suggesting pneumonia. Negative sputum culture. 3. Acute respiratory failure. 4. Status post cervical spine surgery. 5. Leukocytosis improved. RECOMMENDATIONS: 1. Continue vancomycin. 2. Continue Levaquin. 3. Obtain sputum for culture. 4. Follow blood culture. 5. Monitor temperature. Discussed with RN and at bedside.
--- NOTE | 2018-02-15 15:50 | P.PNCC ---
Subjective Brief History: The patient is a 47-year-old male who presented status post fall from a tree stand, approximately 10 feet. The patient was somewhat amnestic to events with mild confusion, following commands, and noted to be out hunting and lost footing, fell from a tree stand with positive LOC. The patient noted to be tachycardic in the 130s in the field with a normal blood pressure. He had decreased movement to bilateral upper extremities and numbness and left leg numbness. When came in the trauma bay, he was noted to be hemodynamically stable, answering intermittently. Patient was resuscitated according trauma principles primary and secondary survey resuscitation definitive care carried out and patient undergoes full diagnostic workup including CT scan and MRI prior to coming to ICU In ICU, patient has decreased motion in the left arm and the left leg. Injuries detected C5 - C6 bilateral locked facets Left arm and leg weakness with paresthesias MRI confirmed spinal cord altered signal however no indication of spinal cord transection Sternal fracture Should also be noted that patient has had atrial fibrillation in the past and was placed on some blood thinner probably factor X a inhibitor for PT PTT is normal In face of the same will await till tomorrow to go ahead with a spinal surgery as per neurosurgery 24 Hour Review/Hospital Course: 02/05/2018 Patient is awake alert and oriented Weakness of the left arm and left leg is pronounced with some paresthesias in both Patient scheduled today for the anterior and eventually posterior fusion of the C-spine Patient may have permanent damage to the spinal cord and this is been clearly explained to patient and the family Hemodynamically he is stable and in sinus rhythm has been instructed to bring the home medication clearly patient must be on either calcium channel blockers beta-blockers or some other combination for his atrial fibrillation control Bilateral breath sounds good pulmonary function and pulmonary dynamics not impaired by the cervical injury Abdomen soft active bowel sounds Renal function preserved 02/06/2018 Patient is status post anterior and posterior fusion of C4-C5-C6 Sedated on propofol and fentanyl Intubated ventilated on assist control Bilateral good breath sounds and good PO2 FiO2 gradient Hemodynamically stable Renal function preserved Plan Patient came out of the operating room this afternoon and will keep him overnight ventilated and extubate patient tomorrow morning 02/07 Patient was febrile in the morning temperature 103.3. After anterior spinal fusion postop He also desaturated to the 80s and his FiO2 was increased to 60%-his PF ratio is 110-we will increase his PEEP to 10 Is also thick secretions-his NG tube was removed in the OR and patient was without NG tube until morning hours-patient may have aspirated with results of pneumonitis-we will observe patient very closely for potential pneumonia, his white cell count however is today 9 and there are only small bilateral basilar infiltrates Otherwise patient is awake he is following commands Remains hemodynamically stable 02/08 Patient continues to be febrile this morning temperature is 101.2, his white cell count is rising and he has also bands I started him yesterday on empiric antibiotics and he has been pancultured His PF ratio is on 120, he has thick secretions and infiltrates basilar bilateral on the chest x-ray His FiO2 is not 60% and his PEEP is 10 Hemodynamically he remains normal, his renal function is preserved 02/09 patient remains hemodynamically normal, his eyes are open and is following commands His respiratory status clearly improved with improved PF ratio and chest x-ray Sputum cultures are negative however there was good response to empiric antibiotics and other cultures are still pending Patient clearly has been third spacing so that we will start diuresis with Lasix His FiO2 is down to 40% and his PEEP was reduced to 8 Patient has not been tolerating tube feeds likely secondary to an ileus, will start patient on Reglan start to fix tube feeds back on trickle rate and give Dulcolax to induce bowel movement Family was updated at the bedside 02/10 Patient is febrile today in the morning, his white cell count is climbing as well His pro calcitonin is elevated, chest x-ray is essentially same bilateral basilar infiltrates His PF ratio today is around 120 which is worse than yesterday as the PEEP was reduced to 8 I will increase it back to 10 Patient had a short CPAP trial which she did not tolerate, he has thick norman colored secretions although the sputum culture is negative I still believe patient has a pneumonia we will repeat the culture obtain ID consult He has been tolerating tube feeds but in trophic rate, there is output from the reflex port of the NG-we will exchanged for a new NG tube Patient remains hemodynamically normal he responded well to diuresis 3 L of output Family was updated at the bedside 02/11/2018 Patient remains intubated and ventilated status post anterior and posterior cervical fusion Repeated spikes of fever to 102 consistent with pneumonia On low sedation easily arousable patient follows commands and is still weak in the left side of the body Hemodynamically stable Bilateral breath with decreased PO2 FiO2 ratio consistent with increased infiltrates bilateral pneumonia and consequent restricted oxygen diffusion and exchange. This is consistent with aspiration of gastric contents Remains on high respiratory parameters including 12 of PEEP and 60% FiO2 with peak inspiratory pressures around 36 cm H2O Patient will need to be maintained on the ventilator until pulmonary function and PO2 FiO2 gradient improves Cultures are negative for the time being but I believe patient has bilateral pneumonia and just a matter of time when cultures sort themselves out Remains on Zosyn and ID consult is greatly appreciated Enteral feeds tolerated however positioning of the OG tube remains to be a problem and patient will go to radiology for a Dobbhoff placement Renal function preserved Plan Continue ventilatory and nutritional support as necessary As the patient's pulmonary function improves will gradually wean the ventilator but right now patient's function may worsen before it gets better 02/12/2018 Patient sedated intubated and ventilated however neurologically appropriate intact Follows commands opens eyes and tracks when on sedation vacation Hemodynamically remained stable Patient remains on assist control ventilation 12 of PEEP and decreasing FiO2 about 50% and slightly improving PO2 FiO2 gradient as we go along Repeated spikes of fever noted and patient developed a right lower lobe infiltrate which is not very dense and increasing occupying lower half of the right lower lobe Successfully bronchoscope today with evacuation of a large amount of thick mucous material Patient clearly has a right lung contusion with some hemorrhagic secretions and bruising within the bronchial tree Abdomen is soft enteral feeds as tolerated Patient had successful placement of a Dobbhoff tube by interventional radiology Renal function is preserved At this point patient is not a candidate for extubation due to right lower lobe infiltrate aspiration and slowly improving PO2 FiO2 gradient I do not think patient will require tracheostomy however we will see how things go 02/13/2018 Patient is slightly sedated and intubated however on sedation vacation quite appropriate moving all 4 extremities Follows commands opens eyes tracks Hemodynamically stable Patient remains on assist control ventilation 12 P and 50% FiO2 and today decreased to 10 of PEEP and 40% FiO2 in which patient is doing well The PO2 FiO2 gradient is gradually improving and now it is around 190 which is certainly better than the other day ARDS and bilateral aspirations are slowly resolving Abdomen is soft active bowel sounds enteral feeds tolerated Via Dobbhoff At this point there is no more to go as far as the extubation is concerned and will have to wait till the systemic inflammatory response and ARDS resolve and the PO2 FiO2 gradient improved sufficiently for patient to be extubated Considering the low level of his injury this will not be an issue of pulmonary mechanics but rather simply aspiration 02/14/2018 Patient remains intubated and ventilated Rafael Coma Scale 15 when patient is awake and alert and on small amount of sedation response to questions with grimacing or nodding Patient cooperates very well and works with PT and OT Hemodynamically remained stable Bilateral breath sounds and gradually improving PO2 FiO2 gradient Patient now to 40% FiO2 and 8 of PEEP doing very well Tried on CPAP trial which patient did well for most of the afternoon In the face of the cervical fracture I believe it is not prudent to extubate the patient in the late afternoon hours. All things equal will extubate patient tomorrow morning 02/15/2018 Patient is awake alert Hemodynamically stable Tolerated CPAP yesterday and today and now successfully extubated Good bilateral breath sounds and good pulmonary mechanics We will start on a diet and patient will require very aggressive physical and occupational therapy Out of bed All things equal patient can transfer to floor tomorrow and then to rehab as soon as one is available Objective Vital Signs / I&O: Vital Signs 02/14/18 16:00 02/14/18 16:21 02/14/18 16:30 Temperature 100 F H Pulse Rate 95 H 95 H Respiratory Rate 24 28 H 23 Blood Pressure 143/72 H 147/76 H Pulse Oximetry 95 93 L 93 L 02/14/18 17:00 02/14/18 17:30 02/14/18 18:00 Temperature Pulse Rate 97 H 93 H 96 H Respiratory Rate 27 H 25 H 26 H Blood Pressure 120/68 128/74 133/77 Pulse Oximetry 93 L 95 97 02/14/18 18:30 02/14/18 19:00 02/14/18 19:30 Temperature Pulse Rate 98 H 97 H 97 H Respiratory Rate 24 26 H 26 H Blood Pressure 142/74 H 131/69 134/73 Pulse Oximetry 95 95 94 L 02/14/18 20:00 02/14/18 20:24 02/14/18 20:25 Temperature 99.8 F H Pulse Rate 102 H Respiratory Rate 28 H 28 H 27 H Blood Pressure 132/75 Pulse Oximetry 95 95 02/14/18 20:30 02/14/18 21:00 02/14/18 22:00 Temperature Pulse Rate 95 H 106 H Respiratory Rate 23 23 20 Blood Pressure 116/66 111/63 Pulse Oximetry 96 94 L 94 L 02/14/18 23:00 02/14/18 23:17 02/15/18 00:00 Temperature Pulse Rate 99 H 107 H Respiratory Rate 27 H 22 22 Blood Pressure 119/63 126/61 Pulse Oximetry 93 L 94 L 93 L 02/15/18 00:30 02/15/18 01:00 02/15/18 01:30 Temperature 102.7 F H 100.9 F H Pulse Rate 98 H 105 H 96 H Respiratory Rate 21 21 19 Blood Pressure 128/68 111/59 L 115/60 Pulse Oximetry 93 L 93 L 95 02/15/18 02:00 02/15/18 02:22 02/15/18 03:00 Temperature Pulse Rate 96 H 88 Respiratory Rate 22 20 19 Blood Pressure 102/57 L 104/63 Pulse Oximetry 94 L 95 95 02/15/18 04:00 02/15/18 04:04 02/15/18 04:30 Temperature 100.9 F H Pulse Rate 90 89 Respiratory Rate 19 19 17 Blood Pressure 110/62 109/63 Pulse Oximetry 96 96 96 02/15/18 05:00 02/15/18 05:30 02/15/18 06:00 Temperature Pulse Rate 93 H 90 93 H Respiratory Rate 20 20 23 Blood Pressure 108/65 111/68 Pulse Oximetry 97 97 98 02/15/18 06:30 02/15/18 07:00 02/15/18 08:25 Temperature Pulse Rate 93 H 93 H Respiratory Rate 23 22 25 H Blood Pressure 120/71 Pulse Oximetry 99 95 95 Intake & Output 02/14/18 02/15/18 02/15/18 18:59 06:59 18:59 Intake Total 1463 / 1463 1087 / 1087 290 / 290 Balance 1463 / 1463 1087 / 1087 290 / 290 Weight 77.6 kg Intake: IV 800 / 800 300 / 300 290 / 290 Diprivan 1000 mg/100 ml Inj 1, 100 / 100 300 / 300 40 / 40 000 mg In 100 ml @ 5 MCG/KG/MIN 2.187 mls/hr IV.CONT TITRATE PRN Rx#:[id number] Levaquin 750 mg Premix Inj 150 150 / 150 ML @ 100 mls/hr IV.SIG Q24H [facility] Rx#:[id number] Zosyn 3.375 GM Premix 50 ML @ 50 / 50 100 mls/hr IV.SIG Q6H [facility] Rx#: [id number] Vancomycin Inj 1,000 MG In NS 250 / 250 250 / 250 Inj 250 ML @ 250 mls/hr IV.SIG DAILY [facility] Rx#:[id number] fentaNYL 10 mcg/mL Premix Drip 250 / 250 2,500 mcg In 250 ml @ 50 MCG/HR 5 mls/hr IV.SIG TITRATE PRN Rx #:[id number] Tube Feeding 663 / 663 727 / 727 Water Bolus Amount 60 / 60 Other: # Voids 6 6 Date of Last Bowel Movement 02/14/18 # Bowel Movements 2 0 Result Diagrams: 02/14/18 05:00 02/14/18 05:00 Disinhibition Score: 14.00 Aggression Score: 14.00 Lability Score: 14.00 Agitated Behavior Total Score: 14 Assessment and Plan Plan: Continue IV antibiotics, follow up cultures DVT prophylaxis, tube feeds Continue mechanical ventilation-increase PEEP to 10 ID consultation Attestation: Critical care time 32 minutes
[2018-02-15] MEDS: Pantoprazole Inj 40 MG Vial IV.PUSH SCH (20:31)
--- NOTE | 2018-02-16 08:14 | P.PNNPSY ---
- Behavior Intact: Impulsive/agitated - Cognitive Moderate: Cognitive, Attention/concentration, Confused/orientation, Insight/ awareness, Judgment/problem solving, Memory - Psychosocial Intact: Psychosocial, Family/other adjustment, Realistic expectation - Progress Notes/Response to Treatment Contents of Sessions: Adjustment, Level of consciousness Time with Patient: 30 minutes Premorbid Psychological Status: Premorbid Cognitive, Emotional and Behavioral Status: Tenuous. The patient has high school years of education and an unknown work history prior to this injury. The patient has unknown psychiatric difficulties, as described above. Substance abuse history is unknown. Behavioral Reactions of Patient and Family/Support System: Tenuous. The patients family is experiencing ongoing issues of adjustment given the nature of the injury, and this aspect of recovery will require ongoing monitoring. Emotional/Behavioral Status of Patient and Family/Support System: Tenuous. Pertinent issues, if appropriate to this patients clinical care, are described in detail above. Maximizing Acute Care Outcome: It is recommended that the patient be monitored for emergent behavioral impulsivity as the medical condition evolves. This patients neuropathological challenges may limit rehabilitation potential going forward, and these challenges will require specialized therapeutic skills to maximize outcome. At this point in the recovery process, the patient does have cognitive capacity as the patient is able to understand a situation and its likely consequences, and the patient is able to manipulate information rationally. Cognitive capacity will be assessed throughout the recovery process. Anticipated Problems: Ongoing areas of concern will include behavioral impulsivity, lack of insight and judgment, which is expected to improve with time and treatment. Treatment Plan: This clinician will continue to follow with you throughout the course of this patients critical care treatment, and I will be available to meet with the patients family/support system to facilitate their understanding and the ongoing care of their family member. The goals of neuropsychological intervention shall be both educational and supportive to the family/support system as is deemed clinically appropriate. [place] COG Scale: Level V Disinhibition Score: 14.00 Aggression Score: 14.00 Lability Score: 14.00 Agitated Behavior Total Score: 14 Impression: 47 year old man s/p concussion 2T fall on 02/04/2018. Progress Note Narrative: PTD 12. The patient is awake, alert and conversant. Successfully extubated yesterday. No issues of agitation/restlessness. He is rated Rancho V, but more likely Rancho at this stage. ABS = 14 (14,14,14). He will require aggressive rehab. I will follow. - Diagnosis (1) Head concussion Status: Acute
--- NOTE | 2018-02-16 08:46 | P.PNCC ---
Subjective Brief History: The patient is a 47-year-old male who presented status post fall from a tree stand, approximately 10 feet. The patient was somewhat amnestic to events with mild confusion, following commands, and noted to be out hunting and lost footing, fell from a tree stand with positive LOC. The patient noted to be tachycardic in the 130s in the field with a normal blood pressure. He had decreased movement to bilateral upper extremities and numbness and left leg numbness. When came in the trauma bay, he was noted to be hemodynamically stable, answering intermittently. Patient was resuscitated according trauma principles primary and secondary survey resuscitation definitive care carried out and patient undergoes full diagnostic workup including CT scan and MRI prior to coming to ICU In ICU, patient has decreased motion in the left arm and the left leg. Injuries detected C5 - C6 bilateral locked facets Left arm and leg weakness with paresthesias MRI confirmed spinal cord altered signal however no indication of spinal cord transection Sternal fracture Should also be noted that patient has had atrial fibrillation in the past and was placed on some blood thinner probably factor X a inhibitor for PT PTT is normal In face of the same will await till tomorrow to go ahead with a spinal surgery as per neurosurgery 24 Hour Review/Hospital Course: 02/05/2018 Patient is awake alert and oriented Weakness of the left arm and left leg is pronounced with some paresthesias in both Patient scheduled today for the anterior and eventually posterior fusion of the C-spine Patient may have permanent damage to the spinal cord and this is been clearly explained to patient and the family Hemodynamically he is stable and in sinus rhythm has been instructed to bring the home medication clearly patient must be on either calcium channel blockers beta-blockers or some other combination for his atrial fibrillation control Bilateral breath sounds good pulmonary function and pulmonary dynamics not impaired by the cervical injury Abdomen soft active bowel sounds Renal function preserved 02/06/2018 Patient is status post anterior and posterior fusion of C4-C5-C6 Sedated on propofol and fentanyl Intubated ventilated on assist control Bilateral good breath sounds and good PO2 FiO2 gradient Hemodynamically stable Renal function preserved Plan Patient came out of the operating room this afternoon and will keep him overnight ventilated and extubate patient tomorrow morning 02/07 Patient was febrile in the morning temperature 103.3. After anterior spinal fusion postop He also desaturated to the 80s and his FiO2 was increased to 60%-his PF ratio is 110-we will increase his PEEP to 10 Is also thick secretions-his NG tube was removed in the OR and patient was without NG tube until morning hours-patient may have aspirated with results of pneumonitis-we will observe patient very closely for potential pneumonia, his white cell count however is today 9 and there are only small bilateral basilar infiltrates Otherwise patient is awake he is following commands Remains hemodynamically stable 02/08 Patient continues to be febrile this morning temperature is 101.2, his white cell count is rising and he has also bands I started him yesterday on empiric antibiotics and he has been pancultured His PF ratio is on 120, he has thick secretions and infiltrates basilar bilateral on the chest x-ray His FiO2 is not 60% and his PEEP is 10 Hemodynamically he remains normal, his renal function is preserved 02/09 patient remains hemodynamically normal, his eyes are open and is following commands His respiratory status clearly improved with improved PF ratio and chest x-ray Sputum cultures are negative however there was good response to empiric antibiotics and other cultures are still pending Patient clearly has been third spacing so that we will start diuresis with Lasix His FiO2 is down to 40% and his PEEP was reduced to 8 Patient has not been tolerating tube feeds likely secondary to an ileus, will start patient on Reglan start to fix tube feeds back on trickle rate and give Dulcolax to induce bowel movement Family was updated at the bedside 02/10 Patient is febrile today in the morning, his white cell count is climbing as well His pro calcitonin is elevated, chest x-ray is essentially same bilateral basilar infiltrates His PF ratio today is around 120 which is worse than yesterday as the PEEP was reduced to 8 I will increase it back to 10 Patient had a short CPAP trial which she did not tolerate, he has thick norman colored secretions although the sputum culture is negative I still believe patient has a pneumonia we will repeat the culture obtain ID consult He has been tolerating tube feeds but in trophic rate, there is output from the reflex port of the NG-we will exchanged for a new NG tube Patient remains hemodynamically normal he responded well to diuresis 3 L of output Family was updated at the bedside 02/11/2018 Patient remains intubated and ventilated status post anterior and posterior cervical fusion Repeated spikes of fever to 102 consistent with pneumonia On low sedation easily arousable patient follows commands and is still weak in the left side of the body Hemodynamically stable Bilateral breath with decreased PO2 FiO2 ratio consistent with increased infiltrates bilateral pneumonia and consequent restricted oxygen diffusion and exchange. This is consistent with aspiration of gastric contents Remains on high respiratory parameters including 12 of PEEP and 60% FiO2 with peak inspiratory pressures around 36 cm H2O Patient will need to be maintained on the ventilator until pulmonary function and PO2 FiO2 gradient improves Cultures are negative for the time being but I believe patient has bilateral pneumonia and just a matter of time when cultures sort themselves out Remains on Zosyn and ID consult is greatly appreciated Enteral feeds tolerated however positioning of the OG tube remains to be a problem and patient will go to radiology for a Dobbhoff placement Renal function preserved Plan Continue ventilatory and nutritional support as necessary As the patient's pulmonary function improves will gradually wean the ventilator but right now patient's function may worsen before it gets better 02/12/2018 Patient sedated intubated and ventilated however neurologically appropriate intact Follows commands opens eyes and tracks when on sedation vacation Hemodynamically remained stable Patient remains on assist control ventilation 12 of PEEP and decreasing FiO2 about 50% and slightly improving PO2 FiO2 gradient as we go along Repeated spikes of fever noted and patient developed a right lower lobe infiltrate which is not very dense and increasing occupying lower half of the right lower lobe Successfully bronchoscope today with evacuation of a large amount of thick mucous material Patient clearly has a right lung contusion with some hemorrhagic secretions and bruising within the bronchial tree Abdomen is soft enteral feeds as tolerated Patient had successful placement of a Dobbhoff tube by interventional radiology Renal function is preserved At this point patient is not a candidate for extubation due to right lower lobe infiltrate aspiration and slowly improving PO2 FiO2 gradient I do not think patient will require tracheostomy however we will see how things go 02/13/2018 Patient is slightly sedated and intubated however on sedation vacation quite appropriate moving all 4 extremities Follows commands opens eyes tracks Hemodynamically stable Patient remains on assist control ventilation 12 P and 50% FiO2 and today decreased to 10 of PEEP and 40% FiO2 in which patient is doing well The PO2 FiO2 gradient is gradually improving and now it is around 190 which is certainly better than the other day ARDS and bilateral aspirations are slowly resolving Abdomen is soft active bowel sounds enteral feeds tolerated Via Dobbhoff At this point there is no more to go as far as the extubation is concerned and will have to wait till the systemic inflammatory response and ARDS resolve and the PO2 FiO2 gradient improved sufficiently for patient to be extubated Considering the low level of his injury this will not be an issue of pulmonary mechanics but rather simply aspiration 02/14/2018 Patient remains intubated and ventilated Rafael Coma Scale 15 when patient is awake and alert and on small amount of sedation response to questions with grimacing or nodding Patient cooperates very well and works with PT and OT Hemodynamically remained stable Bilateral breath sounds and gradually improving PO2 FiO2 gradient Patient now to 40% FiO2 and 8 of PEEP doing very well Tried on CPAP trial which patient did well for most of the afternoon In the face of the cervical fracture I believe it is not prudent to extubate the patient in the late afternoon hours. All things equal will extubate patient tomorrow morning 02/15/2018 Patient is awake alert Hemodynamically stable Tolerated CPAP yesterday and today and now successfully extubated Good bilateral breath sounds and good pulmonary mechanics We will start on a diet and patient will require very aggressive physical and occupational therapy Out of bed All things equal patient can transfer to floor tomorrow and then to rehab as soon as one is available 02/16/2018 Patient successfully extubated yesterday Awake alert seems to be oriented following commands and answering simple questions Failed swallow study yesterday but in face of prolonged intubation and anterior and posterior cervical instrumentation this would not be unusual We will try swallow today and I am pretty sure patient will pass Bilateral breath sounds good pulmonary function and chest wall dynamics Abdomen soft Plan Out of bed Transfer to floor Advance to diet pending swallow study Placed in rehab as soon as bed is available even today would be good Objective Vital Signs / I&O: Vital Signs 02/15/18 09:00 02/15/18 09:30 02/15/18 10:00 Temperature Pulse Rate 99 H 97 H 84 Respiratory Rate 26 H 25 H 23 Blood Pressure 135/72 130/65 134/75 Pulse Oximetry 97 94 L 97 02/15/18 10:30 02/15/18 11:00 02/15/18 11:30 Temperature Pulse Rate 88 104 H 98 H Respiratory Rate 27 H 30 H 27 H Blood Pressure 135/87 151/87 H 146/81 H Pulse Oximetry 94 L 93 L 96 02/15/18 12:00 02/15/18 12:30 02/15/18 13:00 Temperature 99.7 F H Pulse Rate 96 H 92 H 93 H Respiratory Rate 27 H 26 H 29 H Blood Pressure 142/80 H 146/79 H 144/79 H Pulse Oximetry 96 95 94 L 02/15/18 13:23 02/15/18 13:27 02/15/18 13:32 Temperature Pulse Rate 100 H Respiratory Rate 33 H Blood Pressure 149/75 H 144/71 H Pulse Oximetry 93 L 02/15/18 14:00 02/15/18 14:30 02/15/18 15:00 Temperature Pulse Rate 102 H 91 H 98 H Respiratory Rate 36 H 33 H 28 H Blood Pressure 139/74 137/73 133/74 Pulse Oximetry 93 L 96 92 L 02/15/18 15:30 02/15/18 16:00 02/15/18 16:30 Temperature 100.0 F H Pulse Rate 97 H 94 H 95 H Respiratory Rate 29 H 29 H 32 H Blood Pressure 137/73 132/72 132/72 Pulse Oximetry 94 L 93 L 94 L 02/15/18 17:00 02/15/18 17:30 02/15/18 18:00 Temperature Pulse Rate 92 H 92 H 92 H Respiratory Rate 31 H 31 H 28 H Blood Pressure 140/72 141/74 H 131/73 Pulse Oximetry 93 L 92 L 93 L 02/15/18 19:00 02/15/18 20:00 02/15/18 20:37 Temperature 100.4 F H Pulse Rate 98 H 91 H Respiratory Rate 30 H 24 Blood Pressure 133/72 145/81 H Pulse Oximetry 93 L 94 L 94 L 02/15/18 21:00 02/15/18 22:00 02/15/18 23:00 Temperature Pulse Rate 96 H 97 H 97 H Respiratory Rate 28 H 25 H 28 H Blood Pressure 129/70 127/69 138/73 Pulse Oximetry 93 L 94 L 92 L 02/16/18 00:00 02/16/18 01:00 02/16/18 02:00 Temperature 102.2 F H Pulse Rate 100 H 92 H 96 H Respiratory Rate 29 H 22 27 H Blood Pressure 125/70 111/62 110/61 Pulse Oximetry 93 L 95 93 L 02/16/18 03:00 02/16/18 04:00 02/16/18 05:00 Temperature 100.1 F H Pulse Rate 86 83 94 H Respiratory Rate 27 H 26 H 27 H Blood Pressure 112/65 122/69 113/65 Pulse Oximetry 94 L 96 93 L 02/16/18 05:50 02/16/18 06:00 02/16/18 06:30 Temperature 101.2 F H Pulse Rate 91 H 84 90 Respiratory Rate 24 23 Blood Pressure 106/62 99/61 L Pulse Oximetry 95 93 L 02/16/18 07:00 02/16/18 07:30 Temperature Pulse Rate 86 93 H Respiratory Rate 26 H 22 Blood Pressure 103/61 101/55 L Pulse Oximetry 94 L 93 L Intake & Output 02/15/18 02/16/18 02/16/18 18:59 06:59 18:59 Intake Total 290 / 290 350 / 350 Balance 290 / 290 350 / 350 Weight 75.3 kg Intake: IV 290 / 290 350 / 350 Diprivan 1000 mg/100 ml Inj 1, 40 / 40 000 mg In 100 ml @ 5 MCG/KG/MIN 2.187 mls/hr IV.CONT TITRATE PRN Rx#:[id number] Ofirmev Inj 1,000 mg In 100 ml 200 / 200 @ 400 mls/hr IV.SIG Q6H PRN Rx# :[id number] Levaquin 750 mg Premix Inj 150 150 / 150 ML @ 100 mls/hr IV.SIG Q24H ANTOINETTE Rx#:[id number] Vancomycin Inj 1,000 MG In NS 250 / 250 Inj 250 ML @ 250 mls/hr IV.SIG DAILY ANTOINETTE Rx#:[id number] Other: # Voids 6 2 Date of Last Bowel Movement 02/15/18 02/15/18 # Bowel Movements 1 0 Result Diagrams: 02/14/18 05:00 02/14/18 05:00 Disinhibition Score: 14.00 Aggression Score: 14.00 Lability Score: 14.00 Agitated Behavior Total Score: 14 Assessment and Plan Plan: Continue IV antibiotics, follow up cultures DVT prophylaxis, tube feeds Continue mechanical ventilation-increase PEEP to 10 ID consultation
[2018-02-16] MEDS: Vancomycin Inj 1,000 MG in Sodium Chlor 0.9% Inj 250 ML IV.SIG SCH (09:00)
--- NOTE | 2018-02-16 10:19 | P.PNNS ---
Subjective Interval history: Pt extubated and verbalizing with hoarse voice. Follows commands well. Complains of cervical collar irritation. Paresthesias in all 4 extremities. Physical Exam Vital signs: Vital Signs 02/15/18 10:30 02/15/18 11:00 02/15/18 11:30 Temperature Pulse Rate 88 104 H 98 H Respiratory Rate 27 H 30 H 27 H Blood Pressure 135/87 151/87 H 146/81 H Pulse Oximetry 94 L 93 L 96 02/15/18 12:00 02/15/18 12:30 02/15/18 13:00 Temperature 99.7 F H Pulse Rate 96 H 92 H 93 H Respiratory Rate 27 H 26 H 29 H Blood Pressure 142/80 H 146/79 H 144/79 H Pulse Oximetry 96 95 94 L 02/15/18 13:23 02/15/18 13:27 02/15/18 13:32 Temperature Pulse Rate 100 H Respiratory Rate 33 H Blood Pressure 149/75 H 144/71 H Pulse Oximetry 93 L 02/15/18 14:00 02/15/18 14:30 02/15/18 15:00 Temperature Pulse Rate 102 H 91 H 98 H Respiratory Rate 36 H 33 H 28 H Blood Pressure 139/74 137/73 133/74 Pulse Oximetry 93 L 96 92 L 02/15/18 15:30 02/15/18 16:00 02/15/18 16:30 Temperature 100.0 F H Pulse Rate 97 H 94 H 95 H Respiratory Rate 29 H 29 H 32 H Blood Pressure 137/73 132/72 132/72 Pulse Oximetry 94 L 93 L 94 L 02/15/18 17:00 02/15/18 17:30 02/15/18 18:00 Temperature Pulse Rate 92 H 92 H 92 H Respiratory Rate 31 H 31 H 28 H Blood Pressure 140/72 141/74 H 131/73 Pulse Oximetry 93 L 92 L 93 L 02/15/18 19:00 02/15/18 20:00 02/15/18 20:37 Temperature 100.4 F H Pulse Rate 98 H 91 H Respiratory Rate 30 H 24 Blood Pressure 133/72 145/81 H Pulse Oximetry 93 L 94 L 94 L 02/15/18 21:00 02/15/18 22:00 02/15/18 23:00 Temperature Pulse Rate 96 H 97 H 97 H Respiratory Rate 28 H 25 H 28 H Blood Pressure 129/70 127/69 138/73 Pulse Oximetry 93 L 94 L 92 L 02/16/18 00:00 02/16/18 01:00 02/16/18 02:00 Temperature 102.2 F H Pulse Rate 100 H 92 H 96 H Respiratory Rate 29 H 22 27 H Blood Pressure 125/70 111/62 110/61 Pulse Oximetry 93 L 95 93 L 02/16/18 03:00 02/16/18 04:00 02/16/18 05:00 Temperature 100.1 F H Pulse Rate 86 83 94 H Respiratory Rate 27 H 26 H 27 H Blood Pressure 112/65 122/69 113/65 Pulse Oximetry 94 L 96 93 L 02/16/18 05:50 02/16/18 06:00 02/16/18 06:30 Temperature 101.2 F H Pulse Rate 91 H 84 90 Respiratory Rate 24 23 Blood Pressure 106/62 99/61 L Pulse Oximetry 95 93 L 02/16/18 07:00 02/16/18 07:30 02/16/18 08:00 Temperature 99.8 F H Pulse Rate 86 93 H 88 Respiratory Rate 26 H 22 22 Blood Pressure 103/61 101/55 L 98/58 L Pulse Oximetry 94 L 93 L 94 L 02/16/18 08:30 Temperature Pulse Rate 78 Respiratory Rate 25 H Blood Pressure 107/70 Pulse Oximetry 96 Intake & Output 02/15/18 02/16/18 02/16/18 18:59 06:59 18:59 Intake Total 290 / 290 350 / 350 Balance 290 / 290 350 / 350 Weight 75.3 kg Intake: IV 290 / 290 350 / 350 Diprivan 1000 mg/100 ml Inj 1, 40 / 40 000 mg In 100 ml @ 5 MCG/KG/MIN 2.187 mls/hr IV.CONT TITRATE PRN Rx#:[id number] Ofirmev Inj 1,000 mg In 100 ml 200 / 200 @ 400 mls/hr IV.SIG Q6H PRN Rx# :[id number] Levaquin 750 mg Premix Inj 150 150 / 150 ML @ 100 mls/hr IV.SIG Q24H ANTOINETTE Rx#:[id number] Vancomycin Inj 1,000 MG In NS 250 / 250 Inj 250 ML @ 250 mls/hr IV.SIG DAILY ANTOINETTE Rx#:[id number] Other: # Voids 6 2 Date of Last Bowel Movement 02/15/18 02/15/18 02/15/18 # Bowel Movements 1 0 - Constitutional no acute distress, average body habitus, cooperative - Routine HEENT Exam Head: Present: normocephalic Eye: Present: PERRL ENT: Present: oropharynx clear - Routine Neck Exam Absent: full ROM ([place] cervical collar remains in place.) - Routine Respiratory Exam Present: CTA bilaterally. Absent: respiratory distress, rhonchi, wheezes Comments: On O2 via NC. - Routine Cardiovascular Exam Present: RRR, S1, S2. Absent: murmur - Routine Abdominal Exam Present: soft, normoactive bowel sounds. Absent: tenderness, firm - Routine Skin Exam Absent: cyanosis, erythema - Routine Neurological Exam Present: alert, sensory deficit (Complains of tingling to touch in all 4 extremities in all distributions.), motor deficit (Strength 4/5 in extremities left hand weakness 2/5.), moving all extremities - Routine Psychiatric Exam Present: normal affect, cooperative. 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 He has a profound C5-6 subluxation with jumped facets and gross instability. Plan for posterior open cervical jumped facet reduction with stabilization and fusion and will likely require an anterior approach for an anterior/posterior stabilization given the severity and unstable nature of this injury. Discussed with patient and his at bedside at length the risks and benefits involved and they requested we proceed and gave informed consent. They understand that is a possibility that he may not improve from his spinal cord injury despite extensive rehabilitation and there is also possibility of further neurologic and pulmonary decline (chest wall injury and comminuted sternal fracture) with risk of spinal cord shock and hemodynamic instability from the cervical cord edema/contusion progression in the near future. His condition obviously is very critical. Pt s/p Posterior C4, C5, C6, and C7 fusion on 02/05/18. s/p Anterior C4/C5, C5/C6, and C6/C7 cervical fusion on 02/06/18. P: Continue with cervical collar Continue with critical care. Continue with PT/OT Rehab placement.
[2018-02-16] MEDS: Sodium Chloride 0.9% 2 ML Flush BID IV.FLUSH SCH ×2 (10:24→20:21)
[2018-02-16] MEDS: Enoxaparin Inj 30 MG/0.3 ML Syringe SQ SCH ×2 (10:24→20:21)
[2018-02-16] MEDS: Senna/Docusate Sodium 8.6/50 MG Tablet PO SCH ×2 (10:24→20:20)
--- NOTE | 2018-02-16 12:57 | P.PNID ---
Subjective Remarks: Patient is extubated. Awake and alert. daughter at bedside. Temperature remains elevated. No distress. White blood cell count down to normal. Has copious oral secretions. Sputum and blood culture pending. This is a 47-year-old male, who fell from a tree approximately 20 feet high and sustained a cervical spine fracture. The patient is currently intubated and on the ventilator. He underwent surgery consisting of posterior C4, C5, C6, and C7 fusion, and open reduction and internal fixation of C2-C6 and posterior C4-C7 lateral mass/facet segmental fixation. Consult called for elevated temperature. Past Medical History: PAST MEDICAL HISTORY: Sinus disease, history of knee surgery. Allergies/Adverse Reactions: Allergies No Known Allergies Allergy (Verified 02/05/18 16:30) Objective Vital Signs 02/15/18 13:00 02/15/18 13:23 02/15/18 13:27 Temperature Pulse Rate 93 H 100 H Respiratory Rate 29 H 33 H Blood Pressure 144/79 H 149/75 H Pulse Oximetry 94 L 93 L 02/15/18 13:32 02/15/18 14:00 02/15/18 14:30 Temperature Pulse Rate 102 H 91 H Respiratory Rate 36 H 33 H Blood Pressure 144/71 H 139/74 137/73 Pulse Oximetry 93 L 96 02/15/18 15:00 02/15/18 15:30 02/15/18 16:00 Temperature 100.0 F H Pulse Rate 98 H 97 H 94 H Respiratory Rate 28 H 29 H 29 H Blood Pressure 133/74 137/73 132/72 Pulse Oximetry 92 L 94 L 93 L 02/15/18 16:30 02/15/18 17:00 02/15/18 17:30 Temperature Pulse Rate 95 H 92 H 92 H Respiratory Rate 32 H 31 H 31 H Blood Pressure 132/72 140/72 141/74 H Pulse Oximetry 94 L 93 L 92 L 02/15/18 18:00 02/15/18 19:00 02/15/18 20:00 Temperature 100.4 F H Pulse Rate 92 H 98 H 91 H Respiratory Rate 28 H 30 H 24 Blood Pressure 131/73 133/72 145/81 H Pulse Oximetry 93 L 93 L 94 L 02/15/18 20:37 02/15/18 21:00 02/15/18 22:00 Temperature Pulse Rate 96 H 97 H Respiratory Rate 28 H 25 H Blood Pressure 129/70 127/69 Pulse Oximetry 94 L 93 L 94 L 02/15/18 23:00 02/16/18 00:00 02/16/18 01:00 Temperature 102.2 F H Pulse Rate 97 H 100 H 92 H Respiratory Rate 28 H 29 H 22 Blood Pressure 138/73 125/70 111/62 Pulse Oximetry 92 L 93 L 95 02/16/18 02:00 02/16/18 03:00 02/16/18 04:00 Temperature 100.1 F H Pulse Rate 96 H 86 83 Respiratory Rate 27 H 27 H 26 H Blood Pressure 110/61 112/65 122/69 Pulse Oximetry 93 L 94 L 96 02/16/18 05:00 02/16/18 05:50 02/16/18 06:00 Temperature 101.2 F H Pulse Rate 94 H 91 H 84 Respiratory Rate 27 H 24 Blood Pressure 113/65 106/62 Pulse Oximetry 93 L 95 02/16/18 06:30 02/16/18 07:00 02/16/18 07:30 Temperature Pulse Rate 90 86 93 H Respiratory Rate 23 26 H 22 Blood Pressure 99/61 L 103/61 101/55 L Pulse Oximetry 93 L 94 L 93 L 02/16/18 08:00 02/16/18 08:30 02/16/18 09:00 Temperature 99.8 F H Pulse Rate 88 78 79 Respiratory Rate 22 25 H 28 H Blood Pressure 98/58 L 107/70 122/63 Pulse Oximetry 94 L 96 94 L 02/16/18 09:30 02/16/18 10:00 02/16/18 10:30 Temperature Pulse Rate 88 91 H 95 H Respiratory Rate 28 H 34 H 24 Blood Pressure 119/68 134/81 120/65 Pulse Oximetry 93 L 94 L 93 L 02/16/18 11:00 02/16/18 11:30 02/16/18 12:00 Temperature 100.5 F H Pulse Rate 85 90 90 Respiratory Rate 26 H 29 H 33 H Blood Pressure 121/70 128/69 136/76 Pulse Oximetry 95 95 97 Intake & Output 02/15/18 02/16/18 02/16/18 18:59 06:59 18:59 Intake Total 290 / 290 350 / 350 250 / 250 Balance 290 / 290 350 / 350 250 / 250 Weight 75.3 kg Intake: IV 290 / 290 350 / 350 250 / 250 Diprivan 1000 mg/100 ml Inj 1, 40 / 40 000 mg In 100 ml @ 5 MCG/KG/MIN 2.187 mls/hr IV.CONT TITRATE PRN Rx#:[id number] Ofirmev Inj 1,000 mg In 100 ml 200 / 200 @ 400 mls/hr IV.SIG Q6H PRN Rx# :[id number] Levaquin 750 mg Premix Inj 150 150 / 150 ML @ 100 mls/hr IV.SIG Q24H ANTOINETTE Rx#:[id number] Vancomycin Inj 1,000 MG In NS 250 / 250 250 / 250 Inj 250 ML @ 250 mls/hr IV.SIG DAILY ANTOINETTE Rx#:[id number] Other: # Voids 6 2 Date of Last Bowel Movement 02/15/18 02/15/18 02/15/18 # Bowel Movements 1 0 02/15/18 20:35 Sputum - Expectorated Sputum Gram Stain - Final 02/15/18 20:35 Sputum - Expectorated Sputum Sputum Culture - Pending 02/14/18 12:50 Blood - Peripheral Aerobic Blood Culture - Preliminary No growth in 2 days 02/14/18 12:50 Blood - Peripheral Anaerobic Blood Culture - Preliminary No growth in 2 days 02/14/18 12:55 Blood - Peripheral Aerobic Blood Culture - Preliminary No growth in 2 days 02/14/18 12:55 Blood - Peripheral Anaerobic Blood Culture - Preliminary No growth in 2 days 02/08/18 02:40 Blood - Peripheral Aerobic Blood Culture - Final No growth in 5 days 02/08/18 02:40 Blood - Peripheral Anaerobic Blood Culture - Final No growth in 5 days 02/08/18 02:45 Blood - Peripheral Aerobic Blood Culture - Final No growth in 5 days 02/08/18 02:45 Blood - Peripheral Anaerobic Blood Culture - Final No growth in 5 days Imaging: ITS Impressions Pelvis X-Ray 02/04/18 19:38 CONCLUSION: The bony pelvic ring is grossly intact. Abdomen/Pelvis CT 02/04/18 19:39 CONCLUSION: 1. 3.8 cm low-density lesion in the dome of the liver is nonspecific in appearance. This could represent a parenchymal laceration/hematoma or possibly cavernous hemangioma. No contour abnormality about the liver and no free fluid in the abdomen. Once the patient is stabilized, may consider elective evaluation either with multiphasic MRI or dynamic tagged red blood cell scan. Chest CT 02/04/18 19:39 CONCLUSION: 1. Mildly displaced fractures of the mid and inferior sternum. 2. No evidence of pneumothorax. Cervical Spine CT 02/04/18 19:40 CONCLUSION: 1. Gross distortion of the spinal canal at the C5-6 level due to bilateral locked facets causing anterior dislocation of the C5 vertebral body. No vertebral body fracture seen. Lumbar Spine CT 02/04/18 19:40 CONCLUSION: 1. No evidence of fracture, spondylolisthesis, or significant epidural impression. Thoracic Spine CT 02/04/18 19:40 CONCLUSION: 1. Negative CT of the thoracic spine without evidence of fracture or spondylolisthesis. Cervical Spine MRI 02/04/18 20:01 CONCLUSION: 1. There is minimal T2 prolongation within the substance of the cervical cord at the C5 level, but no evidence of cord transection. No epidural hematoma seen. 2. 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 3. Small central disc protrusion at C4-5 without indentation on the cord or lateral extension. Cervical Spine X-Ray 02/06/18 00:00 CONCLUSION: Status post anterior cervical fusion from C4 through C7 as described. Stable cervical alignment status post fusion. Head CT 02/08/18 00:00 CONCLUSION: No acute intracranial findings. . Abdomen X-Ray 02/10/18 15:25 CONCLUSION: 1. Suction-type orogastric catheter in the stomach. 2. Nonobstructive bowel gas pattern. Venous Doppler Study 02/11/18 00:00 CONCLUSION: 1. No sonographic evidence for lower extremity DVT. Gastrostomy Tube Placement 02/12/18 00:00 CONCLUSION: 1. Uncomplicated Dobbhoff tube placement as above. Chest X-Ray 02/14/18 00:00 CONCLUSION: Support apparatus unchanged. Bilateral airspace consolidation persists. Physical Exam: PHYSICAL EXAMINATION: GENERAL: No acute distress. HEENT: EOMI,PAZ. oropharyngeal mucosa appears moist. No thrush. NECK: No adenopathy or swelling. LUNGS: Bilateral basilar rhonchi. Decreased breath sounds. HEART: Regular S1, S2, without murmurs. ABDOMEN: Soft. No tenderness appreciated. EXTREMITIES: No clubbing, cyanosis or edema. SKIN: No rash. NEUROLOGIC: Difficult to assess. Patient is awake and alert. PSYCHIATRIC: Calm. Assessment and Plan - Plan IMPRESSION: 1. Fever. Unclear source. ? drug fever vs infection. 2. Lung infiltrates suggesting pneumonia. Negative sputum culture. 3. Acute respiratory failure. 4. Status post cervical spine surgery. 5. Leukocytosis improved. RECOMMENDATIONS: 1. Continue vancomycin. 2. Continue Levaquin. 3. Monitor sputum for culture. 4. Follow blood culture. 5. Monitor temperature.
--- NOTE | 2018-02-16 14:16 | P.DIET ---
Nutritional Evaluation Type of nutrition evaluation: follow-up Nutrition consult regarding: Tube Feeding (TFing d/c'ed) Objective - Diagnosis Trauma Alert, C-Spine Injury - Objective % IBW: 103 (IBW: 70kg) Body Weight Used for Calculations: Actual (72kg) Energy Needs - Lower Range (kCal/kg): 28 Energy Needs - Upper Range (kCal/kg): 33 Lower Limit kCal/kg (kCals): 2,016 Upper Limit kCal/kg (kCals): 2,376 Lower Limit Protein Factor (Grams per Kg): 1.2 Upper Limit Protein Factor (Grams per Kg): 1.5 Lower Protein Needs (Protein): 86 Upper Protein Needs (Protein): 108 Fluid Factor (ml/kg): 33 Estimated Fluid Needs (ml): 2,376 Dietitian Reviewed in Medical Record: Current diet, Curent medications, Intake & Output, Labs, Medical history Diet Order: Mechanical Soft, nectar thickened liquids Speech Therapy Recommendations: Yes Assessment Assessment: Pt extubated and TFing stopped 02/15. Diet just advanced to mechanical soft with nectar thickened liquids. RD will monitor po intake and assess the need for supplements. Recommendations: Diet per ST RD following Dietitian to Monitor: Lab values, Intake & Output, Weight change, PO Intake, Diet advancement, Swallow recommendations, Medical course
[2018-02-16] MEDS: Pantoprazole Inj 40 MG Vial IV.PUSH SCH (20:20)
[2018-02-17 04:58] LABS: Baso # (Auto) 0.1 th/mm3 (0.0-0.2); Baso % (Auto) 0.6 % (0.0-2.0); Eos # (Auto) 0.2 th/mm3 (0.0-0.4); Eos % (Auto) 1.4 % (0.0-4.0); Hematocrit 26.2 % (39.0-51.0); Lymph # (Auto) 1.6 th/mm3 (1.0-4.8); Lymph % (Auto) 13.4 % (9.0-44.0); Mean Corpuscular HGB Conc 34.3 % (32.0-36.0); Mean Corpuscular Hemoglobin 30.3 pg (27.0-34.0); Mean Corpuscular Volume 88.2 fL (80.0-100.0); Mean Platelet Volume 9.3 fL (7.0-11.0); Mono % (Auto) 8.2 % (0.0-8.0); Neut % (Auto) 76.4 % (16.0-70.0); Platelet Count 362 th/mm3 (150-450); Red Blood Count 2.97 mil/mm3 (4.50-5.90); Red Cell Distribution Width 13.1 % (11.6-17.2); White Blood Count 11.8 th/mm3 (4.0-11.0)
--- NOTE | 2018-02-17 05:19 | XR ---
EXAM DATE: 02/17/2018 5:14 AM EST AGE/SEX: 47 years / Male INDICATIONS: Respiratory disease. CLINICAL DATA: This is the patient's subsequent encounter. Patient reports that signs and symptoms h ave been present for 2 weeks and indicates a pain score of 3/10. MEDICAL/SURGICAL HISTORY: None. . Cervical spine. COMPARISON: [facility] [place], CHEST 1V SINGLE AP, 02/14/2018. . FINDINGS: Portable AP view of the chest demonstrates a normal-sized cardiac silhouette. There is right upper lo be volume loss and consolidation. Patchy consolidation is also present in the left mid and lower lung zone and right lower lung zone. No pleural effusion or pneumothorax is identified. The bones and sof t tissues demonstrate no acute finding. Cervical spine hardware is present. Feeding tube has been rem cyrus. CONCLUSION: Stable appearance of the lungs with right upper lobe volume loss and consolidation and patchy areas o f consolidation bilaterally. Electronically signed by: Earl Barraza MD 02/17/2018 5:18 AM EST
[2018-02-17 05:23] LABS: Anion Gap 9 meq/L (5-15); Blood Urea Nitrogen 14 mg/dL (7-18); Calcium 7.4 mg/dL (8.5-10.1); Carbon Dioxide 25.4 meq/L (21.0-32.0); Chloride 102 meq/L (98-107); Glomerular Filtration Rate Greater Than 89 mL/min (>89); Glucose,Random 138 mg/dL (74-106); Potassium 3.7 meq/L (3.5-5.1); Sodium 136 meq/L (136-145)
[2018-02-17 05:35] LABS: Albumin 1.9 g/dL (3.4-5.0); Calcium-Albumin Corrected 9.1 mg/dL (8.5-10.1)
[2018-02-17] MEDS: Vancomycin Inj 1,000 MG in Sodium Chlor 0.9% Inj 250 ML IV.SIG SCH (09:25)
[2018-02-17] MEDS: Sodium Chloride 0.9% 2 ML Flush BID IV.FLUSH SCH ×2 (09:26→20:36)
[2018-02-17] MEDS: Enoxaparin Inj 30 MG/0.3 ML Syringe SQ SCH ×2 (09:26→20:35)
[2018-02-17] MEDS: Senna/Docusate Sodium 8.6/50 MG Tablet PO SCH ×2 (09:26→20:36)
[2018-02-17] MEDS ORDERED: Acetaminophen 325 MG Tablet PO PRN (12:45)
--- NOTE | 2018-02-17 12:53 | P.PN ---
Subjective Interval history: Trauma PTD: 13 Patient sitting up in bed. No distress noted. Working with occupational therapy at present. Several visitors at bedside. No acute events overnight. No complaints offered. Physical Exam Vital signs: Vital Signs 02/16/18 13:00 02/16/18 13:30 02/16/18 14:00 Temperature Pulse Rate 99 H 97 H 104 H Respiratory Rate 33 H 18 26 H Blood Pressure 151/80 H 140/78 141/68 H Pulse Oximetry 92 L 88 L 92 L 02/16/18 14:30 02/16/18 15:00 02/16/18 15:30 Temperature Pulse Rate 105 H 111 H 99 H Respiratory Rate 34 H 32 H 27 H Blood Pressure 132/73 130/76 125/73 Pulse Oximetry 92 L 93 L 94 L 02/16/18 16:00 02/16/18 18:00 02/16/18 19:50 Temperature 101.2 F H 98.7 F 99.9 F H Pulse Rate 109 H 91 H 92 H Respiratory Rate 33 H 18 18 Blood Pressure 126/73 112/69 115/64 Pulse Oximetry 93 L 97 95 02/16/18 22:28 02/17/18 00:15 02/17/18 02:18 Temperature 100.9 F H Pulse Rate 80 89 Respiratory Rate 18 18 Blood Pressure 128/65 Pulse Oximetry 95 02/17/18 03:40 02/17/18 03:52 02/17/18 06:29 Temperature 99.1 F Pulse Rate 85 92 H Respiratory Rate 18 18 Blood Pressure 94/53 L Pulse Oximetry 95 02/17/18 08:00 Temperature 100.4 F H Pulse Rate 89 Respiratory Rate 16 Blood Pressure 111/66 Pulse Oximetry 92 L Intake & Output 02/16/18 02/17/18 02/17/18 18:59 06:59 18:59 Intake Total 350 / 350 230 / 230 Balance 350 / 350 230 / 230 Weight 72 kg Intake: IV 350 / 350 150 / 150 Ofirmev Inj 1,000 mg In 100 ml 100 / 100 @ 400 mls/hr IV.SIG Q6H PRN Rx# :[id number] Levaquin 750 mg Premix Inj 150 150 / 150 ML @ 100 mls/hr IV.SIG Q24H ANTOINETTE Rx#:[id number] Vancomycin Inj 1,000 MG In NS 250 / 250 Inj 250 ML @ 250 mls/hr IV.SIG DAILY ANTOINETTE Rx#:[id number] Oral 80 / 80 Other: # Voids 3 Date of Last Bowel Movement 02/15/18 02/17/18 # Bowel Movements 0 Narrative: GENERAL: This is a 47-year-old male lying in bed. No distress noted. SKIN: Warm and dry. HEAD: Atraumatic. Normocephalic. EYES: PERRLA ENT: No nasal bleeding or discharge. Mucous membranes pink and moist. NECK: Lummi J collar in place. Trachea midline. No JVD. CARDIOVASCULAR: Regular rate and rhythm. RESPIRATORY: No accessory muscle use. Lungs are clear to auscultation. Breath sounds equal bilaterally. No distress or dyspnea. GASTROINTESTINAL: BS + x 4 quads. Abdomen soft, non-tender, nondistended. MUSCULOSKELETAL: Extremities without cyanosis, or edema. + peripheral pulses x 4 extremities. Warm with good capillary refill and sensation. MAEW. NEUROLOGICAL: Awake and alert. Normal speech and pattern. - Urinary Catheter Management Indwelling Urethral Catheter Cath placed during this visit: yes, but has since been removed by the nurse Reason for continuing: Decision to DC catheter Insertion date: 02/05/18 Insertion time: 09:00 Removal date: 02/14/18 Removal time: 10:00 Results - Labs CBC & Chem 7: 02/17/18 04:16 02/17/18 04:16 Laboratory Results - last 24 hr 02/17/18 02/17/18 04:16 04:16 WBC 11.8 H RBC 2.97 L Hgb 9.0 L Hct 26.2 L MCV 88.2 MCH 30.3 MCHC 34.3 RDW 13.1 Plt Count 362 D MPV 9.3 Neut % (Auto) 76.4 H Lymph % (Auto) 13.4 Starr % (Auto) 8.2 H Eos % (Auto) 1.4 Baso % (Auto) 0.6 Neut # (Auto) 9.0 H Lymph # (Auto) 1.6 Starr # (Auto) 1.0 H Eos # (Auto) 0.2 Baso # (Auto) 0.1 WBC Differential . Differential Comment Auto diff final Sodium 136 Potassium 3.7 Chloride 102 Carbon Dioxide 25.4 Anion Gap 9 BUN 14 Creatinine 0.57 L Estimated GFR Greater than 89 Random Glucose 138 H Calcium 7.4 L* Calcium Adj for Albumin 9.1 Albumin 1.9 L Microbiology 02/14/18 12:50 Blood - Peripheral Aerobic Blood Culture - Preliminary No growth in 3 days 02/14/18 12:50 Blood - Peripheral Anaerobic Blood Culture - Preliminary No growth in 3 days 02/14/18 12:55 Blood - Peripheral Aerobic Blood Culture - Preliminary No growth in 3 days 02/14/18 12:55 Blood - Peripheral Anaerobic Blood Culture - Preliminary No growth in 3 days 02/15/18 20:35 Sputum - Expectorated Sputum Gram Stain - Final 02/15/18 20:35 Sputum - Expectorated Sputum Sputum Culture - Final Moderate growth normal respiratory erich - Imaging Impressions Chest X-Ray 02/17/18 00:00 CONCLUSION: Stable appearance of the lungs with right upper lobe volume loss and consolidation and patchy areas of consolidation bilaterally. Assessment and Plan - Assessment (1) Acute traumatic injury of cervical spine Status: Acute (2) Traumatic subluxation of cervical vertebra Code(s): S13.100A - Subluxation of unspecified cervical vertebrae, initial encounter Status: Acute (3) Central spinal cord injury Status: Acute (4) Traumatic dislocation of facet joint between fifth and sixth cervical vertebrae Code(s): S13.161A - Dislocation of C5/C6 cervical vertebrae, initial encounter Status: Acute (5) Head concussion Code(s): S06.0X9A - Concussion with loss of consciousness of unspecified duration, initial encounter Status: Acute - Plan EMMONAK: This is a 47-year-old male who sustained a fall. He fell approximately 20 feet out of a tree stand while hunting. Positive LOC. He reported bilateral hand weakness and left arm numbness. INJURIES: Concussion C5/6 bilateral jumped facet w/ cord contusion Sternum fx Aspiration ? liver laceration PMHx: HTN. Afib. Procedures: 02/05: POSTERIOR cervical C4, C5, C6 and C7 fusion. ORIF of the C5-6 bilateral jumped facet/fracture subluxation; posterior C4-7 lateral mass/facet fixation. 02/05: Returned from OR intubated 02/06: ANTERIOR cervical C4-5, C5-6 and C6-7 fusion; anterior C4-7 cervical plate 02/12: Dobhoff placed by IR 02/12: Bronchoscopy 02/15: Extubated Consults: Neurosurgery. Infectious disease. Neuropsych. Rehab medicine. Case management. Diet: Cardiac diet -mechanical soft with nectar thick liquids.. Tolerating po diet. Encourage good po intake with each meal. Pulmonary: Encourage good pulmonary toileting. IS at bedside and pt encouraged to use. Rationale for use explained to patient, and verbalized understanding. Duo nebs as needed PAIN Management: Oxycodone 5mg q4h PRN. Flexeril 5mg q8h. Fentanyl patch 50mcg. Activity: OOB. PT and OT ordered. GI prophylaxis: Protonix 40 mg IV. Bowel regimen: Aniya-colace. MOM. Lactulose. LBM: 02/15 DVT prophylaxis: Mechanical VTE with SCDs. Chemical management with Lovenox 30 mg BID SQ. DC Planning: Case management consulted for assistance with final discharge disposition. Patient has been accepted to [facility]. Patient therefore has been discharged to rehab from a trauma surgery standpoint. Emotional support provided to patient and family at bedside and plan of care discussed. Discussed with RN at bedside. Discussed pt condition and plan of care with collaborating trauma surgeon. Patient is hemodynamically stable and being managed on the med/surg floor. The trauma team will round each day, and evaluate plan of care on a daily basis. Concussion Supportive care Serial neuro checks Prevent secondary head injury Follow-up in concussion clinic C5/6 bilateral jumped facet w/ cord contusion Central cord syndrome Neurosurgery consulted and assisting in management and care 02/05: POSTERIOR cervical C4, C5, C6 and C7 fusion. ORIF of the C5-6 bilateral jumped facet/fracture subluxation; posterior C4-7 lateral mass/facet fixation. 02/06: ANTERIOR cervical C4-5, C5-6 and C6-7 fusion; anterior C4-7 cervical plate Scans 02/07:CT brain - NEG 02/04: Cspine MRI -C5-6 locked facets with displacement of C5 vertebral body. Deviation of cervical cord at C5-6 level -C5 cord contusion. Supportive care Serial neuro checks Pain management Encourage out of bed PT and OT ordered Lummi J collar at all times Neuropsych consulted and assisting in management and care Bowel regimen Lovenox for DVT prophylaxis Respiratory failure in trauma Sternum fx Aspiration Pneumonitis ARDS 02/05: Return from the OR intubated Unfortunately patient did not have an OG tube post OR, and aspirated 02/12: Dobbhoff placed by IR 02/12: Bronchoscopy 02/15: Extubated without incident EKG stable O2 nasal cannula as needed Supportive care Aggressive pulmonary toilet No longer requiring diuretics Urine output adequate Duo nebs as needed Chest x-ray as needed Pain management Infectious disease consulted and assisting in management and care IV abx: Vanco. Levaquin. 02/15: Sputum - Normal resp erich 02/14: Blood - 02/10: Sputum - NEG 02/10: Blood - NEG 02/10: Urine- NEG Encourage out of bed PT and OT ordered Bowel regimen Lovenox for DVT prophylaxis ? liver laceration Supportive care Monitor closely Trend H&H H&H stable -. Transfuse for hemoglobin less than 7.0 Does not meet transfusion triggers at this time No signs and symptoms of bleeding Abdomen benign HTN A. fib Supportive care Vital signs every 4 hours Monitor closely (2) Traumatic subluxation of cervical vertebra Qualifiers: Encounter type: initial encounter Qualified Code(s): S13.100A - Subluxation of unspecified cervical vertebrae, initial encounter (5) Head concussion Qualifiers: Encounter type: initial encounter Loss of consciousness presence/duration: with LOC of unspecified duration Qualified Code(s): S06.0X9A - Concussion with loss of consciousness of unspecified duration, initial encounter
[2018-02-17] MEDS: Pantoprazole Inj 40 MG Vial IV.PUSH SCH (20:34)
--- NOTE | 2018-02-18 07:51 | P.PN ---
Subjective Interval history: Trauma PTD: 14 Patient sitting up in bed. No distress noted. Visitor at bedside. Patient states, "I am doing okay." Patient describes slight numbness to bilateral arms. Waiting for transfer to [facility]. Physical Exam Vital signs: Vital Signs 02/17/18 08:00 02/17/18 12:00 02/17/18 17:13 Temperature 100.4 F H 98.3 F 99.5 F Pulse Rate 89 86 86 Respiratory Rate 16 16 18 Blood Pressure 111/66 94/55 L 106/60 Pulse Oximetry 92 L 93 L 95 02/17/18 20:00 02/17/18 21:04 02/18/18 00:00 Temperature 99.9 F H 100.5 F H Pulse Rate 94 H 85 Respiratory Rate 20 18 20 Blood Pressure 115/60 118/66 Pulse Oximetry 91 L 96 02/18/18 04:00 Temperature 100.4 F H Pulse Rate 95 H Respiratory Rate 20 Blood Pressure 104/58 L Pulse Oximetry 94 L Intake & Output 02/17/18 02/18/18 02/18/18 18:59 06:59 18:59 Intake Total 480 / 480 400 / 400 Balance 480 / 480 400 / 400 Intake: IV 400 / 400 Levaquin 750 mg Premix Inj 150 150 / 150 ML @ 100 mls/hr IV.SIG Q24H [facility] Rx#:[id number] Vancomycin Inj 1,000 MG In NS 250 / 250 Inj 250 ML @ 250 mls/hr IV.SIG DAILY [facility] Rx#:[id number] Oral 480 / 480 Other: # Voids 1 Date of Last Bowel Movement 02/17/18 02/17/18 # Bowel Movements 1 Narrative: GENERAL: This is a 47-year-old male lying in bed. No distress noted. SKIN: Warm and dry. HEAD: Atraumatic. Normocephalic. EYES: PERRLA ENT: No nasal bleeding or discharge. Mucous membranes pink and moist. NECK: [place] J collar in place. Trachea midline. No JVD. CARDIOVASCULAR: Regular rate and rhythm. RESPIRATORY: No accessory muscle use. Lungs are clear to auscultation. Breath sounds equal bilaterally. No distress or dyspnea. GASTROINTESTINAL: BS + x 4 quads. Abdomen soft, non-tender, nondistended. MUSCULOSKELETAL: Extremities without cyanosis, or edema. + peripheral pulses x 4 extremities. Warm with good capillary refill and sensation. MAEW. NEUROLOGICAL: Awake and alert. Normal speech and pattern. - Urinary Catheter Management Indwelling Urethral Catheter Cath placed during this visit: yes, but has since been removed by the nurse Reason for continuing: Decision to DC catheter Insertion date: 02/05/18 Insertion time: 09:00 Removal date: 02/14/18 Removal time: 10:00 Results - Labs CBC & Chem 7: 02/17/18 04:16 02/17/18 04:16 Microbiology 02/14/18 12:50 Blood - Peripheral Aerobic Blood Culture - Preliminary No growth in 3 days 02/14/18 12:50 Blood - Peripheral Anaerobic Blood Culture - Preliminary No growth in 3 days 02/14/18 12:55 Blood - Peripheral Aerobic Blood Culture - Preliminary No growth in 3 days 02/14/18 12:55 Blood - Peripheral Anaerobic Blood Culture - Preliminary No growth in 3 days 02/15/18 20:35 Sputum - Expectorated Sputum Gram Stain - Final 02/15/18 20:35 Sputum - Expectorated Sputum Sputum Culture - Final Moderate growth normal respiratory erich Assessment and Plan - Assessment (1) Acute traumatic injury of cervical spine Status: Acute (2) Traumatic subluxation of cervical vertebra Code(s): S13.100A - Subluxation of unspecified cervical vertebrae, initial encounter Status: Acute (3) Central spinal cord injury Status: Acute (4) Traumatic dislocation of facet joint between fifth and sixth cervical vertebrae Code(s): S13.161A - Dislocation of C5/C6 cervical vertebrae, initial encounter Status: Acute (5) Head concussion Code(s): S06.0X9A - Concussion with loss of consciousness of unspecified duration, initial encounter Status: Acute - Plan [place]: This is a 47-year-old male who sustained a fall. He fell approximately 20 feet out of a tree stand while hunting. Positive LOC. He reported bilateral hand weakness and left arm numbness. INJURIES: Concussion C5/6 bilateral jumped facet w/ cord contusion Sternum fx Aspiration ? liver laceration PMHx: HTN. Afib. Procedures: 02/05: POSTERIOR cervical C4, C5, C6 and C7 fusion. ORIF of the C5-6 bilateral jumped facet/fracture subluxation; posterior C4-7 lateral mass/facet fixation. 02/05: Returned from OR intubated 02/06: ANTERIOR cervical C4-5, C5-6 and C6-7 fusion; anterior C4-7 cervical plate 02/12: Dobhoff placed by IR 02/12: Bronchoscopy 02/15: Extubated Consults: Neurosurgery. Infectious disease. Neuropsych. Rehab medicine. Case management. Diet: Cardiac diet -mechanical soft with nectar thick liquids.. Tolerating po diet. Encourage good po intake with each meal. Pulmonary: Encourage good pulmonary toileting. IS at bedside and pt encouraged to use. Rationale for use explained to patient, and verbalized understanding. Duo nebs as needed PAIN Management: Oxycodone 5mg q4h PRN. Flexeril 5mg q8h. Fentanyl patch 50mcg. Activity: OOB. PT and OT ordered. GI prophylaxis: Protonix 40 mg IV. Bowel regimen: Aniya-colace. MOM. Lactulose. LBM: 02/17 DVT prophylaxis: Mechanical VTE with SCDs. Chemical management with Lovenox 30 mg BID SQ. DC Planning: Case management consulted for assistance with final discharge disposition. Patient has been accepted to [facility] bed. Patient therefore has been discharged to rehab from a trauma surgery standpoint. Emotional support provided to patient and family at bedside and plan of care discussed. Discussed with RN at bedside. Discussed pt condition and plan of care with collaborating trauma surgeon. Patient is hemodynamically stable and being managed on the med/surg floor. The trauma team will round each day, and evaluate plan of care on a daily basis. Concussion Supportive care Serial neuro checks Prevent secondary head injury Follow-up in concussion clinic C5/6 bilateral jumped facet w/ cord contusion Central cord syndrome Neurosurgery consulted and assisting in management and care 02/05: POSTERIOR cervical C4, C5, C6 and C7 fusion. ORIF of the C5-6 bilateral jumped facet/fracture subluxation; posterior C4-7 lateral mass/facet fixation. 02/06: ANTERIOR cervical C4-5, C5-6 and C6-7 fusion; anterior C4-7 cervical plate Scans 02/07:CT brain - NEG 02/04: Cspine MRI -C5-6 locked facets with displacement of C5 vertebral body. Deviation of cervical cord at C5-6 level -C5 cord contusion. Supportive care Serial neuro checks Pain management Encourage out of bed PT and OT ordered [place] J collar at all times Neuropsych consulted and assisting in management and care Bowel regimen Lovenox for DVT prophylaxis Respiratory failure in trauma Sternum fx Aspiration Pneumonitis ARDS 02/05: Return from the OR intubated Unfortunately patient did not have an OG tube post OR, and aspirated 02/12: Dobbhoff placed by IR 02/12: Bronchoscopy 02/15: Extubated without incident EKG stable O2 nasal cannula as needed Supportive care Aggressive pulmonary toilet No longer requiring diuretics Urine output adequate Duo nebs as needed Chest x-ray as needed Pain management Infectious disease consulted and assisting in management and care IV abx: Vanco. Levaquin. 02/15: Sputum - Normal resp erich 02/14: Blood -negative times 4 days 02/10: Sputum - NEG 02/10: Blood - NEG 02/10: Urine- NEG Encourage out of bed PT and OT ordered Bowel regimen Lovenox for DVT prophylaxis ? liver laceration Supportive care Monitor closely Trend H&H H&H stable -. Transfuse for hemoglobin less than 7.0 Does not meet transfusion triggers at this time No signs and symptoms of bleeding Abdomen benign HTN A. fib Supportive care Vital signs every 4 hours Monitor closely (2) Traumatic subluxation of cervical vertebra Qualifiers: Encounter type: initial encounter Qualified Code(s): S13.100A - Subluxation of unspecified cervical vertebrae, initial encounter (5) Head concussion Qualifiers: Encounter type: initial encounter Loss of consciousness presence/duration: with LOC of unspecified duration Qualified Code(s): S06.0X9A - Concussion with loss of consciousness of unspecified duration, initial encounter
[2018-02-18] MEDS: Vancomycin Inj 1,000 MG in Sodium Chlor 0.9% Inj 250 ML IV.SIG SCH (09:27)
[2018-02-18] MEDS: Enoxaparin Inj 30 MG/0.3 ML Syringe SQ SCH ×2 (09:27→21:30)
[2018-02-18] MEDS: Senna/Docusate Sodium 8.6/50 MG Tablet PO SCH ×2 (09:29→21:31)
[2018-02-18] MEDS: Sodium Chloride 0.9% 2 ML Flush BID IV.FLUSH SCH ×2 (09:29→21:31)
[2018-02-18] MEDS: Pantoprazole Inj 40 MG Vial IV.PUSH SCH (21:30)
--- NOTE | 2018-02-19 08:08 | P.PNNPSY ---
- Behavior Intact: Impulsive/agitated - Cognitive Intact: Cognitive, Attention/concentration, Confused/orientation, Insight/ awareness, Judgment/problem solving, Memory - Psychosocial Intact: Psychosocial, Family/other adjustment, Realistic expectation - Progress Notes/Response to Treatment Contents of Sessions: Adjustment, Level of consciousness Time with Patient: 15 minutes Premorbid Psychological Status: Premorbid Cognitive, Emotional and Behavioral Status: Tenuous. The patient has high school years of education and an unknown work history prior to this injury. The patient has unknown psychiatric difficulties, as described above. Substance abuse history is unknown. Behavioral Reactions of Patient and Family/Support System: Tenuous. The patients family is experiencing ongoing issues of adjustment given the nature of the injury, and this aspect of recovery will require ongoing monitoring. Emotional/Behavioral Status of Patient and Family/Support System: Tenuous. Pertinent issues, if appropriate to this patients clinical care, are described in detail above. Maximizing Acute Care Outcome: It is recommended that the patient be monitored for emergent behavioral impulsivity as the medical condition evolves. This patients neuropathological challenges may limit rehabilitation potential going forward, and these challenges will require specialized therapeutic skills to maximize outcome. At this point in the recovery process, the patient does have cognitive capacity as the patient is able to understand a situation and its likely consequences, and the patient is able to manipulate information rationally. Cognitive capacity will be assessed throughout the recovery process. Anticipated Problems: Ongoing areas of concern will include behavioral impulsivity, lack of insight and judgment, which is expected to improve with time and treatment. Treatment Plan: This clinician will continue to follow with you throughout the course of this patients critical care treatment, and I will be available to meet with the patients family/support system to facilitate their understanding and the ongoing care of their family member. The goals of neuropsychological intervention shall be both educational and supportive to the family/support system as is deemed clinically appropriate. [place] COG Scale: Level VII Disinhibition Score: 14.00 Aggression Score: 14.00 Lability Score: 14.00 Agitated Behavior Total Score: 14 Impression: 47 year old man s/p concussion 2T fall on 02/04/2018. Progress Note Narrative: PTD 15. The patient is stable, awake, alert and conversant. He awaits transfer to [facility] for acute rehab efforts. No issues of agitation/restlessness. ABS = 14 (14,14,14). He is [place] VII. I will follow. - Diagnosis (1) Head concussion Status: Acute (1) Head concussion Qualifiers: Encounter type: initial encounter Loss of consciousness presence/duration: with LOC of unspecified duration Qualified Code(s): S06.0X9A - Concussion with loss of consciousness of unspecified duration, initial encounter
[2018-02-19] MEDS: Vancomycin Inj 1,000 MG in Sodium Chlor 0.9% Inj 250 ML IV.SIG SCH (10:16)
[2018-02-19] MEDS: Enoxaparin Inj 30 MG/0.3 ML Syringe SQ SCH ×2 (10:17→21:55)
[2018-02-19] MEDS: Senna/Docusate Sodium 8.6/50 MG Tablet PO SCH ×2 (10:17→21:57)
--- NOTE | 2018-02-19 10:17 | P.PNNS ---
Subjective Interval history: Pt awake and alert. States strength and paresthesias is improving. He is exercising his extremities and using a ball in his hands to improve strength. Physical Exam Vital signs: Vital Signs 02/18/18 12:00 02/18/18 16:00 02/18/18 20:05 Temperature 99.0 F 98.7 F Pulse Rate 100 H 90 84 Respiratory Rate 20 20 Blood Pressure 113/58 L 107/60 Pulse Oximetry 96 97 02/18/18 20:21 02/18/18 21:53 02/18/18 22:01 Temperature 99.1 F Pulse Rate 86 74 Respiratory Rate 19 12 17 Blood Pressure 119/67 Pulse Oximetry 97 02/19/18 00:00 02/19/18 00:01 02/19/18 03:59 Temperature 99.3 F Pulse Rate 94 H 93 H Respiratory Rate 19 17 Blood Pressure 100/57 L Pulse Oximetry 96 02/19/18 04:00 02/19/18 04:07 02/19/18 08:55 Temperature 99.3 F 98.5 F Pulse Rate 89 98 H 91 H Respiratory Rate 18 16 Blood Pressure 94/54 L 99/61 L Pulse Oximetry 95 95 Intake & Output 02/18/18 02/19/18 02/19/18 18:59 06:59 18:59 Intake Total 1210 / 1210 960 / 960 Balance 1210 / 1210 960 / 960 Intake: IV 250 / 250 Vancomycin Inj 1,000 MG In NS 250 / 250 Inj 250 ML @ 250 mls/hr IV.SIG DAILY [facility] Rx#:[id number] Oral 960 / 960 960 / 960 Other: # Voids 5 2 Date of Last Bowel Movement 02/17/18 - Constitutional no acute distress, average body habitus - Routine HEENT Exam Eye: Present: PERRL. Absent: conjunctival icterus - Routine Neck Exam Comments: Anterior and posterior cervical incisions clean and dry without signs of infection. - Routine Respiratory Exam Present: CTA bilaterally. Absent: respiratory distress, rhonchi, wheezes - Routine Cardiovascular Exam Present: RRR, S1, S2. Absent: murmur - Routine Abdominal Exam Present: soft, normoactive bowel sounds. Absent: distended - Routine Skin Exam Absent: cyanosis, erythema Comments: Anterior and posterior cervical incisions clean and dry without signs of infection. Staple removed today without difficulty. - Routine Neurological Exam Present: alert, sensory deficit (Paresthesias in extremities to light touch.), moving all extremities (Weakness in extremities 4/5, left hand intrinsic 3/5.) - Routine Psychiatric Exam Present: normal affect, cooperative. Absent: anxious, agitated - Urinary Catheter Management Indwelling Urethral Catheter Cath placed during this visit: yes, but has since been removed by the nurse Reason for continuing: Decision to DC catheter Insertion date: 02/05/18 Insertion time: 09:00 Removal date: 02/14/18 Removal time: 10:00 Assessment and Plan - Assessment (1) Acute traumatic injury of cervical spine Status: Acute (2) Traumatic subluxation of cervical vertebra Code(s): S13.100A - Subluxation of unspecified cervical vertebrae, initial encounter Status: Acute Qualifiers: Encounter type: initial encounter Qualified Code(s): S13.100A - Subluxation of unspecified cervical vertebrae, initial encounter (3) Central spinal cord injury Status: Acute (4) Traumatic dislocation of facet joint between fifth and sixth cervical vertebrae Code(s): S13.161A - Dislocation of C5/C6 cervical vertebrae, initial encounter Status: Acute (5) Head concussion Code(s): S06.0X9A - Concussion with loss of consciousness of unspecified duration, initial encounter Status: Acute Qualifiers: Encounter type: initial encounter Loss of consciousness presence/duration: with LOC of unspecified duration Qualified Code(s): S06.0X9A - Concussion with loss of consciousness of unspecified duration, initial encounter - Plan 47 yoM with 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 He has a profound C5-6 subluxation with jumped facets and gross instability. Plan for posterior open cervical jumped facet reduction with stabilization and fusion and will likely require an anterior approach for an anterior/posterior stabilization given the severity and unstable nature of this injury. Discussed with patient and his at bedside at length the risks and benefits involved and they requested we proceed and gave informed consent. They understand that is a possibility that he may not improve from his spinal cord injury despite extensive rehabilitation and there is also possibility of further neurologic and pulmonary decline (chest wall injury and comminuted sternal fracture) with risk of spinal cord shock and hemodynamic instability from the cervical cord edema/contusion progression in the near future. His condition obviously is very critical. Pt s/p Posterior C4, C5, C6, and C7 fusion on 02/05/18. s/p Anterior C4/C5, C5/C6, and C6/C7 cervical fusion on 02/06/18. P: Continue with cervical collar Continue with critical care. Continue with PT/OT Rehab placement. Posterior cervical diana removed by me.
[2018-02-19] MEDS: Sodium Chloride 0.9% 2 ML Flush BID IV.FLUSH SCH ×2 (10:25→21:57)
--- NOTE | 2018-02-19 13:05 | P.PNID ---
Subjective Remarks: Patient is sitting in a bedside chair. No distress. No complaints. Awake and alert. Afebrile. This is a 47-year-old male, who fell from a tree approximately 20 feet high and sustained a cervical spine fracture. The patient is currently intubated and on the ventilator. He underwent surgery consisting of posterior C4, C5, C6, and C7 fusion, and open reduction and internal fixation of C2-C6 and posterior C4-C7 lateral mass/facet segmental fixation. Consult called for elevated temperature. Past Medical History: PAST MEDICAL HISTORY: Sinus disease, history of knee surgery. Allergies/Adverse Reactions: Allergies No Known Allergies Allergy (Verified 02/05/18 16:30) Objective Vital Signs 02/18/18 16:00 02/18/18 20:05 02/18/18 20:21 Temperature 98.7 F 99.1 F Pulse Rate 90 84 86 Respiratory Rate 20 19 Blood Pressure 107/60 119/67 Pulse Oximetry 97 97 02/18/18 21:53 02/18/18 22:01 02/19/18 00:00 Temperature 99.3 F Pulse Rate 74 94 H Respiratory Rate 12 17 19 Blood Pressure 100/57 L Pulse Oximetry 96 02/19/18 00:01 02/19/18 03:59 02/19/18 04:00 Temperature 99.3 F Pulse Rate 93 H 89 Respiratory Rate 17 18 Blood Pressure 94/54 L Pulse Oximetry 95 02/19/18 04:07 02/19/18 08:55 02/19/18 11:40 Temperature 98.5 F 97.4 F L Pulse Rate 98 H 91 H 80 Respiratory Rate 16 16 Blood Pressure 99/61 L 106/59 L Pulse Oximetry 95 96 Intake & Output 02/18/18 02/19/18 02/19/18 18:59 06:59 18:59 Intake Total 1210 / 1210 960 / 960 Balance 1210 / 1210 960 / 960 Intake: IV 250 / 250 Vancomycin Inj 1,000 MG In NS 250 / 250 Inj 250 ML @ 250 mls/hr IV.SIG DAILY [facility] Rx#:[id number] Oral 960 / 960 960 / 960 Other: # Voids 5 2 Date of Last Bowel Movement 02/17/18 02/14/18 12:50 Blood - Peripheral Aerobic Blood Culture - Final No growth in 5 days 02/14/18 12:50 Blood - Peripheral Anaerobic Blood Culture - Final No growth in 5 days 02/14/18 12:55 Blood - Peripheral Aerobic Blood Culture - Final No growth in 5 days 02/14/18 12:55 Blood - Peripheral Anaerobic Blood Culture - Final No growth in 5 days 02/15/18 20:35 Sputum - Expectorated Sputum Gram Stain - Final 02/15/18 20:35 Sputum - Expectorated Sputum Sputum Culture - Final Moderate growth normal respiratory erich Imaging: ITS Impressions Pelvis X-Ray 02/04/18 19:38 CONCLUSION: The bony pelvic ring is grossly intact. Abdomen/Pelvis CT 02/04/18 19:39 CONCLUSION: 1. 3.8 cm low-density lesion in the dome of the liver is nonspecific in appearance. This could represent a parenchymal laceration/hematoma or possibly cavernous hemangioma. No contour abnormality about the liver and no free fluid in the abdomen. Once the patient is stabilized, may consider elective evaluation either with multiphasic MRI or dynamic tagged red blood cell scan. Chest CT 02/04/18 19:39 CONCLUSION: 1. Mildly displaced fractures of the mid and inferior sternum. 2. No evidence of pneumothorax. Cervical Spine CT 02/04/18 19:40 CONCLUSION: 1. Gross distortion of the spinal canal at the C5-6 level due to bilateral locked facets causing anterior dislocation of the C5 vertebral body. No vertebral body fracture seen. Lumbar Spine CT 02/04/18 19:40 CONCLUSION: 1. No evidence of fracture, spondylolisthesis, or significant epidural impression. Thoracic Spine CT 02/04/18 19:40 CONCLUSION: 1. Negative CT of the thoracic spine without evidence of fracture or spondylolisthesis. Cervical Spine MRI 02/04/18 20:01 CONCLUSION: 1. There is minimal T2 prolongation within the substance of the cervical cord at the C5 level, but no evidence of cord transection. No epidural hematoma seen. 2. 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 3. Small central disc protrusion at C4-5 without indentation on the cord or lateral extension. Cervical Spine X-Ray 02/06/18 00:00 CONCLUSION: Status post anterior cervical fusion from C4 through C7 as described. Stable cervical alignment status post fusion. Head CT 02/08/18 00:00 CONCLUSION: No acute intracranial findings. . Abdomen X-Ray 02/10/18 15:25 CONCLUSION: 1. Suction-type orogastric catheter in the stomach. 2. Nonobstructive bowel gas pattern. Venous Doppler Study 02/11/18 00:00 CONCLUSION: 1. No sonographic evidence for lower extremity DVT. Gastrostomy Tube Placement 02/12/18 00:00 CONCLUSION: 1. Uncomplicated Dobbhoff tube placement as above. Chest X-Ray 02/17/18 00:00 CONCLUSION: Stable appearance of the lungs with right upper lobe volume loss and consolidation and patchy areas of consolidation bilaterally. Physical Exam: PHYSICAL EXAMINATION: GENERAL: No acute distress. HEENT: EOMI,PAZ. No icterus. Oropharynx mucosa is moist. NECK: No adenopathy or swelling. LUNGS: Decreased breath sounds. HEART: Regular S1, S2, without murmurs. ABDOMEN: Soft. No tenderness appreciated. EXTREMITIES: No clubbing, cyanosis or edema. SKIN: No rash. NEUROLOGIC: No gross focal finding. PSYCHIATRIC: Calm and cooperative.. Assessment and Plan - Plan IMPRESSION: 1. Fever. Unclear source. ? drug fever vs infection. Temperature has improved. 2. Lung infiltrates suggesting pneumonia. Negative sputum culture. 3. Acute respiratory failure. 4. Status post cervical spine surgery. Post trauma. 5. Leukocytosis. Appears clinically stable. RECOMMENDATIONS: 1. Stop vancomycin. 2. Continue Levaquin. 3. Monitor temperature. Discussed with patient's at bedside.
--- NOTE | 2018-02-19 16:52 | P.PN ---
Subjective Interval history: Trauma PTD: 15 Patient OOB and sitting in a recliner chair. No distress noted. Family at bedside. No acute events overnight. [facility]. Physical Exam Vital signs: Vital Signs 02/18/18 20:05 02/18/18 20:21 02/18/18 21:53 Temperature 99.1 F Pulse Rate 84 86 74 Respiratory Rate 19 12 Blood Pressure 119/67 Pulse Oximetry 97 02/18/18 22:01 02/19/18 00:00 02/19/18 00:01 Temperature 99.3 F Pulse Rate 94 H 93 H Respiratory Rate 17 19 Blood Pressure 100/57 L Pulse Oximetry 96 02/19/18 03:59 02/19/18 04:00 02/19/18 04:07 Temperature 99.3 F Pulse Rate 89 98 H Respiratory Rate 17 18 Blood Pressure 94/54 L Pulse Oximetry 95 02/19/18 08:55 02/19/18 11:40 Temperature 98.5 F 97.4 F L Pulse Rate 91 H 80 Respiratory Rate 16 16 Blood Pressure 99/61 L 106/59 L Pulse Oximetry 95 96 Intake & Output 02/18/18 02/19/18 02/19/18 18:59 06:59 18:59 Intake Total 1210 / 1210 960 / 960 Balance 1210 / 1210 960 / 960 Intake: IV 250 / 250 Vancomycin Inj 1,000 MG In NS 250 / 250 Inj 250 ML @ 250 mls/hr IV.SIG DAILY ANTOINETTE Rx#:[id number] Oral 960 / 960 960 / 960 Other: # Voids 5 2 Date of Last Bowel Movement 02/17/18 02/14/18 Narrative: GENERAL: This is a 47-year-old male OOB and sitting in a recliner chair. No distress noted. SKIN: Warm and dry. HEAD: Atraumatic. Normocephalic. EYES: PERRLA ENT: No nasal bleeding or discharge. Mucous membranes pink and moist. NECK: [place] J collar in place. Trachea midline. No JVD. CARDIOVASCULAR: Regular rate and rhythm. RESPIRATORY: No accessory muscle use. Lungs are clear to auscultation. Breath sounds equal bilaterally. No distress or dyspnea. GASTROINTESTINAL: BS + x 4 quads. Abdomen soft, non-tender, nondistended. MUSCULOSKELETAL: Extremities without cyanosis, or edema. + peripheral pulses x 4 extremities. Warm with good capillary refill and sensation. MAEW. NEUROLOGICAL: Awake and alert. Normal speech and pattern. - Urinary Catheter Management Indwelling Urethral Catheter Cath placed during this visit: yes, but has since been removed by the nurse Reason for continuing: Decision to DC catheter Insertion date: 02/05/18 Insertion time: 09:00 Removal date: 02/14/18 Removal time: 10:00 Results - Labs CBC & Chem 7: 02/17/18 04:16 02/17/18 04:16 Microbiology 02/14/18 12:50 Blood - Peripheral Aerobic Blood Culture - Final No growth in 5 days 02/14/18 12:50 Blood - Peripheral Anaerobic Blood Culture - Final No growth in 5 days 02/14/18 12:55 Blood - Peripheral Aerobic Blood Culture - Final No growth in 5 days 02/14/18 12:55 Blood - Peripheral Anaerobic Blood Culture - Final No growth in 5 days Assessment and Plan - Assessment (1) Acute traumatic injury of cervical spine Status: Acute (2) Traumatic subluxation of cervical vertebra Code(s): S13.100A - Subluxation of unspecified cervical vertebrae, initial encounter Status: Acute (3) Central spinal cord injury Status: Acute (4) Traumatic dislocation of facet joint between fifth and sixth cervical vertebrae Code(s): S13.161A - Dislocation of C5/C6 cervical vertebrae, initial encounter Status: Acute (5) Head concussion Code(s): S06.0X9A - Concussion with loss of consciousness of unspecified duration, initial encounter Status: Acute - Plan [place]: This is a 47-year-old male who sustained a fall. He fell approximately 20 feet out of a tree stand while hunting. Positive LOC. He reported bilateral hand weakness and left arm numbness. INJURIES: Concussion C5/6 bilateral jumped facet w/ cord contusion Sternum fx Aspiration ? liver laceration PMHx: HTN. Afib. Procedures: 02/05: POSTERIOR cervical C4, C5, C6 and C7 fusion. ORIF of the C5-6 bilateral jumped facet/fracture subluxation; posterior C4-7 lateral mass/facet fixation. 02/05: Returned from OR intubated 02/06: ANTERIOR cervical C4-5, C5-6 and C6-7 fusion; anterior C4-7 cervical plate 02/12: Dobhoff placed by IR 02/12: Bronchoscopy 02/15: Extubated Consults: Neurosurgery. Infectious disease. Neuropsych. Rehab medicine. Case management. Diet: Cardiac diet -mechanical soft with nectar thick liquids.. Tolerating po diet. Encourage good po intake with each meal. Pulmonary: Encourage good pulmonary toileting. IS at bedside and pt encouraged to use. Rationale for use explained to patient, and verbalized understanding. Duo nebs as needed PAIN Management: Oxycodone 5mg q4h PRN. Flexeril 5mg q8h. Fentanyl patch 50mcg. Activity: OOB. PT and OT ordered. GI prophylaxis: Protonix 40 mg IV. Bowel regimen: Aniya-colace. MOM. Lactulose. LBM: 02/17 DVT prophylaxis: Mechanical VTE with SCDs. Chemical management with Lovenox 30 mg BID SQ. DC Planning: Case management consulted for assistance with final discharge disposition. Patient has been accepted to [facility] with a [facility] bed. [facility] staff require a team meeting before he may be officially accepted -this is to take place today. Patient is clear from a trauma surgery standpoint to be discharged to [facility] rehab. Emotional support provided to patient and family at bedside and plan of care discussed. Discussed with RN at bedside. Discussed pt condition and plan of care with collaborating trauma surgeon. Patient is hemodynamically stable and being managed on the med/surg floor. The trauma team will round each day, and evaluate plan of care on a daily basis. Concussion Supportive care Serial neuro checks Prevent secondary head injury Follow-up in concussion clinic C5/6 bilateral jumped facet w/ cord contusion Central cord syndrome Neurosurgery consulted and assisting in management and care 02/05: POSTERIOR cervical C4, C5, C6 and C7 fusion. ORIF of the C5-6 bilateral jumped facet/fracture subluxation; posterior C4-7 lateral mass/facet fixation. 02/06: ANTERIOR cervical C4-5, C5-6 and C6-7 fusion; anterior C4-7 cervical plate Scans 02/07:CT brain - NEG 02/04: Cspine MRI -C5-6 locked facets with displacement of C5 vertebral body. Deviation of cervical cord at C5-6 level -C5 cord contusion. Supportive care Serial neuro checks Pain management Encourage out of bed PT and OT ordered [place] J collar at all times Neuropsych consulted and assisting in management and care Bowel regimen Lovenox for DVT prophylaxis Respiratory failure in trauma Sternum fx Aspiration Pneumonitis ARDS 02/05: Return from the OR intubated Unfortunately patient did not have an OG tube post OR, and aspirated 02/12: Dobbhoff placed by IR 02/12: Bronchoscopy 02/15: Extubated without incident EKG stable O2 nasal cannula as needed Supportive care Aggressive pulmonary toilet No longer requiring diuretics Urine output adequate Duo nebs as needed Chest x-ray as needed Pain management Infectious disease consulted and assisting in management and care IV abx: Levaquin. 02/15: Sputum - Normal resp erich 02/14: Blood -negative times 4 days 02/10: Sputum - NEG 02/10: Blood - NEG 02/10: Urine- NEG Encourage out of bed PT and OT ordered Bowel regimen Lovenox for DVT prophylaxis ? liver laceration Supportive care Monitor closely Trend H&H H&H stable -. Transfuse for hemoglobin less than 7.0 Does not meet transfusion triggers at this time No signs and symptoms of bleeding Abdomen benign HTN A. fib Supportive care Vital signs every 4 hours Monitor closely - Attending Attestation Is stable from trauma standpoint will be discharged to rehab (2) Traumatic subluxation of cervical vertebra Qualifiers: Qualified Code(s): S13.100A - Subluxation of unspecified cervical vertebrae, initial encounter (5) Head concussion Qualifiers: Qualified Code(s): S06.0X9A - Concussion with loss of consciousness of unspecified duration, initial encounter
[2018-02-19] MEDS: Pantoprazole Inj 40 MG Vial IV.PUSH SCH (21:55)
[2018-02-20] MEDS: Enoxaparin Inj 30 MG/0.3 ML Syringe SQ SCH (08:21)
[2018-02-20] MEDS: Senna/Docusate Sodium 8.6/50 MG Tablet PO SCH (08:22)
[2018-02-20] MEDS: Sodium Chloride 0.9% 2 ML Flush BID IV.FLUSH SCH (08:22)
--- NOTE | 2018-02-20 12:38 | P.DS ---
<Bernadine Crook F - Last Filed: 02/20/18 12:35> Date of admission: 02/04/18 20:09 Primary care physician: UNKNOWN Attending physician on discharge: Teresita Hansen Anticipated date of discharge: 02/20/18 Brief History from admission: Fall. DS: Diagnosis - Discharge Diagnosis (1) Acute traumatic injury of cervical spine Status: Acute (2) Traumatic subluxation of cervical vertebra Status: Acute (3) Central spinal cord injury Status: Acute (4) Traumatic dislocation of facet joint between fifth and sixth cervical vertebrae Status: Acute (5) Head concussion Status: Acute DS: Medications - Discharge Medications Prescriptions: famotidine [Pepcid] 20 mg PO BID 7 Days #14 tab DS: Summary Hospital Course: [place]: This is a 47-year-old male who sustained a fall. He fell approximately 20 feet out of a tree stand while hunting. Positive LOC. He reported bilateral hand weakness and left arm numbness. INJURIES: Concussion C5/6 bilateral jumped facet w/ cord contusion Sternum fx Aspiration ? liver laceration PMHx: HTN. Afib. Procedures: 02/05: POSTERIOR cervical C4, C5, C6 and C7 fusion. ORIF of the C5-6 bilateral jumped facet/fracture subluxation; posterior C4-7 lateral mass/facet fixation. 02/05: Returned from OR intubated 02/06: ANTERIOR cervical C4-5, C5-6 and C6-7 fusion; anterior C4-7 cervical plate 02/12: Dobhoff placed by IR 02/12: Bronchoscopy 02/15: Extubated Consults: Neurosurgery. Infectious disease. Neuropsych. Rehab medicine. Case management. The patient is now tolerating a po diet. Eating and drinking well. Pain is being managed well with PO pain medications, all hospital medications will continue at [facility] Pt is having regular bowel movements, and have recommended to patient to continue with stool softeners while taking narcotic pain medications to prevent constipation. Pt has been participating in PT and OT while admitted at [place] and has been ambulating with their assistance and independently. PT and OT will continue at [facility] All follow up appointments have been provided and discussed with the patient. It is recommended that the patient keeps all his follow up appointments for continued recovery. Patient's condition and plan of care discussed with collaborating trauma surgeon. He is agreeable to plan for discharge today. Therefore, the patient is stable to be safely discharged to [facility] from a trauma surgery standpoint. Thank you for allowing us to participate in his care. We wish Justice the best in his recovery. Concussion Supportive care Serial neuro checks Prevent secondary head injury Follow-up in concussion clinic C5/6 bilateral jumped facet w/ cord contusion Central cord syndrome Neurosurgery consulted and assisting in management and care 02/05: POSTERIOR cervical C4, C5, C6 and C7 fusion. ORIF of the C5-6 bilateral jumped facet/fracture subluxation; posterior C4-7 lateral mass/facet fixation. 02/06: ANTERIOR cervical C4-5, C5-6 and C6-7 fusion; anterior C4-7 cervical plate Scans 02/07:CT brain - NEG 02/04: Cspine MRI -C5-6 locked facets with displacement of C5 vertebral body. Deviation of cervical cord at C5-6 level -C5 cord contusion. Supportive care Serial neuro checks Pain management Encourage out of bed PT and OT ordered [place] J collar at all times Neuropsych consulted and assisting in management and care Bowel regimen Lovenox for DVT prophylaxis Follow-up with neurosurgery outpatient Respiratory failure in trauma Sternum fx Aspiration Pneumonitis ARDS 02/05: Return from the OR intubated Unfortunately patient did not have an OG tube post OR, and aspirated 02/12: Dobbhoff placed by IR 02/12: Bronchoscopy 02/15: Extubated without incident EKG stable O2 nasal cannula as needed Supportive care Aggressive pulmonary toilet No longer requiring diuretics Urine output adequate Duo nebs as needed Chest x-ray as needed Pain management Infectious disease consulted and assisting in management and care IV abx: Levaquin. 02/15: Sputum - Normal resp erich 02/14: Blood -negative times 4 days 02/10: Sputum - NEG 02/10: Blood - NEG 02/10: Urine- NEG Encourage out of bed PT and OT ordered Bowel regimen Lovenox for DVT prophylaxis Follow-up in trauma clinic outpatient ? liver laceration Supportive care Monitor closely Trend H&H H&H stable -9. Transfuse for hemoglobin less than 7.0 Does not meet transfusion triggers at this time No signs and symptoms of bleeding Abdomen benign Follow-up in trauma clinic outpatient HTN A. fib Supportive care Vital signs every 4 hours Monitor closely Follow-up with PCP - Time Spent with Patient Total time spent providing and/or coordinating discharge services: Greater than 30 minutes - Quality: VTE Deep Vein Thrombosis/Pulmonary Embolism Present on Admission: No Exam Vital signs: Vital Signs 02/19/18 16:00 02/19/18 19:00 02/19/18 19:45 Temperature 97.8 F 98.4 F Pulse Rate 78 81 Respiratory Rate 17 20 18 Blood Pressure 95/56 L 104/61 Pulse Oximetry 98 98 02/19/18 23:40 02/20/18 04:10 02/20/18 07:35 Temperature 98.5 F 97.9 F 98.1 F Pulse Rate 84 82 79 Respiratory Rate 18 18 17 Blood Pressure 98/56 L 93/53 L 102/62 Pulse Oximetry 100 96 96 02/20/18 09:04 Temperature Pulse Rate Respiratory Rate 18 Blood Pressure Pulse Oximetry Intake & Output 02/19/18 02/20/18 02/20/18 18:59 06:59 18:59 Intake Total 150 / 150 520 / 520 Balance 150 / 150 520 / 520 Weight 72 kg Intake: IV 150 / 150 400 / 400 Levaquin 750 mg Premix Inj 150 150 / 150 150 / 150 ML @ 100 mls/hr IV.SIG Q24H ANTOINETTE Rx#:[id number] Vancomycin Inj 1,000 MG In NS 250 / 250 Inj 250 ML @ 250 mls/hr IV.SIG DAILY ANTOINETTE Rx#:[id number] Oral 120 / 120 Other: # Voids 3 Date of Last Bowel Movement 02/14/18 02/18/18 # Bowel Movements 0 Results Procedures completed during hospitalization: . - Impressions ITS Impressions Pelvis X-Ray 02/04/18 19:38 CONCLUSION: The bony pelvic ring is grossly intact. Abdomen/Pelvis CT 02/04/18 19:39 CONCLUSION: 1. 3.8 cm low-density lesion in the dome of the liver is nonspecific in appearance. This could represent a parenchymal laceration/hematoma or possibly cavernous hemangioma. No contour abnormality about the liver and no free fluid in the abdomen. Once the patient is stabilized, may consider elective evaluation either with multiphasic MRI or dynamic tagged red blood cell scan. Chest CT 02/04/18 19:39 CONCLUSION: 1. Mildly displaced fractures of the mid and inferior sternum. 2. No evidence of pneumothorax. Cervical Spine CT 02/04/18 19:40 CONCLUSION: 1. Gross distortion of the spinal canal at the C5-6 level due to bilateral locked facets causing anterior dislocation of the C5 vertebral body. No vertebral body fracture seen. Lumbar Spine CT 02/04/18 19:40 CONCLUSION: 1. No evidence of fracture, spondylolisthesis, or significant epidural impression. Thoracic Spine CT 02/04/18 19:40 CONCLUSION: 1. Negative CT of the thoracic spine without evidence of fracture or spondylolisthesis. Cervical Spine MRI 02/04/18 20:01 CONCLUSION: 1. There is minimal T2 prolongation within the substance of the cervical cord at the C5 level, but no evidence of cord transection. No epidural hematoma seen. 2. 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 3. Small central disc protrusion at C4-5 without indentation on the cord or lateral extension. Cervical Spine X-Ray 02/06/18 00:00 CONCLUSION: Status post anterior cervical fusion from C4 through C7 as described. Stable cervical alignment status post fusion. Head CT 02/08/18 00:00 CONCLUSION: No acute intracranial findings. . Abdomen X-Ray 02/10/18 15:25 CONCLUSION: 1. Suction-type orogastric catheter in the stomach. 2. Nonobstructive bowel gas pattern. Venous Doppler Study 02/11/18 00:00 CONCLUSION: 1. No sonographic evidence for lower extremity DVT. Gastrostomy Tube Placement 02/12/18 00:00 CONCLUSION: 1. Uncomplicated Dobbhoff tube placement as above. Chest X-Ray 02/17/18 00:00 CONCLUSION: Stable appearance of the lungs with right upper lobe volume loss and consolidation and patchy areas of consolidation bilaterally. <Teresita Hansen E - Last Filed: 02/20/18 14:16> Date of admission: 02/04/18 20:09 Primary care physician: UNKNOWN DS: Diagnosis - Discharge Diagnosis (1) Acute traumatic injury of cervical spine Status: Acute (2) Traumatic subluxation of cervical vertebra Status: Acute (3) Central spinal cord injury Status: Acute (4) Traumatic dislocation of facet joint between fifth and sixth cervical vertebrae Status: Acute (5) Head concussion Status: Acute DS: Summary - Time Spent with Patient Total time spent providing and/or coordinating discharge services: Exam Vital signs: Vital Signs 02/19/18 16:00 02/19/18 19:00 02/19/18 19:45 Temperature 97.8 F 98.4 F Pulse Rate 78 81 Respiratory Rate 17 20 18 Blood Pressure 95/56 L 104/61 Pulse Oximetry 98 98 02/19/18 23:40 02/20/18 04:10 02/20/18 07:35 Temperature 98.5 F 97.9 F 98.1 F Pulse Rate 84 82 79 Respiratory Rate 18 18 17 Blood Pressure 98/56 L 93/53 L 102/62 Pulse Oximetry 100 96 96 02/20/18 09:04 Temperature Pulse Rate Respiratory Rate 18 Blood Pressure Pulse Oximetry Intake & Output 02/19/18 02/20/18 02/20/18 18:59 06:59 18:59 Intake Total 150 / 150 520 / 520 Balance 150 / 150 520 / 520 Weight 72 kg Intake: IV 150 / 150 400 / 400 Levaquin 750 mg Premix Inj 150 150 / 150 150 / 150 ML @ 100 mls/hr IV.SIG Q24H ANTOINETTE Rx#:[id number] Vancomycin Inj 1,000 MG In NS 250 / 250 Inj 250 ML @ 250 mls/hr IV.SIG DAILY ANTOINETTE Rx#:[id number] Oral 120 / 120 Other: # Voids 3 Date of Last Bowel Movement 02/14/18 02/18/18 # Bowel Movements 0 Results - Impressions ITS Impressions Pelvis X-Ray 02/04/18 19:38 CONCLUSION: The bony pelvic ring is grossly intact. Abdomen/Pelvis CT 02/04/18 19:39 CONCLUSION: 1. 3.8 cm low-density lesion in the dome of the liver is nonspecific in appearance. This could represent a parenchymal laceration/hematoma or possibly cavernous hemangioma. No contour abnormality about the liver and no free fluid in the abdomen. Once the patient is stabilized, may consider elective evaluation either with multiphasic MRI or dynamic tagged red blood cell scan. Chest CT 02/04/18 19:39 CONCLUSION: 1. Mildly displaced fractures of the mid and inferior sternum. 2. No evidence of pneumothorax. Cervical Spine CT 02/04/18 19:40 CONCLUSION: 1. Gross distortion of the spinal canal at the C5-6 level due to bilateral locked facets causing anterior dislocation of the C5 vertebral body. No vertebral body fracture seen. Lumbar Spine CT 02/04/18 19:40 CONCLUSION: 1. No evidence of fracture, spondylolisthesis, or significant epidural impression. Thoracic Spine CT 02/04/18 19:40 CONCLUSION: 1. Negative CT of the thoracic spine without evidence of fracture or spondylolisthesis. Cervical Spine MRI 02/04/18 20:01 CONCLUSION: 1. There is minimal T2 prolongation within the substance of the cervical cord at the C5 level, but no evidence of cord transection. No epidural hematoma seen. 2. 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 3. Small central disc protrusion at C4-5 without indentation on the cord or lateral extension. Cervical Spine X-Ray 02/06/18 00:00 CONCLUSION: Status post anterior cervical fusion from C4 through C7 as described. Stable cervical alignment status post fusion. Head CT 02/08/18 00:00 CONCLUSION: No acute intracranial findings. . Abdomen X-Ray 02/10/18 15:25 CONCLUSION: 1. Suction-type orogastric catheter in the stomach. 2. Nonobstructive bowel gas pattern. Venous Doppler Study 02/11/18 00:00 CONCLUSION: 1. No sonographic evidence for lower extremity DVT. Gastrostomy Tube Placement 02/12/18 00:00 CONCLUSION: 1. Uncomplicated Dobbhoff tube placement as above. Chest X-Ray 02/17/18 00:00 CONCLUSION: Stable appearance of the lungs with right upper lobe volume loss and consolidation and patchy areas of consolidation bilaterally. Addendum Is overall stable from trauma standpoint he will be discharged to rehab Discharge Plan - Discharge Order Discharge Orders: Discharge Order (Routine); Ordered 02/17/18 Ordered By: Bernadine Crook - Discharge Details Anticipated Discharge Date: 02/17/18 Discharge Comment: DC to chairity bed at [place] when bed available - Physicians Team Primary Care Provider: UNKNOWN, Attending Provider: Jorge Jones Other Providers: Wyatt Andrews MD ; Rolf Carmen MD ; Bennie Valdez MD ; [employer] ; Pérez Méndez MD ; Bernadine Crook NEGRO ; Jorge Jones MD ; Teresita Hansen MD ; Radu Beaulieu ARNP ; Elisa Burnham MD ; Sanchez Paiz, PhD ; Radha Yung MD ; Wil Dong MD
== END 2018-02-20 11:34 ==
LOC: NEPI 19:34 → EDBD 20:09 → NEDA 20:09 → N03 20:39 → N06 02-16 17:03
PROVIDERS: ADMIT Surgery; ATTEND Surgery